=== PATIENT | male | born 1965 | race Caucasian/White ===

== ENCOUNTER 2020-06-02 08:46 | Outpatient (REF) | payer OTHER, SELFPAY ==
--- NOTE | ~2020-06-02 | US_ITS ---
EXAMINATION: US RETROPERITONEAL LIMITED (RENAL ONLY) CLINICAL INFORMATION: Calculus of kidney. COMPARISON: CT abdomen pelvis 11/11/2017. TECHNIQUE: Real-time imaging of the kidneys. FINDINGS: RIGHT KIDNEY: 10.4 x 4.69 x 5.97 cm (SAG x AP x TRV). The kidney is normal in size, contour, and echogenicity. Renal cortical thickness is normal. No focal parenchymal lesions or hydronephrosis. Right midpole renal stone measuring 0.3 cm. LEFT KIDNEY: 12.2 x 4.62 x 6.01 cm (SAG x AP x TRV). The kidney is normal in size, contour, and echogenicity. Renal cortical thickness is normal. No focal parenchymal lesions or hydronephrosis. Left midpole renal stone measuring 0.3 cm. US/US renal BI IMPRESSION: Bilateral nonobstructing 0.3 cm renal stones. No hydronephrosis.
== END 2020-06-02 08:47 | disposition home or self-care (01) ==
LOC: HO.HMGCX 08:46
PROVIDERS: PCP Internal Medicine; Visit Provider Internal Medicine
DX: R10.9 Unspecified abdominal pain (principal); N20.0 Calculus of kidney
CPT/HCPCS: 76775

== ENCOUNTER 2020-06-09 09:08 | Outpatient (REF) | payer OTHER, SELFPAY ==
[2020-06-09 09:51] LABS: MANUAL DIFF FLAG NO
[2020-06-09 09:54] LABS: Basophils Absolute Auto 0.1 X10*3/uL (0.0-0.2); Basophils Percent Auto 1.3 % (0-2); Eosinophils Absolute Auto 0.2 X10*3/uL (0.0-0.4); Eosinophils Percent Auto 4.6 % (0-4); Hemoglobin 15.5 g/dl (14.0-18.0); Imm Gran Abs Auto 0.01 X10*3/uL (0.00-0.03); Imm Gran Pct Auto 0.3 % (0.0-0.4); Lymphocytes Absolute Auto 1.1 X10*3/uL (1.2-4.9); Lymphocytes Percent Auto 28.3 % (20-40); Mean Corpuscular HGB Conc 33.7 g/dl (31.0-36.0); Mean Corpuscular Hemoglobin 30.9 pg (27.0-33.0); Mean Corpuscular Volume 91.6 fL (80-98); Mean Platelet Volume 9.5 fL (9.4-12.4); Monocytes Absolute Auto 0.4 X10*3/uL (0.1-1.2); Monocytes Percent Auto 9.4 % (2-11); Neutrophils Absolute Auto 2.2 X10*3/uL (2.0-8.3); Neutrophils Percent Auto 56.1 % (45-73); Platelet Count 271 X10*3/uL (160-400); Red Blood Count 5.02 X10*6/uL (4.60-5.80); Red Cell Distribution Width 11.9 % (11.0-16.0); White Blood Count 3.9 X10*3/uL (4.8-10.8)
[2020-06-09 10:11] LABS: Alanine Aminotransferase 15 U/L (0-40); Albumin Level 4.4 g/dL (3.5-5.0); Alkaline Phosphatase 45 U/L (39-117); Anion Gap 11 (12-20); Aspartate Amino Transferase 16 U/L (5-37); Bilirubin Total 0.7 mg/dL (0.0-1.0); Blood Urea Nitrogen 15 mg/dL (9-16); Calcium 9.2 mg/dL (8.4-10.2); Carbon Dioxide 29 mmol/L (22-29); Chloride 106 mmol/L (96-108); Cholesterol 169 mg/dL; Estimated Glomerular Filt Rate > 60; Glucose Random 107 mg/dL (60-115); HDL Cholesterol 45 mg/dL; LDL Cholesterol Calculated 110 mg/dl; Potassium 4.3 mmol/L (3.3-5.1); Sodium 142 mmol/L (135-145); Total Protein 6.6 g/dL (6.5-8.0); Triglycerides 74 mg/dL
[2020-06-09 10:34] LABS: Free T4 (Free Thyroxine) 0.93 ng/dL (0.71-1.85)
[2020-06-09 10:55] LABS: Folate 13.9 ng/mL (> or = 4.0); Vitamin B12 161 pg/mL (200-900)
== END 2020-06-09 09:09 | disposition home or self-care (01) ==
LOC: HO.LAB 09:08
PROVIDERS: PCP Internal Medicine; Visit Provider Internal Medicine
DX: E78.00 Pure hypercholesterolemia, unspecified (principal)
CPT/HCPCS: 36415; 80053; 80061; 82607; 82746; 84439; 84443; 85025

== ENCOUNTER 2021-08-07 07:06 | Outpatient (REF) | payer OTHER, SELFPAY | END 2021-08-07 07:07 | disposition home or self-care (01) | LOC: HO.HOSX 07:06 | PROVIDERS: Visit Provider Physician Assistant | DX: Z13.89 Encounter for screening for other disorder (principal) ==

== ENCOUNTER 2021-08-07 08:53 | Outpatient (REF) | payer OTHER, SELFPAY ==
--- NOTE | ~2021-08-07 | XR_ITS ---
EXAMINATION: XR BILATERAL HIPS WITH AP PELVIS CLINICAL INFORMATION: Pain COMPARISON: None TECHNIQUE: AP view of the pelvis and 2 views of each hip were obtained. FINDINGS: Bone alignment is normal. No fracture or dislocation is seen. There are small osteophytes along the superior lateral acetabuli bilaterally and adjacent soft tissue calcifications. The hip joint spaces are otherwise normal. Bones of the pelvis are normal. Soft tissues are otherwise normal. XR/XR hip BI w PEL1V IMPRESSION: Mild degenerative changes.
--- NOTE | ~2021-08-07 | US_ITS ---
EXAMINATION: US RETROPERITONEAL LIMITED (RENAL ONLY) CLINICAL INFORMATION: Calculus of kidney. COMPARISON: Renal ultrasound 06/02/2020. CT abdomen and pelvis 11/11/2017. TECHNIQUE: Real-time imaging of the kidneys. FINDINGS: RIGHT KIDNEY: 11.1 x 5.0 x 5.5 cm (SAG x AP x TRV). The kidney is normal in size, contour, and echogenicity. Renal cortical thickness is normal. There is a 2 mm stone in the midpole. No focal parenchymal lesions or hydronephrosis. LEFT KIDNEY: 11.1 x 4.8 x 5.3 cm (SAG x AP x TRV). The kidney is normal in size, contour, and echogenicity. Renal cortical thickness is normal. There are 2 stones measuring 2 mm in the mid and lower pole. No focal parenchymal lesions or hydronephrosis. US/US renal BI IMPRESSION: Small bilateral renal stones.
== END 2021-08-07 08:54 | disposition home or self-care (01) ==
LOC: HO.US 08:53
PROVIDERS: PCP Internal Medicine; Visit Provider Internal Medicine
DX: N20.0 Calculus of kidney (principal); M54.16 Radiculopathy, lumbar region
CPT/HCPCS: 73521; 76775; 99202

== ENCOUNTER → 2021-09-04 14:42 | Outpatient (BNVA) | payer OTHER, SELFPAY | PROVIDERS: PCP Internal Medicine; Visit Provider Nurse Practitioner Family | DX: M53.3 Sacrococcygeal disorders, not elsewhere classified (principal); M62.838 Other muscle spasm | CPT/HCPCS: 99202 ==

== ENCOUNTER → 2021-09-18 09:49 | Outpatient (BNVA) | payer OTHER, SELFPAY | PROVIDERS: PCP Internal Medicine; Visit Provider Nurse Practitioner | DX: K21.9 Gastro-esophageal reflux disease without esophagitis (principal); R13.19 Other dysphagia; K27.9 Peptic ulcer, site unspecified, unspecified as acute or chronic, without hemorrhage or perforation; D35.00 Benign neoplasm of unspecified adrenal gland; Z80.0 Family history of malignant neoplasm of digestive organs | CPT/HCPCS: 99202 ==

== ENCOUNTER 2021-10-09 06:49 | Outpatient (REF) | payer OTHER, SELFPAY ==
--- NOTE | ~2021-10-09 | CT_ITS ---
EXAMINATION: CT ABDOMEN WITHOUT AND WITH CONTRAST CLINICAL INFORMATION: Benign neoplasm of adrenal gland COMPARISON: Previous CT scans of the abdomen and pelvis April 2010 and October 2017 TECHNIQUE: Contiguous axial thin section helical images of the abdomen were performed before and after the administration of oral contrast and 85 mL of Omnipaque 350 intravenous contrast. The data set was reformatted in the coronal and sagittal planes and reviewed on an independent workstation. This CT examination was performed using dose optimization techniques as appropriate, variously including the following: *Automated exposure control *Adjustment of mA and/or kV according to patient size (this includes techniques or standardized protocols for targeted exams where dose is matched to indication/reason for exam; i.e. extremities or head) *Use of iterative reconstruction technique DLP: 5-6 mGy-cm FINDINGS: LUNG BASES: The lung bases are clear. LIVER, GALLBLADDER, AND BILIARY TREE: There are several small low-attenuation liver lesions. Largest lesion measures 7 mm in the medial segment of the left lobe of the liver and is suggestive of a simple cyst. Smaller lesions are difficult to accurately characterize. The gallbladder is normal. There is no intra or extrahepatic biliary duct dilatation. PANCREAS: Normal SPLEEN: Normal ADRENAL GLANDS AND KIDNEYS: There is a heterogeneous left adrenal lesion. This measures 2.8 x 3.3 cm and is slightly increased in size from previous exam from 2017 when this measured 2.5 cm and 2010 this measured 1.3 x 1.5 cm. Superiorly this has a approximately 1.5 x 2.5 cm component not compatible with a benign lipid rich adenoma. Hounsfield units precontrast measure 32. Immediate Hounsfield units postcontrast measure 37. Delayed Hounsfield units 15 minutes following IV contrast measure 54. Percentage relative washout and percentage enhancement washout is - negative 46% %. Inferiorly this has a larger component suggestive of a benign lipid rich adenoma. Hounsfield units precontrast measure -9. Immediate Hounsfield units postcontrast measure 52. Delayed Hounsfield units 15 minutes postcontrast measure 19. Percentage relative washout is 63%. Percentage enhancement washout is 54%. The right adrenal gland is normal. There are small bilateral renal stones. No hydronephrosis. BOWEL LOOPS: Visualized small and large bowel and the appendix are normal. LYMPH NODES: Normal. VASCULAR: There is evidence of atherosclerotic disease. No aneurysm. There is an umbilical hernia containing fat. BONES: There are mild degenerative changes of the spine. CT/CT abdomen wo/w con IMPRESSION: There is gradual interval increase in the left adrenal lesion now measuring 2.8 x 3.3 cm. This is heterogeneous in attenuation and enhancement. This has a superior component measuring 1.5 x 2.5 cm not compatible with a benign lipid rich adenoma and an inferior component that is compatible with a benign lipid rich adenoma. Continued imaging follow-up or biopsy of the superior component should be considered. Small bilateral renal stones. Small probable liver cysts. Fleischner guidelines were followed.
[2021-10-09 07:25] LABS: Blood Urea Nitrogen 16 mg/dL (9-16); Estimated Glomerular Filt Rate > 60
[2021-10-09 08:33] LABS: Cortisol Random 12.7 ug/dL
[2021-10-11 14:16] LABS: DHEA Sulfate 66 mcg/dL (32-279)
[2021-10-14 10:57] LABS: Metanephrine, Free 33 pg/mL (<=57); Normetanephrines, Free 90 pg/mL (<=148); Total Metanephrine, Free 123 pg/mL (<=205)
[2021-10-16 11:17] LABS: Renin 0.59 ng/mL/h (0.25-5.82)
== END 2021-10-09 06:50 | disposition home or self-care (01) ==
LOC: HO.CT 06:49
PROVIDERS: PCP Internal Medicine; Visit Provider Internal Medicine Endocrinology, Diabetes & Metabolism
DX: D35.00 Benign neoplasm of unspecified adrenal gland (principal)
CPT/HCPCS: 36415; 74170; 82088; 82533; 82565; 82627; 83835; 84244; 84520

== ENCOUNTER 2021-10-13 06:14 | Outpatient (REF) | payer OTHER, SELFPAY ==
--- NOTE | ~2021-10-13 | FL_ITS ---
EXAMINATION: XR FLUOROSCOPY WITH IMAGES CLINICAL INFORMATION: M53.3 - Sacrococcygeal disorders, not elsewhere classified COMPARISON: Radiographs pelvis and hips 08/07/2021 TECHNIQUE: Fluoroscopy performed by Dr. Kody Baugh. Fluoroscopy time: 0.5 minutes. Cumulative Dose: 5.18 mGy. DAP: 1.41 Gy-cm2. Images: 5. FINDINGS: Spinal needle overlies bilateral mid to lower SI joints. There is contrast in the periarticular soft tissues with probable early intra-articular contrast. No joint narrowing or erosive change. FL/FL guidance in treatment room IMPRESSION: Fluoroscopy for pain management procedure.
== END 2021-10-13 06:15 | disposition home or self-care (01) ==
LOC: HO.RADIR 06:14
PROVIDERS: Visit Provider Anesthesiology
DX: M53.3 Sacrococcygeal disorders, not elsewhere classified (principal); M62.838 Other muscle spasm
CPT/HCPCS: 27096; J3300

== ENCOUNTER 2021-10-16 11:37 | Outpatient (REF) | payer OTHER, SELFPAY ==
[2021-10-29 13:26] LABS: Saliva Cortisol <0.03 mcg/dL
== END 2021-10-16 11:38 | disposition home or self-care (01) ==
LOC: HO.LNP 11:37
PROVIDERS: Visit Provider Internal Medicine Endocrinology, Diabetes & Metabolism
DX: D35.00 Benign neoplasm of unspecified adrenal gland (principal)
CPT/HCPCS: 82530

== ENCOUNTER 2021-10-23 12:09 | Outpatient (REF) | payer OTHER, SELFPAY ==
[2021-11-01 18:51] LABS: Saliva Cortisol <0.03 mcg/dL
== END 2021-10-23 12:10 | disposition home or self-care (01) ==
LOC: HO.LNP 12:09
PROVIDERS: Visit Provider Internal Medicine Endocrinology, Diabetes & Metabolism
DX: D35.00 Benign neoplasm of unspecified adrenal gland (principal)
CPT/HCPCS: 82530

== ENCOUNTER → 2021-11-06 08:14 | Outpatient (BNVA) | payer OTHER, SELFPAY | PROVIDERS: PCP Internal Medicine; Visit Provider Nurse Practitioner Family | DX: M53.3 Sacrococcygeal disorders, not elsewhere classified (principal); M62.838 Other muscle spasm; M47.26 Other spondylosis with radiculopathy, lumbar region; M25.551 Pain in right hip | CPT/HCPCS: 99212 ==

== ENCOUNTER 2021-11-27 12:44 | Outpatient (REF) | payer OTHER, SELFPAY ==
--- NOTE | ~2021-11-27 | MR_ITS ---
EXAMINATION: MR LUMBAR SPINE WITHOUT CONTRAST CLINICAL INFORMATION: Severe lower back pain radiating into the hips COMPARISON: None TECHNIQUE: MRI of the lumbar spine was obtained using routine sequences without contrast. FINDINGS: Normal anatomic alignment. No suspicious marrow signal or focal osseous lesion. No marrow edema. The vertebral body heights are maintained. Mild multilevel degenerative disc desiccation and height loss with relative sparing of L5-S1 disc. The conus medullaris terminates at the level of L1-L2. The distal spinal cord is normal in appearance. The cauda equina nerve roots appear normal. No significant abnormalities of the paraspinal musculature.. Limited evaluation of the intra-abdominal structures without significant abnormalities. The abdominal aorta is of normal contour and caliber. SPINAL LEVELS: L1-L2: No significant spinal canal or neuroforaminal narrowing. Minimal disc bulge with small annular fissure and mild facet arthropathy. L2-L3: Trace disc bulge with central protrusion and annular fissure. Mild facet arthropathy. No significant central spinal canal stenosis. There is bilateral subarticular encroachment. Mild bilateral neural foraminal narrowing. L3-L4: Right eccentric disc bulge and mild facet arthropathy. Mild subarticular zone encroachment. No significant spinal canal stenosis. Mild to moderate right neural foraminal narrowing L4-L5: Broad-based disc bulge and moderate facet arthropathy with small joint fluid. Mild subarticular zone encroachment. No significant spinal canal stenosis. Mild right and moderate left neural foraminal narrowing. L5-S1: No significant spinal canal or neuroforaminal narrowing. MR/MR lumbar spine wo con IMPRESSION: Mild multilevel lumbar spondylosis as detailed above. There is no significant spinal canal stenosis or high-grade neural foraminal narrowing.
== END 2021-11-27 12:45 | disposition home or self-care (01) ==
LOC: HO.MRI 12:44
PROVIDERS: Visit Provider Nurse Practitioner Family
DX: M47.816 Spondylosis without myelopathy or radiculopathy, lumbar region (principal); M54.16 Radiculopathy, lumbar region; M62.838 Other muscle spasm; D35.00 Benign neoplasm of unspecified adrenal gland
CPT/HCPCS: 72148; 99212

== ENCOUNTER → 2021-12-04 15:49 | Outpatient (BNVA) | payer OTHER, SELFPAY | PROVIDERS: PCP Internal Medicine; Visit Provider Nurse Practitioner Family | DX: M53.3 Sacrococcygeal disorders, not elsewhere classified (principal); M62.838 Other muscle spasm; M54.16 Radiculopathy, lumbar region; M47.816 Spondylosis without myelopathy or radiculopathy, lumbar region; M25.551 Pain in right hip | CPT/HCPCS: 99212 ==

== ENCOUNTER 2022-01-05 06:25 | Outpatient (REF) | payer OTHER, SELFPAY ==
--- NOTE | ~2022-01-05 | FL_ITS ---
EXAMINATION: XR FLUOROSCOPY WITH IMAGES CLINICAL INFORMATION: M25.551 - Pain in right hip COMPARISON: Radiographs right hip 08/07/2021 TECHNIQUE: Fluoroscopy performed by Dr. Kody Baugh. Fluoroscopy time: 0.4 minutes. Cumulative Dose: 8.77 mGy. DAP: 2.39 Gy-cm2. Images: 1. FINDINGS: Spinal needle is present with tip at the superior lateral hip joint. There is intracapsular contrast. No visible vascular communication. FL/FL guidance in treatment room IMPRESSION: Fluoroscopy for pain management procedure.
== END 2022-01-05 06:26 | disposition home or self-care (01) ==
LOC: CF 06:25
PROVIDERS: Visit Provider Anesthesiology
DX: M25.551 Pain in right hip (principal)
CPT/HCPCS: 20610; J3300

== ENCOUNTER 2022-01-29 12:56 | Outpatient (REF) | payer OTHER, SELFPAY | END 2022-01-29 12:57 | disposition home or self-care (01) | LOC: HO.LAB 12:56 | PROVIDERS: PCP Internal Medicine; Visit Provider Internal Medicine | DX: Z13.89 Encounter for screening for other disorder (principal) ==

== ENCOUNTER 2022-04-07 10:15 | Outpatient (REF) | payer OTHER, SELFPAY ==
[2022-04-07 10:27] LABS: MANUAL DIFF FLAG NO
[2022-04-07 12:06] LABS: Basophils Percent Auto 0.9 % (0-2); Eosinophils Absolute Auto 0.2 X10*3/uL (0.0-0.4); Eosinophils Percent Auto 4.4 % (0-4); Hematocrit 45.3 % (42.0-52.0); Hemoglobin 15.1 g/dl (14.0-18.0); Lymphocytes Absolute Auto 0.9 X10*3/uL (1.2-4.9); Lymphocytes Percent Auto 27.3 % (20-40); Mean Corpuscular HGB Conc 33.3 g/dl (31.0-36.0); Mean Corpuscular Hemoglobin 31.3 pg (27.0-33.0); Mean Platelet Volume 9.5 fL (9.4-12.4); Monocytes Absolute Auto 0.3 X10*3/uL (0.1-1.2); Monocytes Percent Auto 9.7 % (2-11); Neutrophils Percent Auto 57.7 % (45-73); Platelet Count 300 X10*3/uL (160-400); Red Blood Count 4.82 X10*6/uL (4.60-5.80); White Blood Count 3.4 X10*3/uL (4.8-10.8)
[2022-04-07 12:39] LABS: Estimated Average Glucose 91 mg/dL; Hemoglobin A1c % 4.8 %
[2022-04-07 13:08] LABS: Alanine Aminotransferase 15 U/L (0-40); Albumin Level 4.5 g/dL (3.5-5.0); Alkaline Phosphatase 46 U/L (39-117); Anion Gap 17 (12-20); Aspartate Amino Transferase 18 U/L (5-37); Bilirubin Total 0.7 mg/dL (0.0-1.0); Blood Urea Nitrogen 17 mg/dL (9-16); Calcium 9.4 mg/dL (8.4-10.2); Carbon Dioxide 25 mmol/L (22-29); Chloride 103 mmol/L (96-108); Cholesterol 162 mg/dL; Estimated Glomerular Filt Rate > 60; Glucose Random 89 mg/dL (60-115); HDL Cholesterol 50 mg/dL; LDL Cholesterol Calculated 95 mg/dl; Potassium 4.7 mmol/L (3.3-5.1); Sodium 140 mmol/L (135-145); Total Protein 6.8 g/dL (6.5-8.0); Triglycerides 88 mg/dL
[2022-04-07 13:48] LABS: Folate 6.2 ng/mL (> or = 4.0); Free T4 (Free Thyroxine) 0.88 ng/dL (0.71-1.85); Prostate Specific Antigen Scr 1.02 ng/mL (<0.05-4.0); Thyroid Stimulating Hormone 0.42 uIU/mL (0.32-4.0); Vitamin B12 865 pg/mL (200-900)
[2022-04-12 13:52] LABS: Parietal Cell Antibody <=20.0 Unit (<=20.0)
== END 2022-04-07 10:16 | disposition home or self-care (01) ==
LOC: HO.LAB 10:15
PROVIDERS: Absent Provider Internal Medicine Endocrinology, Diabetes & Metabolism; PCP Internal Medicine; Visit Provider Internal Medicine
DX: Z12.5 Encounter for screening for malignant neoplasm of prostate (principal); R73.01 Impaired fasting glucose; E78.00 Pure hypercholesterolemia, unspecified; E53.8 Deficiency of other specified B group vitamins
CPT/HCPCS: 36415; 80053; 80061; 82607; 82746; 83036; 83516; 84153; 84439; 84443; 85025

== ENCOUNTER → 2022-04-09 15:15 | Outpatient (BNVA) | payer OTHER, SELFPAY | PROVIDERS: PCP Internal Medicine; Visit Provider Internal Medicine Endocrinology, Diabetes & Metabolism | DX: D35.00 Benign neoplasm of unspecified adrenal gland (principal); E89.6 Postprocedural adrenocortical (-medullary) hypofunction | CPT/HCPCS: 99212 ==

== ENCOUNTER → 2022-06-03 12:54 | Outpatient (BNVA) | payer OTHER, SELFPAY | PROVIDERS: PCP Internal Medicine; Visit Provider Psychiatry & Neurology Psychiatry | DX: F33.2 Major depressive disorder, recurrent severe without psychotic features (principal); F41.1 Generalized anxiety disorder | CPT/HCPCS: 99202 ==

== ENCOUNTER 2022-06-04 09:24 | Outpatient (REF) | payer OTHER, SELFPAY ==
--- NOTE | 2022-06-04 09:36 | ECG_ITS ---
Test Reason : F33.9 Blood Pressure : / mmHG Vent. Rate : 062 BPM Atrial Rate : 062 BPM P-R Int : 142 ms QRS Dur : 082 ms QT Int : 394 ms P-R-T Axes : 038 012 003 degrees QTc Int : 399 ms Normal sinus rhythm Normal ECG When compared with ECG of 16-APR-2013 23:32, QT has shortened Referred By: Norris Nair Electronically Signed By:Alex Hsu
[2022-06-04 09:37] LABS: MANUAL DIFF FLAG NO
[2022-06-04 09:43] LABS: Basophils Absolute Auto 0.1 X10*3/uL (0.0-0.2); Basophils Percent Auto 1.6 % (0-2); Eosinophils Absolute Auto 0.2 X10*3/uL (0.0-0.4); Eosinophils Percent Auto 5.1 % (0-4); Hemoglobin 15.4 g/dl (14.0-18.0); Lymphocytes Percent Auto 31.1 % (20-40); Mean Corpuscular HGB Conc 34.2 g/dl (31.0-36.0); Mean Corpuscular Hemoglobin 32.1 pg (27.0-33.0); Mean Corpuscular Volume 93.8 fL (80.0-98.0); Mean Platelet Volume 9.3 fL (9.4-12.4); Monocytes Absolute Auto 0.3 X10*3/uL (0.1-1.2); Monocytes Percent Auto 10.5 % (2-11); Neutrophils Absolute Auto 1.6 x10*3/uL (2.0-8.3); Neutrophils Percent Auto 51.7 % (45-73); Platelet Count 249 X10*3/uL (160-400); Red Cell Distribution Width 11.9 % (11.0-16.0); White Blood Count 3.2 X10*3/uL (4.8-10.8)
[2022-06-04 10:15] LABS: Alanine Aminotransferase 12 U/L (0-40); Albumin Level 4.4 g/dL (3.5-5.0); Alkaline Phosphatase 39 U/L (39-117); Anion Gap 10 (12-20); Aspartate Amino Transferase 13 U/L (5-37); Bilirubin Total 0.6 mg/dL (0.0-1.0); Blood Urea Nitrogen 19 mg/dL (9-16); Calcium 9.3 mg/dL (8.4-10.2); Carbon Dioxide 29 mmol/L (22-29); Chloride 108 mmol/L (96-108); Estimated Glomerular Filt Rate > 60; Glucose Random 115 mg/dL (60-115); Potassium 4.5 mmol/L (3.3-5.1); Sodium 142 mmol/L (135-145); Total Protein 6.5 g/dL (6.5-8.0)
[2022-06-04 10:25] LABS: Cortisol Random 11.2 ug/dL
[2022-06-04 10:38] LABS: Folate 7.7 ng/mL (> or = 4.0); Vitamin B12 862 pg/mL (200-900)
== END 2022-06-04 09:25 | disposition home or self-care (01) ==
LOC: HO.LAB 09:24
PROVIDERS: Internal Medicine Endocrinology, Diabetes & Metabolism; Visit Provider Psychiatry & Neurology Psychiatry
DX: F33.9 Major depressive disorder, recurrent, unspecified (principal); D35.00 Benign neoplasm of unspecified adrenal gland
CPT/HCPCS: 36415; 80053; 82533; 82607; 82746; 84443; 85025; 93005

== ENCOUNTER 2022-08-17 15:45 | Inpatient (IN) | payer OTHER, SELFPAY ==
[2022-08-17 15:47] VITALS: BP 166/105; PULSE 84; RESP 18; TEMP 36.7; O2SAT 98; BMI 23.3
--- NOTE | 2022-08-17 15:49 | ED.GENADULT ---
HPI - General Adult General Chief complaint: Psychiatric Symptoms Stated complaint: SI Time Seen by Provider: 08/17/22 16:06 Source: patient Mode of arrival: ambulatory Limitations: no limitations History of Present Illness HPI narrative: Patient comes to the emergency room complaining of severe anxiety and suicidal thoughts. Patient states that in the past he has had treatment with ECT and has worked very well for him. However, patient states that although the depression was under control, his anxiety was never addressed. Patient states that sometimes he feels so anxious that he does consider suicide. 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 Patient feels very anxious, states that he does take Ativan at home but does not work well. Patient requesting IM medications. Patient states that he is scheduled for ECT in a few weeks. However, today was a particular bad they and had suicidal thoughts. Patient states he has 5 suicide attempts in the past. Related Data Home Medications Medication Instructions Recorded Confirmed lorazepam 1 mg tablet 1 - 2 mg PO BEDTIME PRN Anxiety 08/17/22 08/17/22 paroxetine HCl 10 mg tablet 10 mg PO DAILY 08/17/22 08/17/22 Allergies Allergy/AdvReac Type Severity Reaction Status Date / Time hydrocodone [Vicodin] Allergy Unknown nausea Verified 08/17/22 15:50 latex [LATEX] Allergy Unknown RASH Verified 08/17/22 15:50 Review of Systems Review of Systems: Constitutional : No Weight loss, No Fever, No Chills, No Night Sweats, No Fatigue, No Malaise ENT/Mouth : No Hearing loss, No Ear Pain, No Nasal Congestion, No Sinus Pain, No Hoarseness, No sore throat, No Rhinorrhea, No Swallowing Difficulty Eyes: No Eye Pain, No Swelling, No Redness, No Foreign Body, No Discharge, No Vision Changes Cardiovascular : No Chest Pain, No SOB, No Dyspnea on Exertion, No Orthopnea, No Edema, No Palpitations Respiratory : No Cough, No Sputum, No Wheezing, No Smoke Exposure, No Dyspnea Gastrointestinal : No Nausea, No Vomiting, No Diarrhea, No Constipation, No abdominal Pain, No Hematochezia, No Melena Genitourinary : no irregular bleeding, No Dysuria, No Urinary Frequency, No Hematuria, No Urinary Incontinence, No Urgency, No Flank Pain, No Urinary Flow Changes, No Hesitancy Musculoskeletal : No joint pain, No Myalgias, No Joint Swelling Skin : No Skin Lesions, No rash Neuro : No Weakness, No Numbness, No Paresthesias, No Loss of Consciousness, No Dizziness, No Headache Psych : Complaining of severe anxiety and depression, suicidal thoughts, no HI Heme/Lymph: No Bruising, No Bleeding,No Lymphadenopathy Endocrine : No Polyuria, No Polydipsia, No Temperature Intolerance PMFSH Past Medical History Medical History Adrenal adenoma Annual physical exam Anxiety and depression Chronic left shoulder pain 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 Depression, major, severe recurrence Dermatitis Epistaxis Erectile dysfunction Flank pain Generalized anxiety disorder GERD (gastroesophageal reflux disease) Hypercholesterolemia Insomnia Low Back Pain Low Back Pain Peptic ulcer disease Polysubstance abuse Renal calculus Restless leg syndrome Right-sided back pain Upper back pain Vitamin D deficiency Surgical History (Updated 04/09/22 @ 15:22 by PRASHANTH Jeff) H/O arthroscopic knee surgery H/O oral surgery History of kidney surgery History of nasal surgery History of tonsillectomy Family History Family History Father Myocardial infarct Colon cancer Mother Lung cancer Depression Brother Substance abuse Social History Social History (Updated 04/09/22 @ 15:25 by PRASHANTH Jeff) Household Members: None Housing: House Alcohol intake: never Patient Tobacco Use Status: Never used Tobacco e-Cigarette/Vaping Use: Never Used Second Hand Smoke Exposure: No Advance Directives: No Advance Directives Information Provided: No Healthcare Proxy: No Guardian: No service: No Current occupational status: employed Current occupation: [employer] Cognitive needs: No Hearing needs: No Vision needs: Yes (glasses) Physical Exam ED Vital Signs: Vital Signs - 24 hr 08/17/22 15:47 08/17/22 22:42 08/18/22 05:47 Temperature 98.1 F 98 F 97.6 F Pulse Rate 84 75 75 Respiratory Rate 18 16 16 Blood Pressure 166/105 H 127/86 142/82 H Pulse Oximetry 98 91 L 98 Oxygen Delivery Method Room Air Room Air Room Air BMI result Body Mass Index 23.3 Const Other: Appearance: Alert. Oriented X3. No acute distress. Eyes: Pupils equal, round and reactive to light. ENT: Pharynx normal. Neck: Normal inspection. Neck supple. No lymph nodes noted. No crepitus CVS: Normal heart rate and rhythm. Pulses normal. Normal S1 and S2 Respiratory: No respiratory distress. Breath sounds normal. No Wheezing. No rales Abdomen: Soft and nontender. No rigidity. No distention. Skin: Skin warm and dry. Normal skin color. Normal skin turgor. Extremities: No lower extremity edema. No Lacerations. No Rash Neuro: Oriented X 3. No motor deficit. No sensory deficit. Moving all extremities. No slurred speech. CN 2 through 12 grossly intact Psych: calm, cooperative, teary Course Course Course Narrative: 57-year-old male presents for evaluation of suicidal ideation. He reports he is due to have ECT for depression which he has had in the past with good effect. Plan for labs including drug screen, alcohol and care team evaluate Reevaluation(s) Reevaluation #1: Patient is pending care team evaluation. Patient has suicidal ideation. He apparently has a history of opioid abuse. There are no active issues at this time. Will review patient's medications and medication reconciliation order any appropriate medicines at this time. Time: 08:09 Reevaluation #2: Patient will be admitted to inpatient psychiatry. Time: 09:32 Medications Administered Discontinued Medications Generic Name Dose Route Start Last Admin Trade Name Freq PRN Reason Stop Dose Admin Diphenhydramine HCl 50 mg 08/17/22 16:59 08/17/22 18:30 Diphenhydramine Hcl 50 Mg/Ml Vial IM 08/17/22 17:00 50 mg ONCE ONE Administration Haloperidol Lactate 2.5 mg 08/17/22 16:59 08/17/22 18:30 Haloperidol Lactate 5 Mg/Ml Vial IM 08/17/22 17:00 2.5 mg ONCE ONE Administration Lorazepam 2 mg 08/17/22 16:59 08/17/22 18:30 Lorazepam 2 Mg/Ml Vial IM 08/17/22 17:00 2 mg STAT STA Administration Lorazepam 2 mg 08/18/22 06:09 08/18/22 06:19 Lorazepam 1 Mg Tablet PO 08/18/22 06:10 2 mg ONCE ONE Administration Medical Decision Making Medical Decision Making [facility] Narrative: -patient requested IM medication, patient given IM Benadryl, Haldol, Ativan. Not restrained. Patient is calm, cooperative, very anxious, coherent. -care team consult pending -patient's labs pending -patient is on a Section 12 -physician observation started at 17:10 -23:00, patient was evaluated by the care team, patient needs inpatient treatment. Lab Data 08/17/22 17:28 08/17/22 17: Labs: Lab Results 08/17/22 08/17/22 08/17/22 Range/Units 17:28 17: 17: WBC 4.8 (4.8-10.8) X10*3/uL RBC 4.91 (4.60-5.80) X10*6/uL Hgb 15.4 (14.0-18.0) g/dl Hct 45.5 (42.0-52.0) % MCV 92.7 (80.0-98.0) fL MCH 31.4 (27.0-33.0) pg MCHC 33.8 (31.0-36.0) g/dl RDW 11.7 (11.0-16.0) % Plt Count 272 (160-400) X10*3/uL MPV 9.2 L (9.4-12.4) fL Immature Gran % (Auto) 0.2 (0.0-0.4) % Neut % (Auto) 70.9 (45-73) % Lymph % (Auto) 18.1 L (20-40) % Meagher % (Auto) 7.7 (2-11) % Eos % (Auto) 2.3 (0-4) % Baso % (Auto) 0.8 (0-2) % Lymph # (Auto) 0.9 L (1.2-4.9) X10*3/uL Meagher # (Auto) 0.4 (0.1-1.2) X10*3/uL Eos # (Auto) 0.1 (0.0-0.4) X10*3/uL Baso # (Auto) 0.0 (0.0-0.2) X10*3/uL Abs Immat Gran (auto) 0.01 (0.00-0.03) X10*3/uL Absolute Neuts (auto) 3.4 (2.0-8.3) x10*3/uL Absolute Nucleated RBC 0.000 (0.0-0.012) X10*3/uL Nucleated RBC % (auto) 0.0 (0.0-0.2) /100WBC Sodium 142 (135-145) mmol/L Potassium 4.3 (3.3-5.1) mmol/L Chloride 105 (96-108) mmol/L Carbon Dioxide 26 (22-29) mmol/L Anion Gap 15 (12-20) BUN 14 (9-16) mg/dL Creatinine 0.83 (0.5-1.4) mg/dL Estim Creat Clear Calc 83.3 Estimated GFR > 60 Random Glucose 92 (60-115) mg/dL Calcium 10.0 D (8.4-10.2) mg/dL Total Bilirubin 0.9 (0.0-1.0) mg/dL AST 17 (5-37) U/L ALT 14 (0-40) U/L Alkaline Phosphatase 41 (39-117) U/L Total Protein 7.3 (6.5-8.0) g/dL Albumin 4.5 (3.5-5.0) g/dL Salicylates < 5.0 L (15-30) mg/dL Urine Opiates Screen (Not Detect) Urine Fentanyl Screen (Not Detect) Acetaminophen < 17 (<30) mcg/mL Ur Barbiturates Screen (Not Detect) Ur Phencyclidine Scrn (Not Detect) Ur Amphetamines Screen (Not Detect) U Benzodiazepines Scrn (Not Detect) Urine Cocaine Screen (Not Detect) U Marijuana (THC) Screen (Not Detect) Ethyl Alcohol < 10 mg/dL COVID-19 (RON) (Negative) COVID-19 Clin Com 08/17/22 08/17/22 Range/Units 18:05 22:58 WBC (4.8-10.8) X10*3/uL RBC (4.60-5.80) X10*6/uL Hgb (14.0-18.0) g/dl Hct (42.0-52.0) % MCV (80.0-98.0) fL MCH (27.0-33.0) pg MCHC (31.0-36.0) g/dl RDW (11.0-16.0) % Plt Count (160-400) X10*3/uL MPV (9.4-12.4) fL Immature Gran % (Auto) (0.0-0.4) % Neut % (Auto) (45-73) % Lymph % (Auto) (20-40) % Meagher % (Auto) (2-11) % Eos % (Auto) (0-4) % Baso % (Auto) (0-2) % Lymph # (Auto) (1.2-4.9) X10*3/uL Meagher # (Auto) (0.1-1.2) X10*3/uL Eos # (Auto) (0.0-0.4) X10*3/uL Baso # (Auto) (0.0-0.2) X10*3/uL Abs Immat Gran (auto) (0.00-0.03) X10*3/uL Absolute Neuts (auto) (2.0-8.3) x10*3/uL Absolute Nucleated RBC (0.0-0.012) X10*3/uL Nucleated RBC % (auto) (0.0-0.2) /100WBC Sodium (135-145) mmol/L Potassium (3.3-5.1) mmol/L Chloride (96-108) mmol/L Carbon Dioxide (22-29) mmol/L Anion Gap (12-20) BUN (9-16) mg/dL Creatinine (0.5-1.4) mg/dL Estim Creat Clear Calc Estimated GFR Random Glucose (60-115) mg/dL Calcium (8.4-10.2) mg/dL Total Bilirubin (0.0-1.0) mg/dL AST (5-37) U/L ALT (0-40) U/L Alkaline Phosphatase (39-117) U/L Total Protein (6.5-8.0) g/dL Albumin (3.5-5.0) g/dL Salicylates (15-30) mg/dL Urine Opiates Screen POSITIVE H (Not Detect) Urine Fentanyl Screen Not Detected (Not Detect) Acetaminophen (<30) mcg/mL Ur Barbiturates Screen Not Detected (Not Detect) Ur Phencyclidine Scrn Not Detected (Not Detect) Ur Amphetamines Screen Not Detected (Not Detect) U Benzodiazepines Scrn Not Detected (Not Detect) Urine Cocaine Screen Not Detected (Not Detect) U Marijuana (THC) Screen Not Detected (Not Detect) Ethyl Alcohol mg/dL COVID-19 (RON) Negative (Negative) COVID-19 Clin Com See Note Discharge Plan Discharge Clinical Impression: Suicidal ideation, Severe anxiety Patient Disposition: Still a Patient Prescriptions: No Action paroxetine HCl 10 mg tablet 10 mg PO DAILY lorazepam 1 mg tablet 1 - 2 mg PO BEDTIME PRN (Reason: Anxiety) Interventions: [place]-Suicide Risk Severity Scale Last Done: 08/18/22 06:38
[2022-08-17 17:34] LABS: MANUAL DIFF FLAG NO
[2022-08-17 17:35] LABS: Basophils Percent Auto 0.8 % (0-2); Eosinophils Absolute Auto 0.1 X10*3/uL (0.0-0.4); Eosinophils Percent Auto 2.3 % (0-4); Hematocrit 45.5 % (42.0-52.0); Hemoglobin 15.4 g/dl (14.0-18.0); Imm Gran Abs Auto 0.01 X10*3/uL (0.00-0.03); Imm Gran Pct Auto 0.2 % (0.0-0.4); Lymphocytes Absolute Auto 0.9 X10*3/uL (1.2-4.9); Lymphocytes Percent Auto 18.1 % (20-40); Mean Corpuscular HGB Conc 33.8 g/dl (31.0-36.0); Mean Corpuscular Hemoglobin 31.4 pg (27.0-33.0); Mean Corpuscular Volume 92.7 fL (80.0-98.0); Mean Platelet Volume 9.2 fL (9.4-12.4); Monocytes Absolute Auto 0.4 X10*3/uL (0.1-1.2); Monocytes Percent Auto 7.7 % (2-11); Neutrophils Absolute Auto 3.4 x10*3/uL (2.0-8.3); Neutrophils Percent Auto 70.9 % (45-73); Platelet Count 272 X10*3/uL (160-400); Red Blood Count 4.91 X10*6/uL (4.60-5.80); Red Cell Distribution Width 11.7 % (11.0-16.0); White Blood Count 4.8 X10*3/uL (4.8-10.8)
[2022-08-17 17:52] LABS: Alanine Aminotransferase 14 U/L (0-40); Albumin Level 4.5 g/dL (3.5-5.0); Alkaline Phosphatase 41 U/L (39-117); Anion Gap 15 (12-20); Aspartate Amino Transferase 17 U/L (5-37); Bilirubin Total 0.9 mg/dL (0.0-1.0); Blood Urea Nitrogen 14 mg/dL (9-16); Carbon Dioxide 26 mmol/L (22-29); Chloride 105 mmol/L (96-108); Creatinine Clr Calc Pharmacy 83.3; Estimated Glomerular Filt Rate > 60; Glucose Random 92 mg/dL (60-115); Potassium 4.3 mmol/L (3.3-5.1); Sodium 142 mmol/L (135-145); Total Protein 7.3 g/dL (6.5-8.0)
[2022-08-17 17:54] LABS: Acetaminophen LAB < 17 mcg/mL (<30); Ethanol < 10 mg/dL; Salicylate < 5.0 mg/dL (15-30)
--- NOTE | 2022-08-17 18:04 | PC.NURSE ---
Benadryl, Haldol, & Ativan given IM for anxiety. Non-restraint. Pt is cooperative, but having racing thoughts with +SI by cutting himself. Hx of ECT & similar admissions. Ordered by Dr. Avila.
[2022-08-17 18:21] LABS: Amphetamine Screen Urine Not Detected (Not Detect); Barbiturates, Urine Not Detected (Not Detect); Benzodiazepines Screen Urine Not Detected (Not Detect); Cannabinoid Screen Urine Not Detected (Not Detect); Cocaine Screen Urine Not Detected (Not Detect); Fentanyl, urine Not Detected (Not Detect); Opiate Screen Urine POSITIVE (Not Detect); Phencyclidine Screen Urine Not Detected (Not Detect)
[2022-08-17] MEDS: diphenhydrAMINE HCL 50 MG/ML VIAL IM (18:30)
[2022-08-17] MEDS: LORazepam 2 MG/ML VIAL IM (18:30)
[2022-08-17] MEDS: Haloperidol Lactate 5 MG/ML VIAL 2.5 MG IM (18:30)
[2022-08-17 22:42] VITALS: BP 127/86; PULSE 75; RESP 16; TEMP 36.6; O2SAT 91
[2022-08-17 23:37] LABS: COVID-19 Test Negative (Negative); IDNOW Serial# 6674DD1D
--- NOTE | 2022-08-18 | ECG_ITS ---
Test Reason : prolonged qt Blood Pressure : / mmHG Vent. Rate : 075 BPM Atrial Rate : 075 BPM P-R Int : 132 ms QRS Dur : 090 ms QT Int : 366 ms P-R-T Axes : 049 -02 009 degrees QTc Int : 408 ms Normal sinus rhythm Normal ECG When compared with ECG of 04-JUN-2022 09:46, No significant change was found Referred By: Pramod Alves Electronically Signed By:RAJESH JARVIS
[2022-08-18 05:47] VITALS: BP 142/82; PULSE 75; RESP 16; TEMP 36.4; O2SAT 98
--- NOTE | 2022-08-18 06:12 | PC.NURSE ---
Patient slept through the night, no distress observed/reported, no behavior concerns at this time, disposition per care team is Section 12 Inpatient Bed Search, labs completed/resulted, med rec completed/pending provider's approval, will continue to monitor
[2022-08-18] MEDS: LORazepam 1 MG TABLET 2 MG PO (06:19)
--- NOTE | 2022-08-18 09:49 | PHA.MEDREC ---
Pharmacy Consult ? Medication Reconciliation Pharmacy has reviewed the medication reconciliation done by RN.
[2022-08-18] MEDS: PARoxetine HCL 10 MG TABLET PO (09:50)
[2022-08-18 12:47] VITALS: BP 141/99; PULSE 86; RESP 18; TEMP 36.5; O2SAT 97
[2022-08-18] MEDS: hydrOXYzine HCL 25 MG TABLET PO (13:18)
--- NOTE | 2022-08-18 14:08 | PC.ADMIT ---
August was admitted to [facility] at 1200 from the Pod on a CV for treatment of MDD and Panic disorder.? Precipitants of admission include increased thoughts of suicide with a plan. 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 Patient reported that his anxiety and panic attacks have become too much for him to handle and stated ?it would be easier to be than to have to live like this?.? August is Alert and oriented x4. Mood is depressed, with congruent affect. Patient was tearful during admission, and appeared to have a non stop bouncing right leg. Endorsed that he has racing thoughts and ?my brain never settles down?. Thought process is linear and clear. Does not have any Paranoia, or appear to be responding to internal stimuli. Endorsed high anxiety and depression but said depression is manageable, the anxiety is consuming his life.? Denies AH/VH/HI. When asked about current thoughts of suicide while on the unit patient replied ?I always have these thoughts, but no plan in here. There isn?t a way?. Patient reported that he was unsure if he would be able to seek staff out if having these feelings. Patient was placed on 5 minute checks after discussion with the provider.? Tox screen positive for opiates. Patient reported that he bought a vicodin pill a few days ago to try and relax. Pt reported that he used to struggle with drug and opiate addiction and does not want to be like that again.? Appetite is poor and sleep is poor.? Patient reported that he has had [address] treatments [address] from [address] Nair in recent months,
--- NOTE | 2022-08-18 15:10 | HO.PSYADMNOT ---
HPI Date of Service: 08/18/22 Chief Complaint: depression Sources of Information: patient interviewed, chart reviewed and crisis/core team assessment reviewed HPI Subjective Notes: Olguin Warning and Conditional Voluntary Narrative: Patient is a 57 year old male with hx of MDD, SAVANAH and multiple suicide attempts who self presented to [facility] ER d/t suicidal ideation with thoughts of cutting his wrist with a knife secondary to increased anxiety and panic attacks. Patient presents calm and cooperative during admission assessment. Patent stated, I came to the hospital because I just started panicking at work for no reason and then started having thoughts about cutting myself . He reports having chronic depression and suicidal thoughts . Patient stated, I have suicidal plans but I want ECT to get rid of those plans because it helped me in the past . Patient reports he plans on receiving ECT treatment with Dr. Nair in August; last ECT treatment was in May 2022. Patient denies any substance use, however, took Vicodine a few days ago to help him calm down. Patient reports difficulty sleeping at night and racing thoughts during the day. Patient stated he needs to leave on Tuesday because I have a flight on Tuesday to [place] to play in a [email or web address] and I can't let my team down . Past Psychiatric History: Patient has history of 5 past suicide attempts. last attempt was 5 years ago. Hx of positive response to ECT was unable to do maintenance treatment. Hx of trial of TMS without benefit. 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 Depression, major, severe recurrence Dermatitis Epistaxis Erectile dysfunction Flank pain Generalized anxiety disorder GERD (gastroesophageal reflux disease) Hypercholesterolemia Insomnia Low Back Pain Low Back Pain Peptic ulcer disease Polysubstance abuse Renal calculus Restless leg syndrome Right-sided back pain Upper back pain Vitamin D deficiency Surgical History (Updated 04/09/22 @ 15:22 by PRASHANTH Jeff) H/O arthroscopic knee surgery H/O oral surgery History of kidney surgery History of nasal surgery History of tonsillectomy Family History: unknown Social History: Patient currently lives alone 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 Patient is has 3 sons recently reconnected the son and [place] he is he in his ex- used extensive crack cocaine patient also enjoys bowling up to a semiprofessional level and has been in a number of tournaments Substance History: hx of polysubstance use Trauma History: Unknown Diagnostics Vital Signs (24Hr): Vital Signs - 24 hr 08/17/22 15:47 08/17/22 22:42 08/18/22 05:47 Temperature 98.1 F 98 F 97.6 F Pulse Rate 84 75 75 Respiratory Rate 18 16 16 Blood Pressure 166/105 H 127/86 142/82 H Pulse Oximetry 98 91 L 98 Oxygen Delivery Method Room Air Room Air Room Air 08/18/22 12:47 Temperature 97.7 F Pulse Rate 86 Respiratory Rate 18 Blood Pressure 141/99 H Pulse Oximetry 97 Oxygen Delivery Method Room Air BMI result Body Mass Index 23.3 Labs 08/17/22 17:28 08/17/22 17:28 Labs: Laboratory Results - last 48 hr 08/17/22 08/17/22 08/17/22 17:28 17:28 17:28 WBC 4.8 RBC 4.91 Hgb 15.4 Hct 45.5 MCV 92.7 MCH 31.4 MCHC 33.8 RDW 11.7 Plt Count 272 MPV 9.2 L Immature Gran % (Auto) 0.2 Neut % (Auto) 70.9 Lymph % (Auto) 18.[address] % (Auto) 7.7 Eos % (Auto) 2.3 Baso % (Auto) 0.8 Lymph # (Auto) 0.[address] # (Auto) 0.4 Eos # (Auto) 0.1 Baso # (Auto) 0.0 Abs Immat Gran (auto) 0.01 Absolute Neuts (auto) 3.4 Absolute Nucleated RBC 0.000 Nucleated RBC % (auto) 0.0 Sodium 142 Potassium 4.3 Chloride 105 Carbon Dioxide 26 Anion Gap 15 BUN 14 Creatinine 0.83 Estim Creat Clear Calc 83.3 Estimated GFR > 60 Random Glucose 92 Calcium 10.0 D Total Bilirubin 0.9 AST 17 ALT 14 Alkaline Phosphatase 41 Total Protein 7.3 Albumin 4.5 Salicylates < 5.0 L Urine Opiates Screen Urine Fentanyl Screen Acetaminophen < 17 Ur Barbiturates Screen Ur Phencyclidine Scrn Ur Amphetamines Screen U Benzodiazepines Scrn Urine Cocaine Screen U Marijuana (THC) Screen Ethyl Alcohol < 10 COVID-19 (RON) COVID-19 [employer] Com 08/17/22 08/17/22 18:05 22:58 WBC RBC Hgb Hct MCV MCH MCHC RDW Plt Count MPV Immature Gran % (Auto) Neut % (Auto) Lymph % (Auto) [facility] % (Auto) Eos % (Auto) Baso % (Auto) Lymph # (Auto) [facility] # (Auto) Eos # (Auto) Baso # (Auto) Abs Immat Gran (auto) Absolute Neuts (auto) Absolute Nucleated RBC Nucleated RBC % (auto) Sodium Potassium Chloride Carbon Dioxide Anion Gap BUN Creatinine Estim Creat Clear Calc Estimated GFR Random Glucose Calcium Total Bilirubin AST ALT Alkaline Phosphatase Total Protein Albumin Salicylates Urine Opiates Screen POSITIVE H Urine Fentanyl Screen Not Detected Acetaminophen Ur Barbiturates Screen Not Detected Ur Phencyclidine Scrn Not Detected Ur Amphetamines Screen Not Detected U Benzodiazepines Scrn Not Detected Urine Cocaine Screen Not Detected U Marijuana (THC) Screen Not Detected Ethyl Alcohol COVID-19 (RON) Negative COVID-19 Clin Com See Note Meds/Allergies Meds Home Medications Medication Instructions Recorded Confirmed Type lorazepam 1 mg tablet 1 - 2 mg PO BEDTIME PRN Anxiety 08/17/22 08/17/22 History paroxetine HCl 10 mg tablet 10 mg PO DAILY 08/17/22 08/17/22 History Allergies Allergies Allergy/AdvReac Type Severity Reaction Status Date / Time hydrocodone [Vicodin] Allergy Unknown nausea Verified 08/17/22 15:50 latex [LATEX] Allergy Unknown RASH Verified 08/17/22 15:50 Mental Status Exam Mental Status Exam Narrative: Pt is alert and oriented; behavior is cooperative, friendly and calm; patient is not in distress; dressed in casual attire; mood is described as anxious ; eye contact appropriate; Speech is normal rate, volume and prosody and not pressured; no psychomotor agitation/retardation present; thought process is organized and goal directed; Thought content is on tx; otherwise pertinent to relevant topics and without any delusional content, paranoid ideations or grandiosity; denies HI. Reports suicidal ideation with no plan. There is no evidence of perceptual disturbance. Patients insight and judgment are poor. Assessment & Plan Assessment & Plan (1) Generalized anxiety disorder: Status: Acute Code(s): F41.1 - Generalized anxiety disorder (2) Depression, major, severe recurrence: Status: Acute Code(s): F33.2 - Major depressive disorder, recurrent severe without psychotic features Plan Patient is a 57 year old male with hx of MDD, SAVANAH and multiple suicide attempts who self presented to [facility] ER d/t suicidal ideation with thoughts of cutting his wrist with a knife secondary to increased anxiety and panic attacks. Plan: CV 5 minute safety checks Obtain collateral Continue: Ativan 1mg PO bedtime Start: Zyprexa 2.5mg PO BID Hydroxyzine 50mg PO BID PRN anxiety Patient educated on: diagnosis, medication risk/benefits and therapeutic strategies Informed Consent: understands Reason for continued inpatient stay Substantial Risk for: harm to self and med/psych decompensation Statement Statement: I have reviewed the history and physical and performed a pertinent examination on my patient. No changes have occurred unless specified. If the History and Physical was not performed prior to admission, the Hospitalist's service will be consulted for completing the admission physical. Time Spent With Patient Time: Total time managing care of this patient today ____ minutes.
[2022-08-18] MEDS: OLANZapine 5 MG TABLET PO (15:53)
[2022-08-18 20:00] VITALS: BP 109/76; PULSE 85; RESP 16; TEMP 36.6; O2SAT 98
[2022-08-18] MEDS: OLANZapine 2.5 MG TABLET PO (20:43)
[2022-08-18] MEDS: LORazepam 1 MG TABLET PO (20:44)
[2022-08-19 07:00] VITALS: BMI 22.8
[2022-08-19 08:51] VITALS: BP 117/65; PULSE 70; RESP 18; TEMP 36.2; O2SAT 99
[2022-08-19] MEDS: OLANZapine 2.5 MG TABLET PO ×2 (08:52→21:18)
[2022-08-19] MEDS: Acetaminophen 325 MG TABLET 650 MG PO ×2 (08:53→18:05)
--- NOTE | 2022-08-19 10:23 | HO.PSYCHPN ---
Subjective Subjective Date of Service: 08/19/22 Reason For Visit: depression Subjective Notes: 3 Day Interim History: Reviewed in team and with Dr. Nair. Patient met with and T/W. Patient reports feeling better today. Patient stated, my anxiety isn't intense today. I slept well. I don't want to . I just want the anxiety to stop . Patient was educated on CBT and the benefits with anxiety treatment. Dr. Nair discussed risks/benefits of taking mirtazepine. Patient agreed to trial medication. Patient continues to request to be discharged on Tuesday d/t having [facility] [place] [facility]. Patient denies SI/HI/VH/AH at this time. Medication Compliance: Yes Side effects from medications: No Attending Groups: Yes Review of Systems Constitutional: Reports as per HPI Eyes: Reports as per HPI Reports as per HPI Cardiovascular: Reports as per HPI Respiratory: Reports as per HPI Gastrointestinal: Reports as per HPI Genitourinary: Reports as per HPI Musculoskeletal: Reports as per HPI Skin/Breast: Reports as per HPI Reports as per HPI Psychiatric: Reports as per HPI Endocrine: Reports as per HPI Hematologic/Lymphatic: Reports as per HPI Allergic/Immunologic: Reports as per HPI Mental Status Exam Mental Status Exam Narrative: Pt is alert and oriented; behavior is cooperative, friendly and calm; patient is not in distress; dressed in casual attire; mood is described as anxious ; eye contact appropriate; Speech is normal rate, volume and prosody and not pressured; no psychomotor agitation/retardation present; thought process is organized and goal directed; Thought content is on tx; otherwise pertinent to relevant topics and without any delusional content, paranoid ideations or grandiosity; denies HI. Reports suicidal ideation with no plan. There is no evidence of perceptual disturbance. Patients insight and judgment are poor but improving. Diagnostics Vital Signs (24Hr): Vital Signs - 24 hr 08/18/22 12:47 08/18/22 20:00 08/19/22 08:51 Temperature 97.7 F 97.8 F 97.2 F Pulse Rate 86 85 70 Respiratory Rate 18 16 18 Blood Pressure 141/99 H 109/76 117/65 Pulse Oximetry 97 98 99 Oxygen Delivery Method Room Air Room Air Room Air BMI result Body Mass Index 22.8 Labs 08/17/22 17:28 08/17/22 17:28 Labs: Laboratory Results - last 48 hr 08/17/22 08/17/22 08/17/22 17:28 17:28 17:28 WBC 4.8 RBC 4.91 Hgb 15.4 Hct 45.5 MCV 92.7 MCH 31.4 MCHC 33.8 RDW 11.7 Plt Count 272 MPV 9.2 L Immature Gran % (Auto) 0.2 Neut % (Auto) 70.9 Lymph % (Auto) 18.1 L [place] % (Auto) 7.7 Eos % (Auto) 2.3 Baso % (Auto) 0.8 Lymph # (Auto) 0.9 L [place] # (Auto) 0.4 Eos # (Auto) 0.1 Baso # (Auto) 0.0 Abs Immat Gran (auto) 0.01 Absolute Neuts (auto) 3.4 Absolute Nucleated RBC 0.000 Nucleated RBC % (auto) 0.0 Sodium 142 Potassium 4.3 Chloride 105 Carbon Dioxide 26 Anion Gap 15 BUN 14 Creatinine 0.83 Estim Creat Clear Calc 83.3 Estimated GFR > 60 Random Glucose 92 Calcium 10.0 D Total Bilirubin 0.9 AST 17 ALT 14 Alkaline Phosphatase 41 Total Protein 7.3 Albumin 4.5 Salicylates < 5.0 L Urine Opiates Screen Urine Fentanyl Screen Acetaminophen < 17 Ur Barbiturates Screen Ur Phencyclidine Scrn Ur Amphetamines Screen U Benzodiazepines Scrn Urine Cocaine Screen U Marijuana (THC) Screen Ethyl Alcohol < 10 COVID-19 (RON) COVID-19 Clin Com 08/17/22 08/17/22 18:05 22:58 WBC RBC Hgb Hct MCV MCH MCHC RDW Plt Count MPV Immature Gran % (Auto) Neut % (Auto) Lymph % (Auto) [place] % (Auto) Eos % (Auto) Baso % (Auto) Lymph # (Auto) [place]ady # (Auto) Eos # (Auto) Baso # (Auto) Abs Immat Gran (auto) Absolute Neuts (auto) Absolute Nucleated RBC Nucleated RBC % (auto) Sodium Potassium Chloride Carbon Dioxide Anion Gap BUN Creatinine Estim Creat Clear Calc Estimated GFR Random Glucose Calcium Total Bilirubin AST ALT Alkaline Phosphatase Total Protein Albumin Salicylates Urine Opiates Screen POSITIVE H Urine Fentanyl Screen Not Detected Acetaminophen Ur Barbiturates Screen Not Detected Ur Phencyclidine Scrn Not Detected Ur Amphetamines Screen Not Detected U Benzodiazepines Scrn Not Detected Urine Cocaine Screen Not Detected U Marijuana (THC) Screen Not Detected Ethyl Alcohol COVID-19 (RON) Negative COVID-19 Clin Com See Note Medications Medications Current Medications Acetaminophen (Acetaminophen 325 Mg Tablet) 650 mg PO Q6H PRN PRN Reason: Headache/Pain Mild Scale (1-3) Last Admin: 08/19/22 08:53 Dose: 650 mg Al Hydroxide/Mg Hydroxide (Magnesium Hydrox/Alum Hydrox 30 Ml Oral.Susp) 30 ml PO Q6H PRN PRN Reason: Heartburn/Nausea Hydroxyzine HCl (Hydroxyzine Hcl 50 Mg Tablet) 50 mg PO BID PRN PRN Reason: Anxiety Lorazepam (Lorazepam 1 Mg Tablet) 1 mg PO BEDTIME [facility] Last Admin: 08/18/22 20:44 Dose: 1 mg Magnesium Hydroxide (Milk Of Magnesia 30 Ml Oral.Susp) 30 ml PO DAILY PRN PRN Reason: Constipation Olanzapine (Olanzapine 2.5 Mg Tablet) 2.5 mg PO BID [facility] Last Admin: 08/19/22 08:52 Dose: 2.5 mg Allergies Allergies Allergy/AdvReac Type Severity Reaction Status Date / Time hydrocodone [Vicodin] Allergy Unknown nausea Verified 08/17/22 15:50 latex [LATEX] Allergy Unknown RASH Verified 08/17/22 15:50 Assessment & Plan Assessment & Plan (1) Generalized anxiety disorder: Status: Acute Code(s): F41.1 - Generalized anxiety disorder (2) Depression, major, severe recurrence: Status: Acute Code(s): F33.2 - Major depressive disorder, recurrent severe without psychotic features Plan Patient is a 57 year old male with hx of MDD, SAVANAH and multiple suicide attempts who self presented to [facility] ER d/t suicidal ideation with thoughts of cutting his wrist with a knife secondary to increased anxiety and panic attacks. Plan: 3 day 15 minute safety checks Obtain collateral Ativan 1mg PO bedtime Zyprexa 2.5mg PO BID Hydroxyzine 50mg PO BID PRN anxiety Mirtazapine 7.5mg PO bedtime 08/19: Patient reports feeling less anxious today. Slept well. denies SI. Patient stated, I don't want to . I just want my anxiety to get under control . Was educated on CBT. Reviewed benefits/risks of mirtazapine. Patient agreed to trial medication. Patient educated on: diagnosis, medication risk/benefits and therapeutic strategies Informed Consent: understands Reason for continued inpatient stay Substantial Risk for: med/psych decompensation Time Spent With Patient Time: Total time managing care of this patient today ____ minutes.
[2022-08-19 12:58] LABS: Appearance Urine Clear; Color Urine Yellow; Glucose Urine UA Negative (Negative); Leukocyte Esterase Urine Negative (Negative); Nitrite Urine Negative (Negative); PH 7.5 (5.0-9.0); Specific Gravity - Urine >= 1.030 (1.005-1.025); Urine Blood Negative (Negative); Urine Ketones Trace mg/dL (Negative); Urine Protein Trace mg/dL (Neg-Trace)
[2022-08-19 13:01] LABS: Bacteria Urine None Seen (None Seen); Hyaline Casts Urine 0-2 /LPF (0-2); RBC Urine 0-2 /HPF (0-2); Squamous Epithelial Cell Urine 0-2 /HPF (0-2); WBC Urine 0-5 /HPF (0-5)
[2022-08-19 18:00] VITALS: BP 135/78; PULSE 80; RESP 16; TEMP 36.7; O2SAT 99
[2022-08-19] MEDS: LORazepam 1 MG TABLET PO (21:17)
[2022-08-19] MEDS: Mirtazapine 7.5 MG TABLET PO (21:18)
[2022-08-20] MEDS: hydrOXYzine HCL 50 MG TABLET PO ×2 (00:55→23:48)
[2022-08-20] MEDS: Acetaminophen 325 MG TABLET 650 MG PO ×2 (06:47→13:09)
[2022-08-20 08:00] VITALS: BP 125/79; PULSE 72; RESP 18; TEMP 36.7; O2SAT 98
[2022-08-20] MEDS: OLANZapine 2.5 MG TABLET PO ×2 (08:56→21:16)
--- NOTE | 2022-08-20 13:11 | P.PNPSI_ITS ---
Documented by User: Dominique Schmidt NP 08/20/22 13:28 Subjective Subjective Date of Service: 08/20/22 Reason For Visit: depression Subjective Notes: 3 Day Interim History: Reviewed in team and with Dr. Nair. Patient reports feeling good today. Patient stated, I feel like my anxiety is better. I'm learning coping skills and talking myself though my anxiety . Patient reports he did not have any panic attacks yesterday or today. Continues to look forward to his [email or web address]. Medication Compliance: Yes Side effects from medications: No Attending Groups: Yes Review of Systems Constitutional: Reports as per HPI Eyes: Reports as per HPI Reports as per HPI Cardiovascular: Reports as per HPI Respiratory: Reports as per HPI Gastrointestinal: Reports as per HPI Genitourinary: Reports as per HPI Musculoskeletal: Reports as per HPI Skin/Breast: Reports as per HPI Reports as per HPI Psychiatric: Reports as per HPI Endocrine: Reports as per HPI Hematologic/Lymphatic: Reports as per HPI Allergic/Immunologic: Reports as per HPI Mental Status Exam Mental Status Exam Narrative: Pt is alert and oriented; behavior is cooperative, friendly and calm; patient is not in distress; dressed in casual attire; mood is described as good ; eye co ntact appropriate; Speech is normal rate, volume and prosody and not pressured; no psychomotor agitation/retardation present; thought process is organized and goal directed; Thought content is on tx; otherwise pertinent to relevant topics and without any delusional content, paranoid ideations or grandiosity; denies SI/HI. There is no evidence of perceptual disturbance. Patients insight and judgment are fair. Diagnostics Vital Signs (24Hr): Vital Signs - 24 hr 08/19/22 18:00 08/20/22 08:00 Temperature 98.1 F 98.1 F Pulse Rate 80 72 Respiratory Rate 16 18 Blood Pressure 135/78 125/79 Pulse Oximetry 99 98 Oxygen Delivery Method Room Air Room Air BMI result Body Mass Index 22.8 Labs 08/17/22 17:28 08/17/22 17:28 Labs: Laboratory Results - last 48 hr 08/18/22 18:05 Urine Color Yellow Urine Appearance Clear Urine pH 7.5 Ur Specific Anderson >= 1.030 H Urine Protein Trace Urine Glucose (UA) Negative Urine Ketones Trace Urine Blood Negative Urine Nitrite Negative Ur Leukocyte Esterase Negative Urine RBC 0-2 Urine WBC 0-5 Ur Squamous Epith Cells 0-2 Urine Bacteria None Seen Hyaline Casts 0-2 Medications Medications Current Medications Acetaminophen (Acetaminophen 325 Mg Tablet) 650 mg PO Q6H PRN PRN Reason: Headache/Pain Mild Scale (1-3) Last Admin: 08/20/22 13:09 Dose: 650 mg Al Hydroxide/Mg Hydroxide (Magnesium Hydrox/Alum Hydrox 30 Ml Oral.Susp) 30 ml PO Q6H PRN PRN Reason: Heartburn/Nausea Hydroxyzine HCl (Hydroxyzine Hcl 50 Mg Tablet) 50 mg PO BID PRN PRN Reason: Anxiety Last Admin: 08/20/22 00:55 Dose: 50 mg Lorazepam (Lorazepam 1 Mg Tablet) 1 mg PO BEDTIME [facility] Last Admin: 08/19/22 21:17 Dose: 1 mg Magnesium Hydroxide (Milk Of Magnesia 30 Ml Oral.Susp) 30 ml PO DAILY PRN PRN Reason: Constipation Mirtazapine (Mirtazapine 7.5 Mg Tablet) 7.5 mg PO BEDTIME [facility] Last Admin: 08/19/22 21:18 Dose: 7.5 mg Olanzapine (Olanzapine 2.5 Mg Tablet) 2.5 mg PO BID [facility] Last Admin: 08/20/22 08:56 Dose: 2.5 mg Allergies Allergies Allergy/AdvReac Type Severity Reaction Status Date / Time hydrocodone [Vicodin] Allergy Unknown nausea Verified 08/17/22 15:50 latex [LATEX] Allergy Unknown RASH Verified 08/17/22 15:50 Assessment & Plan Assessment & Plan (1) Generalized anxiety disorder: Status: Acute Code(s): F41.1 - Generalized anxiety disorder (2) Depression, major, severe recurrence: Status: Acute Code(s): F33.2 - Major depressive disorder, recurrent severe without psychotic features Plan Patient is a 57 year old male with hx of MDD, SAVANAH and multiple suicide attempts who self presented to [facility] ER d/t suicidal ideation with thoughts of cutting his wrist with a knife secondary to increased anxiety and panic attacks. Plan: 3 day 15 minute safety checks Obtain collateral Ativan 1mg PO bedtime Zyprexa 2.5mg PO BID Hydroxyzine 50mg PO BID PRN anxiety Mirtazapine 7.5mg PO bedtime 08/19: Patient reports feeling less anxious today. Slept well. denies SI. Patient stated, I don't want to . I just want my anxiety to get under control . Was educated on CBT. Reviewed benefits/risks of mirtazapine. Patient agreed to trial medication. 08/20: Patient reports improved sleep with mirtazepine. Feels his anxiety has decreased and has been learning coping skills while on the unit. 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 3 day up on Tuesday. Patient educated on: diagnosis, medication risk/benefits and therapeutic strategies Informed Consent: understands Reason for continued inpatient stay Substantial Risk for: med/psych decompensation Time Spent With Patient Time: Total time managing care of this patient today ____ minutes. Documented by User: Norris Nair MD 08/20/22 15:12 Subjective Subjective Reason For Visit: depression Diagnostics Labs 08/17/22 17:28 08/17/22 17:28 Assessment & Plan Assessment & Plan (1) Generalized anxiety disorder: Status: Acute Code(s): F41.1 - Generalized anxiety disorder (2) Depression, major, severe recurrence: Status: Acute Code(s): F33.2 - Major depressive disorder, recurrent severe without psychotic features Plan Patient is a 57 year old male with hx of MDD, SAVANAH and multiple suicide attempts who self presented to [facility] ER d/t suicidal ideation with thoughts of cutting his wrist with a knife secondary to increased anxiety and panic attacks. Plan: 3 day 15 minute safety checks Obtain collateral Ativan 1mg PO bedtime Zyprexa 2.5mg PO BID Hydroxyzine 50mg PO BID PRN anxiety Mirtazapine 7.5mg PO bedtime 08/19: Patient reports feeling less anxious today. Slept well. denies SI. Patient stated, I don't want to . I just want my anxiety to get under control . Was educated on CBT. Reviewed benefits/risks of mirtazapine. Patient agreed to trial medication. 08/20: Patient reports improved sleep with mirtazepine. Feels his anxiety has decreased and has been learning coping skills while on the unit. 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 3 day up on Tuesday. pt seen dx and meds reviewed case reviewed with isai schmidt [facility] agree with above
[2022-08-20 20:35] VITALS: BP 143/82; PULSE 75; RESP 17; TEMP 36.6; O2SAT 100
[2022-08-20] MEDS: LORazepam 1 MG TABLET PO (21:16)
[2022-08-20] MEDS: Mirtazapine 7.5 MG TABLET PO (21:16)
[2022-08-20] MEDS: traZODone HCL 50 MG TABLET PO (23:47)
[2022-08-21 06:00] VITALS: BP 142/78; PULSE 70; RESP 18; TEMP 36.7; O2SAT 100
[2022-08-21] MEDS: Acetaminophen 325 MG TABLET 650 MG PO (07:03)
[2022-08-21] MEDS: OLANZapine 2.5 MG TABLET PO ×2 (09:04→21:15)
[2022-08-21] MEDS: hydrOXYzine HCL 50 MG TABLET PO ×2 (14:47→21:15)
--- NOTE | 2022-08-21 16:44 | HO.PSYCHPN ---
Subjective Subjective Date of Service: 08/21/22 Reason For Visit: depression Interim History: feeling a little stir-crazy today. anxious, some agitation. educated re PRNs available to him, including hydroxyzine for anxiety. per staff, 3-day up 08/23. sleep, appetite better. discharge tuesday to [facility] for [employer] competition. Mental Status Exam Mental Status Exam Narrative: Pt is alert and oriented; behavior is cooperative, friendly and calm; patient is not in distress; dressed in casual attire; mood is described as good ; eye contact appropriate; Speech is normal rate, volume and prosody and not pressured; no psychomotor agitation/retardation present; thought process is organized and goal directed; Thought content is on tx; otherwise pertinent to relevant topics and without any delusional content, paranoid ideations or grandiosity; denies SI/HI. There is no evidence of perceptual disturbance. Patients insight and judgment are fair. Diagnostics Vital Signs (24Hr): Vital Signs - 24 hr 08/20/22 20:35 08/21/22 06:00 Temperature 97.8 F 98.1 F Pulse Rate 75 70 Respiratory Rate 17 18 Blood Pressure 143/82 H 142/78 H Pulse Oximetry 100 100 Oxygen Delivery Method Room Air Room Air BMI result Body Mass Index 22.8 Labs 08/17/22 17:28 08/17/22 17:28 Medications Medications Current Medications Acetaminophen (Acetaminophen 325 Mg Tablet) 650 mg PO Q6H PRN PRN Reason: Headache/Pain Mild Scale (1-3) Last Admin: 08/21/22 07:03 Dose: 650 mg Al Hydroxide/Mg Hydroxide (Magnesium Hydrox/Alum Hydrox 30 Ml Oral.Susp) 30 ml PO Q6H PRN PRN Reason: Heartburn/Nausea Hydroxyzine HCl (Hydroxyzine Hcl 50 Mg Tablet) 50 mg PO BID PRN PRN Reason: Anxiety Last Admin: 08/21/22 14:47 Dose: 50 mg Lorazepam (Lorazepam 1 Mg Tablet) 1 mg PO BEDTIME NIKOLE Last Admin: 08/20/22 21:16 Dose: 1 mg Magnesium Hydroxide (Milk Of Magnesia 30 Ml Oral.Susp) 30 ml PO DAILY PRN PRN Reason: Constipation Mirtazapine (Mirtazapine 7.5 Mg Tablet) 7.5 mg PO BEDTIME NIKOLE Last Admin: 08/20/22 21:16 Dose: 7.5 mg Olanzapine (Olanzapine 2.5 Mg Tablet) 2.5 mg PO BID NIKOLE Last Admin: 08/21/22 09:04 Dose: 2.5 mg Trazodone HCl (Trazodone Hcl 50 Mg Tablet) 50 mg PO BEDTIME PRN PRN Reason: Insomnia Last Admin: 08/20/22 23:47 Dose: 50 mg Trazodone HCl (Trazodone Hcl 50 Mg Tablet) 50 mg PO BEDTIME MRX1 PRN PRN Reason: Insomnia Allergies Allergies Allergy/AdvReac Type Severity Reaction Status Date / Time hydrocodone [Vicodin] Allergy Unknown nausea Verified 08/17/22 15:50 latex [LATEX] Allergy Unknown RASH Verified 08/17/22 15:50 Assessment & Plan Assessment & Plan (1) Generalized anxiety disorder: Status: Acute Code(s): F41.1 - Generalized anxiety disorder (2) Depression, major, severe recurrence: Status: Acute Code(s): F33.2 - Major depressive disorder, recurrent severe without psychotic features Plan Patient is a 57 year old male with hx of MDD, SAVANAH and multiple suicide attempts who self presented to [facility] d/t suicidal ideation with thoughts of cutting his wrist with a knife secondary to increased anxiety and panic attacks. Plan: 3 day 15 minute safety checks Obtain collateral Ativan 1mg PO bedtime Zyprexa 2.5mg PO BID Hydroxyzine 50mg PO BID PRN anxiety Mirtazapine 7.5mg PO bedtime 08/19: Patient reports feeling less anxious today. Slept well. denies SI. Patient stated, I don't want to . I just want my anxiety to get under control . Was educated on CBT. Reviewed benefits/risks of mirtazapine. Patient agreed to trial medication. 08/20: Patient reports improved sleep with mirtazepine. Feels his anxiety has decreased and has been learning coping skills while on the unit. Pt is looking forward to his [employer] tournament. 3 day up on Tuesday. pt seen dx and meds reviewed case reviewed with isai schmidt contact lens blocker and cutter agree with above 08/21: no change in mgmt. reasonably stable. Reason for continued inpatient stay Substantial Risk for: inability to function and rapid decompensation Time Spent With Patient Time: Total time managing care of this patient today ____ minutes.
[2022-08-21 20:54] VITALS: BP 126/89; PULSE 78; RESP 18; TEMP 36.7; O2SAT 100
[2022-08-21] MEDS: LORazepam 1 MG TABLET PO (21:14)
[2022-08-21] MEDS: Mirtazapine 7.5 MG TABLET PO (21:14)
[2022-08-21] MEDS: traZODone HCL 50 MG TABLET PO ×2 (21:15→23:21)
[2022-08-22] MEDS: Acetaminophen 325 MG TABLET 650 MG PO ×3 (05:17→19:08)
[2022-08-22] MEDS: hydrOXYzine HCL 50 MG TABLET PO (05:18)
[2022-08-22 06:00] VITALS: BP 117/75; PULSE 65; RESP 16; TEMP 36.4; O2SAT 99
[2022-08-22] MEDS: OLANZapine 2.5 MG TABLET PO ×2 (08:35→21:24)
--- NOTE | 2022-08-22 14:54 | P.PNPSI_ITS ---
Subjective Subjective Date of Service: 08/22/22 Reason For Visit: depression Interim History: stye on right eye. Tx reviewed with pt - warm compresses only. insomnia. otherwise no complaints or requests. looking forward to D/C tomorrow. per staff, brad. some trouble sleeping. attending groups. Mental Status Exam Mental Status Exam Narrative: Pt is alert and oriented; behavior is cooperative, friendly and calm; patient is not in distress; dressed in casual attire; mood is described as good ; eye contact appropriate; Speech is normal rate, volume and prosody and not pressured; no psychomotor agitation/retardation present; thought process is organized and goal directed; Thought content is on tx; otherwise pertinent to relevant topics and without any delusional content, paranoid ideations or grandiosity; denies SI/HI. There is no evidence of perceptual disturbance. Patients insight and judgment are fair. Diagnostics Vital Signs (24Hr): Vital Signs - 24 hr 08/21/22 20:54 08/22/22 06:00 Temperature 98.1 F 97.6 F Pulse Rate 78 65 Respiratory Rate 18 16 Blood Pressure 126/89 117/75 Pulse Oximetry 100 99 Oxygen Delivery Method Room Air Room Air BMI result Body Mass Index 22.8 Labs 08/17/22 17:28 08/17/22 17:28 Medications Medications Current Medications Acetaminophen (Acetaminophen 325 Mg Tablet) 650 mg PO Q6H PRN PRN Reason: Headache/Pain Mild Scale (1-3) Last Admin: 08/22/22 11:51 Dose: 650 mg Al Hydroxide/Mg Hydroxide (Magnesium Hydrox/Alum Hydrox 30 Ml Oral.Susp) 30 ml PO Q6H PRN PRN Reason: Heartburn/Nausea Hydroxyzine HCl (Hydroxyzine Hcl 50 Mg Tablet) 50 mg PO BID PRN PRN Reason: Anxiety Last Admin: 08/22/22 05:18 Dose: 50 mg Lorazepam (Lorazepam 1 Mg Tablet) 1 mg PO BEDTIME NIKOLE Last Admin: 08/21/22 21:14 Dose: 1 mg Magnesium Hydroxide (Milk Of Magnesia 30 Ml Oral.Susp) 30 ml PO DAILY PRN PRN Reason: Constipation Mirtazapine (Mirtazapine 7.5 Mg Tablet) 7.5 mg PO BEDTIME NIKOLE Last Admin: 08/21/22 21:14 Dose: 7.5 mg Olanzapine (Olanzapine 2.5 Mg Tablet) 2.5 mg PO BID NIKOLE Last Admin: 08/22/22 08:35 Dose: 2.5 mg Trazodone HCl (Trazodone Hcl 50 Mg Tablet) 50 mg PO BEDTIME PRN PRN Reason: Insomnia Last Admin: 08/21/22 21:15 Dose: 50 mg Trazodone HCl (Trazodone Hcl 100 Mg Tablet) 100 mg PO BEDTIME NIKOLE Allergies Allergies Allergy/AdvReac Type Severity Reaction Status Date / Time hydrocodone [Vicodin] Allergy Unknown nausea Verified 08/17/22 15:50 latex [LATEX] Allergy Unknown RASH Verified 08/17/22 15:50 Assessment & Plan Assessment & Plan (1) Generalized anxiety disorder: Status: Acute Code(s): F41.1 - Generalized anxiety disorder (2) Depression, major, severe recurrence: Status: Acute Code(s): F33.2 - Major depressive disorder, recurrent severe without psychotic features Plan Patient is a 57 year old male with hx of MDD, SAVANAH and multiple suicide attempts who self presented to [facility] d/t suicidal ideation with thoughts of cutting his wrist with a knife secondary to increased anxiety and panic attacks. Plan: 3 day 15 minute safety checks Obtain collateral Ativan 1mg PO bedtime Zyprexa 2.5mg PO BID Hydroxyzine 50mg PO BID PRN anxiety Mirtazapine 7.5mg PO bedtime 08/19: Patient reports feeling less anxious today. Slept well. denies SI. Patient stated, I don't want to . I just want my anxiety to get under control . Was educated on CBT. Reviewed benefits/risks of mirtazapine. Patient agreed to trial medication. 08/20: Patient reports improved sleep with mirtazepine. Feels his anxiety has decreased and has been learning coping skills while on the unit. Pt is looking forward to his [employer] tournament. 3 day up on Tuesday. pt seen dx and meds reviewed case reviewed with isai schmidt clinical documentation improvement specialist agree with above 08/21: no change in mgmt. reasonably stable. 08/22: stye to be treated with warm compresses. plan to DC tomorrow. c/o insomnia, asks for increase trazodone dosing. trazodone scheduled at 100 mg QHS with 50 mg repeat available. Reason for continued inpatient stay Substantial Risk for: stable for discharge Time Spent With Patient Time: Total time managing care of this patient today ____ minutes.
[2022-08-22 18:00] VITALS: BP 147/83; PULSE 84; RESP 18; TEMP 36.8; O2SAT 84
[2022-08-22] MEDS: Mirtazapine 7.5 MG TABLET PO (21:24)
[2022-08-22] MEDS: LORazepam 1 MG TABLET PO (21:24)
[2022-08-22] MEDS: traZODone HCL 100 MG TABLET PO (21:24)
[2022-08-23] MEDS: traZODone HCL 50 MG TABLET PO (02:38)
[2022-08-23] MEDS: hydrOXYzine HCL 50 MG TABLET PO (02:38)
[2022-08-23] MEDS: Acetaminophen 325 MG TABLET 650 MG PO (05:22)
[2022-08-23 06:00] VITALS: BP 113/77; PULSE 79; RESP 18; TEMP 36.7; O2SAT 99
[2022-08-23] MEDS: OLANZapine 2.5 MG TABLET PO (08:30)
--- NOTE | 2022-08-23 10:12 | PM.PSYDC ---
DS: Providers Provider Date of Service: 08/23/22 Date of admission: 08/18/22 11:23 Date of discharge: 08/23/22 Primary care physician: Delvin Carrasquillo MD Admitting clinician: Dominique Van Attending physician on admission: Norris Nair Attending physician on discharge: Norris Nair Discharging clinician: Dominique Van DS: Diagnosis Discharge Diagnosis (1) Generalized anxiety disorder: Status: Acute (2) Depression, major, severe recurrence: Status: Acute DS: Medications Discharge Medications Home Medications: Home Medications Medication Instructions Recorded Confirmed lorazepam 1 mg tablet 1 - 2 mg PO BEDTIME PRN Anxiety 08/17/22 08/17/22 Previous Rx's Medication Instructions Recorded mirtazapine 7.5 mg tablet 7.5 mg PO BEDTIME 30 days #30 tabs 08/23/22 olanzapine 2.5 mg tablet 2.5 mg PO BID 30 days #60 tabs 08/23/22 trazodone 100 mg tablet 100 mg PO BEDTIME 30 days #30 tabs 08/23/22 Mental Status Exam Mental Status Exam Narrative: Pt is alert and oriented; behavior is cooperative, friendly and calm; patient is not in distress; dressed in casual attire; mood is described as good ; eye contact appropriate; Speech is normal rate, volume and prosody and not pressured; no psychomotor agitation/retardation present; thought process is organized and goal directed; Thought content is on discharge; otherwise pertinent to relevant topics and without any delusional content, paranoid ideations or grandiosity; denies SI/HI. There is no evidence of perceptual disturbance. Patients insight and judgment are fair. Data Data Completed and Pending Completed studies during hospitalization [Text1]: 08/17/22 08/17/22 08/17/22 17:28 17:28 17:28 WBC 4.8 RBC 4.91 Hgb 15.4 Hct 45.5 MCV 92.7 MCH 31.4 MCHC 33.8 RDW 11.7 Plt Count 272 MPV 9.2 L Immature Gran % (Auto) 0.2 Neut % (Auto) 70.9 Lymph % (Auto) 18.1 L [place] % (Auto) 7.7 Eos % (Auto) 2.3 Baso % (Auto) 0.8 Lymph # (Auto) 0.9 L [place] # (Auto) 0.4 Eos # (Auto) 0.1 Baso # (Auto) 0.0 Abs Immat Gran (auto) 0.01 Absolute Neuts (auto) 3.4 Absolute Nucleated RBC 0.000 Nucleated RBC % (auto) 0.0 Sodium 142 Potassium 4.3 Chloride 105 Carbon Dioxide 26 Anion Gap 15 BUN 14 Creatinine 0.83 Estim Creat Clear Calc 83.3 Estimated GFR > 60 Random Glucose 92 Calcium 10.0 D Total Bilirubin 0.9 AST 17 ALT 14 Alkaline Phosphatase 41 Total Protein 7.3 Albumin 4.5 Urine Color Urine Appearance Urine pH Ur Specific [place] Urine Protein Urine Glucose (UA) Urine Ketones Urine Blood Urine Nitrite Ur Leukocyte Esterase Urine RBC Urine WBC Ur Squamous Epith Cells Urine Bacteria Hyaline Casts Salicylates < 5.0 L Urine Opiates Screen Urine Fentanyl Screen Acetaminophen < 17 Ur Barbiturates Screen Ur Phencyclidine Scrn Ur Amphetamines Screen U Benzodiazepines Scrn Urine Cocaine Screen U Marijuana (THC) Screen Ethyl Alcohol < 10 COVID-19 (RON) COVID-19 [employer] Com 08/17/22 08/17/22 08/18/22 18:05 22:58 18:05 WBC RBC Hgb Hct MCV MCH MCHC RDW Plt Count MPV Immature Gran % (Auto) Neut % (Auto) Lymph % (Auto) [place] % (Auto) Eos % (Auto) Baso % (Auto) Lymph # (Auto) [place] # (Auto) Eos # (Auto) Baso # (Auto) Abs Immat Gran (auto) Absolute Neuts (auto) Absolute Nucleated RBC Nucleated RBC % (auto) Sodium Potassium Chloride Carbon Dioxide Anion Gap BUN Creatinine Estim Creat Clear Calc Estimated GFR Random Glucose Calcium Total Bilirubin AST ALT Alkaline Phosphatase Total Protein Albumin Urine Color Yellow Urine Appearance Clear Urine pH 7.5 Ur Specific [place] >= 1.030 H Urine Protein Trace Urine Glucose (UA) Negative Urine Ketones Trace Urine Blood Negative Urine Nitrite Negative Ur Leukocyte Esterase Negative Urine RBC 0-2 Urine WBC 0-5 Ur Squamous Epith Cells 0-2 Urine Bacteria None Seen Hyaline Casts 0-2 Salicylates Urine Opiates Screen POSITIVE H Urine Fentanyl Screen Not Detected Acetaminophen Ur Barbiturates Screen Not Detected Ur Phencyclidine Scrn Not Detected Ur Amphetamines Screen Not Detected U Benzodiazepines Scrn Not Detected Urine Cocaine Screen Not Detected U Marijuana (THC) Screen Not Detected Ethyl Alcohol COVID-19 ([facility]) Negative COVID-19 Clin Com See Note DS: Summary Hospital Course Hospital Course: Patient is a 57 year old male with hx of MDD, SAVANAH and multiple suicide attempts who self presented to [facility] d/t suicidal ideation with thoughts of cutting his wrist with a knife secondary to increased anxiety and panic attacks. Patient presents calm and cooperative during admission assessment. Patent stated, I came to the hospital because I just started panicking at work for no reason and then started having thoughts about cutting myself . He reports having chronic depression and suicidal thoughts . Patient stated, I have suicidal plans but I want ECT to get rid of those plans because it helped me in the past . Patient denies any substance use, however, took Vicodine a few days ago to help him calm down. Patient reports difficulty sleeping at night and racing thoughts during the day. 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 Signed 3 day notice. Patient was continued on Ativan 1mg PO bedtime. Started on Zyprexa 2.5mg PO BID and Mirtazapine 7.5mg PO bedtime. Reviewed risks/benefits of medications; patient agreed to start trial of these medicines. Patient reported less anxiety and improved sleep after taking zyprexa and mirtazapine. Patient stated, I don't want to . I just want my anxiety to get under control . Was educated on CBT; literature given. Feels his anxiety has decreased and has been learning coping skills while on the unit. Pt is looking forward to his [employer]. Per Dr. Nair: Pt not current ECT candidate; was seen in May 2022 in ECT consult. Patient would benefit from [facility], but unable to attend secondary to work schedule. Patient denies SI/HI/VH/AH at this time. 3 day is up today. Patient to be discharged home and follow up with outpatient providers. Time spent discussing smoking cessation with patient: 3 to 10 minutes Status at Discharge Cognitive/behavioral status at discharge: Patient was interviewed prior to discharge and found to be fully oriented and without any SI or HI. Patient has insight and demonstrates good judgment in terms of wanting to pursue treatment. Patient is not in imminent risk of harm to self or others and has a safety plan that includes presenting to the closest ER or calling 911 if feeling unsafe. Patient has been observed closely by nursing and unit staff throughout admission; patient has not engaged in any behaviors that suggest dangerousness to self or others and has demonstrated appropriate behaviors and impulse control. Functional status at discharge: independent ambulation Overall status at discharge: patient is back to baseline Time Spent with Patient Time attestation: Total time managing care of this patient today ____ minutes. Time spent: Less than 30 minutes Discharge Plan Discharge Anticipated Discharge Date/Time: 08/23/22 11:30 Patient Disposition: Home, Self-Care Discharge Diagnosis: MDD, SAVANAH Referrals: Loli Suh (Therapy) [Other] - 09/03/22 12:00 pm (IN OFFICE APPOINTMENT) Fahad Zurita (Psychiatry) [Other] - 09/01/22 1:00 pm (TELEHEALTH APPOINTMENT -Medication Management ) Delvin Carrasquillo MD [Primary Care Provider] - 09/08/22 2:30 pm (Follow up appt. with PCP - [address] [place] [address] on September 08 at 2:30pm) Discharge Medications: New trazodone 100 mg Tablet 100 mg PO BEDTIME 30 Days Qty: 30 0RF olanzapine 2.5 mg Tablet 2.5 mg PO BID 30 Days Qty: 60 0RF mirtazapine 7.5 mg Tablet 7.5 mg PO BEDTIME 30 Days Qty: 30 0RF Continued lorazepam 1 mg tablet 1 - 2 mg PO BEDTIME PRN (Reason: Anxiety) Discontinued paroxetine HCl 10 mg tablet 10 mg PO DAILY Discharge Orders: Discharge Order (Routine); Ordered 08/23/22 Ordered By: Dominique Van Diet: Regular diet Activity on Discharge: As tolerated Stand Alone Forms: Patient Portal Discharge page, Community Support Care Plan Goals: Maintain mood and safe behaviors Take medications as prescribed Continue to pursue sobriety Practice coping skills Continue with outpatient providers and reach out to them as needed Health Concerns: Mood stability and behaviors Sobriety Plan of Treatment: Follow up with your PCP, psychiatric provider and other outpatient providers regarding above concerns Take medications as prescribed Assessment: Patient was interviewed prior to discharge and found to be fully oriented and without any SI or HI. Patient has insight and demonstrates good judgment in terms of wanting to pursue treatment. Patient is not in imminent risk of harm to self or others and has a safety plan that includes presenting to the closest ER or calling 911 if feeling unsafe. Patient has been observed closely by nursing and unit staff throughout admission; patient has not engaged in any behaviors that suggest dangerousness to self or others and has demonstrated appropriate behaviors and impulse control. Discharge Date/Time: 08/23/22 11:15
--- NOTE | 2022-08-23 11:20 | PC.NURSE ---
Pt is ready and aware of discharge. He denies SI/HI/AH/VH. Pt verbalized understanding of medications, instructions an appointments. All belongings were given back to patient. Pt discharged at 1115 escorted to lobby by technical writer and editor.
== END 2022-08-23 11:15 | disposition home or self-care (01) | DRG 751 ==
LOC: HO.ED 17:33 → HO.PADLT16 08-18 11:34
PROVIDERS: Emergency Medicine; Physician Assistant; Admitting Provider Registered Nurse; Emergency Provider Emergency Medicine; PCP Internal Medicine; Visit Provider Registered Nurse
DX: F33.2 Major depressive disorder, recurrent severe without psychotic features (principal); R45.851 Suicidal ideations; F41.1 Generalized anxiety disorder; E78.00 Pure hypercholesterolemia, unspecified; G25.81 Restless legs syndrome; K21.9 Gastro-esophageal reflux disease without esophagitis; Z91.51 Personal history of suicidal behavior; Z20.822 Contact with and (suspected) exposure to COVID-19; Z91.040 Latex allergy status; Z79.899 Other long term (current) drug therapy
CPT/HCPCS: 36415; 80053; 80143; 80179; 80307; 81001; 85025; 87635; 93005; 99285; J1200; J2060; S9485

== ENCOUNTER 2022-09-08 14:27 | Outpatient (AMB) | payer OTHER, SELFPAY ==
[2022-09-08 14:29] VITALS: BP 138/82; PULSE 87; O2SAT 99; BMI 25.3
--- NOTE | 2022-09-08 14:29 | A.OFFPC_ITS ---
Vital Signs 09/08/22 14:29 Height 5 ft 5 in Weight 152 lb BMI 25.3 BP 138/82 Blood Pressure Location Lt brachial Position Sitting Pulse 87 Pulse Source Pulse Oximeter Temp Source Skin Pulse Oximetry (%) 99 Oxygen Delivery Method Room Air [facility] Intake Note: Patient is here to follow-up after a visit the emergency department at [facility] on 08/18-08/23 Education Program Coordinator Required: No Allergies hydrocodone [Vicodin] Allergy (Unknown, Verified 09/08/22 14:40) nausea latex [LATEX] Allergy (Unknown, Verified 09/08/22 14:40) RASH Medication List - Last Reconciled 09/08/22 by DISHA Lloyd lorazepam 1 - 2 mg PO BEDTIME PRN mirtazapine 7.5 mg PO BEDTIME 30 days olanzapine 2.5 mg PO BID 30 days trazodone 100 mg PO BEDTIME 30 days Tobacco use date assessed: 09/08/22 [facility]23 HPI Details Patient is a 57-year-old male who presents today to follow-up after [facility] stay. Admission date 08/18/2022, discharge date 08/23/2022. Discharge diagnosis anxiety and depression. Per discharge summary: Hospital Course: Patient is a 57 year old male with hx of MDD, SAVANAH and multiple suicide attempts who self presented to [facility] d/t suicidal ideation with thoughts of cutting his wrist with a knife secondary to increased anxiety and panic attacks. Patient presents calm and cooperative during admission assessment. Patent stated, I came to the hospital because I just started panicking at work for no reason and then started having thoughts about cutting myself . He reports having chronic depression and suicidal thoughts . Patient stated, I have suicidal plans but I want ECT to get rid of those plans because it helped me in the past . Patient denies any substance use, however, took Vicodine a few days ago to help him calm down. Patient reports difficulty sleeping at night and racing thoughts during the day. Patient stated he needs to leave on Tuesday because I have a flight on Tuesday to [facility] to play in a [employer] tournament and I can't let my team down . Signed 3 day notice. Patient was continued on Ativan 1mg PO bedtime. Started on Zyprexa 2.5mg PO BID and Mirtazapine 7.5mg PO bedtime. Reviewed risks/benefits of medications; patient agreed to start trial of these medicines. Patient reported less anxiety and improved sleep after taking zyprexa and mirtazapine. Patient stated, I don't want to . I just want my anxiety to get under control . Was educated on CBT; literature given. Feels his anxiety has decreased and has been learning coping skills while on the unit. Pt is looking forward to his [employer] tournament. Per Dr. aNir: Pt not current ECT candidate; was seen in May 2022 in ECT consult. Patient would benefit from PHP, but unable to attend secondary to work schedule. Patient denies SI/HI/VH/AH at this time. 3 day is up today. Patient to be discharged home and follow up with outpatient providers. Today, patient reports that he is compliant with medications. He reports that he feels like his depression and anxiety are better. Patient following with therapist on weekly basis at [facility]. Also patient is seeing Psychiatry Dr. Vásquez on monthly basis. Patient denies suicidal thoughts since being discharged from the hospital. He denies shortness of breath or chest pain. 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 Depression, major, severe recurrence Dermatitis Epistaxis Erectile dysfunction Flank pain Generalized anxiety disorder GERD (gastroesophageal reflux disease) Hypercholesterolemia Insomnia Low Back Pain Low Back Pain Peptic ulcer disease Polysubstance abuse Renal calculus Restless leg syndrome Right-sided back pain Upper back pain Vitamin D deficiency Surgical History H/O arthroscopic knee surgery H/O oral surgery History of kidney surgery History of nasal surgery History of tonsillectomy Family History Father Myocardial infarct Colon cancer Mother Lung cancer Depression Brother Substance abuse Social History Household Members: Other Household Members Other:: rents room Housing: House Do you presently have visiting nurse or other home services: No Alcohol intake: never Patient Tobacco Use Status: Never used Tobacco e-Cigarette/Vaping Use: Never Used Second Hand Smoke Exposure: No Substance Use Type: Opiates service: No Current occupational status: employed 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 1. Little interest or pleasure in doing things: nearly every day 2. Feeling down, depressed, or hopeless: nearly every day 3. Trouble falling or staying asleep, or sleeping too much: nearly every day 4. Feeling tired or having little energy: nearly every day 5. Poor appetite or overeating: nearly every day 6. Feeling bad about yourself - or that you are a failure or have let yourself or your family down: not at all 7. Trouble concentrating on things, such as reading the newspaper or watching television: nearly every day 8. Moving or speaking so slowly that other people could have noticed. Or the opposite - being so fidgety or restless that you have been moving around a lot more than usual: not at all 9. Thoughts that you would be better off or of hurting yourself in some way: not at all Total score: 18 Depression Screening Interpretation: Positive Depression Screening Follow-up: In treatment 94885 - PHQ-9 Billing: Yes Source: Developed by Drs. Angel Simpson, Calli Zaidi, Bijan Mcintyre and colleagues, with an educational vishnu from [employer]. Thrive Questionnaire Date Thrive assessed: 09/08/22 I am a: Patient What is your living situation today?: I have a steady place to live Within the past 12 months, did the food you bought not last and you didn't have the money to get more?: Never true Within the past 12 months, did you worry whether your food would run out before you got money to buy more?: Never true Do you have trouble paying for medicines?: No Do you have trouble getting transportation to medical appointments?: No Do you have trouble paying your heating and electricity bill?: No Do you have trouble taking care of your child, family member or friend?: No Do you have trouble with day-to-day activities such as bathing, preparing meals, shopping, managing finances, etc.?: No Are you currently unemployed and looking for a job?: No Are you interested in more education?: No Currently or been in a relationship where the following occur: no concerns reported AUDIT C Alcohol Use Questionnaire (AUDIT-C) 1. How often do you have a drink containing alcohol?: Monthly or less 2. How many drinks containing alcohol do you have on a typical day when you are drinking?: 1 or 2 3. How often do you have six or more drinks on one occasion?: Never Total Score: 1 Score Reviewed/Action Taken: No SAVANAH-7 AMB Questionnaire SAVANAH-7 Date SAVANAH - 7 assessed: 09/08/22 Feeling nervous, anxious, or on edge: 3 = Nearly every day Not being able to stop or control worryin = Nearly every day Worrying too much about different things: 3 = Nearly every day Trouble relaxin = Nearly every day Being so restless that it is hard to sit still: 3 = Nearly every day Becoming easily annoyed or irritable: 3 = Nearly every day Feeling afraid as if something awful might happen: 0 = Not at all Total SAVANAH-7 score (0-4 normal; 5-9 mild; 10-14 moderate; 15-21 severe): 18 Source: Developed by Drs. Angle Simpson, Calli Zaidi, Bijan Mcintyre and colleagues, with an educational vishnu from [employer]. SAVANAH-7 Assessment Billing SAVANAH-7 Assessment Tool: SAVANAH-7 Assessment 34798 Review of Systems Const Denies body aches, Denies chills, Denies fever(s) and Denies headache(s) Eyes Denies change in vision ENT Denies dizziness, Denies otalgia, Denies headache(s), Denies nasal discharge, Denies sinus pain and Denies sore throat Card Denies chest pain, Denies edema, Denies lightheadedness and Denies dyspnea Resp Denies cough and Denies dyspnea GI Denies abdominal pain Denies dysuria Musc Denies myalgias Skin/Breast Denies rash Neuro Denies dizziness and Denies headache(s) Physical exam (Primary Care) Vital Signs: Last Vital Signs Pulse 87 09/08/22 14:29 BP 138/82 09/08/22 14:29 Pulse Ox 99 09/08/22 14:29 Oxygen Delivery Method Room Air 09/08/22 14:29 BMI result Body Mass Index 25.3 Tobacco/Smoking Status: Tobacco use Status Tobacco use date assessed 09/08/22 09/08/22 14:31 Patient Tobacco Use Status Never used Tobacco 09/08/22 14:31 e-Cigarette/Vaping Use Never Used 09/08/22 14:31 PHQ-9: PHQ-9 Score PHQ-9: Total score 18 09/08/22 14:37 Depression Screening Interpretation: Positive Depression Screening Follow-up: In treatment Thrive Assessment: Date of Thrive Assessment Date Thrive assessed 09/08/22 09/08/22 14:31 Currently or been in a relationship where the following occur: no concerns reported Const General: cooperative and no acute distress Orientation/consciousness: patient oriented x3 HENMT Head: Yes normocephalic and Yes atraumatic Mouth: oropharynx normal and moist mucous membranes Throat: Yes posterior oropharynx normal Eyes General: appearance normal, both eyes and all related structures Pupils: Equal, round and reactive pupils present Neck Neck: Yes normal visual inspection and Yes full ROM Resp Effort & Inspection: normal respiratory effort and able to speak in complete sentences Auscultation: clear to auscultation bilaterally, no crackles, no rales, no rhonchi and no wheezes Cardio Rate: regular rate Rhythm: regular rhythm Heart sounds: S1 normal heart sound present and S2 normal heart sound present GI Auscultation: normal bowel sounds Skin General skin exam: no rashes or lesions noted Neuro General: patient oriented x3 Cranial nerves: Yes Equal, round and reactive pupils present Gait exam (Neuro): Normal gait present Extrem General: Yes full ROM Assessment and Plan Assessment & Plan (1) Generalized anxiety disorder: Comment: [facility] counselling Code(s): F41.1 - Generalized anxiety disorder Plan: Continue current treatment Continue to follow-up with psychiatry Dr. Vásquez and counseling at [facility] (2) Depression, major, severe recurrence: Code(s): F33.2 - Major depressive disorder, recurrent severe without psychotic features Plan: Patient denies SI or HI since being discharged from the hospital Continue current treatment Continue to follow-up with psychiatry Dr. Vásquez and counseling at [facility] Signs and symptoms reviewed when to notify provider or go to the emergency department Patient agreed with the plan (3) Hospital discharge follow-up: Code(s): Z09 - Encounter for follow-up examination after completed treatment for conditions other than malignant neoplasm Plan Follow-up with PCP in 4 months or sooner as needed Coding Level of Care Code Est Pt Level 3 (50466) Diagnoses Generalized anxiety disorder F41.1 Depression, major, severe recurrence F33.2 Hospital discharge follow-up Z09 Additional Codes SAVANAH-7 Assessment Billing - SAVANAH-7 Assessment Tool: SAVANAH-7 Assessment [id number] ([id number])
== END 2022-09-08 14:53 | disposition home or self-care (01) ==
PROVIDERS: PCP Internal Medicine; Visit Provider Nurse Practitioner Family
DX: F41.1 Generalized anxiety disorder (principal); F33.2 Major depressive disorder, recurrent severe without psychotic features; Z09 Encounter for follow-up examination after completed treatment for conditions other than malignant neoplasm
CPT/HCPCS: 96127; 99213

== ENCOUNTER 2023-01-14 10:27 | Outpatient (AMB) | payer OTHER, SELFPAY ==
[2023-01-14 10:37] VITALS: BP 158/98; PULSE 85; O2SAT 97; BMI 27.6
--- NOTE | 2023-01-14 10:37 | MHC.PC.OV ---
Vital Signs 01/14/23 10:37 Height 5 ft 5 in Weight 166 lb BMI 27.6 BP 158/98 H Blood Pressure Location Rt brachial Position Sitting Pulse 85 Pulse Source Pulse Oximeter Pulse Oximetry (%) 97 Oxygen Delivery Method Room Air Intake Visit Reasons: depression/anxiety Family Preservation Caseworker Required: No Accompanied by: Self / Same As Patient Allergies hydrocodone [Vicodin] Allergy (Unknown, Verified 01/14/23 10:42) nausea latex [LATEX] Allergy (Unknown, Verified 01/14/23 10:42) RASH Medication List - Last Reconciled 01/14/23 by Delvin Carrasquillo MD lorazepam 0.5 mg PO BID PRN lorazepam (Ativan) 1 mg PO .morning mirtazapine 7.5 mg PO BEDTIME 30 days olanzapine 10 mg PO BEDTIME olanzapine 5 mg PO .morning trazodone 100 mg PO BEDTIME 30 days Tobacco use date assessed: 09/08/22 Dental Screening Dental Screen Date: 01/14/23 Did you have a dental visit in the last 12 months?: No Did you have a dental problem in the last 6 months where you did not have access to dental care?: No Was dental information given to patient?: No (Dentures ) HPI depression/anxiety HPI Details 57-year-old overweight male with a history of adrenal adenoma impaired glucose tolerance generalized anxiety disorder GERD hypercholesterolemia lumbar radiculopathy coming in for follow-up. Last seen in December 2021. Had colonoscopy in 2013. Patient has followed up with nurse practitioner in August 2019 ER visit for depression history of multiple suicidal attempts has tried cutting wrist. Patient has also seen in March the javascript software engineer. Status post left adrenalectomy with benign pathology cortisol testing if a.m. cortisol is more than 10 good. 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 Depression, major, severe recurrence Dermatitis Epistaxis Erectile dysfunction Flank pain Generalized anxiety disorder GERD (gastroesophageal reflux disease) Hypercholesterolemia Insomnia Low Back Pain Low Back Pain Peptic ulcer disease Polysubstance abuse Renal calculus Restless leg syndrome Right-sided back pain Upper back pain Vitamin D deficiency Surgical History History of kidney surgery H/O arthroscopic knee surgery H/O oral surgery History of tonsillectomy History of nasal surgery Family History Father Myocardial infarct Colon cancer Mother Lung cancer Depression Brother Substance abuse Social History Household Members: Other Household Members Other:: rents room Housing: House Do you presently have visiting nurse or other home services: No Alcohol intake: never Patient Tobacco Use Status: Never used Tobacco e-Cigarette/Vaping Use: Never Used Second Hand Smoke Exposure: No Substance Use Type: Opiates service: No Current occupational status: employed 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 Angel Simpson, Calli Zaidi, Bijan Mcintyre and colleagues, with an educational vishnu from [employer]. Physical exam (Primary Care) Vital Signs: Last Vital Signs Pulse 85 01/14/23 10:37 BP 158/98 H 01/14/23 10:37 Pulse Ox 97 01/14/23 10:37 Oxygen Delivery Method Room Air 01/14/23 10:37 BMI result Body Mass Index 27.6 Tobacco/Smoking Status: Tobacco use Status Tobacco use date assessed 09/08/22 01/14/23 10:39 Patient Tobacco Use Status Never used Tobacco 01/14/23 10:39 e-Cigarette/Vaping Use Never Used 01/14/23 10:39 Thrive Assessment: Date of Thrive Assessment Date Thrive assessed 09/08/22 01/14/23 10:39 Const General: alert; No acute distress Eyes Conjunctivae: conjunctivae normal Resp Auscultation: clear to auscultation bilaterally Cardio Rate: regular rate Rhythm: regular rhythm GI Inspection: Yes normal to inspection Extrem General: Yes normal to inspection and No edema Assessment and Plan Assessment & Plan (1) Hypercholesterolemia: Code(s): E78.00 - Pure hypercholesterolemia, unspecified Plan: Avoid fried foods, chicken skin, eggs, butter margarine, pastries and meat. Be it pork or beef they have a lot of cholesterol LDL goal of less than 130 and triglyceride of less than 150 March 2022 last blood work (2) GERD (gastroesophageal reflux disease): Code(s): K21.9 - Gastro-esophageal reflux disease without esophagitis Plan: Avoid the foods that causes that usually spicy foods, tomato products, juices, coffee, soda and foods that your sensitive to. After eating do not lie down, allow 3-4 hours before in lie down. And keep the head of bed above 30 degrees to avoid the acid from going up. (3) Impaired fasting blood sugar: Code(s): R73.01 - Impaired fasting glucose Plan: Decrease the amount of carbohydrate intake, pasta, bread, rice and potatoes are all sugar and that is aside from all the sweet stuff, remember that fruits are good but they are Sweet also. (4) Adrenal adenoma: Comment: Status post adrenalectomy left January 2022 Code(s): D35.00 - Benign neoplasm of unspecified adrenal gland Plan: Left adrenalectomy done January 2022 and the a.m. cortisol test is 11 (5) Depression, major, severe recurrence: Code(s): F33.2 - Major depressive disorder, recurrent severe without psychotic features Plan: Continue to follow-up with counseling and therapy (6) Generalized anxiety disorder: Comment: [facility] Code(s): F41.1 - Generalized anxiety disorder Plan: Continue to follow-up with counseling and therapy, has been told concern about cholesterol and will retest. (7) Overweight (BMI 25.0-29.9): Code(s): E66.3 - Overweight Plan: Exercise Orders: Orders Free T4 (Free Thyroxine) Today E78.00 - Pure hypercholesterolemia, unspecified Lipid Panel Today E78.00 - Pure hypercholesterolemia, unspecified Complete Blood Count Auto Diff Today E78.00 - Pure hypercholesterolemia, unspecified Comprehensive Met. Panel Today E78.00 - Pure hypercholesterolemia, unspecified Thyroid Stimulating Hormone Today E78.00 - Pure hypercholesterolemia, unspecified Vitamin B12 and Folate Today E78.00 - Pure hypercholesterolemia, unspecified Medications: New methylcellulose (laxative) (Citrucel) 500 mg PO DAILY 30 tabs 5RF Discontinued olanzapine Discontinued Reason: Doctor's Order 10 mg PO BEDTIME Coding Level of Care Code Est Pt Level 4 (88673) Diagnoses Hypercholesterolemia E78.00 GERD (gastroesophageal reflux disease) K21.9 Impaired fasting blood sugar R73.01 Adrenal adenoma D35.00 Depression, major, severe recurrence F33.2 Generalized anxiety disorder F41.1 Overweight (BMI 25.0-29.9) E66.3
== END 2023-01-14 11:28 | disposition home or self-care (01) ==
PROVIDERS: PCP Internal Medicine; Visit Provider Internal Medicine
DX: E78.00 Pure hypercholesterolemia, unspecified (principal); F33.2 Major depressive disorder, recurrent severe without psychotic features; K21.9 Gastro-esophageal reflux disease without esophagitis; R73.01 Impaired fasting glucose; D35.00 Benign neoplasm of unspecified adrenal gland; F41.1 Generalized anxiety disorder; E66.3 Overweight
CPT/HCPCS: 99214

== ENCOUNTER 2023-02-04 11:16 | Day surgery (SDC) | payer OTHER, SELFPAY ==
--- NOTE | 2023-02-03 10:15 | P.CONAN_ITS ---
Documented by User: Lyndsay Bledsoe NP 02/03/23 10:22 HPI - Anesthesia Eval Consult details Narrative: 57yo M for Upper Endoscopy and Colonoscopy PMF Active Problems Active Problems: All Active Problems (Updated 01/14/23 @ 11:19 by Delvin Carrasquillo MD) Overweight (BMI 25.0-29.9) (Acute) Hospital discharge follow-up (Acute) Generalized anxiety disorder (Acute) Depression, major, severe recurrence (Acute) H/O total adrenalectomy (Acute) Loss of appetite (Acute) Tenosynovitis of thumb (Acute) Right hip pain (Acute) Lumbar spondylosis (Acute) Esophageal dysphagia (Acute) Peptic ulcer disease (Acute) Family history of colon cancer (Acute) Muscle spasm (Acute) Sacroiliac joint pain (Acute) Lumbar radiculopathy (Acute) Recurrent major depression (Acute) Trochanteric bursitis of both hips (Acute) Upper back pain (Acute) Adrenal adenoma (Acute) COVID-19 virus infection (Acute) Impaired fasting blood sugar (Acute) Vitamin B12 deficiency (Acute) Nasal septal perforation (Acute) Renal calculus (Acute) Colon cancer screening (Acute) GERD (gastroesophageal reflux disease) (Acute) Hypercholesterolemia (Acute) Past Medical History Medical History Adrenal adenoma Annual physical exam Anxiety and depression Chronic left shoulder pain 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 Depression, major, severe recurrence Dermatitis Epistaxis Erectile dysfunction Flank pain Generalized anxiety disorder GERD (gastroesophageal reflux disease) Hypercholesterolemia Insomnia Low Back Pain Low Back Pain Peptic ulcer disease Polysubstance abuse Renal calculus Restless leg syndrome Right-sided back pain Upper back pain Vitamin D deficiency Family History Family History Father Myocardial infarct Colon cancer Mother Lung cancer Depression Brother Substance abuse Surgical History Surgical History History of kidney surgery H/O arthroscopic knee surgery H/O oral surgery History of tonsillectomy History of nasal surgery Social History Social History Household Members: Other Household Members Other:: rents room Housing: House Do you presently have visiting nurse or other home services: No Alcohol intake: never Patient Tobacco Use Status: Never used Tobacco e-Cigarette/Vaping Use: Never Used Second Hand Smoke Exposure: No Substance Use Type: Opiates Are you DNR?: No Advance Directives: No Advance Directives Information Provided: Yes Nutrition Risks: No Nutritional Risk service: No Current occupational status: employed Current occupation: [employer] Sexual orientation: Straight/Heterosexual Cognitive needs: No Hearing needs: No Vision needs: Yes (glasses) Meds Allergies Allergy/AdvReac Type Severity Reaction Status Date / Time hydrocodone [Vicodin] Allergy Unknown nausea Verified 02/04/23 12:20 latex [LATEX] Allergy Unknown RASH Verified 02/04/23 12:20 Home Medications Medication Instructions Recorded Confirmed Last Taken Type lorazepam 1 mg tablet 0.5 mg PO BID PRN Anxiety 01/14/23 02/04/23 Unknown History olanzapine 10 mg tablet 10 mg PO BEDTIME 01/14/23 02/04/23 Unknown History olanzapine 5 mg tablet 5 mg PO .morning 01/14/23 02/04/23 02/04/23 History Exam Pertinent Lab Results Pertinent Lab Results: Laboratory Tests 08/17/22 17:28 WBC 4.8 Hgb 15.4 Hct 45.5 Plt Count 272 Sodium 142 Potassium 4.3 Chloride 105 Carbon Dioxide 26 BUN 14 Creatinine 0.83 Assessment and Plan Assessment Anesthesia Assessment: Chart Reviewed Documented by User: Krista Fuentes MD 02/04/23 13:01 [facility] Past Medical History Medical History Adrenal adenoma Annual physical exam Anxiety and depression Chronic left shoulder pain 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 Depression, major, severe recurrence Dermatitis Epistaxis Erectile dysfunction Flank pain Generalized anxiety disorder GERD (gastroesophageal reflux disease) Hypercholesterolemia Insomnia Low Back Pain Low Back Pain Peptic ulcer disease Polysubstance abuse Renal calculus Restless leg syndrome Right-sided back pain Upper back pain Vitamin D deficiency Family History Family History Father Myocardial infarct Colon cancer Mother Lung cancer Depression Brother Substance abuse Family history of problems with anesthesia: No Surgical History Surgical History History of kidney surgery H/O arthroscopic knee surgery H/O oral surgery History of tonsillectomy History of nasal surgery History of Problems with Anesthesia: No Social History Social History Household Members: Other Household Members Other:: rents room Housing: House Do you presently have visiting nurse or other home services: No Alcohol intake: never Patient Tobacco Use Status: Never used Tobacco e-Cigarette/Vaping Use: Never Used Second Hand Smoke Exposure: No Substance Use Type: Opiates Are you DNR?: No Advance Directives: No Advance Directives Information Provided: Yes Nutrition Risks: No Nutritional Risk service: No Current occupational status: employed Current occupation: [employer] Sexual orientation: Straight/Heterosexual Cognitive needs: No Hearing needs: No Vision needs: Yes (glasses) Meds Allergies Allergy/AdvReac Type Severity Reaction Status Date / Time hydrocodone [Vicodin] Allergy Unknown nausea Verified 02/04/23 12:20 latex [LATEX] Allergy Unknown RASH Verified 02/04/23 12:20 Home Medications Medication Instructions Recorded Confirmed Last Taken Type lorazepam 1 mg tablet 0.5 mg PO BID PRN Anxiety 01/14/23 02/04/23 Unknown History olanzapine 10 mg tablet 10 mg PO BEDTIME 01/14/23 02/04/23 Unknown History olanzapine 5 mg tablet 5 mg PO .morning 01/14/23 02/04/23 02/04/23 History Exam Airway Mallampati Class: II TM Dist: >3cm Neck ROM: Full Heart: rrr Lungs: cta Assessment and Plan Assessment Anesthesia Assessment: Anesthesia Plan Discussed Final Anesthetic Review Family History of Problems with Anesthesia: No History of Problems with Anesthesia: No NPO: Yes ASA Class: III Final Preanesthetic Review: No Changes in Pt Med Stat, Meds/Allgs Chart Reviewed and Consent Obtained/Reviewed Patient Risk: Intermediate Procedure Risk: Intermediate Anesthetic Plan Anesthetic Plan: MAC: Disposition: Standard PACU
[2023-02-04 11:58] VITALS: BMI 27.3
--- NOTE | 2023-02-04 12:04 | MHC.SHP ---
Pre-Procedural Eval Section A Date of Service: 02/04/23 The patient is an INPATIENT: No The History & Physical has been completed within 30 days and I have reviewed it.: No Section B Chief Complaint: screening, FH of colon cancer, dysphagia Relevant Family History (Specify if Yes): Yes Relevant Social History: None Present Medications: see Short Stay Collaborative assessment Medical History: Significant History (H/O arthroscopic knee surgery H/O oral surgery History of nasal surgery History of tonsillectomy) History of Previous Operations: Relevant previous surgery/procedure and date(s) (H/O arthroscopic knee surgery H/O oral surgery History of nasal surgery History of tonsillectomy) Allergies: Allergies Allergy/AdvReac Type Severity Reaction Status Date / Time hydrocodone [Vicodin] Allergy Unknown nausea Verified 01/14/23 10:42 latex [LATEX] Allergy Unknown RASH Verified 01/14/23 10:42 Review of Systems Sugical H&P ROS: Negative: Constitution, Cardiovascular and Respiratory and Yes, Specify: Gastrointestinal (dysphagia) Exam Surgical H&P Exam: Normal: Heart, Normal: Lungs, Normal: Extremities and Normal: Abdomen Plan Diagnosis/Plan: Unchanged I have reviewed the history and physical and performed a pertinent physical examination on my patient. No changes have occurred unless specified. Time Spent With Patient Time: Total time managing care of this patient today ____ minutes.
[2023-02-04 12:18] VITALS: BP 153/97; PULSE 84; RESP 18; TEMP 36.6; O2SAT 98
[2023-02-04] MEDS: Lactated Ringers 1,000 ML 100 ML IVCONT (12:19)
--- NOTE | 2023-02-04 13:18 | W.PM.OPN ---
Operative Note Operative Note Date of Service: 02/04/23 Narrative: FLEXIBLE TRANSORAL UPPER GASTROINTESTINAL ENDOSCOPY WITH BIOPSIES AND ESOPHAGEAL BALLOON DILATION AND COLONOSCOPY TILL CECUM WITH SNARE POLYPECTOMY Pre-op diagnosis: Colon cancer screening, family history of colon cancer (Dad in his 70's), dysphagia Post-op diagnosis: Gastritis, dysphagia colon polyps, diverticulosis, hemorrhoids? Endoscopist:? Jacob Holt MD Anesthesia:?MAC UPPER ENDOSCOPY Consent: Indications for the procedure and potential complications of bleeding, perforation, reaction to medications and missed diagnosis were discussed with the patient and informed consent was obtained. Instrument: Olympus GIF H 190 mid size upper endoscope Monitoring: Vital signs and clinical assessment, continuous EKG monitoring, Pulse oximetry, Carbon Dioxide monitoring and blood pressure monitoring were done throughout the procedure. Procedure: The patient was placed in the left lateral decubitis position and pre-procedure medications were administered and a bite block was placed. The endoscope was inserted into the mouth and advanced under direct vision to the third part of duodenum. A careful inspection was made as the upper endoscope was withdrawn including a retroflexed examination of the proximal stomach; Findings and interventions are described below. Findings: Larynx: Normal Esophagus: Esophageal mucosa appeared normal without stricture or ring. Biopsies were obtained from proximal esophagus to check for EOE. GE junction at 36 cms. No esophagitis or Grady's. Empiric esophageal balloon dilation was performed with a 20 mm (60 F) CRE balloon x 60 seconds Stomach: Mild gastric erythema. Biopsies were obtained. Grade 2 flap valve on retroflexed examination of the cardia. Duodenum: Normal bulb and descending duodenum Intervention: Biopsies as noted above COLONOSCOPY PROCEDURE NOTE Consent: Indications for the procedure and potential complications of bleeding, perforation, reaction to medications and missed diagnosis were discussed with the patient and informed consent was obtained. Instrument: Olympus PCF H 190 L variable stiffness pediatric colonoscope Monitoring: Vital signs and clinical assessment, intermittent blood pressure monitoring, continuous EKG monitoring, Pulse oximetry and Carbon Dioxide monitoring were done throughout the procedure. Colon withdrawl time was 12 minutes. Procedure: The patient was placed in the left lateral decubitis position and pre-procedure medications were administered. After a digital rectal examination of the ano-rectum, the video colonoscope was inserted into the rectum and advanced through the colon to the cecum. The colonoscope was slowly withdrawn in a retrograde panoramic fashion and the colon mucosa was carefully examined including a retroflexed view of the rectum. Findings and interventions are described below. Procedure Difficulty: : Without difficulty Findings: Terminal Ileum: Not evaluated Cecum: Normal Ascending Colon: A 10-12 mm sessile polyp in the distal ascending colon/hepatic flexure. Polyp was removed with a hot snare Transverse Colon: Normal Descending Colon: Normal Sigmoid Colon: A 6-7 mm sessile polyp - removed with a cold snare. Moderate diverticulosis Rectum: Normal Ano-rectum: Moderate internal hemorrhoids Colon preparation: [Excellent] [Good] [Fair] [poor] Impression and Post Procedure Diagnosis: Endoscopy Findings: ESOPHAGUS: Esophageal mucosa appeared normal without stricture or ring. Biopsies were obtained from proximal esophagus to check for EOE. GE junction at 36 cms. No esophagitis or Grady's. Empiric esophageal balloon dilation was performed with a 20 mm (60 F) CRE balloon x 60 seconds STOMACH: Mild gastric erythema. Biopsies were obtained. Grade 2 flap valve on retroflexed examination of the cardia. Colonoscopy Findings: One small and one medium sized polyps removed Moderate diverticulosis seen in the left colon Moderate hemorrhoids on retroflexed exam. Plan: Await pathology results Patient has an appointment on 03/04/23 in the GI Clinic with Melissa Santiago NP. Repeat Colonoscopy interval based on path results - in 3-5 years if polyps are adenomatous and 10 years if polyps are hyperplastic. Colon polyps and diverticulosis handouts were given in the discharge area
[2023-02-04 14:00] VITALS: BP 120/69; PULSE 75; RESP 16; TEMP 36.5; O2SAT 97
[2023-02-04 14:15] VITALS: BP 125/96; PULSE 76; RESP 20; TEMP 36.4; O2SAT 98
== END 2023-02-04 14:44 | disposition home or self-care (01) ==
PROVIDERS: PCP Internal Medicine; Visit Provider Internal Medicine Gastroenterology
PROC: (CPT 43249; principal; 2023-02-04 12:40)
DX: K29.70 Gastritis, unspecified, without bleeding (principal); R13.19 Other dysphagia; K21.00 Gastro-esophageal reflux disease with esophagitis, without bleeding; K27.9 Peptic ulcer, site unspecified, unspecified as acute or chronic, without hemorrhage or perforation; Z12.11 Encounter for screening for malignant neoplasm of colon; D12.2 Benign neoplasm of ascending colon; D12.5 Benign neoplasm of sigmoid colon; K57.30 Diverticulosis of large intestine without perforation or abscess without bleeding; K64.8 Other hemorrhoids; Z80.0 Family history of malignant neoplasm of digestive organs; F41.1 Generalized anxiety disorder; F33.2 Major depressive disorder, recurrent severe without psychotic features; E89.6 Postprocedural adrenocortical (-medullary) hypofunction; E78.00 Pure hypercholesterolemia, unspecified; Z87.442 Personal history of urinary calculi
CPT/HCPCS: 43249; 43239; 45385; 88305; 88342; C1726; J2704

== ENCOUNTER → 2023-02-04 11:16 | Outpatient (BNV) | payer OTHER, SELFPAY | PROVIDERS: PCP Internal Medicine; Visit Provider Internal Medicine Gastroenterology | DX: Z12.11 Encounter for screening for malignant neoplasm of colon (principal); Z80.0 Family history of malignant neoplasm of digestive organs; K29.70 Gastritis, unspecified, without bleeding; K57.30 Diverticulosis of large intestine without perforation or abscess without bleeding; K64.8 Other hemorrhoids; D12.2 Benign neoplasm of ascending colon; D12.5 Benign neoplasm of sigmoid colon | CPT/HCPCS: 43249; 45385 ==

== ENCOUNTER 2023-04-29 10:17 | Outpatient (AMB) | payer OTHER, SELFPAY ==
[2023-04-29 10:18] VITALS: BP 148/90; PULSE 67; O2SAT 96; BMI 28.8
--- NOTE | 2023-04-29 10:18 | MHC.PC.OV ---
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 Allergies hydrocodone [Vicodin] Allergy (Unknown, Verified 04/29/23 10:19) nausea latex [LATEX] Allergy (Unknown, Verified 04/29/23 10:19) RASH Medication List - Last Reconciled 04/29/23 by Delvin Carrasquillo MD lorazepam 0.5 mg PO BID PRN mirtazapine 7.5 mg PO BEDTIME 30 days olanzapine 10 mg PO BEDTIME olanzapine 5 mg PO .morning psyllium husk (Fiber (psyllium husk)) 1.04 grams (2 x 0.52 gram) PO DAILY trazodone 100 mg PO BEDTIME 30 days Tobacco use date assessed: 04/29/23 Dental Screening Dental Screen Date: 04/29/23 HPI 3 MONTH F/U HPI Details 57-year-old overweight male with hypercholesterolemia GERD impaired glucose tolerance depression generalized anxiety disorder last seen in December 2022. Patient is up-to-date with colonoscopy January 2023 tubular adenoma post colonoscopy patient had been complaining of having rectal incontinence was given Citrucel with no relief and was asking for different 1. Otherwise advised to increase oral fluids. Continues to follow-up with psychiatry and counseling and on med changes. 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 Restless leg syndrome Anxiety and depression Vitamin D deficiency Erectile dysfunction GERD (gastroesophageal reflux disease) Hypercholesterolemia Chronic left shoulder pain Surgical History History of kidney surgery H/O arthroscopic knee surgery H/O oral surgery History of tonsillectomy History of nasal surgery Family History Father Myocardial infarct Colon cancer Mother Lung cancer Depression Brother Substance abuse Social History Household Members: Other Household Members Other:: rents room Housing: House Do you presently have visiting nurse or other home services: No Alcohol intake: never Patient Tobacco Use Status: Never used Tobacco e-Cigarette/Vaping Use: Never Used Second Hand Smoke Exposure: No Substance Use Type: Opiates service: No Current occupational status: employed Current occupation: [employer] Sexual orientation: Straight/Heterosexual Cognitive needs: No Hearing needs: No Vision needs: Yes (glasses) Questionnaire Thrive Questionnaire Date Thrive assessed: 04/29/23 AUDIT C Alcohol Use Questionnaire (AUDIT-C) 1. How often do you have a drink containing alcohol?: Monthly or less 2. How many drinks containing alcohol do you have on a typical day when you are drinking?: 1 or 2 3. How often do you have six or more drinks on one occasion?: Never Total Score: 1 Score Reviewed/Action Taken: No SAVANAH-7 AMB Questionnaire SAVANAH-7 Date SAVANAH - 7 assessed: 04/29/23 Source: Developed by Drs. Angel Simpson, Calli Zaidi, Bijan cMintyre and colleagues, with an educational vishnu from [employer]. Physical exam (Primary Care) Vital Signs: Last Vital Signs Pulse 67 04/29/23 10:18 BP 148/90 H 04/29/23 10:18 Pulse Ox 96 04/29/23 10:18 Oxygen Delivery Method Room Air 04/29/23 10:18 BMI result Body Mass Index 28.8 Tobacco/Smoking Status: Tobacco use Status Tobacco use date assessed 04/29/23 04/29/23 10:19 Patient Tobacco Use Status Never used Tobacco 04/29/23 10:19 e-Cigarette/Vaping Use Never Used 04/29/23 10:19 Thrive Assessment: Date of Thrive Assessment Date Thrive assessed 04/29/23 04/29/23 10:19 Const General: alert; No acute distress Eyes Conjunctivae: conjunctivae normal Resp Auscultation: clear to auscultation bilaterally Cardio Rate: regular rate Rhythm: regular rhythm GI Inspection: Yes normal to inspection Extrem General: Yes normal to inspection and No edema Assessment and Plan Assessment & Plan (1) Overweight (BMI 25.0-29.9): Code(s): E66.3 - Overweight Plan: Diet and exercise (2) Generalized anxiety disorder: Comment: [facility] counselling Code(s): F41.1 - Generalized anxiety disorder Plan: Continue with present medication presently on lorazepam mirtazapine olanzapine trazodone (3) Depression, major, severe recurrence: Comment: [facility] Counselling Code(s): F33.2 - Major depressive disorder, recurrent severe without psychotic features Plan: Continue with present medication and counseled (4) GERD (gastroesophageal reflux disease): Code(s): K21.9 - Gastro-esophageal reflux disease without esophagitis Plan: Avoid the foods that causes that usually spicy foods, tomato products, juices, coffee, soda and foods that your sensitive to. After eating do not lie down, allow 3-4 hours before in lie down. And keep the head of bed above 30 degrees to avoid the acid from going up. (5) Hypercholesterolemia: Code(s): E78.00 - Pure hypercholesterolemia, unspecified Plan: Avoid fried foods, chicken skin, eggs, butter margarine, pastries and meat. Be it pork or beef they have a lot of cholesterol March 2022 last blood work good. (6) Rectal incontinence: Code(s): R15.9 - Full incontinence of feces Plan: Patient is given fiber to try and see if that helps. Take 2 tablets at nighttime if it persist as a problem will have to have gastroenterology referral. Orders: Orders Hemoglobin A1c Today R73.01 - Impaired fasting glucose Prostate Specific Antigen Scr Today R73.01 - Impaired fasting glucose Medications: New psyllium husk (Fiber (psyllium husk)) 1.04 grams (2 x 0.52 gram) PO DAILY 60 caps 2RF R15.9 - Full incontinence of feces sertraline 100 mg PO DAILY 90 tabs 0RF F33.2 - Major depressive disorder, recurrent severe without psychotic features Discontinued methylcellulose (laxative) (Citrucel) Discontinued Reason: No Longer Medically Relevant 500 mg PO DAILY 30 tabs 5RF Coding Level of Care Code Est Pt Level 4 (76004) Diagnoses Overweight (BMI 25.0-29.9) E66.3 Generalized anxiety disorder F41.1 Depression, major, severe recurrence F33.2 GERD (gastroesophageal reflux disease) K21.9 Hypercholesterolemia E78.00 Rectal incontinence R15.9
== END 2023-04-29 11:12 | disposition home or self-care (01) ==
PROVIDERS: PCP Internal Medicine; Visit Provider Internal Medicine
DX: E66.3 Overweight (principal); F41.1 Generalized anxiety disorder; F33.2 Major depressive disorder, recurrent severe without psychotic features; K21.9 Gastro-esophageal reflux disease without esophagitis; E78.00 Pure hypercholesterolemia, unspecified; R15.9 Full incontinence of feces
CPT/HCPCS: 99214

== ENCOUNTER 2023-08-10 12:51 | Outpatient (AMB) | payer OTHER, SELFPAY ==
[2023-08-10 12:57] VITALS: BP 162/82; PULSE 71; O2SAT 98; BMI 29.5
--- NOTE | 2023-08-10 12:57 | A.OFFPC_ITS ---
Vital Signs 08/10/23 12:57 Height 5 ft 5 in Weight 177 lb BMI 29.5 BP 162/82 H Blood Pressure Location Lt brachial Position Sitting Pulse 71 Pulse Source Pulse Oximeter Pulse Oximetry (%) 98 Oxygen Delivery Method Room Air Intake Visit Reasons: 3 Month F/U Allergies hydrocodone [Vicodin] Allergy (Unknown, Verified 08/10/23 12:58) nausea latex [LATEX] Allergy (Unknown, Verified 08/10/23 12:58) RASH Tobacco use date assessed: 04/29/23 Dental Screening Dental Screen Date: 08/10/23 Did you have a dental visit in the last 12 months?: No Did you have a dental problem in the last 6 months where you did not have access to dental care?: No Was dental information given to patient?: No HPI 3 Month F/U HPI Details 58-year-old overweight male with general ized anxiety disorder and depression GERD hypercholesterolemia last seen in 05/18/2023 patient had rectal incontinence and was advised to take fiber. 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 Restless leg syndrome Anxiety and depression Vitamin D deficiency Erectile dysfunction GERD (gastroesophageal reflux disease) Hypercholesterolemia Chronic left shoulder pain Surgical History History of kidney surgery H/O arthroscopic knee surgery H/O oral surgery History of tonsillectomy History of nasal surgery Family History Father Myocardial infarct Colon cancer Mother Lung cancer Depression Brother Substance abuse Social History Household Members: Other Household Members Other:: rents room Housing: House Do you presently have visiting nurse or other home services: No Alcohol intake: never Patient Tobacco Use Status: Never used Tobacco e-Cigarette/Vaping Use: Never Used Second Hand Smoke Exposure: No Substance Use Type: Opiates service: No Current occupational status: employed 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 1. Little interest or pleasure in doing things: nearly every day 2. Feeling down, depressed, or hopeless: nearly every day 3. Trouble falling or staying asleep, or sleeping too much: nearly every day 4. Feeling tired or having little energy: nearly every day 5. Poor appetite or overeating: not at all 6. Feeling bad about yourself - or that you are a failure or have let yourself or your family down: nearly every day 7. Trouble concentrating on things, such as reading the newspaper or watching television: nearly every day 8. Moving or speaking so slowly that other people could have noticed. Or the opposite - being so fidgety or restless that you have been moving around a lot more than usual: not at all 9. Thoughts that you would be better off or of hurting yourself in some way: not at all Total score: 18 Depression Screening Interpretation: Positive Depression Screening Follow-up: In treatment Depression Screening Done: Yes [id number] - PHQ-9 Billing: Yes Source: Developed by Drs. Angel Simpson, Calli Zaidi, Bijan Mcintyre and colleagues, with an educational vishnu from [employer]. Thrive Questionnaire Date Thrive assessed: 04/29/23 AUDIT C Alcohol Use Questionnaire (AUDIT-C) 1. How often do you have a drink containing alcohol?: Monthly or less 2. How many drinks containing alcohol do you have on a typical day when you are drinking?: 1 or 2 3. How often do you have six or more drinks on one occasion?: Never Total Score: 1 Score Reviewed/Action Taken: No SAVANAH-7 AMB Questionnaire SAVANAH-7 Date SAVANAH - 7 assessed: 04/29/23 Source: Developed by Drs. Angel Simpson, Bijan Johnson and colleagues, with an educational vishnu from [employer]. Physical exam (Primary Care) Vital Signs: Last Vital Signs Pulse 71 08/10/23 12:57 BP 162/82 H 08/10/23 12:57 Pulse Ox 98 08/10/23 12:57 Oxygen Delivery Method Room Air 08/10/23 12:57 BMI result Body Mass Index 29.5 Tobacco/Smoking Status: Tobacco use Status Tobacco use date assessed 04/29/23 08/10/23 13:04 Patient Tobacco Use Status Never used Tobacco 08/10/23 13:04 e-Cigarette/Vaping Use Never Used 08/10/23 13:04 PHQ-9: PHQ-9 Score PHQ-9: Total score 18 08/10/23 13:04 Depression Screening Interpretation: Positive Depression Screening Follow-up: In treatment Thrive Assessment: Date of Thrive Assessment Date Thrive assessed 04/29/23 08/10/23 13:04 Const General: alert; No acute distress Eyes Conjunctivae: conjunctivae normal Resp Auscultation: clear to auscultation bilaterally Cardio Rate: regular rate Rhythm: regular rhythm GI Inspection: Yes normal to inspection Extrem General: Yes normal to inspection and No edema Assessment and Plan Assessment & Plan (1) Overweight (BMI 25.0-29.9): Code(s): E66.3 - Overweight Plan: Diet and exercise (2) Generalized anxiety disorder: Comment: [facility] Code(s): F41.1 - Generalized anxiety disorder Plan: Continue with present medication (3) Impaired fasting blood sugar: Code(s): R73.01 - Impaired fasting glucose Plan: Decrease the amount of carbohydrate intake, pasta, bread, rice and potatoes are all sugar and that is aside from all the sweet stuff, remember that fruits are good but they are Sweet also. (4) Hypercholesterolemia: Code(s): E78.00 - Pure hypercholesterolemia, unspecified Plan: Avoid fried foods, chicken skin, eggs, butter margarine, pastries and meat. Be it pork or beef they have a lot of cholesterol LDL goal of less than 130 and triglyceride of less than 150 patient needs to have blood work (5) GERD (gastroesophageal reflux disease): Code(s): K21.9 - Gastro-esophageal reflux disease without esophagitis Plan: Avoid the foods that causes that usually spicy foods, tomato products, juices, coffee, soda and foods that your sensitive to. After eating do not lie down, allow 3-4 hours before in lie down. And keep the head of bed above 30 degrees to avoid the acid from going up. (6) Eczema: Comment: face Code(s): L30.9 - Dermatitis, unspecified (7) Restless leg syndrome: Comment: 2014 sleep study Code(s): G25.81 - Restless legs syndrome Orders: Orders Ferritin Today G25.81 - Restless legs syndrome Referrals Gastroenterology Referral R15.9 - Full incontinence of feces Medications: New alclometasone 0.05% 1 appl topical BID 2 weeks PRN 45 grams 0RF itching L30.9 - Dermatitis, unspecified gabapentin 100 mg PO BEDTIME 30 caps 1RF G25.81 - Restless legs syndrome Coding Level of Care Code Est Pt Level 4 (25719) Diagnoses Overweight (BMI 25.0-29.9) E66.3 Generalized anxiety disorder F41.1 Impaired fasting blood sugar R73.01 Hypercholesterolemia E78.00 GERD (gastroesophageal reflux disease) K21.9 Eczema L30.9 Restless leg syndrome G25.81
== END 2023-08-10 13:49 | disposition home or self-care (01) ==
PROVIDERS: PCP Internal Medicine; Visit Provider Internal Medicine
DX: E66.3 Overweight (principal); F41.1 Generalized anxiety disorder; R73.01 Impaired fasting glucose; E78.00 Pure hypercholesterolemia, unspecified; K21.9 Gastro-esophageal reflux disease without esophagitis; L30.9 Dermatitis, unspecified; G25.81 Restless legs syndrome
CPT/HCPCS: 99214

== ENCOUNTER 2023-09-14 09:52 | Outpatient (REF) | payer OTHER, SELFPAY ==
[2023-09-14 10:08] LABS: MANUAL DIFF FLAG NO
[2023-09-14 10:55] LABS: Basophils Absolute Auto 0.1 X10*3/uL (0.0-0.2); Basophils Percent Auto 1.3 % (0-2); Eosinophils Absolute Auto 0.2 X10*3/uL (0.0-0.4); Eosinophils Percent Auto 5.5 % (0-4); Hematocrit 44.4 % (42.0-52.0); Hemoglobin 15.2 g/dl (14.0-18.0); Imm Gran Abs Auto 0.01 X10*3/uL (0.00-0.03); Imm Gran Pct Auto 0.3 % (0.0-0.4); Lymphocytes Absolute Auto 1.2 X10*3/uL (1.2-4.9); Lymphocytes Percent Auto 32.7 % (20-40); Mean Corpuscular HGB Conc 34.2 g/dl (31.0-36.0); Mean Corpuscular Hemoglobin 31.3 pg (27.0-33.0); Mean Corpuscular Volume 91.4 fL (80.0-98.0); Mean Platelet Volume 10.1 fL (9.4-12.4); Monocytes Absolute Auto 0.4 X10*3/uL (0.1-1.2); Monocytes Percent Auto 9.5 % (2-11); Neutrophils Absolute Auto 1.9 x10*3/uL (2.0-8.3); Neutrophils Percent Auto 50.7 % (45-73); Platelet Count 224 X10*3/uL (160-400); Red Blood Count 4.86 X10*6/uL (4.60-5.80); Red Cell Distribution Width 12.8 % (11.0-16.0); White Blood Count 3.8 X10*3/uL (4.8-10.8)
[2023-09-14 11:52] LABS: Alanine Aminotransferase 29 U/L (0-40); Albumin Level 4.3 g/dL (3.5-5.0); Alkaline Phosphatase 53 U/L (39-117); Anion Gap 11 (12-20); Aspartate Amino Transferase 22 U/L (5-37); Bilirubin Total 0.3 mg/dL (0.0-1.0); Blood Urea Nitrogen 11 mg/dL (9-16); Calcium 9.2 mg/dL (8.4-10.2); Carbon Dioxide 25 mmol/L (22-29); Chloride 110 mmol/L (96-108); Cholesterol 203 mg/dL (<200); Estimated Glomerular Filt Rate > 60; Glucose Random 110 mg/dL (60-115); HDL Cholesterol 45 mg/dL (>40); LDL Cholesterol Calculated 132 mg/dL (<100); Sodium 142 mmol/L (135-145); Total Protein 6.8 g/dL (6.5-8.0); Triglycerides 132 mg/dL (<150)
[2023-09-14 12:08] LABS: Ferritin 102 ng/mL (20-250); Free T4 (Free Thyroxine) 0.85 ng/dL (0.71-1.85); Thyroid Stimulating Hormone 0.84 uIU/mL (0.32-4.0)
[2023-09-14 12:26] LABS: Estimated Average Glucose 97 mg/dL
[2023-09-14 13:46] LABS: Folate 3.7 ng/mL (> or = 4.0); Prostate Specific Antigen Scr 0.29 ng/mL (<0.05-4.0); Vitamin B12 370 pg/mL (200-900)
== END 2023-09-14 09:53 | disposition home or self-care (01) ==
LOC: HO.LAB 09:52
PROVIDERS: PCP Internal Medicine; Visit Provider Internal Medicine
DX: E78.00 Pure hypercholesterolemia, unspecified (principal); G25.81 Restless legs syndrome; R73.01 Impaired fasting glucose; Z12.5 Encounter for screening for malignant neoplasm of prostate
CPT/HCPCS: 36415; 80053; 80061; 82607; 82728; 82746; 83036; 84153; 84439; 84443; 85025

== ENCOUNTER 2023-09-29 15:30 | Outpatient (AMB) | payer OTHER, SELFPAY ==
--- NOTE | 2023-09-29 15:40 | MHC.OFFVIS ---
Vital Signs 09/29/23 15:56 Height 5 ft 5 in Weight 183 lb 6.793 oz BMI 30.5 BP 163/96 H Blood Pressure Location Rt brachial Position Sitting Pulse 84 Intake Visit Reasons: Full incontinence of feces Intake Note: Patient in office today in follow up s/p colonoscopy and EGD on 02/04/2023. CC: Patient states that since after his colonoscopy he began to experience incontinence of feces. He states that this problem is stopping him from doing a lot of things. He reports that the consistency of the stools when this happens is soft like pudding . Rn Cardiovascular Required: No Accompanied by: Self / Same As Patient Allergies hydrocodone [Vicodin] Allergy (Unknown, Verified 09/29/23 16:07) nausea latex [LATEX] Allergy (Unknown, Verified 09/29/23 16:07) RASH HPI HPI Full incontinence of feces: Details: ssessment & Plan (1) Family history of colon cancer: Code(s): Z80.0 - Family history of malignant neoplasm of digestive organs Plan: He denies being referred for GERD. He says he is here for a colonoscopy in the context of a FHX of CRC - last was 5 years ago ? at [facility]. Therapy after his EGD. He is also concerned saying they ?found something on my liver that might be cancer? and he does not understand why he has not been referred for that reason. He says this problem was found when he was rest to the ER [facility]. I reviewed the [facility] notes and it is an adrenal lesion that they are concerned about and I explained that this is part of the urinary system and not his liver. He has an upcoming appointment with either urologist during supervisor gluing (see also has renal stones) that is likely to explore this lesion. He has a hx of PUD, and recently food and at times water is sticking at the GE jnx. No known FHX of stomach cancer. He was on sucralfate for many years but has not been on it for about 5 years. He denies any current bowel problems. No anesthesia or sedation problems. He denies cardiac or respiratory problems No ID problems. He is not currently on PPI therapy. I start him on famotidine at bedtime since with his history he really should be on some stomach protectant and will decide if he needs more intensive. I will see him after his colonoscopy/EGD. (2) Esophageal dysphagia: Code(s): R13.19 - Other dysphagia (3) GERD (gastroesophageal reflux disease): Code(s): K21.9 - Gastro-esophageal reflux disease without esophagitis (4) Peptic ulcer disease: Code(s): K27.9 - Peptic ulcer, site unspecified, unspecified as acute or chronic, without hemorrhage or perforation Orders: Orders Comprehensive Met. Panel Today Z80.0 - Family history of malignant neoplasm of digestive organs Complete Blood Count Auto Diff Today Z80.0 - Family history of malignant neoplasm of digestive organs Medications: New sodium,potassium,mag sulfates 17.5-3.13-1.6 gram (Suprep Bowel Prep Kit) DILUTE; drink full amount early evening before AND next morning at least 2 hr before procedure; follow w 960 mL water PO 354 mL 0RF Z80.0 - Family history of malignant neoplasm of digestive organs famotidine (Pepcid) 40 mg PO BEDTIME 30 tabs 6RF K27.9 - Peptic ulcer, site unspecified, unspecified as acute or chronic, without hemorrhage or perforation, R13.19 - Other dysphagia Labs: Laboratory Tests 09/14/23 09:57 WBC 3.8 L Hgb 15.2 Hct 44.4 Plt Count 224 Estimated GFR > 60 Total Bilirubin 0.3 AST 22 ALT 29 Alkaline Phosphatase 53 TSH 0.84 Free T4 0.85 EGD/COLONOSCOPY 02/07/23 Findings: Larynx: Normal Esophagus: Esophageal mucosa appeared normal without stricture or ring. Biopsies were obtained from proximal esophagus to check for EOE. GE junction at 36 cms. No esophagitis or Grady's. Empiric esophageal balloon dilation was performed with a 20 mm (60 F) CRE balloon x 60 seconds Stomach: Mild gastric erythema. Biopsies were obtained. Grade 2 flap valve on retroflexed examination of the cardia. Duodenum: Normal bulb and descending duodenum THE Findings: Terminal Ileum: Not evaluated Cecum: Normal Ascending Colon: A 10-12 mm sessile polyp in the distal ascending colon/hepatic flexure. Polyp was removed with a hot snare Transverse Colon: Normal Descending Colon: Normal Sigmoid Colon: A 6-7 mm sessile polyp - removed with a cold snare. Moderate diverticulosis Rectum: Normal Ano-rectum: Moderate internal hemorrhoids Colon preparation: [Excellent] [Good] [Fair] [poor] Impression and Post Procedure Diagnosis: Endoscopy Findings: ESOPHAGUS: Esophageal mucosa appeared normal without stricture or ring. Biopsies were obtained from proximal esophagus to check for EOE. GE junction at 36 cms. No esophagitis or Grady's. Empiric esophageal balloon dilation was performed with a 20 mm (60 F) CRE balloon x 60 seconds STOMACH: Mild gastric erythema. Biopsies were obtained. Grade 2 flap valve on retroflexed examination of the cardia. Colonoscopy Findings: One small and one medium sized polyps removed Moderate diverticulosis seen in the left colon Moderate hemorrhoids on retroflexed exam. Plan: Await pathology results Patient has an appointment on 03/04/23 in the GI Clinic with Melissa Santiago NP. Repeat Colonoscopy interval based on path results - in 3-5 years if polyps are adenomatous and 10 years if polyps are hyperplastic THE BIOPSY Received: 02/07/23 Diagnosis A. Stomach, antrum, biopsy: Antral-type mucosa within normal limits; no Helicobacter organisms seen. B. Esophagus, proximal, biopsy: Active esophagitis (neutrophils); negative for atypia or fungi. C. Colon, sigmoid, polypectomy: Tubular adenoma; negative for high-grade dysplasia or carcinoma. D. Colon, ascending, polypectomy: Fragments of tubular adenoma; negative for high-grade dysplasia or carcinoma TODAY'S VISIT This patient has been lost to follow-up since 08/2021 and appears to have been re-referred for diarrhea. He says he has been having rectal incontinence which he and - according to the patient - has been since the colonoscopy. He says his stools were normal and formed, but now they are like pudding. Even if the stools are more formed, he can not control the stools exiting the rectum and this is interfering with his work life. After a great deal of conversation he clarifies that he only has the severe incontinent problem when his stools are looser or more putting like. This does not really happen when they are more formed. It remains to be seen why his stooling has suddenly changed. It is unlikely this was cause directly by the colonoscopy. I think that the development of something like food allergies certainly could be in the differential, unfortunately he is unwilling to do stool samples to check for any underlying infection or inflammatory conditions such as IBD. I will do a CRP but there are CRP nonresponder who do present and the 2nd part of life with something like Crohn's disease. Fortunately has not had weight loss or any severe abdominal pain. He says has not changed his diet over many many years so this does not seem to be part of the problem. The only medicines that have changed our his psych meds and while this could be causing GI side effects it is less likely than something like discontinuing an opiate. For now will try to control the condition by bulking up the stools with Carafate. He had absolutely no success with fiber which does not surprise me. Depending on the results of the labs and his response will consider if we need to progress to something a little bit stronger. Because he does sometimes have solid bowel movements I would be reluctant to use an and IBS-D medication as this may cause severe constipation. I do not know what would affect his sphincter incompetence. Usually something like that would be caused by an injury, a back problem, or even a stroke. Unfortunately we do not do tests like a defect kg or balloon expulsion exam at this small [facility]. I may need to refer him up to a physician depending on his response. Return office visit in 6 weeks [facility] Medical History (Updated 09/29/23 @ 16:20 by PALMA Lockett) Impaired fasting blood sugar Renal calculus Nasal septal perforation Vitamin B12 deficiency COVID-19 virus infection Adrenal adenoma Upper back pain Recurrent major depression Muscle spasm Family history of colon cancer Right hip pain Hospital discharge follow-up Colon cancer screening Depression, major, severe recurrence Low Back Pain Right-sided back pain Dermatitis Upper back pain Low Back Pain Generalized anxiety disorder Epistaxis Flank pain Annual physical exam Adrenal adenoma Polysubstance abuse Peptic ulcer disease Insomnia 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 Restless leg syndrome Anxiety and depression Vitamin D deficiency Erectile dysfunction GERD (gastroesophageal reflux disease) Hypercholesterolemia Chronic left shoulder pain Surgical History (Updated 09/29/23 @ 15:45 by PALMA Lockett) H/O total adrenalectomy History of kidney surgery H/O arthroscopic knee surgery H/O oral surgery History of tonsillectomy History of nasal surgery Family History Father Myocardial infarct Colon cancer Mother Lung cancer Depression Brother Substance abuse Social History Household Members: Other Household Members Other:: rents room Housing: House Do you presently have visiting nurse or other home services: No Alcohol intake: never Patient Tobacco Use Status: Never used Tobacco e-Cigarette/Vaping Use: Never Used Second Hand Smoke Exposure: No Substance Use Type: Opiates service: No Current occupational status: employed Current occupation: [id number] Sexual orientation: Straight/Heterosexual Cognitive needs: No Hearing needs: No Vision needs: Yes (glasses) Review of Systems Const Denies fatigue, Denies fever(s), Denies night sweats, Denies poor appetite and Denies weight loss Eyes Details: glasses Reports requires corrective lenses ENT Reports Normal hearing present, Denies dental pain, Denies dysphagia, Denies hearing loss, Denies mouth pain, Denies odynophagia, Denies throat swelling, Denies tongue swelling and Reports other (Dentition adequate) Card Reports no additional complaints Resp Reports no additional complaints GI Details: Rectal incontinence Denies abdominal pain, Denies melena, Denies bloating, Denies hematochezia, Denies constipation, Denies GI cramping, Denies dysphagia, Denies excessive flatus, Denies early satiety, Denies heartburn, Denies diarrhea, Reports loose stools, Denies nausea, Denies odynophagia, Denies vomiting and Denies hematemesis Skin/Breast Denies pruritus, Denies lesions, Denies rash and Denies jaundice Neuro Reports Normal hearing present and Denies Abnormal speech present Endo Denies fatigue Aller/Immun Denies throat swelling and Denies tongue swelling Physical Exam Const General: cooperative, no acute distress, well developed and well groomed Nutritional Appearance: well nourished and obese centrally obese Orientation/consciousness: oriented to person, oriented to place and oriented to time Limitations: No language barrier HEENT Head: Yes normocephalic and Yes atraumatic Eyes General: appearance normal, both eyes and all related structures Pupils: Equal, round and reactive pupils present Neck Neck: Yes normal visual inspection and Yes no lymphadenopathy Thyroid: Thyroid normal Resp Effort & Inspection: normal respiratory effort and able to speak in complete sentences Auscultation: clear to auscultation bilaterally Cardio Rate: regular rate Rhythm: regular rhythm Heart sounds: Normal, physiologic split S2 sound present Peripheral pulses: radial pulses present and posterior tibial pulses present GI Inspection: No distended, No Abdominal panniculus present and Yes obesity Palpation (GI): Soft to palpation, nontender, no guarding, not rigid and No hepatosplenomegaly present Percussion: Yes normal to percussion Auscultation: normal bowel sounds Rectal Exam - Male: Yes deferred Skin Other: Multiple colorful tattoos on arms and neck General skin exam: no rashes or lesions noted, turgor normal, skin not dry, no jaundice, No spider nevi and no striae Rashes: no rashes Nails: normal Neuro General: oriented to person, oriented to place and oriented to time Cranial nerves: Yes Equal, round and reactive pupils present and Yes Normal hearing present Speech: No Abnormal speech present Extrem General: Yes normal to inspection, No clubbing, No cyanosis and No edema Psych Appearance: grossly normal and well kempt Mental Status: mental status grossly normal Speech and movement: Normal speech and movement present Affect: normal affect Attitude: cooperative Thought process: Normal thought process present and not confabulating Thought content: Normal thought content present Insight: Limited insight present (Psych) Judgement: Limited judgement present (Psych) Assessment & Plan Assessment & Plan (1) GERD (gastroesophageal reflux disease): Code(s): K21.9 - Gastro-esophageal reflux disease without esophagitis Category: Medical (2) Tubular adenoma of colon: Comment: 01/2023 scope= 2 TA is repeat in 5 years Code(s): D12.6 - Benign neoplasm of colon, unspecified Category: Medical (3) Esophageal dysphagia: Code(s): R13.19 - Other dysphagia Category: Medical (4) Peptic ulcer disease: Code(s): K27.9 - Peptic ulcer, site unspecified, unspecified as acute or chronic, without hemorrhage or perforation Category: Medical (5) Loose stools: Code(s): R19.5 - Other fecal abnormalities Category: Medical Plan This patient has been lost to follow-up since 08/2021 and appears to have been re-referred for diarrhea. He is agreeable to a 5 year repeat of his colonoscopy The procedure was well tolerated. The results were explained and the patient is agreeable to the follow-up interval as stated. The bowel pattern has returned to normal. Education was provided to tell any 1st degree relatives about their findings to be sure that they are screened by age 45. Educated that they will be put on a recall list when it is time for their repeat scope but should they move out of state or away from the hospital they will need to remember along with their primary to repeat the procedure in a timely fashion to avoid any adverse complications. We also reviewed the endoscopy which showed some esophagitis but certainly no sign of peptic ulcer disease. He says he has been having rectal incontinence which he and - according to the patient - has been since the colonoscopy. He says his stools were normal and formed, but now they are like pudding. Even if the stools are more formed, he can not control the stools exiting the rectum and this is interfering with his work life. After a great deal of conversation he clarifies that he only has the severe incontinent problem when his stools are looser or more putting like. This does not really happen when they are more formed. It remains to be seen why his stooling has suddenly changed. It is unlikely this was cause directly by the colonoscopy. I think that the development of something like food allergies certainly could be in the differential, unfortunately he is unwilling to do stool samples to check for any underlying infection or inflammatory conditions such as IBD. I will do a CRP but there are CRP nonresponder who do present and the 2nd part of life with something like Crohn's disease. Fortunately has not had weight loss or any severe abdominal pain. He says has not changed his diet over many many years so this does not seem to be part of the problem. The only medicines that have changed our his psych meds and while this could be causing GI side effects it is less likely than something like discontinuing an opiate. For now will try to control the condition by bulking up the stools with Carafate. He had absolutely no success with fiber which does not surprise me. Depending on the results of the labs and his response will consider if we need to progress to something a little bit stronger. Because he does sometimes have solid bowel movements I would be reluctant to use an and IBS-D medication as this may cause severe constipation. I do not know what would affect his sphincter incompetence. Usually something like that would be caused by an injury, a back problem, or even a stroke. Unfortunately we do not do tests like a defect kg or balloon expulsion exam at this small [facility] [place]. I may need to refer him up to a physician depending on his response. Return office visit in 6 weeks Orders: Orders Transglutaminase IgA Today R19.5 - Other fecal abnormalities Rast Allergen Today R19.5 - Other fecal abnormalities C Reactive Protein Today R19.5 - Other fecal abnormalities Transglutaminase Ab IgG Today R19.5 - Other fecal abnormalities Medications: New sucralfate (Carafate) 2 grams (2 x 1 gram) PO .q5pm 60 tabs 6RF R19.5 - Other fecal abnormalities Coding Level of Care Code Est Pt Level 4 (21051) Diagnoses GERD (gastroesophageal reflux disease) K21.9 Tubular adenoma of colon D12.6 Esophageal dysphagia R13.19 Peptic ulcer disease K27.9 Loose stools R19.5 Time Spent (min) 36
[2023-09-29 15:56] VITALS: BP 163/96; PULSE 84; BMI 30.5
== END 2023-09-29 16:26 | disposition home or self-care (01) ==
PROVIDERS: PCP Internal Medicine; Visit Provider Nurse Practitioner
DX: K21.9 Gastro-esophageal reflux disease without esophagitis (principal); D12.6 Benign neoplasm of colon, unspecified; R13.19 Other dysphagia; K27.9 Peptic ulcer, site unspecified, unspecified as acute or chronic, without hemorrhage or perforation; R19.5 Other fecal abnormalities
CPT/HCPCS: 99214

== ENCOUNTER 2023-09-29 15:30 | Outpatient (REF) | payer OTHER, SELFPAY ==
[2023-09-29 17:37] LABS: C Reactive Protein 0.28 mg/dL (< or = 0.50)
[2023-10-03 17:33] LABS: Transglutaminase Ab IgG <1.0 U/mL; Transglutaminase IgA <1.0 U/mL
== END 2023-09-29 15:31 | disposition home or self-care (01) ==
LOC: HO.LAB 15:30
PROVIDERS: PCP Internal Medicine; Visit Provider Nurse Practitioner
DX: R19.5 Other fecal abnormalities (principal); R15.9 Full incontinence of feces; R13.19 Other dysphagia; K21.9 Gastro-esophageal reflux disease without esophagitis; K27.9 Peptic ulcer, site unspecified, unspecified as acute or chronic, without hemorrhage or perforation; D12.6 Benign neoplasm of colon, unspecified; Z80.0 Family history of malignant neoplasm of digestive organs
CPT/HCPCS: 36415; 86003; 86140; 86364; 99212

== ENCOUNTER 2024-01-28 16:53 | Inpatient (IN) | payer OTHER, SELFPAY ==
[2024-01-28 16:57] VITALS: BP 156/97; PULSE 94; RESP 20; TEMP 37.2; O2SAT 96; BMI 31.8
--- NOTE | 2024-01-28 16:59 | ED_ITS ---
HPI - General Adult General Chief complaint: Psychiatric Symptoms Stated complaint: SI Time Seen by Provider: 01/28/24 17:08 Source: patient, RN notes reviewed and old records reviewed Mode of arrival: ambulatory Limitations: no limitations History of Present Illness ED Provider: Denilson BUTLER narrative: 58-year-old male past medical history significant for anxiety, depression, restless leg syndrome, OCD presents for evaluation of depression with suicidal ideation. The patient reports that he has had increasing depression for last few months. He reports that his depression with suicidal ideation this stemming from severe anxiety. 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 ? He reports that he has been compliant with all his medication but believes that they are not working He was reports that he speaks with his therapist weekly but does not feel that this is helping The patient reports that he does not want to harm himself but has a same time does not want to continue living the way he was He denies any somatic complaints Related Data Home Medications ?Medication ?Instructions ?Recorded ?Confirmed olanzapine 5 mg tablet 5 mg PO .morning 01/14/23 01/28/24 lorazepam 1 mg tablet 1 mg PO BID PRN Anxiety 01/28/24 01/28/24 mirtazapine 7.5 mg tablet 7.5 mg PO DAILY PRN Anxiety 01/28/24 01/28/24 sertraline 100 mg tablet 200 mg PO DAILY 01/28/24 01/28/24 Previous Rx's ?Medication ?Instructions ?Recorded trazodone 100 mg tablet 100 mg PO BEDTIME 30 days #30 tabs 09/16/22 folic acid 1 mg tablet 1 mg PO DAILY #90 tabs 12/07/23 gabapentin 100 mg capsule 100 mg PO BEDTIME #30 caps 12/30/23 Allergies Allergy/AdvReac Type Severity Reaction Status Date / Time hydrocodone [Vicodin] Allergy Unknown nausea Verified 01/28/24 17:00 latex [LATEX] Allergy Unknown RASH Verified 01/28/24 17:00 cheese AdvReac Unknown Verified 01/28/24 18:22 Review of Systems 2 Constitutional: Constitutional: Denies body ache(s), Denies chills, Denies fever(s) and Denies headache(s) Eyes: Eyes: Denies blurry vision ENT: Denies vertigo, Denies dizziness and Denies headache(s) Cardiovascular: Cardiovascular: Denies chest pain and Denies dyspnea Respiratory: Respiratory: Denies cough and Denies dyspnea Gastrointestinal: Gastrointestinal: Denies abdominal pain, Denies nausea and Denies vomiting Musculoskeletal: Musculoskeletal: Denies back pain Integumentary/Breasts: Skin/Breast: Denies rash Neurologic: Denies vertigo, Denies dizziness and Denies headache(s) Psychiatric: Psychiatric: Reports anxiety, Reports depression, Denies auditory hallucinations, Reports hopelessness, Reports irritability, Denies visual hallucinations and Reports suicidal ideation [facility] Past Medical History Medical History Impaired fasting blood sugar Renal calculus Nasal septal perforation Vitamin B12 deficiency COVID-19 virus infection Adrenal adenoma Upper back pain Recurrent major depression Muscle spasm Family history of colon cancer Right hip pain Hospital discharge follow-up Colon cancer screening Depression, major, severe recurrence Low Back Pain Right-sided back pain Dermatitis Upper back pain Low Back Pain Generalized anxiety disorder Epistaxis Flank pain Annual physical exam Adrenal adenoma Polysubstance abuse Peptic ulcer disease Insomnia 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 Restless leg syndrome Anxiety and depression Vitamin D deficiency Erectile dysfunction GERD (gastroesophageal reflux disease) Hypercholesterolemia Chronic left shoulder pain Surgical History H/O total adrenalectomy History of kidney surgery H/O arthroscopic knee surgery H/O oral surgery History of tonsillectomy History of nasal surgery Family History Family History Father Myocardial infarct Colon cancer Mother Lung cancer Depression Brother Substance abuse Social History Social History Household Members: Other Household Members Other:: rents room Housing: House Do you presently have visiting nurse or other home services: No Alcohol intake: current Patient Tobacco Use Status: Never used Tobacco Smoked in Last 30 Days: No e-Cigarette/Vaping Use: Never Used Second Hand Smoke Exposure: No Use of substances other than those prescribed or required for medical reasons: No Substance Use Type: Opiates Advance Directives: No Advance Directives Information Provided: No Do you have a plan to hurt others: No Plan service: No Current occupational status: employed Current occupation: [employer] Sexual orientation: Straight/Heterosexual Cognitive needs: No Hearing needs: No Vision needs: Yes (glasses) Physical Exam ED Vital Signs: Vital Signs - 24 hr 01/28/24 16:57 01/28/24 17:10 Temperature 99.0 F Pulse Rate 94 Respiratory Rate 20 16 Blood Pressure 156/97 H Pulse Oximetry 96 Oxygen Delivery Method Room Air BMI result Body Mass Index 31.8 Const General: healthy appearing, comfortable, no acute distress, alert and awake Nutritional Appearance: well nourished Orientation/consciousness: patient oriented x3 HENMT Head: Yes normocephalic and Yes atraumatic Eyes Eyelids: Yes eyelids normal Conjunctivae: conjunctivae normal Sclerae: sclerae normal Corneas: corneas normal Pupils: Equal, round and reactive pupils present EOM: EOMs intact bilaterally Neck Neck: Yes full ROM Resp Effort & Inspection: normal respiratory effort, able to speak in complete sentences and not labored Cardio Rate: regular rate Rhythm: regular rhythm Skin General skin exam: elasticity normal Neuro General: patient oriented x3 Cranial nerves: Yes Equal, round and reactive pupils present and Yes Bilaterally intact EOM present Cognition (Neuro): normal cognition Extrem Other: Moving all extremities well without any obvious deformities Psych Appearance: grossly normal Mental Status: mental status grossly normal Speech and movement: Normal speech and movement present Affect: Sad affect present Attitude: cooperative Thought process: Normal thought process present Thought content: Suicidality present Insight: Good insight present (Psych) Judgement: Good judgement present (Psych) Course Course Course Narrative: This is a Rapid Medical Examination (RME) performed by Renata Munoz PA-C in triage. Full HPI, ROS, assessment and treatment plan per primary provider in the Main ED. 58 yo male hx of GERD, SAVANAH, MDD, PUD, polysubstance abuse here for evaluation of suicidal ideation with plan to drive his vehicle off of the road and slit his wrists. reports 5 suicide attempts in the past. states he has dreams every night about ending his life. states he is on medication for his anxiety/depression however does not feel these are working. spoke with his psychiatrist who advised him to check into the ED. no physical concerns. Denies HI. denies AH/VH/TH. Plan: medical clearance Reevaluation(s) Reevaluation #1: The patient is seen with the care team and will be a bed search for inpatient psychiatric care. He was placed on a section 12 Time: 21:09 Medications Administered Generic Name Dose Route Start Last Admin Trade Name Freq PRN Reason Stop Dose Admin Gabapentin 100 mg 01/28/24 21:00 01/28/24 20:46 Gabapentin 100 Mg Capsule PO 100 mg BEDTIME NIKOLE Administration Trazodone HCl 100 mg 01/28/24 21:00 01/28/24 20:46 Trazodone Hcl 100 Mg Tablet PO 100 mg BEDTIME NIKOLE Administration Discontinued Medications Generic Name Dose Route Start Last Admin Trade Name Freq PRN Reason Stop Dose Admin Diphenhydramine HCl 50 mg 01/28/24 17:38 01/28/24 17:59 Diphenhydramine Hcl 25 Mg Capsule PO 01/28/24 17:39 50 mg ONCE ONE Administration Haloperidol 5 mg 01/28/24 17:38 01/28/24 17:59 Haloperidol 5 Mg Tablet PO 01/28/24 17:39 5 mg ONCE ONE Administration Lorazepam 2 mg 01/28/24 17:38 01/28/24 17:59 Lorazepam 1 Mg Tablet PO 01/28/24 17:39 2 mg ONCE ONE Administration Medical Decision Making Medical Decision Making [facility] Narrative: 58-year-old male past medical history as documented above presents for evaluation of depression with suicidal ideation. Plan for medical clearance and care team evaluation. He has no somatic complaints vital signs are stable. Differential Diagnosis Differential Diagnoses: The differential diagnosis associated with the presentation includes Depression Suicidal ideation Substance abuse Anxiety Lab Data [facility] Lab Attestation statement: I reviewed the patient's lab results. No leukocytosis or anemia. Normal platelet count. 01/28/24 17:47 01/28/24 17:47 Labs: Lab Results 01/28/24 01/28/24 Range/Units 17:19 17:47 WBC 5.4 (4.8-10.8) X10*3/uL RBC 4.80 (4.60-5.80) X10*6/uL Hgb 14.7 (14.0-18.0) g/dl Hct 43.0 (42.0-52.0) % MCV 89.6 (80.0-98.0) fL MCH 30.6 (27.0-33.0) pg MCHC 34.2 (31.0-36.0) g/dl RDW 12.3 (11.0-16.0) % Plt Count 241 (160-400) X10*3/uL MPV 9.3 L (9.4-12.4) fL Immature Gran % (Auto) 0.4 (0.0-0.4) % Neut % (Auto) 66.1 (45-73) % Lymph % (Auto) 19.0 L (20-40) % [place] % (Auto) 8.4 (2-11) % Eos % (Auto) 5.4 H (0-4) % Baso % (Auto) 0.7 (0-2) % Lymph # (Auto) 1.0 L (1.2-4.9) X10*3/uL [place] # (Auto) 0.5 (0.1-1.2) X10*3/uL Eos # (Auto) 0.3 (0.0-0.4) X10*3/uL Baso # (Auto) 0.0 (0.0-0.2) X10*3/uL Abs Immat Gran (auto) 0.02 (0.00-0.03) X10*3/uL Absolute Neuts (auto) 3.5 (2.0-8.3) x10*3/uL Absolute Nucleated RBC 0.000 (0.0-0.012) X10*3/uL Nucleated RBC % (auto) 0.0 (0.0-0.2) /100WBC Sodium 138 (135-145) mmol/L Potassium 4.0 (3.3-5.1) mmol/L Chloride 107 (96-108) mmol/L Carbon Dioxide 23 (22-29) mmol/L Anion Gap 12 (12-20) BUN 14 (9-16) mg/dL Creatinine 0.96 (0.5-1.4) mg/dL Estim Creat Clear Calc 82.8 Estimated GFR > 60 Random Glucose 102 (60-115) mg/dL Calcium 9.0 (8.4-10.2) mg/dL Magnesium 1.9 (1.6-2.6) mg/dL Total Bilirubin 0.3 (0.0-1.0) mg/dL AST 27 (5-37) U/L ALT 31 (0-40) U/L Alkaline Phosphatase 56 (39-117) U/L Total Protein 7.1 (6.5-8.0) g/dL Albumin 4.4 (3.5-5.0) g/dL Lipase 34 (8-78) U/L Urine Color Yellow Urine Appearance Clear Urine pH 7.0 (5.0-9.0) Ur Specific [place] 1.020 (1.005-1.025) Urine Protein Negative (Neg-Trace) mg/dL Urine Glucose (UA) Negative (Negative) mg/dL Urine Ketones Negative (Negative) mg/dL Urine Blood Negative (Negative) Urine Nitrite Negative (Negative) Ur Leukocyte Esterase Negative (Negative) Salicylates < 5.0 L (15-30) mg/dL Urine Opiates Screen Not Detected (Not Detect) Ur Buprenorphine Scrn Not Detected (Not Detect) ng/mL Ur Oxycodone Screen Not Detected (Not Detect) ng/mL Urine Methadone Screen Not Detected (Not Detect) ng/mL Urine Fentanyl Screen Not Detected (Not Detect) Acetaminophen < 3 (<30) mcg/mL Ur Barbiturates Screen Not Detected (Not Detect) Ur Phencyclidine Scrn Not Detected (Not Detect) Ur Amphetamines Screen Not Detected (Not Detect) U Benzodiazepines Scrn Not Detected (Not Detect) Urine Cocaine Screen Not Detected (Not Detect) U Marijuana (THC) Screen Not Detected (Not Detect) Ethyl Alcohol < 10 mg/dL Discharge Plan Discharge Clinical Impression: Depression with suicidal ideation Patient Disposition: Still a Patient Prescriptions: No Action trazodone 100 mg tablet 100 mg PO BEDTIME 30 Days Qty: 30 0RF folic acid 1 mg tablet 1 mg PO DAILY Qty: 90 0RF gabapentin 100 mg capsule 100 mg PO BEDTIME Qty: 30 1RF lorazepam 1 mg tablet 1 mg PO BID PRN (Reason: Anxiety) sertraline 100 mg tablet 200 mg PO DAILY mirtazapine 7.5 mg tablet 7.5 mg PO DAILY PRN (Reason: Anxiety) olanzapine 5 mg tablet 5 mg PO .morning Interventions: [place]-Suicide Risk Severity Scale Last Done: 01/28/24 17:10 Print Language: Marshallese
--- OUTSIDE RECORDS SUMMARY | 2024-01-28 17:04 | XMS_ITS | Continuity of Care Document ---
Author Organization [facility] Address [address] [place] [address] [address] [place] [address]- Care Team Providers Care Rehabilitation Consultant Name Role Phone Po Delvin WALTERS Primary Care Physician [phone] Encounter [facility] Date(s): 03/12/22 - 04/11/[address] [place], [place] [address] Attending Physician: Krystina Bryant Admitting Physician: AdmtrKrystina Referring Physician: Admtr, [id number] Allergies, Adverse Reactions, Alerts Substance Reaction Severity Status Vicodin rash Drug-induced nausea and vomiting Active Latex rash Active Medications famotidine 40 mg oral tablet 1 tablet = 40 mg, By Mouth, Daily at bedtime, 0 Refills, Maintenance, 01/08/22 11:12:00 EST, Partial fill upon patient request if the prescription is for a schedule II opioid drug. Start Date: 01/08/22 Status: Ordered traZODone 50 mg oral tablet 50 mg, 1, tablet, By Mouth, Daily at bedtime, for sleep., Refills 0, Maintenance, 01/08/22 11:12:00EST, Partial fill upon patient request if the prescription is for a schedule II opioid drug. Start Date: 01/08/22 Status: Ordered Vitamin B12 1000 mcg oral tablet 1 tablet = 1,000 mcg, By Mouth, Daily in AM, 0 Refills, Maintenance, 01/08/22 11:12:00 EST, Partialfill upon patient request if the prescription is for a schedule II opioid drug. Start Date: 01/08/22 Status: Ordered Problem List Condition Confirmation Course Effective Dates Status H ealth Status Informant Acid reflux Confirmed Active Arthroscopy of elbow with partial synovectomy 1 Confirmed Active Bankart anterior stabilization of shoulder joint 2 Confirmed Active ; Body mass index 25-29 - overweight Confirmed Active Change of medication 3 Confirmed Active Cocaine dependence in remission Confirmed 2005 Active ; Common migraine Confirmed Active Disorder due to work-related activity accident 4 Confirmed 06/28/06 Active Drug interaction 5 Confirmed Active Erectile dysfunction Confirmed Active Gastric ulcer 6 Confirmed 07/25/09 Active Generalized Anxiety Disorder Confirmed Active Headache, non migrainous Confirmed Active Hiatal hernia Confirmed 07/25/09 Active Major depressive disorder Confirmed Active Myofascial pain Confirmed Active Not getting enough sleep Confirmed Active Pain in left arm Confirmed Active Shoulder pain 7 Confirmed Active Sleep deficient Confirmed Active Sleep disturbance Confirmed Active Therapy outcome measure 8, 9 [address] 1[facility] Kee [facility]ila [facility] 2left 3s/p medication elimination trials; off antidepressant agent 08/12/08 4Left upper extremity pain, sensory nerve hypersensitivity 5history of antidepressant and opioid co-treatment; no history of total CK > 150 6endoscopic finding 7left 8Oswestry Disability Index: 36% ( moderate disability ) on 08/27/2011; [place] [Back] Pain Disability Scale: 50 on 08/27/2011. 9Initial [place] Back Pain Disability Scale: 63 on 01/28/2009, follow up [place]: 48 on 10/22/10; Oswestry Disability Index quan 2.0: 32% ( moderate disability ) on 10/22/10. Social History Social History Type Response Tobacco Use: pt denies. Sex Note * Event Display: CT Scan Abdomen, Non- BH Authored Date: Patient Care team information Care Team Personnel Name: Alesia Márquez RN Position: S RN Member Role: Primary Care Nurse Name: Cordelia Gupta RN Position: S RN Member Role: Primary Care Nurse Name: Delvin Carrasquillo MD Position: Reference Physician Member Role: PCP Address: Address: [address] [place] [id number]- Name: Beth Blake RN Position: S RN Member Role: Primary Care Nurse Name: Nallely Smith RN Position: S RN Member Role: Primary Care Nurse Care Team Related Persons Name: BIANCA BELTRAN Address: [place] [address]
--- OUTSIDE RECORDS SUMMARY | 2024-01-28 17:05 | XMS_ITS | Continuity of Care Document ---
Author Organization [facility] Address [address] [place] [address] [address] [place] [address]- Care Team Providers Care Prepared Foods Associate Name Role Phone Po Delvin WALTERS Primary Care Physician Encounter [facility] Date(s): 12/10/21 - 01/09/22 [facility] [address] [place] [address]- Allergies, Adverse Reactions, Alerts Substance Reaction Severity Status Vicodin Drug-induced nausea and vomiting Active Latex rash Active Medications famotidine 40 mg oral tablet 1 tablet = 40 mg, By Mouth, Daily at bedtime, 0 Refills, Maintenance, 01/08/22 11:12:00 EST, Partial fill upon patient request if the prescription is for a schedule II opioid drug. Start Date: 01/08/22 Status: Ordered traZODone 50 mg oral tablet 50 mg, 1, tablet, By Mouth, Refills 0, Maintenance, 01/08/22 11:12:00 EST, Partial fill upon patient request if the prescription is for a schedule II opioid drug. Start Date: 01/08/22 Status: Ordered Valium 5 mg oral tablet 5 mg, 1, tablet, By Mouth, 2 times a day, PRN, # 7 tablet, Refills 0, Tot. Refills 0, Maintenance, Pain , Moderate, 05/21/21 18:40:00 EDT, Route to Pharmacy Electronically, [facility]/pharmacy #[id number], Partial fill upon patient request if the prescription is f... Start Date: 05/21/21 Status: Ordered Vitamin B12 1000 mcg oral tablet 1 tablet = 1,000 mcg, By Mouth, Daily, 0 Refills, Maintenance, 01/08/22 11:12:00 EST, Partial [...] Confirmed Active Cocaine dependence in remission Confirmed 2006 Active ; Common migraine Confirmed Active Disorder [...] outcome measure 8, 9 Confirmed Active [facility] 2left 3s/p medication elimination trials; off antidepressant agent 08/12/08 4Left upper extremity pain, sensory nerve hypersensitivity 5history of antidepressant and opioid co-treatment; no history of total CK > 150 6endoscopic finding 7left 8[place]swestry Disability Index: 36% ( moderate disability ) on 08/27/2011; [place] [Back] Pain Disability Scale: 50 on 08/27/2011. 9Initial [place] Back Pain Disability Scale: 63 on 01/28/2009, follow up [place]: 48 on 10/22/10; Oswestry Disability Index quan 2.0: 32% ( moderate disability ) on 10/22/10. Social History Social History Type Response Tobacco Use: pt denies. Sex Patient Care team information Care Team Personnel Name: Delvin Carrasquillo MD Position: Reference Physician Member Role: PCP Address: Address: [address] [place] [id number]- Care Team Related Persons Name: BIANCA BELTRAN Address: [place] [address]
--- OUTSIDE RECORDS SUMMARY | 2024-01-28 17:05 | XMS_ITS | Patient Health Record ---
Author Organization [facility] Address [address] [place] [id number] Care Team Providers Care Java Application Developer Name Role Phone Delvin Carrasquillo MD Primary Care Provider Americo Del Real Jr Unavailable ALLERGIES Allergen (clinical drug ingredient) Drug/Non Drug Allergy documented on EMR Reaction Allergy Type Onset Date Status Vicodin Unknown Drug Allergy Active REASON FOR REFERRAL No Information MEDICATIONS Medication SIG (Take, Route, Frequency, Duration) Notes Start Date End Date Status Sucralfate 1gm Activ e PriLOSEC OTC 20 MG 1 tablet Orally Once a day for 30 day(s) 07/12/2013 Active Mirtazapine 45mg Act mis LORazepam 2mg Active Meclizine HCl 25mg A ctive SEROquel XR 150mg/50mg Active FLUoxetine HCl 10mg Active Butrans 5mcg Active Pantoprazole Sodium 40 MG 1 tablet Orall y Once a day for 30 day(s) 06/01/2013 02/28/2023 Active traZODone HCl 100mg Active Prevacid 30 MG 1 capsule before a m eal Orally Once a day for 30 day(s) 06/08/2013 02/28/2023 Active SOCIAL HISTORY Sex Assigned At : Social History Observation Description Sex Assigned At Unknown PROBLEMS Problem Type ICD Code Onset Dates Problem Status W/U Status Risk SNOMED Code Notes Problem Epigastric pain (789.06) Active confirmed Epigastric pain (77866498) PLAN OF TREATMENT Pending Test Test Name Order Date XR GI SERIES 06/01/2013 Insurance Providers Payer Name Payer Address Payer Phone Subscriber Number Group Number Insured Name Patient Relationship to Insured Coverage Start Date Coverage End Date [facility] [address] [place] [address] [id number] JOEL GILL Self - patient is the insured MEDICAL (GENERAL) HISTORY Medical History History ICD Code Denies [place],DM,CVA,Lung disease,renal dise ase PUD Surgical History Surgery Date(Month/Year) left arm surgery rhinoplasty toe surgery
--- OUTSIDE RECORDS SUMMARY | 2024-01-28 17:05 | XMS_ITS | Continuity of Care Document ---
Author Organization [facility] Address [address] [place] [address] ve [address] [place] [address]- Care Team Providers Care Bone Grinder Name Role Phone Delvin Carrasquillo MD Primary Care Physician Encounter [facility] [place] Date(s): 03/12/22 - 03/19/[address] [place] [address]- Attending Physician: Radha WALTERS, Keisha Referring Physician: Delvin Carrasquillo MD Allergies, Adverse Reactions, Alerts Substance Reaction Severity [...] 36% ( moderate disability ) on 08/27/2011; [place] [Back] Pain Disability Scale: 50 on 08/27/2011. 9Initial [place] Back Pain Disability Scale: 63 on 01/28/2009, follow up [place]: 48 on 10/22/10; Oswestry Disability Index quan 2.0: 32% ( moderate disability ) on 10/22/10. Vital Signs Most recent to oldest [Reference Range]: 1 Height 165.10 cm (03/12/22 8:40 AM) Weight 65.1 kg (03/12/22 8:40 AM) Pulse Rate [55-90 bpm] 70 bpm (03/12/22 8:40 AM) Body Mass Index [18.5-24.99 kg/m2] 23.88 kg/m2 (03/12/22 8:40 AM) Blood Pressure [90-138/55-84 mm Hg] 131/ 70mm Hg (03/12/22 8:40 AM) Respiratory Rate [16-30 br/min] 16 br/mi n (03/12/22 8:40 AM) Temperature [96.8-100.4 DegF] 97.1 DegF (03/12/22 8:40 AM) Blood pressure sites Arm, right (03/12/22 8:40 AM) Temperature Route Temporal (03/12/22 8:40 AM) Weight Obtained Via Standing scale (03/12/22 8:40 AM) Social History Social History Type Response Tobacco Use: pt denies. Sex Note * Krista Gruber MA: PERFORM, SIGN, VERIFY Event Display: Patient Education/Instruction Authored Date: [id number] [facility] *[facility] Clinical Summary Name JOEL GILL Age 56 Years 1965 PCP Delvin Carrasquillo MD PCP Visit Date 03/12/2022 08:26:00 Additional Instructions: Scheduled Appointments?? Future Appointments ?No Future Appointments Scheduled Follow-Up Instructions ?? Diagnosis Medications: Please continue your medications until treatment is completed or stopped by your provider. Discuss any questions related to medications with your provider. Medications to Continue with No Changes These medications were not printed or sent to your pharmacy Cyanocobalamin (Vitamin B12 1000 mcg oral tablet) 1 tab(s) Oral Daily in the morning. Next Dose: Famotidine (famotidine 40 mg oral tablet) 1 tab(s) Oral Daily at Bedtime. Next Dose: Trazodone (traZODone 50 mg oral tablet) 1 tab(s) Oral Daily at Bedtime. for sleep.. Next Dose: Allergy Info:?? Latex; Vicodin Medications Given This Visit Future Orders ?No future orders Vital Signs Height 165.10 cm Weight 65.1 kg BMI 23.88 kg/m2 Blood Pressure 131 mm Hg/70 mm Hg Temperature 97.1 DegF Pulse Rate 70 bpm Respiratory Rate 16 br/min 02 Sat Mode of Delivery / You can now view a summary of your hospital visit from the comfort of your home through a free online portal called [employer]. [employer] is a website that allows you to securely view your medical information including discharge summary, medications and follow-up visits. ??You can alsosend a secure electronic message to your doctor???s office to request appointments, renew medications or just ask a question. You can enroll at [email or web address] or register during your next office visit. Disclaimer:?? The information provided is of a general nature and is intended to be used in conjunction with the recommendations and advice of your health care practitioner. ??Every effort has been made to ensure that the information provided is accurate and complete at the time it is provided to you however, as your needs change, or, as new ??information becomes available, different or additional instructions may be required. If you have questions, please consult with your primary care provider or pharmacist, as appropriate. ??This information is not intended to serve as substitution for assessment and evaluation by a qualified health care provider. If you do not have a primary care provider, you may find a [facility] provider by calling [facility] [employer] at [phone]. For information about the plan of care including goals and instructions for your diagnosis, please see the patient education orders section of this document. Patient Education Materials?? The content of this educational material or handout may have been modified, supplemented, or adapted from its original content and format to support your individualized medical care. Please follow instructions discussed with your provider during this visit as well as any education documents you were given today. Patient Care team information Care Team Personnel Name: Alesia Márquez RN Position: S RN Member Role: Primary Care Nurse Name: Cordelia Gupta RN Position: S RN Member Role: Primary Care Nurse Name: Delvin Carrasquillo MD Position: Reference Physician Member Role: PCP Address: Address: [address] [place] [address]- Name: Beth Blake RN Position: S RN Member Role: Primary Care Nurse Name: Nallely Smith RN Position: S RN Member Role: Primary Care Nurse Care Team Related Persons Name: BIANCA BELTRAN Address: [place] [address]
--- OUTSIDE RECORDS SUMMARY | 2024-01-28 17:05 | XMS_ITS | Continuity of Care Document ---
Author Organization [facility] ter Address [address] [place] [id number]- Care Team Providers Care Stator Winder Name Role Phone Po Delvin WALTERS Primary Care Physician [phone] [place] [facility] [place]): [place] - 02/19/[address] [address]- Discharge Disposition: A-D/C Home Attending Physician: Keisha Garcia MD Admitting Physician: Keisha Garcia MD Referring Physician: Keisha Garcia MD Allergies, Adverse Reactions, Alerts Substance Reaction Severity Status Vicodin rash Drug-induced nausea and vomiting Active Latex rash Active Medications famotidine 40 mg oral tablet 1 tablet = 40 mg, By Mouth, Daily at bedtime, 0 Refills, Maintenance, 01/08/22 11:12:00 EST, Partial fill upon patient request if the prescription is for a schedule II opioid drug. Start Date: 01/08/22 Status: Ordered gabapentin 300 mg oral capsule 300 mg, Capsule, By Mouth, 02/19/22 8:00:00 EST Start Date: 02/19/22 Stop Date: 02/19/22 Status: Completed oxyCODONE 5 mg oral tablet 5 mg, Tablet, By Mouth, Every 4 hours, PRN for Pain , Severe, Routine, 02/18/22 12:53:00 EST Start Date: 02/18/22 Stop Date: 02/19/22 Status: Discontinued oxyCODONE 5 mg oral tablet 5 mg, 1, tablet, By Mouth, Every 6 hours, PRN, for 3 days, # 16 tablet, Refills 0, Tot. Refills 0, Acute 02/21/22 12:24:00 EST, as needed for pain, 02/18/22 12:24:00 EST, Route to Pharmacy Electronically, [facility], Partial fill upon pa... Start Date: 02/18/22 Stop Date: 02/21/22 Status: Ordered traZODone 50 mg oral tablet [...] 36% ( moderate disability ) on 08/27/2011; [place] [Back] Pain Disability Scale: 50 on 08/27/2011. 9Initial [place] Back Pain Disability Scale: 63 on 01/28/2009, follow up [place]: 48 on 10/22/10; Oswestry Disability Index quan 2.0: 32% ( moderate disability ) on 10/22/10. Procedures Procedure Date Related Diagnosis Body Site Status Laparoscopic left adrenalectomy 02/17/22 Completed Vital Signs Most recent to oldest [Reference Range]: 1 2 3 Height 165.10 cm (02/19/22 8:27 AM) 165.10 cm (02/19/22 6:25 AM) 165.10 cm (02/19/22 2:21 AM) Weight 63.64 kg (02/17/22 9:55 AM) 63.64 kg (02/15/22 2:20 PM) Oxygen Saturation [94-100 %] 92 % *L* (02/19/22 8:27 AM) 95 % (02/19/22 6:25 AM) 95 % (02/19/22 2: AM) Pulse Rate [55-90 bpm] 75 bpm (02/19/22 8:27 AM) 59 bpm (02/19/22 6:25 AM) 66 bpm (02/19/22 2: AM) Body Mass Index [18.5-24.99 kg/m2] 23.35 kg/m2 (02/17/22 9:55 AM) 23.35 kg/m2 (02/15/22 2:20 PM) Blood Pressure [90-138/55-84 mm Hg] 149/85mm Hg *H* (02/19/22 8:27 AM) 119/71mm Hg (02/19/22 6:25 AM) 102/62mm Hg (02/19/22 2:21 AM) Respiratory Rate [16-30 br/min] 18 br/min (02/19/22 9:25 AM) 18 br/min (02/19/22 8:39 AM) 18 br/min (02/19/22 8:27 AM) Temperature [96.8-100.4 DegF] 98.1 DegF (02/19/22 8:27 AM) 98.6 DegF (02/19/22 6:25 AM) 98.2 DegF (02/19/22 2:21 AM) Liters per Minute 3 L/min (02/18/22 6:00 AM) 3 L/min (02/18/22 2:00 AM) 3 L/min (02/17/22 10:00 PM) Mode of Delivery (Oxygen) Room air (02/19/22 8:27 AM) Room air (02/19/22 6:25 AM) Room air (02/19/22 2:21 AM) Blood pressure sites Arm, left (02/19/22 8:27 AM) Arm, right (02/19/22 6:25 AM) Arm, right (02/19/22 2:21 AM) Temperature Route Oral (02/19/22 8:27 AM) Oral (02/19/22 6:25 AM) Oral (02/19/22 2:21 AM) Dry Weight 65.1 kg (02/17/22 9:55 AM) 63.64 kg (02/15/22 2:20 PM) Weight Obtained Via Patient/family state d (02/15/22 2:20 PM) Dry Weight Obtained Via Standing scale (02/17/22 9:55 AM) Patient/family stated (02/15/22 2:20 PM) Social History Social History Type Response Tobacco Use: pt denies. Sex Hospital Progress note * Nallely Smith RN: PERFORM, SIGN, VERIFY Event Display: Progress Note Hospital Authored Date: Patient: JOEL GILL Age: 56 years Sex: Male : 1965 Associated Diagnoses: None Author: Nallely Smith RN Findings Narrative/Incidental Patient alert, oriented, bilateral peripheral IV's removed with tip intact. All discharge instruction read to the patient. He states he understands. Morning medication administered, as well as pain medication for discomfort. Call hallman and safety measurs in place. Patient transported by wheelchair to pharmacy and brought to the [facility] for hot die picker by family. Will continue to monitor.. Discharge Information Case Management Discharge Plan : Case Management Discharge Plan Data 02/19/2022 7:58 EST Discharge Level of Care at Discharge Home/Correction/Foster Care 02/19/2022 6:26 EST Discharge Level of Care at Discharge Not Done: not done by previous caregiver (Not Done) * Daija ADKINS, [facility]: VERIFY, PERFORM, SIGN Event Display: Progress Note Hospital Authored Date: Patient: JOEL GILL Age: 56 years Sex: Male : 1965 Associated Diagnoses: None Author: Daija ADKINS, [facility] Findings Problem Related to Alteration in Gastrointestinal : Alteration in Gastrointestinal Func/new 02/18/2022 21:00 EST Alteration in GI status Related to Abdominal Surgery, Other: adrenalectomy Goals & Outcomes, Gastrointestinal Establish a regular pattern of elimination for pt, Nutritional intake is adequate for metabolic needs, Pt will achieve normal/improved fluid balance, Pt will have a bowel movement prior to discharge, Pt will maintain adequate GI function appropriate for pt, Ptwill maintain normal elimination patterns, Pt will resume/maintain adequate hemodynamic status, Pt w ill tolerate age appropriate diet prior to discharge Interventions, Gastrointestinal Assess/monitor abdomen for distention, tenderness, Assess/monitor abdominal girth & bowel function, Assess/monitor bowel pattern, bowel sounds, flatus, Assess/monitor number of bowel movements, Assess/monitor pt for nausea, vomiting, Assess/monitor effects of re-hydration, Assess/monitor intake & output, Elevate HOB to facilitate lung expansion, prevent aspiration Goals/Interventions, Gastrointestinal Yes Gastrointestinal, Problem Start 02/17/2022 22:00 Reviewed plan with, Gastrointestinal Patient Patient Progression, Gastrointestinal Pt progressing according to plan . Evaluation Patient is alert and oriented x4 and is able to make his needs known. VSS. C/o pain in his abdomen,PRN oxycodone, motrin and APAP provided with relief. Lung sounds are CTA, denies SOB on RA. CSM remain intact, PP+ and plantar/ dorsal flxion are present. Denies N+V at this time. Bowel sounds are active, last BM on 02/17. Continent of urine, CYU noted. 1 assist for transfers to the restroom with use of the walker, remains unsteady. 3x bandaids to the abdomen, remains CDI. Patient needs met and safety maintained. . * Brody WALTERS, Nunu Kauffman: PERFORM Event Display: Progress Note Hospital Authored Date: Patient: ??JOEL GILL ? Age:??56 Years?Sex:??Male?:??1965?? Subjective Pt required ketamine gtt for pain control postop. He was scheduled to be discharged today, but per bedside nurse, had difficulty with ambulation due to severe pain. He received Tramadol with minimal effect. On evaluation, surgical site dressing is clean, dry and intact, without any hematoma or erythema. He was very emotional during our conversation, stating that he had a very difficult past with drug use, but is very much in pain on current regimen. He states that he??lives on the second floor of an apartment building, and??lives??by himself. He denies any CP, SOB, dizziness. Physical Exam Vitals & Measurements T:??98.4?F ?? HR:??97(Monitored)?? DE:??61?? RR:??16?? BP:??130/79?? SpO2:??90%?? HT:??165.10??cm?? WT:??63.64??kg?? BMI:??23.35?? Constitutional:??no acute distress. Resting comfortably in bed. Cardiovascular:??Rate and rhythm regular. S1&2 present. No murmurs, rubs, gallops, or edema.?? Respiratory:?Equal chest rise bilaterally with normal respiratory effort. Normal vesicular breath sounds.?? Abdomen/GI:??Abdomen is soft, nontender, and nondistended. No rigidity or guarding. Bowel sounds are present. Left quadrant incisions are covered with dressing, without strikethrough. There is no hematoma or ecchymosis. Patient is appropriately tender surrounding incision site. No expanding erythema noted beyond the borders of the dressing.? Extremities:??Spontaneously moving all four extremities.??No edema, tenderness, cyanosis, or clubbing. Assessment/Plan Mr. Gill is a 56yo male with hx of drug abuse??who presented with slowly enlarging 3cm left adrenal mass with indeterminate imaging phenotype and negative phenotypic workup, s/p lap left adrenalectomy 02/17. Will continue to monitor closely. ?? Plan: - Hold off on Discharge - Transfer to Acute - PT consult - Initiate Ibuprofen, Gabapentin, and Oxycodone for pain control ?? Case discussed with Dr. Garcia. [facility] [id number] Intake and Output Intake and Output Results?? This visit (24 hour periods starting at 07:00 EST)? 02/18/22 *?? 02/17/22?? 02/16/22?? Total Summary?Intake mL?? 480?? 836.407?? --?Output mL?? 275?? 475?? --?Fluid Balance ?? 205?? 361.407?? --?? Intake (3)?Ketamine 500 mg + Sodium Chloride 0.9% 250 mL mL?? --?? 117.24?? --?Lactated Ringers Injection 1,000 mL mL?? --?? 419.167?? --?Oral Fluids mL?? 480?? 300?? --?Total?? 480?? 836.407?? --?? Output (1)?Urine Voided mL?? 275?? 475?? --?Total?? 275?? 475?? --?? Counts (3)?Bladder Scan Volume mL?? --?? 386?? --?Oral Fluids mL?? 480?? 300?? --?Urine Voided mL?? 275?? 475?? --? * This column has not completed the indicated time period.?? Labs Last 24 Hours BLOOD COUNT & DIFF ? Event Name?? Event Result?? Date/Time?? WBC 7.1 k/mm3 02/18/22 07:05:00 RBC 3.61 m/mm3??Low 02/18/22 07:05:00 Hgb 11.7 Gm/dL??Low 02/18/22 07:05:00 Hct 36 %??Low 02/18/22 07:05:00 MCV 99.7 femtoliters??High 02/18/22 07:05:00 MCH 32.4 pg 02/18/22 07:05:00 MCHC 32.5 g/dL??Low 02/18/22 07:05:00 Platelet Count 177 k/mm3 02/18/22 07:05:00 MPV 9.8 femtoliters 02/18/22 07:05:00 Nucleated RBC (Automated) 0 #/100 WBC'S 02/18/22 07:05:00 ? CHEM GENERAL ? Event Name?? Event Result?? Date/Time?? Sodium 135 mmol/L 02/18/22 07:05:00 Chloride 101 mmol/L 02/18/22 07:05:00 Bicarbonate Level 27 mmol/L 02/18/22 07:05:00 Anion Gap 7 02/18/22 07:05:00 Glucose Level 111 mg/dL??High 02/18/22 07:05:00 BUN 13 mg/dL 02/18/22 07:05:00 Creatinine-Blood 0.9 mg/dL 02/18/22 07:05:00 Calcium, Ionized pH Corrected 1.19 mmol/L 02/18/22 07:05:00 Phosphorus 2.9 mg/dL 02/18/22 07:05:00 Magnesium 1.8 mg/dL 02/18/22 07:05:00 ? Note * Nallely Smith RN: PERFORM Event Display: Discharge/Transfer Note Hospital Authored Date: [id number] Nursing Discharge Note Entered On: 02/19/2022 7:59 EST Performed On: 02/19/2022 7:58 EST by Nallely Smith RN Nursing Discharge Note 2 Discharge Time : 02/19/2022 9:31 EST Nallely Smith RN - 02/19/2022 9:34 EST Discharge Level of Care at Discharge : Home/Correction/Foster Care Patient Left Unit Via : Wheelchair Patient Accompanied Off Unit with : Responsible adult, Other: STAFF DC Instructions Provided & Signed by Pt : Yes Patient Understands D/C Instructions : Yes Patient Instructions Discharge Signed : Yes Did Pt have Specialty Bed or Wound Vac : No Nallely Smith RN - 02/19/2022 7:58 EST * Annalisa Dunbar MD: MODIFY, PERFORM, SIGN, VERIFY Event Display: Discharge/Transfer Note Hospital Authored Date: [id number] Patient: JOEL GILL Age: 56 years Sex: Male : 1965 Associated Diagnoses: None Author: Annalisa Dunbar MD Discharge Information Admission Date: 02/17/2022 Discharge Date 02/19/2022 Primary Care Provider: Delvin Carrasquillo MD Principal Discharge Diagnosis Adrenal mass, left: Present on admission - yes. Medications MEDICATION LIST (Selected) Inpatient Medications Ordered Bisacodyl Supp: 10 mg, Suppository, Rectally, Daily, PRN for Constipation, Routine, 02/17/22 13:59:00 EST Docusate Sodium Capsule: 100 mg, Capsule, By Mouth, 2 times a day, Routine, 02/17/22 13:59:00 EST Enoxaparin Inj: 40 mg, Injection, Subcutaneous Injection, Every 24 hours, Routine, 02/17/22 14:00:00 EST Lidocaine 5% Patch: 1 each, Patch, Topically, Apply to Abdomen : near, but not directly on, surgical sites. Preferably lateral to the bandages, Daily, Apply to affected area. Remove after 12 hours., Routine, 02/17/22 22:30:00 EST Magnesium Oxide Tablet: 400 mg, Tablet, By Mouth, Daily, Routine, 02/18/22 9:00:00 EST Ondansetron Inj: 4 mg, Injection, IV Push, Every 6 hours, PRN for Nausea & Vomiting, Routine, 02/17/22 13:59:00 EST Remove Lidocaine Patch: 1 each, Patch, Topically, Apply to Abdomen, Daily at bedtime, Remove all Licodaine 5% patches 12 hours after application., Routine, 02/17/22 21:50:00 EST acetaminophen 325 mg oral tablet: 975 mg, Tablet, By Mouth, Every 6 hours, Routine, 02/17/22 21:30:00 EST cyanocobalamin 1000 mcg oral tablet: 1,000 mcg, Tablet, By Mouth, Daily, Routine, 02/17/22 14:01:00EST famotidine 20 mg oral tablet: 40 mg, Tablet, By Mouth, Daily at bedtime, Routine, 02/17/22 21:00:00EST gabapentin 300 mg oral capsule: 300 mg, Capsule, By Mouth, 3 times a day, Routine, 02/18/22 15:00:00 EST ibuprofen 600 mg oral tablet: 600 mg, Tablet, By Mouth, Every 8 hours, Routine, 02/18/22 15:00:00 EST oxyCODONE 5 mg oral tablet: 5 mg, Tablet, By Mouth, Every 4 hours, PRN for Pain , Severe, Routine, 02/18/22 12:53:00 EST traZODone 50 mg oral tablet: 50 mg, Tablet, By Mouth, Daily at bedtime, Routine, 02/18/22 21:00:00 EST Prescriptions Prescribed oxyCODONE 5 mg oral tablet: 5 mg, 1, tablet, By Mouth, Every 6 hours, PRN, for 3 days, # 16 tablet,Refills 0, Tot. Refills 0, Acute 02/21/22 12:24:00 EST, as needed for pain, 02/18/22 12:24:00 EST, Route to Pharmacy Electronically, [facility], Partial fill upon pa... Documented Medications Documented Vitamin B12 1000 mcg oral tablet: 1 tablet = 1,000 mcg, By Mouth, Daily in AM, 0 Refills, Maintenance, 01/08/22 11:12:00 EST, Partial fill upon patient request if the prescription is for a schedule II opioid drug. famotidine 40 mg oral tablet: 1 tablet = 40 mg, By Mouth, Daily at bedtime, 0 Refills, Maintenance,01/08/22 11:12:00 EST, Partial fill upon patient request if the prescription is for a schedule II opioid drug. traZODone 50 mg oral tablet: 50 mg, 1, tablet, By Mouth, Daily at bedtime, for sleep., Refills 0, Maintenance, 01/08/22 11:12:00 EST, Partial fill upon patient request if the prescription is for a schedule II opioid drug.. Chief Complaint/Reason for Admission Left adrenal mass Aware of diagnosis: patient. Procedures Operative Information Procedure Date: 02/17/2022. Preoperative Diagnosis: Left adrenal mass. Postoperative Diagnosis: Same as Preoperative Diagnosis. Procedure Performed: Laparoscopic left adrenalectomy. Surgeon: Keisha Garcia MD. Assistants: Lyndsay Joyce MD. Anesthesia Type: General. . Discharge condition: good Compared to admission: improved Code status: Full Hospital Course Mr. Gill is a 56yo male who presented with slowly enlarging 3cm left adrenal mass with indeterminate imaging phenotype and negative phenotypic workup, s/p lap left adrenalectomy with Dr. Garcia on02/17/22. He had significant pain initially uncontrolled on IV Dilaudid. A titratable ketamine dripwas initiated for pain control, with good effect. He was evaluated few hours later, and reports adequate pain control on current regimen. He was ultimately weaned from the ketamine drip to a multi-modal regiment including acetaminophen, ibuprofen, gabapentin, oxycodone and a lidocaine patch. His diet was advanced postoperatively and he is now tolerating a regular diet without complication. On 02/19/22 he was deemed appropriate for discharge home. On day of discharge, he reports his pain is well-controlled with oral medications. He continues to tolerate a regular diet without complication. He is ambulating without need for assistance, voiding spontaneously and passing flatus without a bowel movement this admission. He will be discharged homewith instructions to follow-up with Dr. Garcia in 2 weeks. A prescription for a short-course of oxycodone. Significant Results Results: Vital signs : VITAL SIGNS SECTION 02/19/2022 6:25 EST Early Warning Score 3.00 02/19/2022 6:25 EST Temperature 98.6 DegF Temperature Route Oral Pulse Rate 59 bpm Respiratory Rate 18 br/min Systolic Blood Pressure 119 mm Hg Diastolic Blood Pressure 71 mm Hg Blood pressure sites Arm, right Mean Arterial Pressure 87 mm Hg Pulse Pressure 48 mm Hg Oxygen Saturation 95 % Mode of Delivery (Oxygen) Room air . Physical Exam: Constitutional: Alert, in no distress. Mental Status: Oriented to person, place and time. Respiratory: Non-labored breathing on room air Cardiovascular: Warm, well-perfused Gastrointestinal: Abdomen soft, mildly distended, port-sites with band-aids removed and steri-strips intact. Mild ecchymosis surrounding inferior port-site, but no palpable fluid collection, mild abhinav-incisional tenderness Genitourinary: Voiding spontaneously Neurologic: No focal neurological deficits. Moves all extremities spontaneously. Sensation intact bilaterally. Psychiatric: Normal mood and affect Discharge Plan Discharge Disposition Discharge: home. Prescription Given this visit:Prescriptions Oxycodone (oxyCODONE 5 mg oral tablet) 1 tablet = 5 mg, By Mouth, Every 6 hours, # 16 tablet, 0 Refills, [facility], [address] [place] [address] [phone] Next Dose: Patient Instructions Given:Discharge Instructions: [facility]??General??Surgery AFTER YOUR SURGERY??? Diet: ?Continue your??regular diet ?Drink 6 to 8 glasses of fluids per day. ?No alcoholic beverages post-operatively or while taking pain medications. Activity: ?Avoid any activity that causes discomfort. ??Normal daily activities are safe. ?Avoid straining, vigorous sports or lifting anything more than 10??pounds for??4 weeks, or as directed by your surgeon. Dressings and Wound care: ?You may remove your bandage (if you have one in place) in 48 hours and shower (no soaking in a tub, pool, or hot tub.) ??If you have steri-strips, radha, or sutures, it???s okay if they happen to get wet, but be sure to pat dry with a clean towel as soon as you get out. ?It is very important to keep your incision area clean and dry. ??You may cover up the incisionswith a bandage for protection, but once the incisions are dried/ scabbed over, you may leave them open to air. ??Steri-strips will start curling up and drying??out over several days. ??They may startto drop off by themselves, and this is all right. Medications: ?Pain: ??Oxycodone is usually prescribed.?If the pain you are experiencing is mild, extra-strength Tylenol will likely take care of it. ??Remember that narcotic pain medications can cause constipation. ??Some narcotics contain Tylenol (acetaminophen) and if additional pain medicines are required, do not take additional Tylenol products- use ibuprofen or naproxen instead. ??Take a stool softener as prescribed below and drink plenty of fluids. ?Home Medications: Resume any medications your primary physician has prescribed unless specifically instructed. ?Stool softener: ??Colace 100 mg??or its generic form??DOCUSATE??tablet??by mouth twice a day asdirected.??Some??people will need to take stool softener??short-term after??surgery. If you have chronic diarrhea or inflammatory bowel disease, you should not take stool softener unless you are constipated ?Constipation:?Take??Milk of Magnesia??as directed on the bottle every 6 hours for 24 hours, OR Miralax at night per directions. ??These are both available over the counter. ??If this fails to relieve the problem, call the office. Expect the following: ?Some oozing of blood to the bandage in the first 24 hours. ?Fatigue, especially in the first 24 hours. ?Pain or discomfort, which will lessen as time passes. ??If your surgery was done laparoscopically, you could have abdominal, shoulder, or collarbone pains. ??These will disappear gradually over several days. ?Constipation is a possibility, especially if narcotic pain relievers are needed. Call the office or answering service immediately if any of the following occur: ?Severe pain not relieved by pain medication. ?Uncontrollable bleeding/ bleeding that saturates your dressing. ?Any bright redness, red streaking, or swelling around your incision, or any bad odor, or pus-like drainage coming from your incision. ?Temperature more than??101 F (38 C). ?Repeated nausea and vomiting or inability to tolerate or hold down fluids ?Inability to urinate. Post-operative appointments: ?If you have not already scheduled your follow-up appointment, call . You should arrange to be seen in 2-3 weeks after surgery. ??Ask regarding exact timing of follow-up. ?A nurse visit might also??be schedule for??1??week after for staple/suture removal or wound check. Problems or Questions: ?Office hours are 8:30 am to 5:00 pm Tuesday thru Tuesday. It is best to call during office hours with routine questions.?You may reach the clinical staff during office hours at . ?If you have an after-hours emergency, you can call the answering service at . ?If you cannot reach our office and your problem truly requires emergency attention, go to??[facility] Emergency Room??or the nearest emergency room. Education Given:Tumor, Uncertain Cause Patient Follow-up:Added Follow Up Time Frame Comments Radha WALTERS, Keisha 03/12/2022 08:30 Postop visit * Luis ADKINS, Nallely: PERFORM Event Display: Patient Education/Instruction Authored Date: [id number] Inpatient Adult Discharge Instructions [address] [address] Name: JOEL GILL : 1965 Visit: 02/17/2022 09:01:00 Current Date: 02/19/2022 08:05 Account: [id number] Inpatient Adult Discharge Instructions We would like to thank you for allowing us to assist you with your healthcare needs. The following includes patient education materials and information regarding your injury/illness. Our entire staffstrives to provide an excellent experience for our patients and their families. PLEASE ENSURE YOU FOLLOW-UP PER THE INSTRUCTIONS BELOW! ?? YOUR OPINION IS IMPORTANT TO US! Please complete the survey you may receive by mail or email. Your feedback will be used to make improvements to the healthcare experiences of our patients and their families. Surveys are administered by [employer] ?? If further treatment with your primary care physician or another doctor is recommended, it is important for you to keep the appointment. Call your primary care physician or return to the Emergency Department immediately if your condition worsens, fails to improve, or new symptoms develop. If you need to find a doctor, you can call [facility] for a referral at [phone] or toll free at [phone]) or log in to [email or web address].. ?? You can view and manage your care through the patient portal or by using a health care justin of your choosing. [employer] is a website that allows you to securely view your medical information including your hospital discharge summary, office visit summaries, medications and follow-up visits. You can also request appointments, renew medications, and request access to your medical information using a health care justin of your choosing, or just ask a question. You can enroll at [email or web address] or register during your next office visit. You have been discharged from [facility], Patient Care Unit: SW7. If you have any questions regarding these instructions after you leave, please call us and we will be happy to assist you. [facility] Your Care Team Attending Physician Radha WALTERS, Keisha Consulting Providers Oswaldo WALTERS, Maria E Quinonez; Artemio WALTERS, Jerry Acosta; Radha WALTERS, Keisha Discharging Providers Manjinder WALTERS, Annalisa Reason for Admission LEFT ADRENAL MASS PRO MUNA Your Diagnosis Adrenal mass, left Tests Performed Below is a partial list of the tests performed during your hospitalization. You may have had other tests and procedures not included in this list. Please discuss all test results with your provider. BUN Calcium Ionized CBC CBC w/ Differential Creatinine Electrolytes Glucose Level Lytes Magnesium Level Phosphorus Level Type and Screen Primary Care Provider Delvin Carrasquillo MD Advance Directive Health Care Proxy on File No No qualifying data available. Discharge Vitals Temperature: 98.6 DegF Height: 165.1 cm Pulse Rate: 59 bpm Weight: 63.64 kg Respiratory Rate: 18 br/min Body Mass Index: 23.35 kg/m2 Systolic Blood Pressure: 119 mm Hg Body surface area: 1.71 Diastolic Blood Pressure: 71 mm Hg ?? Oxygen Saturation: 95 % ?? Studies Pending All tests and labs ordered during this hospital stay have been completed unless listed below. Please discuss all pending results with your provider listed above in these instructions. ?? COVID-19 (2019 Novel Coronavirus) PCR Pathology Tissue Request ([id number]) What to do next Instructions From Your Doctor Discharge Instructions: [facility]Surgery ? AFTER YOUR SURGERY? Diet: ?Continue your??regular diet ?Drink 6 to 8 glasses of fluids per day. ?No alcoholic beverages post-operatively or while taking pain medications. ?? Activity: ?Avoid any activity that causes discomfort. ??Normal daily activities are safe. ?Avoid straining, vigorous sports or lifting anything more than 10??pounds for??4 weeks, or as directed by your surgeon. ?? Dressings and Wound care: ?You may remove your bandage (if you have one in place) in 48 hours and shower (no soaking in a tub, pool, or hot tub.) ??If you have steri-strips, radha, or sutures, it???s okay if they happen to get wet, but be sure to pat dry with a clean towel as soon as you get out. ?It is very important to keep your incision area clean and dry. ??You may cover up the incisionswith a bandage for protection, but once the incisions are dried/ scabbed over, you may leave them open to air. ??Steri-strips will start curling up and drying??out over several days. ??They may startto drop off by themselves, and this is all right. ? Medications: ?Pain: ??Oxycodone is usually prescribed.?If the pain you are experiencing is mild, extra-strength Tylenol will likely take care of it. ??Remember that narcotic pain medications can cause constipation. ??Some narcotics contain Tylenol (acetaminophen) and if additional pain medicines are required, do not take additional Tylenol products- use ibuprofen or naproxen instead. ??Take a stool softener as prescribed below and drink plenty of fluids.?Home Medications: Resume any medications your primary physician has prescribed unless specifically instructed. ?Stool softener: ??Colace 100 mg??or its generic form??DOCUSATE??tablet??by mouth twice a day asdirected.??Some??people will need to take stool softener??short-term after??surgery. If you have chronic diarrhea or inflammatory bowel disease, you should not take stool softener unless you are constipated ?Constipation:?Take??Milk of Magnesia??as directed on the bottle every 6 hours for 24 hours, OR Miralax at night per directions. ??These are both available over the counter. ??If this fails to relieve the problem, call the office. ?? Expect the following: ?Some oozing of blood to the bandage in the first 24 hours. ?Fatigue, especially in the first 24 hours. ?Pain or discomfort, which will lessen as time passes. ??If your surgery was done laparoscopically, you could have abdominal, shoulder, or collarbone pains. ??These will disappear gradually over several days. ?Constipation is a possibility, especially if narcotic pain relievers are needed. ?? Call the office or answering service immediately if any of the following occur: ?Severe pain not relieved by pain medication. ?Uncontrollable bleeding/ bleeding that saturates your dressing. ?Any bright redness, red streaking, or swelling around your incision, or any bad odor, or pus-like drainage coming from your incision. ?Temperature more than??101 F (38 C). ?Repeated nausea and vomiting or inability to tolerate or hold down fluids ?Inability to urinate. ?? Post-operative appointments: ?If you have not already scheduled your follow-up appointment, call . You should arrange to be seen in 2-3 weeks after surgery. ??Ask regarding exact timing of follow-up. ?A nurse visit might also??be schedule for??1??week after for staple/suture removal or wound check.? Problems or Questions: ?Office hours are 8:30 am to 5:00 pm Tuesday thru Tuesday. It is best to call during office hours with routine questions.?You may reach the clinical staff during office hours at . ?If you have an after-hours emergency, you can call the answering service at . ?If you cannot reach our office and your problem truly requires emergency attention, go to??[facility] Emergency Room??or the nearest emergency room. Discharge Orders Scheduled Follow-Up Appointments Tuesday 8:30 AM EST ?? With: Keisha Garcia MD Where: [facility] [address] [place] [address] Drive [address] [place] [address]- You Need to Schedule the Following Appointments Follow Up with??Keisha Garcia MD When??03/12/2022 08:30 AM EST Why: Postop visit Where: [address], [address] [facility] [place] [address]- Discharge Medications JOEL GILL :1965 Visit Date:02/17/2022 Medications: Please continue your medications until treatment is completed or stopped by your provider. Medications not listed below should be discontinued. Discuss any questions related to medications with your provider. What How Much When Instructions Next Dose New Oxycodone (oxyCODONE 5 mg oral tablet) 1 tab(s) Oral Every 6 hours as needed for as needed for pain Duration: 3 Days Pickup at [facility] 3 as needed Unchanged Cyanocobalamin (Vitamin B12 1000 mcg oral tablet) 1 tab(s) Oral Daily in the morning 9am 02/20 Unchanged Famotidine (famotidine 40 mg oral tablet) 1 tab(s) Oral Daily at Bedtime 9pm 02/19 Unchanged Trazodone (traZODone 50 mg oral tablet) 1 tab(s) Oral Daily at Bedtime for sleep. ?? 9pm 02/19 Pharmacy Information [facility] 3: [address] [place], [place] [id number] [phone] Test Results Below is a partial list of the most recent Laboratory test results done prior to this discharge. You may have had other tests and procedures not included in this list. Please discuss all test resultswith your provider. BUN (02/18/2022) ???BUN - 13 mg/dL Calcium Ionized (02/18/2022) ???Calcium, Ionized pH Corrected - 1.19 mmol/L CBC (02/17/2022) ???WBC - 2.9 k/mm3???RBC - 4.51 m/mm3???Hgb - 14.5 Gm/dL???Hct - 43.5 %???MCV - 96.5 femtoliters???MCH - 32.2 pg???MCHC - 33.3 g/dL???Platelet Count - 219 k/mm3???RDW-SD - 40.9 femtoliters???MPV - 9.2 femtoliters???Nucleated RBC (Automated) - 0.0 #/100 WBC'S???Abs. NRBC - 0.0 k/mm3 CBC w/ Differential (02/18/2022) ???WBC - 7.1 k/mm3???RBC - 3.61 m/mm3???Hgb - 11.7 Gm/dL???Hct - 36.0 %???MCV - 99.7 femtoliters???MCH - 32.4 pg???MCHC - 32.5 g/dL???Platelet Count - 177 k/mm3???RDW-SD - 42.5 femtoliters???MPV - 9.8 femtoliters???Nucleated RBC (Automated) - 0.0 #/100 WBC'S???Abs. NRBC - 0.0 k/mm3???Abs. Neut - 5.3 k/mm3???Abs. Lymph - 1.2 k/mm3???Abs. [place] - 0.6 k/mm3???Abs. Eo - 0.0 k/mm3???Abs. Baso - 0.0 k/mm3???Neut % - 74.9 %???Lymph % - 16.2 %???[place] % - 8.0 %???Eos % - 0.3 %???Baso % - 0.3 %???Imm Gran- 0.3 %???Abs. Imm Gran - 0.0 k/mm3 Creatinine (02/18/2022) ???Creatinine-Blood - 0.9 mg/dL???Estimated GFR Creatinine - 101 ML/MIN/1.73 M2 Electrolytes (02/17/2022) ???Sodium - 142 mmol/L???Potassium - 4.5 mmol/L???Chloride - 105 mmol/L???Bicarbonate Level - 28 mmol/L???Anion Gap - 9 Glucose Level (02/18/2022) ???Glucose Level - 111 mg/dL Lytes (02/18/2022) ???Sodium - 135 mmol/L???Potassium - 4.0 mmol/L???Chloride - 101 mmol/L???Bicarbonate Level - 27 mmol/L???Anion Gap - 7 Magnesium Level (02/18/2022) ???Magnesium - 1.8 mg/dL Phosphorus Level (02/18/2022) ???Phosphorus - 2.9 mg/dL Type and Screen (02/17/2022) ???Blood Type - O Positive???Antibody Screen - Negative Allergies (NKA means No Known Allergies) Latex??(rash) Vicodin??(rash, Drug-induced nausea and vomiting) Problems Active Problems??(23) Acid reflux?? Arthroscopy of elbow with partial synovectomy?? Bankart anterior stabilization of shoulder joint?? Body mass index 25-29 - overweight?? Change of medication?? Cocaine dependence in remission?? Common migraine?? Disorder due to work-related activity accident?? Drug interaction?? Erectile dysfunction?? Gastric ulcer?? Generalized Anxiety Disorder?? Headache, non migrainous?? Hiatal hernia?? Major depressive disorder?? Myofascial pain?? Not getting enough sleep?? Pain in left arm?? Shoulder pain?? Sleep deficient?? Sleep disturbance?? Therapy outcome measure?? Vertigo?? Education Materials Below is the list of Educational Leaflet Providered with your Discharge Instructions. Pantoprazole Delayed Release Oral Tablet?? Tumor, Uncertain Cause?? Valuables and Belongings I fully understand and agree that [facility] accepts no responsibility for all my personal property including clothing, toilet articles, radios, jewelry, dentures, hearing aids, rings, money, or any other property that is in my possession or is brought to me after admission. I understand certain valuables may be placed in a hospital safe for a short period of time. I understand that the hospital is not liable for loss or damage due to accident, fire, or other natural occurrence while said property is in the safe. I accept full responsibility for any personal property that I keep with me, and will not hold the hospital responsible in case of loss or disappearance. I acknowledge that i have been encouraged to send valuables and belongings home. ?? Review of Valuable and Belonging List: With patient Disposition of Belongings: Other: to pacu Date for Pt to Sign Valuables/Belongings: 02/18/22 23:56:00 ?? Other Discharge Information ? Case Management Discharge Plan?? Discharge Plan?? Discharge Level of Care at Discharge: Home/Correction/Foster Care ?? Pulmonary Rehab Status?? Pulmonary Rehab Discharge Status?? Respiratory Rate: 18 br/min ? Common Emergency Awareness Tips IS IT A STROKE? Act FAST and Check for these signs: FACE Does the face look uneven? ARM Does one arm drift down? SPEECH Does their speech sound strange? TIME Call at any sign of stroke ?? Heart Attack Signs Chest discomfort: Most heart attacks involve discomfort in the center of the chest and lasts more than a few minutes, or goes away and comes back. It can feel like uncomfortable pressure, squeezing, fullness or pain. Discomfort in upper body: Symptoms can include pain or discomfort in one or both arms, back, neck, jaw or stomach. Shortness of breath: With or without discomfort. Other signs: Breaking out in a cold sweat, nausea, or lightheaded. Remember, MINUTES DO MATTER. If you experience any of these heart attack warning signs, call to get immediate medical attention! ?? Smoking can increase your chances of developing chronic health problems and can cause harmful effects to other family members in your house. If you smoke, you are strongly encouraged to quit. Please call [facility] at [phone] or [phone] ([phone]) or log in to [email or web address] for referrals to smoking cessation programs. ?? The National Suicide Prevention Hotline is available 20/09 if you or someone you know needs to find a reason to keep living. By calling 6-587-931-adQuota (7134) you'll be connected to a skilled, trained counselor at a crisis center in your area. INPATIENT DISCHARGE INSTRUCTIONS SIGNATURE PAGE JOEL GILL Location:[facility] Registration Date and Time:02/17/2022 09:01 [facility] Primary Care Physician: Delvin Carrasquillo MD, I JOEL GILL, have received the above patient education materials/instructions and have verbalized understanding. If ambulance or transport services are being used I further acknowledge being given a choice of service. ?? If you need to contact me, please call me at this number: . Patient/Door Hanger Name: Patient/Door Hanger Signature: Relationship to Patient: Witness Name/Signature: Date: * Nallely Smith RN: PERFORM Event Display: Patient Education Leaflets Authored Date: [id number] Oxycodone Oral Tablet ?? [id number] Oxycodone Oral Tablet Brands: Roxicodone Uses For pain. ?? Instructions This medicine may be taken with or without food. Swallow with a full glass (8 oz) of water unless your doctor gives you different instructions. Store at room temperature away from heat, light, and moisture. Do not keep in the bathroom. Please ask your doctor, nurse, or pharmacist how to discard unused medicines safely. To reduce constipation, eat high fiber foods, drink plenty of water and exercise. Avoid grapefruit juice while on this medicine. Drug interactions can change how medicines work or increase risk for side effects. Tell your healthcare providers about all medicines taken. Include prescription and [id number] medicines, vitamins, and herbal medicines. Speak with your doctor or pharmacist before starting or stopping any medicine. Tell your doctor if symptoms do not get better or if they get worse. ?? Cautions This medicine has an opioid. Opioids help many people but may cause addiction, especially if used for a long time. The addiction risk is higher if you have a substance use disorder (overuse of or addiction to drugs or alcohol). Ask your doctor about the benefits and risks. Ask your doctor or pharmacist if you should have naloxone on hand to treat opioid overdose. Teach your family or household members about the signs of an opioid overdose and how to treat it. If you stop this medicine suddenly, after using it regularly for a long time, you may have withdrawal symptoms. Your doctor may ask you to slowly reduce your dose before stopping it. Tell your doctorright away if you notice any symptoms of withdrawal. Withdrawal symptoms can include unusual sweating, watering eyes, runny nose, chills, stomach pain, diarrhea, yawning, muscle aches, irritability, restlessness, anxiety, trouble sleeping, or thoughts of suicide. Tell your doctor and pharmacist if you ever had an allergic reaction to a medicine. Do not use the medication any more than instructed. This medicine may cause dizziness or fainting, especially after exercising or in hot weather. Be very careful when standing or sitting up quickly. If possible, avoid using with marijuana or other medicines that can cause dizziness or drowsiness. These include allergy/cold products, muscle relaxers, sleep aids, and pain relievers. Your ability to stay alert or to react quickly may be impaired by this medicine. Do not drive or operate machinery until you know how this medicine will affect you. Do not drink beverages with alcohol while on this medicine. This medicine passes into breast milk. Ask your doctor before . This medicine can hurt a new baby in the womb. If you become while on this medicine, tell your doctor immediately. Your doctor may switch you to a different medicine. This medicine should be used with caution in patients with breathing difficulties. Call your doctor right away if you notice slow or shallow breathing. Do not share this medicine with anyone who has not been prescribed this medicine. Some patients have serious side effects from this medicine. Ask your pharmacist to show you the information from the Food and Drug Administration (FDA) and discuss it with you. ?? Side Effects The following is a list of some common side effects from this medicine. Please speak with your doctor about what you should do if you experience these or other side effects. ??? decreased appetite ??? constipation ??? dizziness or drowsiness ??? lightheadedness ??? nausea and vomiting If you have any of the following side effects, you may be getting too much medicine. Please contactyour doctor to let them know about these side effects. ??? confusion ??? fainting ??? unusual or unexplained tiredness or weakness ??? difficulty or discomfort urinating Call your doctor or get medical help right away if you notice any of these more serious side effects: ??? agitated feeling or trouble sleeping ??? decreased awareness or responsiveness ??? breathing interruption during sleep ??? shallow, irregular breathing ??? hallucinations (unusual thoughts, seeing or hearing things that are not real) ??? seizures ??? severe stomach or bowel pain ??? weight loss A few people may have an allergic reaction to this medicine. Symptoms can include difficulty breathing, skin rash, itching, swelling, or severe dizziness. If you notice any of these symptoms, seek medical help quickly. ?? Extra Please speak with your doctor, nurse, or pharmacist if you have any questions about this medicine. ?? [email or web address]'[email or web address] IMPORTANT NOTE: This document tells you briefly how to take your medicine, but it does not tell youall there is to know about it. Your doctor or pharmacist may give you other documents about your medicine. Please talk to them if you have any questions. Always follow their advice. There is a more complete description of this medicine available in [place]. Scan this code on your smartphone or tablet or use the web address below. You can also ask your pharmacist for a printout. If you have any questions, please ask your pharmacist. The display and use of this drug information is subject to Terms of Use. Copyright(c) 2021 howsimple. ?? [facility]. All rights reserved. This information is not intended as a substitute for professional medical care. Always follow your healthcare professional's instructions. ?? * Nallely Smith RN: PERFORM Event Display: Patient Education Leaflets Authored Date: Oxycodone Oral Tablet ?? [id number] Oxycodone Oral Tablet Brands: Roxicodone Uses For pain. ?? Instructions This medicine may be taken with or without food. Swallow with a full glass (8 oz) of water unless your doctor gives you different instructions. Store at room temperature away from heat, light, and moisture. Do not keep in the bathroom. Please ask your doctor, nurse, or pharmacist how to discard unused medicines safely. To reduce constipation, eat high fiber foods, drink plenty of water and exercise. Avoid grapefruit juice while on this medicine. Drug interactions can change how medicines work or increase risk for side effects. Tell your healthcare providers about all medicines taken. Include prescription and [id number] medicines, vitamins, and herbal medicines. Speak with your doctor or pharmacist before starting or stopping any medicine. Tell your doctor if symptoms do not get better or if they get worse. ?? Cautions This medicine has an opioid. Opioids help many people but may cause addiction, especially if used for a long time. The addiction risk is higher if you have a substance use disorder (overuse of or addiction to drugs or alcohol). Ask your doctor about the benefits and risks. Ask your doctor or pharmacist if you should have naloxone on hand to treat opioid overdose. Teach your family or household members about the signs of an opioid overdose and how to treat it. If you stop this medicine suddenly, after using it regularly for a long time, you may have withdrawal symptoms. Your doctor may ask you to slowly reduce your dose before stopping it. Tell your doctorright away if you notice any symptoms of withdrawal. Withdrawal symptoms can include unusual sweating, watering eyes, runny nose, chills, stomach pain, diarrhea, yawning, muscle aches, irritability, restlessness, anxiety, trouble sleeping, or thoughts of suicide. Tell your doctor and pharmacist if you ever had an allergic reaction to a medicine. Do not use the medication any more than instructed. This medicine may cause dizziness or fainting, especially after exercising or in hot weather. Be very careful when standing or sitting up quickly. If possible, avoid using with marijuana or other medicines that can cause dizziness or drowsiness. These include allergy/cold products, muscle relaxers, sleep aids, and pain relievers. Your ability to stay alert or to react quickly may be impaired by this medicine. Do not drive or operate machinery until you know how this medicine will affect you. Do not drink beverages with alcohol while on this medicine. This medicine passes into breast milk. Ask your doctor before . This medicine can hurt a new baby in the womb. If you become while on this medicine, tell your doctor immediately. Your doctor may switch you to a different medicine. This medicine should be used with caution in patients with breathing difficulties. Call your doctor right away if you notice slow or shallow breathing. Do not share this medicine with anyone who has not been prescribed this medicine. Some patients have serious side effects from this medicine. Ask your pharmacist to show you the information from the Food and Drug Administration (FDA) and discuss it with you. ?? Side Effects The following is a list of some common side effects from this medicine. Please speak with your doctor about what you should do if you experience these or other side effects. ??? decreased appetite ??? constipation ??? dizziness or drowsiness ??? lightheadedness ??? nausea and vomiting If you have any of the following side effects, you may be getting too much medicine. Please contactyour doctor to let them know about these side effects. ??? confusion ??? fainting ??? unusual or unexplained tiredness or weakness ??? difficulty or discomfort urinating Call your doctor or get medical help right away if you notice any of these more serious side effects: ??? agitated feeling or trouble sleeping ??? decreased awareness or responsiveness ??? breathing interruption during sleep ??? shallow, irregular breathing ??? hallucinations (unusual thoughts, seeing or hearing things that are not real) ??? seizures ??? severe stomach or bowel pain ??? weight loss A few people may have an allergic reaction to this medicine. Symptoms can include difficulty breathing, skin rash, itching, swelling, or severe dizziness. If you notice any of these symptoms, seek medical help quickly. ?? Extra Please speak with your doctor, nurse, or pharmacist if you have any questions about this medicine. ?? [email or web address] IMPORTANT NOTE: This document tells you briefly how to take your medicine, but it does not tell youall there is to know about it. Your doctor or pharmacist may give you other documents about your medicine. Please talk to them if you have any questions. Always follow their advice. There is a more complete description of this medicine available in [place]. Scan this code on your smartphone or tablet or use the web address below. You can also ask your pharmacist for a printout. If you have any questions, please ask your pharmacist. The display and use of this drug information is subject to Terms of Use. Copyright(c) 2021 howsimple. ?? [facility]. All rights reserved. This information is not intended as a substitute for professional medical care. Always follow your healthcare professional's instructions. ?? * Nallely Smith RN: PERFORM Event Display: Patient Education Leaflets Authored Date: [id number] Pantoprazole Delayed Release Oral Tablet ?? [id number] Pantoprazole Delayed Release Oral Tablet Brands: Protonix Uses This medicine is used for the following purposes: ??? indigestion ??? inflammation of stomach ??? inflammation of the esophagus ??? stomach acid ??? stomach acid reflux ??? ulcers in stomach or intestines ??? ulcers in stomach or intestines ?? Instructions Swallow the medicine without crushing or chewing it. This medicine may be taken with or without food. Store at room temperature away from heat, light, and moisture. Do not keep in the bathroom. It is important that you keep taking each dose of this medicine on time even if you are feeling well. If you forget to take a dose on time, take it as soon as you remember. If it is almost time for thenext dose, do not take the missed dose. Return to your normal dosing schedule. Do not take 2 doses of this medicine at one time. Drug interactions can change how medicines work or increase risk for side effects. Tell your healthcare providers about all medicines taken. Include prescription and surd-npx-znhddda medicines, vitamins, and herbal medicines. Speak with your doctor or pharmacist before starting or stopping any medicine. Tell your doctor if symptoms do not get better or if they get worse. This medicine may affect the strength of your bones. If you have or are at increased risk for developing osteoporosis (weakening of the bones), your doctor may recommend adding foods containing calcium and vitamin D while on this medicine. Please talk to your doctor for more information. You may need vitamin and mineral supplements while on this medicine. Please speak with your doctor or pharmacist. ?? Cautions Tell your doctor and pharmacist if you ever had an allergic reaction to a medicine. Do not use the medication any more than instructed. Contact your doctor if you notice a change in the amount or darkening of your urine. Please tell your doctor if you have moderate to severe diarrhea while on this medicine. Do not treat the diarrhea with [id number]-[id number] diarrhea medicine. Tell the doctor or pharmacist if you are , planning to be , or . Do not share this medicine with anyone who has not been prescribed this medicine. Some patients have serious side effects from this medicine. Ask your pharmacist to show you the information from the Food and Drug Administration (FDA) and discuss it with you. ?? Side Effects The following is a list of some common side effects from this medicine. Please speak with your doctor about what you should do if you experience these or other side effects. ??? diarrhea ??? headaches ??? stomach upset or abdominal pain Call your doctor or get medical help right away if you notice any of these more serious side effects: ??? abdominal cramps ??? severe or persistent abdominal pain ??? severe, watery or bloody diarrhea ??? fever ??? numbness or tingling in hands and feet ??? fast or irregular heart beats ??? pain in the joints ??? muscle aches, spasms or abnormal movements ??? butterfly-shaped rash on nose and cheeks ??? seizures ??? blood in stool ??? unusual or unexplained tiredness or weakness A few people may have an allergic reaction to this medicine. Symptoms can include difficulty breathing, skin rash, itching, swelling, or severe dizziness. If you notice any of these symptoms, seek medical help quickly. ?? Extra Please speak with your doctor, nurse, or pharmacist if you have any questions about this medicine. ?? [email or web address].[email or web address]'[email or web address] IMPORTANT NOTE: This document tells you briefly how to take your medicine, but it does not tell youall there is to know about it. Your doctor or pharmacist may give you other documents about your medicine. Please talk to them if you have any questions. Always follow their advice. There is a more complete description of this medicine available in Slovak. Scan this code on your smartphone or tablet or use the web address below. You can also ask your pharmacist for a printout. If you have any questions, please ask your pharmacist. The display and use of this drug information is subject to Terms of Use. Copyright(c) 2021 [employer]. ?? [employer]. All rights reserved. This information is not intended as a substitute for professional medical care. Always follow your healthcare professional's instructions. ?? * Nunu Skinner MD: PERFORM, SIGN, VERIFY Event Display: Discharge/Transfer Note Hospital Authored Date: Patient: JOEL GILL Age: 56 years Sex: Male : 1965 Associated Diagnoses: None Author: Nunu Skinner MD Discharge Information Admission Date: 02/17/2022 Discharge Date 02/18/2022 Principal Discharge Diagnosis Adrenal mass, left. Aware of diagnosis: patient. Procedures Operative Information Procedure Date: 02/17/2022. Preoperative Diagnosis: Left adrenal mass. Postoperative Diagnosis: Same as Preoperative Diagnosis. Procedure Performed: Laparoscopic left adrenalectomy. Surgeon: Keisha Garcia MD. Assistants: Lyndsay Joyce MD. Anesthesia Type: General. . Discharge condition: excellent Compared to admission: improved Code status: Full Hospital Course Mr. Gill is a 56yo male who presented with slowly enlarging 3cm left adrenal mass with indeterminate imaging phenotype and negative phenotypic workup, s/p lap left adrenalectomy. He had significant pain initially uncontrolled on IV Dilaudid. Ketamine gtt was initiated for pain control, with goodeffect. He was evaluated few hours later, and reports adequate pain control on current regimen. Overnight, he was given a one time dose of 0.5mg Dilaudid. He was tolerating CLD, without any nausea/ vomiting, and was ultimately transitioned to regular diet. Also ambulating with assistance to the bathroom, and having appropriate voids, flatus, without BM. He denies any fevers or chills, and is otherwise hemodynamically stable. Will discontinue ketamine gtt, provide PO pain control, and DC home. DC pain control meds will be sent to PACU pharmacy for pickup. Constitutional: no acute distress. Resting comfortably in bed. Cardiovascular: Rate and rhythm regular. S1&2 present. No murmurs, rubs, gallops, or edema. Respiratory: Equal chest rise bilaterally with normal respiratory effort. Normal vesicular breath sounds. Abdomen/GI: Abdomen is soft, nontender, and nondistended. No rigidity or guarding. Bowel sounds arepresent. Left quadrant incisions are covered with dressing, without strikethrough. There is no hematoma or ecchymosis. Patient is appropriately tender surrounding incision site. No expanding erythemanoted beyond the borders of the dressing. Extremities: Spontaneously moving all four extremities. No edema, tenderness, cyanosis, or clubbing. Discharge Plan Discharge Disposition Discharge: home. Patient Care team information Care Team Personnel Name: Alesia Márquez RN Position: S RN Member Role: Primary Care Nurse Name: Cordelia Gupta RN Position: S RN Member Role: Primary Care Nurse Name: Delvin Carrasquillo MD Position: Reference Physician Member Role: PCP Address: Address: [address] [place] [id number]- Name: Beth Blake RN Position: S RN Member Role: Primary Care Nurse Name: Nallely Smith RN Position: S RN Member Role: Primary Care Nurse Care Team Related Persons Name: ALEXANDERTORRES BIANCA Address: [place] [address]
[2024-01-28 17:10] VITALS: RESP 16
[2024-01-28 17:29] LABS: Appearance Urine Clear; Color Urine Yellow; Glucose Urine UA Negative (Negative); Leukocyte Esterase Urine Negative (Negative); Nitrite Urine Negative (Negative); Urine Blood Negative (Negative); Urine Ketones Negative (Negative); Urine Protein Negative (Neg-Trace)
--- NOTE | 2024-01-28 17:36 | PC.NURSE ---
August comes in today from home, reporting SI with a plan to cut himself, he reports that he has been struggling with worsening depression which has caused him to call out of work and now he is being reprimanded. Pt is help seeking, anxious but wanting to get treatment. He believes he may need a change in his medications. Pt denies HI/AH/VH. Pt does endorse a history of overdose attempts. Pt aware of plan of care for blood work and then CARE team milan
[2024-01-28 17:39] LABS: Amphetamine Screen Urine Not Detected (Not Detect); Barbiturates, Urine Not Detected (Not Detect); Benzodiazepines Screen Urine Not Detected (Not Detect); Buprenorphine Scr Not Detected (Not Detect); Cannabinoid Screen Urine Not Detected (Not Detect); Cocaine Screen Urine Not Detected (Not Detect); Fentanyl, urine Not Detected (Not Detect); Methadone Screen, Urine Not Detected (Not Detect); Opiate Screen Urine Not Detected (Not Detect); Oxycodone Screen Urine Not Detected (Not Detect); Phencyclidine Screen Urine Not Detected (Not Detect)
[2024-01-28 17:52] LABS: MANUAL DIFF FLAG NO
[2024-01-28 17:53] LABS: Basophils Percent Auto 0.7 % (0-2); Eosinophils Absolute Auto 0.3 X10*3/uL (0.0-0.4); Eosinophils Percent Auto 5.4 % (0-4); Hemoglobin 14.7 g/dl (14.0-18.0); Imm Gran Abs Auto 0.02 X10*3/uL (0.00-0.03); Imm Gran Pct Auto 0.4 % (0.0-0.4); Mean Corpuscular HGB Conc 34.2 g/dl (31.0-36.0); Mean Corpuscular Hemoglobin 30.6 pg (27.0-33.0); Mean Corpuscular Volume 89.6 fL (80.0-98.0); Mean Platelet Volume 9.3 fL (9.4-12.4); Monocytes Absolute Auto 0.5 X10*3/uL (0.1-1.2); Monocytes Percent Auto 8.4 % (2-11); Neutrophils Absolute Auto 3.5 x10*3/uL (2.0-8.3); Neutrophils Percent Auto 66.1 % (45-73); Platelet Count 241 X10*3/uL (160-400); Red Cell Distribution Width 12.3 % (11.0-16.0); White Blood Count 5.4 X10*3/uL (4.8-10.8)
[2024-01-28] MEDS: LORazepam 1 MG TABLET 2 MG PO (17:59)
[2024-01-28] MEDS: HaloperidoL 5 MG TABLET PO (17:59)
[2024-01-28] MEDS: diphenhydrAMINE HCL 25 MG CAPSULE 50 MG PO (17:59)
[2024-01-28 18:07] LABS: Alanine Aminotransferase 31 U/L (0-40); Albumin Level 4.4 g/dL (3.5-5.0); Alkaline Phosphatase 56 U/L (39-117); Anion Gap 12 (12-20); Aspartate Amino Transferase 27 U/L (5-37); Bilirubin Total 0.3 mg/dL (0.0-1.0); Blood Urea Nitrogen 14 mg/dL (9-16); Carbon Dioxide 23 mmol/L (22-29); Chloride 107 mmol/L (96-108); Creatinine Clr Calc Pharmacy 82.8; Estimated Glomerular Filt Rate > 60; Glucose Random 102 mg/dL (60-115); Lipase 34 U/L (8-78); Magnesium 1.9 mg/dL (1.6-2.6); Sodium 138 mmol/L (135-145); Total Protein 7.1 g/dL (6.5-8.0)
[2024-01-28 18:11] LABS: Acetaminophen LAB < 3 mcg/mL (<30); Salicylate < 5.0 mg/dL (15-30)
[2024-01-28 18:51] LABS: Ethanol < 10 mg/dL
[2024-01-28] MEDS: traZODone HCL 100 MG TABLET PO (20:46)
[2024-01-28] MEDS: Gabapentin 100 MG CAPSULE PO (20:46)
--- NOTE | 2024-01-29 | ECG_ITS ---
Test Reason : check prolong QT Blood Pressure : / mmHG Vent. Rate : 067 BPM Atrial Rate : 067 BPM P-R Int : 148 ms QRS Dur : 088 ms QT Int : 392 ms P-R-T Axes : 020 -07 -23 degrees QTc Int : 414 ms Normal sinus rhythm Normal ECG When compared with ECG of 18-AUG-2022 08:34, No significant change was found Referred By: Ben Mercado Electronically Signed By:Alex Hsu
[2024-01-29 06:18] VITALS: BP 105/68; PULSE 70; RESP 18; TEMP 36.9; O2SAT 97
--- NOTE | 2024-01-29 07:17 | PC.NURSE ---
Assumed care of patient at 0645, patient appears to be in no apparent distress this am, calm and cooperative, offering no complaints to this RN, ate breakfast. Patient allowed use of personal fixodent by this RN due to not having any on unit at this time. Continue plan of care for inpatient bedsearch
[2024-01-29] MEDS: Folic Acid 1 MG TABLET PO (08:26)
[2024-01-29] MEDS: Sertraline HCL 100 MG TABLET 200 MG PO (08:26)
[2024-01-29] MEDS: OLANZapine 5 MG TABLET PO (08:26)
--- NOTE | 2024-01-29 09:41 | PHA.MEDREC ---
Pharmacy Consult ? Medication Reconciliation Pharmacy has completed the medication reconciliation.pharmacy has reviewed med rec done by nursing
--- OUTSIDE RECORDS SUMMARY | 2024-01-29 14:22 | XMS_ITS | Patient Health Record ---
Author Organization [facility] Address [address] [place] [id number] Care Team Providers Care Correctional Treatment Specialist Name Role Phone Delvin Carrasquillo MD Primary Care Provider Americo Del Real Jr Unavailable [phone] ALLERGIES Allergen (clinical drug ingredient) Drug/Non Drug [...] Epigastric pain (789.06) Active confirmed Epigastric pain (41030250) PLAN OF TREATMENT Pending Test Test Name Order Date XR GI SERIES 06/01/2013 Insurance Providers Payer Name Payer Address Payer Phone Subscriber Number Group Number Insured Name Patient Relationship to Insured Coverage Start Date Coverage End Date [facility] [address] [place] [address] [id number] JOEL GILL Self - patient is the insured MEDICAL (GENERAL) HISTORY Medical History History ICD Code Denies NM,DM,CVA,Lung disease,renal dise ase PUD Surgical History Surgery Date(Month/Year) left arm surgery rhinoplasty toe surgery
[2024-01-29 14:56] VITALS: BP 146/83; PULSE 76; RESP 18; BMI 30.9
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
[2024-01-29] MEDS: LORazepam 1 MG TABLET PO ×2 (16:08→20:37)
[2024-01-29 20:00] VITALS: BP 121/68; PULSE 79; TEMP 36.4; O2SAT 96
[2024-01-29] MEDS: Gabapentin 100 MG CAPSULE PO (20:31)
[2024-01-29] MEDS: traZODone HCL 100 MG TABLET PO (20:31)
[2024-01-30] MEDS: Acetaminophen 325 MG TABLET 650 MG PO ×3 (03:40→20:15)
[2024-01-30 07:50] VITALS: BP 161/91; PULSE 62; RESP 18; TEMP 36.6; O2SAT 97
[2024-01-30] MEDS: LORazepam 1 MG TABLET PO ×2 (08:54→20:23)
[2024-01-30] MEDS: OLANZapine 5 MG TABLET PO (08:54)
[2024-01-30] MEDS: Sertraline HCL 100 MG TABLET 200 MG PO (08:54)
[2024-01-30] MEDS: Folic Acid 1 MG TABLET PO (08:54)
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
[2024-01-30 20:00] VITALS: BP 148/80; PULSE 70; TEMP 36.3; O2SAT 98
[2024-01-30] MEDS: traZODone HCL 100 MG TABLET PO (20:13)
[2024-01-30] MEDS: Gabapentin 100 MG CAPSULE PO (20:15)
[2024-01-31] MEDS: hydrOXYzine HCL 25 MG TABLET PO (00:24)
[2024-01-31] MEDS: traZODone HCL 50 MG TABLET PO ×2 (00:24→23:36)
[2024-01-31 08:00] VITALS: BP 131/79; PULSE 74; RESP 16; TEMP 36.4; O2SAT 96
[2024-01-31] MEDS: OLANZapine 5 MG TABLET PO (09:40)
[2024-01-31] MEDS: Folic Acid 1 MG TABLET PO (09:41)
[2024-01-31] MEDS: Sertraline HCL 100 MG TABLET 200 MG PO (09:41)
[2024-01-31 09:43] LABS: Estimated Average Glucose 105 mg/dL; Hemoglobin A1C 138.9537 umol/L; Hemoglobin A1c % 5.3 % (<6.0); Total Hemoglobin (HGBA1C) 4087.4114 umol/L
[2024-01-31] MEDS: Acetaminophen 325 MG TABLET 650 MG PO ×2 (09:46→19:41)
[2024-01-31 09:57] LABS: Cholesterol 240 mg/dL (<200); HDL Cholesterol 40 mg/dL (>40); LDL Cholesterol Calculated 150 mg/dL (<100); Triglycerides 254 mg/dL (<150)
[2024-01-31 10:12] LABS: Free T4 (Free Thyroxine) 1.03 ng/dL (0.71-1.85); Thyroid Stimulating Hormone 1.68 uIU/mL (0.32-4.0)
[2024-01-31 10:27] LABS: Folate 16.3 ng/mL (> or = 4.0); Vitamin B12 405 pg/mL (200-900)
[2024-01-31] MEDS: LORazepam 1 MG TABLET PO ×2 (11:41→21:18)
--- NOTE | 2024-01-31 15:11 | HO.PSYCHPN ---
Subjective Subjective Date of Service: 01/31/24 Reason For Visit: SI Subjective Notes: Conditional Voluntary Interim History: Patient reports feeling anxious and depressed today; pt stated, I'm focused on what's going on with my treatment. I want to know if I'm going to get ECT or not. I would like to get it . Consult is placed; awaiting to be seen. Pt reports suicidal ideation with no plan. denies HI/VH/AH. Medication Compliance: Yes Side effects from medications: No Review of Systems Constitutional: Reports as per HPI Eyes: Reports as per HPI Reports as per HPI Cardiovascular: Reports as per HPI Respiratory: Reports as per HPI Gastrointestinal: Reports as per HPI Genitourinary: Reports as per HPI Musculoskeletal: Reports as per HPI Skin/Breast: Reports as per HPI Reports as per HPI Psychiatric: Reports as per HPI Endocrine: Reports as per HPI Hematologic/Lymphatic: Reports as per HPI Allergic/Immunologic: Reports as per HPI Mental Status Exam Mental Status Exam Narrative: Pt is alert and oriented; behavior is cooperative, friendly; dressed in casual attire; mood is described as anxious and depressed ; eye contact appropriate; Speech is normal rate, volume and not pressured; thought process is organized and goal directed; Thought content is on tx; denies HI/VH/AH. pt reports suicidal ideation with no plan. Diagnostics Vital Signs (24Hr): Vital Signs - 24 hr 01/30/24 20:00 01/31/24 08:00 Temperature 97.3 F 97.6 F Pulse Rate 70 74 Respiratory Rate 16 Blood Pressure 148/80 H 131/79 Pulse Oximetry 98 96 Oxygen Delivery Method Room Air Room Air BMI result Body Mass Index 30.9 Labs 01/28/24 17:47 01/28/24 17:47 Labs: Laboratory Results - last 48 hr 01/31/24 09:17 Estimat Average Glucose 105 Hemoglobin A1c % 5.3 Triglycerides 254 H Cholesterol 240 H LDL Cholesterol, Calc 150 H HDL Cholesterol 40 L Vitamin B12 405 Folate 16.3 TSH 1.68 Free T4 1.03 Medications Medications Current Medications Acetaminophen (Acetaminophen 325 Mg Tablet) 650 mg PO Q6H PRN PRN Reason: Headache/Pain Mild Scale (1-3) Last Admin: 01/31/24 09:46 Dose: 650 mg Al Hydroxide/Mg Hydroxide (Magnesium Hydrox/Alum Hydrox 30 Ml Oral.Susp) 30 ml PO Q6H PRN PRN Reason: Heartburn/Nausea Folic Acid (Folic Acid 1 Mg Tablet) 1 mg PO DAILY [facility] Last Admin: 01/31/24 09:41 Dose: 1 mg Gabapentin (Gabapentin 100 Mg Capsule) 100 mg PO BEDTIME NIKOLE Last Admin: 01/30/24 20:15 Dose: 100 mg Hydroxyzine HCl (Hydroxyzine Hcl 25 Mg Tablet) 25 mg PO Q6H PRN PRN Reason: Anxiety Last Admin: 01/31/24 00:24 Dose: 25 mg Lorazepam (Lorazepam 1 Mg Tablet) 1 mg PO BID PRN PRN Reason: Anxiety Last Admin: 01/31/24 11:41 Dose: 1 mg Magnesium Hydroxide (Milk Of Magnesia 30 Ml Oral.Susp) 30 ml PO DAILY PRN PRN Reason: Constipation Mirtazapine (Mirtazapine 7.5 Mg Tablet) 7.5 mg PO DAILY PRN PRN Reason: Anxiety Olanzapine (Olanzapine 5 Mg Tablet) 5 mg PO DAILY [facility] Last Admin: 01/31/24 09:40 Dose: 5 mg Sertraline HCl (Sertraline Hcl 100 Mg Tablet) 200 mg PO DAILY [facility] Last Admin: 01/31/24 09:41 Dose: 200 mg Trazodone HCl (Trazodone Hcl 100 Mg Tablet) 100 mg PO BEDTIME [facility] Last Admin: 01/30/24 20:13 Dose: 100 mg Trazodone HCl (Trazodone Hcl 50 Mg Tablet) 50 mg PO BEDTIME MRX1 PRN PRN Reason: Insomnia Last Admin: 01/31/24 00:24 Dose: 50 mg Allergies Allergies Allergy/AdvReac Type Severity Reaction Status Date / Time hydrocodone [Vicodin] Allergy Unknown nausea Verified 01/28/24 17:00 latex [LATEX] Allergy Unknown RASH Verified 01/28/24 17:00 cheese AdvReac Unknown Verified 01/28/24 18:22 Assessment & Plan Assessment & Plan (1) Depression with suicidal ideation: Status: Acute Code(s): F32.A - Depression, unspecified; R45.851 - Suicidal ideations (2) Generalized anxiety disorder: Status: Acute Code(s): F41.1 - Generalized anxiety disorder Plan Recurrent major depression, Anxiety NOS, Cocaine abuse. Plan: Admit, CV, 15 minute checks Collateral contacts Diagnostics as needed ECT consult Medication review and adjustments Encourage full milieu 01/30: continue current tx plan. awaiting to find out if he is able to receive ECT. +SI with no plan. Patient educated on: diagnosis and medication risk/benefits Reason for continued inpatient stay Substantial Risk for: harm to self and med/psych decompensation Time Spent With Patient Time: Total time managing care of this patient today _20___ minutes.
[2024-01-31 20:00] VITALS: BP 133/87; PULSE 83; RESP 16; TEMP 36.6; O2SAT 97
[2024-01-31] MEDS: Gabapentin 100 MG CAPSULE PO (21:18)
[2024-01-31] MEDS: traZODone HCL 100 MG TABLET PO (21:19)
[2024-02-01] MEDS: LORazepam 1 MG TABLET PO ×2 (03:57→20:28)
[2024-02-01 08:00] VITALS: BP 120/75; PULSE 68; TEMP 36.4; O2SAT 97
[2024-02-01] MEDS: OLANZapine 5 MG TABLET PO (08:33)
[2024-02-01] MEDS: Sertraline HCL 100 MG TABLET 200 MG PO (08:33)
[2024-02-01] MEDS: Folic Acid 1 MG TABLET PO (08:33)
--- NOTE | 2024-02-01 11:04 | HO.PSYCHPN ---
Subjective Subjective Date of Service: 02/01/24 Reason For Visit: SI Subjective Notes: Conditional Voluntary Healthcare Proxy: No Guardianship: No Medical Problems Affecting Mental Status: No Interim History: Pt able to meet in consultation with Dr. Nair and will begin ECT on 02/02 or 02/05, depending upon the OR schedule. He is pleased as he reports the ECT course he had was the most effective and gave him the most extended relief of depressive sx. Discussed that medicine would continue to be a part of his plan of care. He agreed and states he will take an antidepressant regime, I just need some relief so I can go back to work. Medication Compliance: Yes Side effects from medications: No Attending Groups: Intermittent Review of Systems Acute medical concerns: No Review of Systems Review of Systems Denies Mental Status Exam Mental Status Exam Patient Appearance: Fatigued Patient Orientation: Person, Place, Time and Situation Level of Consciousness: Alert Patient Behavior: Talkative, Cooperative and Good Eye Contact Mood Description: Depressed Affect Description: Flat Patient Cognition Impaired: No Ability to Follow Directions: Good Speech Pattern: Spontaneous Speech Memory Description: Intact Hallucinations: None Delusions: Not Present Thought Process: Rumination Thought Content: positive for Perseveration Depressive Symptoms: Sleeping More Than Usual, Hopelessness, Unhappiness and Low Self Esteem Judgement: Fair Diagnostics Vital Signs (24Hr): Vital Signs - 24 hr 01/31/24 20:00 02/01/24 08:00 Temperature 97.9 F 97.6 F Pulse Rate 83 68 Respiratory Rate 16 Blood Pressure 133/87 120/75 Pulse Oximetry 97 97 Oxygen Delivery Method Room Air Room Air BMI result Body Mass Index 30.9 Labs 01/28/24 17:47 01/28/24 17:47 Labs: Laboratory Results - last 48 hr 01/31/24 09:17 Estimat Average Glucose 105 Hemoglobin A1c % 5.3 Triglycerides 254 H Cholesterol 240 H LDL Cholesterol, Calc 150 H HDL Cholesterol 40 L Vitamin B12 405 Folate 16.3 TSH 1.68 Free T4 1.03 Medications Medications Current Medications Acetaminophen (Acetaminophen 325 Mg Tablet) 650 mg PO Q6H PRN PRN Reason: Headache/Pain Mild Scale (1-3) Last Admin: 01/31/24 19:41 Dose: 650 mg Al Hydroxide/Mg Hydroxide (Magnesium Hydrox/Alum Hydrox 30 Ml Oral.Susp) 30 ml PO Q6H PRN PRN Reason: Heartburn/Nausea Folic Acid (Folic Acid 1 Mg Tablet) 1 mg PO DAILY [facility] Last Admin: 02/01/24 08:33 Dose: 1 mg Gabapentin (Gabapentin 100 Mg Capsule) 100 mg PO BEDTIME [facility] Last Admin: 01/31/24 21:18 Dose: 100 mg Hydroxyzine HCl (Hydroxyzine Hcl 25 Mg Tablet) 25 mg PO Q6H PRN PRN Reason: Anxiety Last Admin: 01/31/24 00:24 Dose: 25 mg Lorazepam (Lorazepam 1 Mg Tablet) 1 mg PO BID PRN PRN Reason: Anxiety Last Admin: 02/01/24 03:57 Dose: 1 mg Magnesium Hydroxide (Milk Of Magnesia 30 Ml Oral.Susp) 30 ml PO DAILY PRN PRN Reason: Constipation Mirtazapine (Mirtazapine 7.5 Mg Tablet) 7.5 mg PO DAILY PRN PRN Reason: Anxiety Olanzapine (Olanzapine 5 Mg Tablet) 5 mg PO DAILY [facility] Last Admin: 02/01/24 08:33 Dose: 5 mg Sertraline HCl (Sertraline Hcl 100 Mg Tablet) 200 mg PO DAILY [facility] Last Admin: 02/01/24 08:33 Dose: 200 mg Trazodone HCl (Trazodone Hcl 100 Mg Tablet) 100 mg PO BEDTIME [facility] Last Admin: 01/31/24 21:19 Dose: 100 mg Trazodone HCl (Trazodone Hcl 50 Mg Tablet) 50 mg PO BEDTIME MRX1 PRN PRN Reason: Insomnia Last Admin: 01/31/24 23:36 Dose: 50 mg Allergies Allergies Allergy/AdvReac Type Severity Reaction Status Date / Time hydrocodone [Vicodin] Allergy Unknown nausea Verified 01/28/24 17:00 latex [LATEX] Allergy Unknown RASH Verified 01/28/24 17:00 cheese AdvReac Unknown Verified 01/28/24 18:22 Assessment & Plan Assessment & Plan (1) Depression with suicidal ideation: Status: Acute Code(s): F32.A - Depression, unspecified; R45.851 - Suicidal ideations (2) Generalized anxiety disorder: Status: Acute Code(s): F41.1 - Generalized anxiety disorder Plan Recurrent major depression, Anxiety NOS, Cocaine abuse. Plan: Admit, CV, 15 minute checks Collateral contacts Diagnostics as needed ECT consult Medication review and adjustments Encourage full milieu 01/30: continue current tx plan. awaiting to find out if he is able to receive ECT. +SI with no plan. 01/31: more hopeful today. Will begin an ECT series Reason for continued inpatient stay Substantial Risk for: rapid decompensation Time Spent With Patient Time: Total time managing care of this patient today ____ minutes.
[2024-02-01] MEDS: Acetaminophen 325 MG TABLET 650 MG PO (12:43)
--- NOTE | 2024-02-01 13:59 | HO.ECTCONS_ITS ---
History of Present Illness Data of Consult Service Date: 02/01/24 Primary Care Provider: Delvin Carrasquillo MD [facility] Reason for consult: evaluation for ect Patient has a history of treatment resistant recurrent depression severe, with a history of suicide attempts. The patient is currently experiencing a worsening depression with thoughts of suicide to drive into traffic or cut his wrists. Reports this depressive episode has been going on for proximally 2 years. Experiences low energy a motivation lack of interest in things an ongoing depressed mood. He has had an increasing difficult time functioning at work in his has performance has significantly suffered at work during this depressive episode. He is socially isolated experiencing no enjoyment finding it increasingly difficult to function and has increasing thoughts of suicide. Patient does have a history of treatment resistant depression and did have it past excellent response to ECT which apparently was effective for up to 2 years. 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 He also in this current episode of depression has been tried on Paxil up to 30 mg without benefit and tolerated and Abilify up to 5 mg which was not tolerated. The patient has had past trials of TMS which she found not effective and past trial of ECT which help the patient stabilized for 2 years which was done at this facility [facility] Medical History Impaired fasting blood sugar Renal calculus Nasal septal perforation Vitamin B12 deficiency COVID-19 virus infection Adrenal adenoma Upper back pain Recurrent major depression Muscle spasm Family history of colon cancer Right hip pain Hospital discharge follow-up Colon cancer screening Depression, major, severe recurrence Low Back Pain Right-sided back pain Dermatitis Upper back pain Low Back Pain Generalized anxiety disorder Epistaxis Flank pain Annual physical exam Adrenal adenoma Polysubstance abuse Peptic ulcer disease Insomnia 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 Restless leg syndrome Anxiety and depression Vitamin D deficiency Erectile dysfunction GERD (gastroesophageal reflux disease) Hypercholesterolemia Chronic left shoulder pain Functional capacity: independent ambulation Family History Father Myocardial infarct Colon cancer Mother Lung cancer Depression Brother Substance abuse Surgical History H/O total adrenalectomy History of kidney surgery H/O arthroscopic knee surgery H/O oral surgery History of tonsillectomy History of nasal surgery Social History Household Members: Other Household Members Other:: Rents a room out of a house with 3 other people Housing: House Do you presently have visiting nurse or other home services: No Alcohol intake: current Patient Tobacco Use Status: Never used Tobacco Smoked in Last 30 Days: No e-Cigarette/Vaping Use: Never Used Patient Interested in Nicotine Replacement: No Patient Given Instructions on How to Stop Smoking: No Second Hand Smoke Exposure: No Use of substances other than those prescribed or required for medical reasons: Yes Substance Use Type: Crack/Cocaine Substance Use Frequency: Occasionally Last Used Substance: Weeks (ago) Last Used Substance Other:: 3 weeks ago Currently Displaying Signs/Symptoms of Drug Intoxication Withdrawal: No Any prior treatment program specific to substance use: Yes Have you been hit, kicked, punched, or otherwise hurt by someone within the past year? If so, by whom?: No Do you feel safe in your current relationship?: No Current Relationship Is there a partner from a previous relationship who is making you feel unsafe now?: No Are you made to feel afraid or neglected: No Advance Directives: No Advance Directives Information Provided: No Guardian: No Do you have thoughts of harming others: None Do you have a plan to hurt others: No Plan Recently lost weight without trying: No How much weight loss: Not applicable Eating poorly because of decreased appetite: No Nutrition screen score: 0 Nutrition Risks: No Nutritional Risk Poor oral hygiene: No service: No Current occupational status: employed Current occupation: [employer] Sexual orientation: Straight/Heterosexual Cognitive needs: No Hearing needs: No Vision needs: Yes (glasses) Meds Allergies Allergy/AdvReac Type Severity Reaction Status Date / Time hydrocodone [Vicodin] Allergy Unknown nausea Verified 01/28/24 17:00 latex [LATEX] Allergy Unknown RASH Verified 01/28/24 17:00 cheese AdvReac Unknown Verified 01/28/24 18:22 Active Medications: Current Medications Acetaminophen (Acetaminophen 325 Mg Tablet) 650 mg PO Q6H PRN PRN Reason: Headache/Pain Mild Scale (1-3) Last Admin: 02/01/24 12:43 Dose: 650 mg Al Hydroxide/Mg Hydroxide (Magnesium Hydrox/Alum Hydrox 30 Ml Oral.Susp) 30 ml PO Q6H PRN PRN Reason: Heartburn/Nausea Folic Acid (Folic Acid 1 Mg Tablet) 1 mg PO DAILY [facility] Last Admin: 02/01/24 08:33 Dose: 1 mg Gabapentin (Gabapentin 100 Mg Capsule) 100 mg PO BEDTIME [facility] Last Admin: 01/31/24 21:18 Dose: 100 mg Hydroxyzine HCl (Hydroxyzine Hcl 25 Mg Tablet) 25 mg PO Q6H PRN PRN Reason: Anxiety Last Admin: 01/31/24 00:24 Dose: 25 mg Lorazepam (Lorazepam 1 Mg Tablet) 1 mg PO BID PRN PRN Reason: Anxiety Last Admin: 02/01/24 03:57 Dose: 1 mg Magnesium Hydroxide (Milk Of Magnesia 30 Ml Oral.Susp) 30 ml PO DAILY PRN PRN Reason: Constipation Mirtazapine (Mirtazapine 7.5 Mg Tablet) 7.5 mg PO DAILY PRN PRN Reason: Anxiety Olanzapine (Olanzapine 5 Mg Tablet) 5 mg PO DAILY [facility] Last Admin: 02/01/24 08:33 Dose: 5 mg Sertraline HCl (Sertraline Hcl 100 Mg Tablet) 200 mg PO DAILY [facility] Last Admin: 02/01/24 08:33 Dose: 200 mg Trazodone HCl (Trazodone Hcl 100 Mg Tablet) 100 mg PO BEDTIME [facility] Last Admin: 01/31/24 21:19 Dose: 100 mg Trazodone HCl (Trazodone Hcl 50 Mg Tablet) 50 mg PO BEDTIME MRX1 PRN PRN Reason: Insomnia Last Admin: 01/31/24 23:36 Dose: 50 mg Home Medications ?Medication ?Instructions ?Recorded ?Confirmed ?Last Taken ?Type olanzapine 5 mg tablet 5 mg PO .morning 01/14/23 01/28/24 01/28/24 History lorazepam 1 mg tablet 1 mg PO BID PRN Anxiety 01/28/24 01/28/24 01/28/24 History mirtazapine 7.5 mg tablet 7.5 mg PO DAILY PRN Anxiety 01/28/24 01/28/24 01/28/24 History sertraline 100 mg tablet 200 mg PO DAILY 01/28/24 01/28/24 01/28/24 History Physical Exam 2 Vital Signs and Narrative: Vital Signs: Last Vital Signs Temp 97.6 F 02/01/24 08:00 Pulse 68 02/01/24 08:00 Resp 16 01/31/24 20:00 BP 120/75 02/01/24 08:00 Pulse Ox 97 02/01/24 08:00 O2 Del Method Room Air 02/01/24 08:00 BMI result Body Mass Index 30.9 Psych: Other: Patient is casually dressed somewhat disheveled in appearance. He has good eye contact and is cooperative and eager for the meeting. Speech is clear normal volume and rate his thinking is linear and goal-directed. Mood is depressed affect is constricted he is hopeless helpless despondent describes low energy sense that he would be better off denies plan or intent in the setting no hallucinations or delusional material. He is asking for help impulse control in the setting seems adequate. Patient is alert and oriented executive function seems intact Results Labs 01/28/24 17:47 01/28/24 17:47 ECG Interpretation: [place] [id number] Electrocardiograph Report Signed Patient: August Walsh MR#: [id number] : 1965 Acct:[id number] Age/Sex: 58 / M ADM Date: 01/29/24 [id number]: Mabel Patino APRN Ordering Physician: Ben Mercado MD Date of Service: 01/29/24 Procedure(s): ECG 12 lead EKG Accession Number(s): [id number] cc: Ben Mercado MD~ Test Reason : check prolong QT Blood Pressure : / mmHG Vent. Rate : 067 BPM Atrial Rate : 067 BPM P-R Int : 148 ms QRS Dur : 088 ms QT Int : 392 ms P-R-T Axes : 020 -07 -23 degrees QTc Int : 414 ms Normal sinus rhythm Normal ECG When compared with ECG of 18-AUG-2022 08:34, No significant change was found Referred By: Ben Mercado Electr Assessment and Plan (1) Depression, major, severe recurrence: Status: Acute Plan Patient has a history of good response to ECT history of migraines will monitor for side effects and treat as appropriate. Has a history of treatment resistant depression appears to be in a quite severe depression ruminating hopeless helpless despondent his outpatient psychiatric provider at [facility] had been recommending ECT. Has had inc si and failed multiple med trials over time The patient would benefit from a course of ECT there are no medical contraindications, history of good response and would consider maintenance therapy
--- NOTE | 2024-02-01 15:30 | P.CONHOSP_ITS ---
History of Present Illness Data of Consult Service Date: 02/01/24 Primary Care Provider: Delvin Carrasquillo MD HPI A 58-year-old male with history of HLD, GERD, impaired fasting glucose. He is admitted to Psychiatry for the management of major depression and is being evaluated for potential electroconvulsive therapy (ECT). He has no known medical conditions and denies any symptoms suggestive of cardiac or pulmonary disease. His ECG is normal Review of Systems 2 Review of Systems: Gen: no fever Resp: no sob, no cough CV: no chest, no HOYOS, no leg edema GI: No n/v, no abd pain Neuro: No confusion Yes all other systems are reviewed and are negative [facility] Medical History Impaired fasting blood sugar Renal calculus Nasal septal perforation Vitamin B12 deficiency COVID-19 virus infection Adrenal adenoma Upper back pain Recurrent major depression Muscle spasm Family history of colon cancer Right hip pain Hospital discharge follow-up Colon cancer screening Depression, major, severe recurrence Low Back Pain Right-sided back pain Dermatitis Upper back pain Low Back Pain Generalized anxiety disorder Epistaxis Flank pain Annual physical exam Adrenal adenoma Polysubstance abuse Peptic ulcer disease Insomnia 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 Restless leg syndrome Anxiety and depression Vitamin D deficiency Erectile dysfunction GERD (gastroesophageal reflux disease) Hypercholesterolemia Chronic left shoulder pain Family History Father Myocardial infarct Colon cancer Mother Lung cancer Depression Brother Substance abuse Surgical History H/O total adrenalectomy History of kidney surgery H/O arthroscopic knee surgery H/O oral surgery History of tonsillectomy History of nasal surgery Social History Household Members: Other Household Members Other:: Rents a room out of a house with 3 other people Housing: House Do you presently have visiting nurse or other home services: No Alcohol intake: current Patient Tobacco Use Status: Never used Tobacco Smoked in Last 30 Days: No e-Cigarette/Vaping Use: Never Used Patient Interested in Nicotine Replacement: No Patient Given Instructions on How to Stop Smoking: No Second Hand Smoke Exposure: No Use of substances other than those prescribed or required for medical reasons: Yes Substance Use Type: Crack/Cocaine Substance Use Frequency: Occasionally Last Used Substance: Weeks (ago) Last Used Substance Other:: 3 weeks ago Currently Displaying Signs/Symptoms of Drug Intoxication Withdrawal: No Any prior treatment program specific to substance use: Yes Have you been hit, kicked, punched, or otherwise hurt by someone within the past year? If so, by whom?: No Do you feel safe in your current relationship?: No Current Relationship Is there a partner from a previous relationship who is making you feel unsafe now?: No Are you made to feel afraid or neglected: No Advance Directives: No Advance Directives Information Provided: No Guardian: No Do you have thoughts of harming others: None Do you have a plan to hurt others: No Plan Recently lost weight without trying: No How much weight loss: Not applicable Eating poorly because of decreased appetite: No Nutrition screen score: 0 Nutrition Risks: No Nutritional Risk Poor oral hygiene: No service: No Current occupational status: employed Current occupation: [employer] Sexual orientation: Straight/Heterosexual Cognitive needs: No Hearing needs: No Vision needs: Yes (glasses) Meds Allergies Allergy/AdvReac Type Severity Reaction Status Date / Time hydrocodone [Vicodin] Allergy Unknown nausea Verified 01/28/24 17:00 latex [LATEX] Allergy Unknown RASH Verified 01/28/24 17:00 cheese AdvReac Unknown Verified 01/28/24 18:22 Active Medications: Current Medications Acetaminophen (Acetaminophen 325 Mg Tablet) 650 mg PO Q6H PRN PRN Reason: Headache/Pain Mild Scale (1-3) Last Admin: 02/01/24 12:43 Dose: 650 mg Al Hydroxide/Mg Hydroxide (Magnesium Hydrox/Alum Hydrox 30 Ml Oral.Susp) 30 ml PO Q6H PRN PRN Reason: Heartburn/Nausea Folic Acid (Folic Acid 1 Mg Tablet) 1 mg PO DAILY [facility] Last Admin: 02/01/24 08:33 Dose: 1 mg Gabapentin (Gabapentin 100 Mg Capsule) 100 mg PO BEDTIME [facility] Last Admin: 01/31/24 21:18 Dose: 100 mg Hydroxyzine HCl (Hydroxyzine Hcl 25 Mg Tablet) 25 mg PO Q6H PRN PRN Reason: Anxiety Last Admin: 01/31/24 00:24 Dose: 25 mg Lorazepam (Lorazepam 1 Mg Tablet) 1 mg PO BID PRN PRN Reason: Anxiety Last Admin: 02/01/24 03:57 Dose: 1 mg Magnesium Hydroxide (Milk Of Magnesia 30 Ml Oral.Susp) 30 ml PO DAILY PRN PRN Reason: Constipation Mirtazapine (Mirtazapine 7.5 Mg Tablet) 7.5 mg PO DAILY PRN PRN Reason: Anxiety Olanzapine (Olanzapine 5 Mg Tablet) 5 mg PO DAILY [facility] Last Admin: 02/01/24 08:33 Dose: 5 mg Sertraline HCl (Sertraline Hcl 100 Mg Tablet) 200 mg PO DAILY [facility] Last Admin: 02/01/24 08:33 Dose: 200 mg Trazodone HCl (Trazodone Hcl 100 Mg Tablet) 100 mg PO BEDTIME [facility] Last Admin: 01/31/24 21:19 Dose: 100 mg Trazodone HCl (Trazodone Hcl 50 Mg Tablet) 50 mg PO BEDTIME MRX1 PRN PRN Reason: Insomnia Last Admin: 01/31/24 23:36 Dose: 50 mg Home Medications ?Medication ?Instructions ?Recorded ?Confirmed ?Last Taken ?Type olanzapine 5 mg tablet 5 mg PO .morning 01/14/23 01/28/24 01/28/24 History lorazepam 1 mg tablet 1 mg PO BID PRN Anxiety 01/28/24 01/28/24 01/28/24 History mirtazapine 7.5 mg tablet 7.5 mg PO DAILY PRN Anxiety 01/28/24 01/28/24 01/28/24 History sertraline 100 mg tablet 200 mg PO DAILY 01/28/24 01/28/24 01/28/24 History Physical Exam 2 Vital Signs and Narrative: Vital Signs: Last Vital Signs Temp 97.6 F 02/01/24 08:00 Pulse 68 02/01/24 08:00 Resp 16 01/31/24 20:00 BP 120/75 02/01/24 08:00 Pulse Ox 97 02/01/24 08:00 O2 Del Method Room Air 02/01/24 08:00 BMI result Body Mass Index 30.9 Const: Other: General: AO X 3, no acute distress Resp: CTA bilateral CVS: S1,S2,RRR GI: +BS, NT, no distention Skin: No rash Neuro: motor grossly intact Psych: appropriate affect Results Labs 01/28/24 17:47 01/28/24 17:47 Assessment and Plan (1) Pre-op evaluation: Status: Acute Plan A 58-year-old male with history of HLD, GERD, impaired fasting glucose. He is admitted to Psychiatry for the management of major depression and is being evaluated for potential electroconvulsive therapy (ECT). He has no known medical conditions and denies any symptoms suggestive of cardiac or pulmonary disease. His ECG is normal. Plan: In this patient, the absence of significant past medical history (ie CAD, heart failure, or chronic pulmonary disease) and current symptoms suggests a low risk for ECT, and therefore no further testing needed at this time.
[2024-02-01 19:48] VITALS: BP 124/77; PULSE 74; TEMP 36.4; O2SAT 96
[2024-02-01] MEDS: Gabapentin 100 MG CAPSULE PO (20:28)
[2024-02-01] MEDS: traZODone HCL 100 MG TABLET PO (20:28)
[2024-02-02] MEDS: LORazepam 1 MG TABLET PO ×2 (04:08→21:18)
[2024-02-02 08:00] VITALS: BP 142/92; PULSE 71; TEMP 36.7; O2SAT 96
[2024-02-02] MEDS: Sertraline HCL 100 MG TABLET 200 MG PO (08:39)
[2024-02-02] MEDS: OLANZapine 5 MG TABLET PO (08:39)
[2024-02-02] MEDS: Folic Acid 1 MG TABLET PO (08:40)
--- NOTE | 2024-02-02 09:51 | P.PNPSI_ITS ---
Subjective Subjective Date of Service: 02/02/24 Reason For Visit: SI Subjective Notes: Conditional Voluntary Healthcare Proxy: No Guardianship: No Medical Problems Affecting Mental Status: No Interim History: ECT to begin 02/05. Review of meds. Feeling only gabapentin, trazodone and lorazepam are effective Wanting something that cuts the stress he feels when he needs to go to work and feels he cannot remain at work. The only safe space appears to be my bed. 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 Discussed the loss of his prescriber and his feelings around the precipitous nature of this change. He just decided to go to [place], like he did not care about any of us. That makes the depression worse. Describes an ambivalent relationship with provider. Discussed questions he has about doing ECT as maintenance as he is interested in this plan. Medication Compliance: Yes Side effects from medications: No Attending Groups: Intermittent Review of Systems Acute medical concerns: No Review of Systems Review of Systems Denies today Mental Status Exam Mental Status Exam Patient Appearance: Appropriate Patient Orientation: Person, Place, Time and Situation Level of Consciousness: Alert Patient Behavior: Talkative, Cooperative and Good Eye Contact Mood Description: Depressed and Apprehensive Affect Description: Flat and Apprehensive Patient Cognition Impaired: No Ability to Follow Directions: Good Speech Pattern: Spontaneous Speech Memory Description: Intact Hallucinations: None Delusions: Not Present Thought Process: Rumination Thought Content: positive for Perseveration and positive for Suicidal Ideation (passive, I hope ECT will work ) Depressive Symptoms: Sleeping More Than Usual, Hopelessness, Unhappiness, Thoughts of /Suicide (passive) and Low Self Esteem Judgement: Fair Diagnostics Vital Signs (24Hr): Vital Signs - 24 hr 02/01/24 19:48 02/02/24 08:00 Temperature 97.6 F 98.1 F Pulse Rate 74 71 Blood Pressure 124/77 142/92 H Pulse Oximetry 96 96 Oxygen Delivery Method Room Air Room Air BMI result Body Mass Index 30.9 Labs 01/28/24 17:47 01/28/24 17:47 Labs: Laboratory Results - last 48 hr 01/31/24 09:17 Triglycerides 254 H Cholesterol 240 H LDL Cholesterol, Calc 150 H HDL Cholesterol 40 L Vitamin B12 405 Folate 16.3 TSH 1.68 Free T4 1.03 Medications Medications Current Medications Acetaminophen (Acetaminophen 325 Mg Tablet) 650 mg PO Q6H PRN PRN Reason: Headache/Pain Mild Scale (1-3) Last Admin: 02/01/24 12:43 Dose: 650 mg Al Hydroxide/Mg Hydroxide (Magnesium Hydrox/Alum Hydrox 30 Ml Oral.Susp) 30 ml PO Q6H PRN PRN Reason: Heartburn/Nausea Folic Acid (Folic Acid 1 Mg Tablet) 1 mg PO DAILY [facility] Last Admin: 02/02/24 08:40 Dose: 1 mg Gabapentin (Gabapentin 100 Mg Capsule) 100 mg PO BEDTIME [facility] Last Admin: 02/01/24 20:28 Dose: 100 mg Hydroxyzine HCl (Hydroxyzine Hcl 25 Mg Tablet) 25 mg PO Q6H PRN PRN Reason: Anxiety Last Admin: 01/31/24 00:24 Dose: 25 mg Lorazepam (Lorazepam 1 Mg Tablet) 1 mg PO BID PRN PRN Reason: Anxiety Last Admin: 02/02/24 04:08 Dose: 1 mg Magnesium Hydroxide (Milk Of Magnesia 30 Ml Oral.Susp) 30 ml PO DAILY PRN PRN Reason: Constipation Mirtazapine (Mirtazapine 7.5 Mg Tablet) 7.5 mg PO DAILY PRN PRN Reason: Anxiety Olanzapine (Olanzapine 5 Mg Tablet) 5 mg PO DAILY [facility] Last Admin: 02/02/24 08:39 Dose: 5 mg Sertraline HCl (Sertraline Hcl 100 Mg Tablet) 200 mg PO DAILY [facility] Last Admin: 02/02/24 08:39 Dose: 200 mg Trazodone HCl (Trazodone Hcl 100 Mg Tablet) 100 mg PO BEDTIME [facility] Last Admin: 02/01/24 20:28 Dose: 100 mg Trazodone HCl (Trazodone Hcl 50 Mg Tablet) 50 mg PO BEDTIME MRX1 PRN PRN Reason: Insomnia Last Admin: 01/31/24 23:36 Dose: 50 mg Allergies Allergies Allergy/AdvReac Type Severity Reaction Status Date / Time hydrocodone [Vicodin] Allergy Unknown nausea Verified 01/28/24 17:00 latex [LATEX] Allergy Unknown RASH Verified 01/28/24 17:00 cheese AdvReac Unknown Verified 01/28/24 18:22 Assessment & Plan Assessment & Plan (1) Depression, major, severe recurrence: Status: Acute Code(s): F33.2 - Major depressive disorder, recurrent severe without psychotic features Plan Patient has a history of good response to ECT history of migraines will monitor for side effects and treat as appropriate. Has a history of treatment resistant depression appears to be in a quite severe depression ruminating hopeless helpless despondent his outpatient psychiatric provider at [facility] had been recommending ECT. Has had inc si and failed multiple med trials over time The patient would benefit from a course of ECT there are no medical contraindications, history of good response and would consider maintenance therapy 02/02/24: ECT 02/05 Pt considering agent change from Sertraline. Reason for continued inpatient stay Substantial Risk for: rapid decompensation Time Spent With Patient Time: Total time managing care of this patient today ____ minutes.
[2024-02-02 20:00] VITALS: BP 142/77; PULSE 75; RESP 16; TEMP 36.4; O2SAT 96
[2024-02-02] MEDS: Gabapentin 100 MG CAPSULE PO (21:18)
[2024-02-02] MEDS: traZODone HCL 100 MG TABLET PO (21:18)
[2024-02-02] MEDS: traZODone HCL 50 MG TABLET PO (22:32)
[2024-02-03] MEDS: LORazepam 1 MG TABLET PO ×2 (05:01→21:08)
[2024-02-03 08:00] VITALS: BP 110/74; PULSE 75; TEMP 36.4; O2SAT 95
[2024-02-03] MEDS: Sertraline HCL 100 MG TABLET 200 MG PO (08:30)
[2024-02-03] MEDS: OLANZapine 5 MG TABLET PO (08:30)
[2024-02-03] MEDS: Folic Acid 1 MG TABLET PO (08:30)
[2024-02-03] MEDS: Triamcinolone Acet 0.5 % Oint 15 GM TUBE 1 APPL TOPICAL (08:36)
[2024-02-03] MEDS: hydrOXYzine HCL 25 MG TABLET PO ×2 (08:37→23:15)
--- NOTE | 2024-02-03 10:29 | P.PNPSI_ITS ---
Subjective Subjective Date of Service: 02/03/24 Reason For Visit: SI Subjective Notes: Conditional Voluntary Healthcare Proxy: No Guardianship: No Medical Problems Affecting Mental Status: No Interim History: FMLA paperwork completed. 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 Will call on 02/05 to get her fax number as her colleague was unsure when called. Continued discussion of medications today. Will trial Cymbalta 20 mg and if tolerated will begin cross taper with Sertraline. Pt hoping to target the stress/anxiety he feels in the a.m. and not wanting to attend work due to sx increase. Pt is hopeful for ECT benefit. Medication Compliance: Yes Side effects from medications: No Attending Groups: Yes Review of Systems Acute medical concerns: No Review of Systems Review of Systems Denies today Mental Status Exam Mental Status Exam Patient Appearance: Appropriate Patient Orientation: Person, Place, Time and Situation Level of Consciousness: Alert Patient Behavior: Talkative, Cooperative and Good Eye Contact Mood Description: Depressed and Apprehensive Affect Description: Flat and Apprehensive Patient Cognition Impaired: No Ability to Follow Directions: Good Speech Pattern: Spontaneous Speech Memory Description: Intact Hallucinations: None Delusions: Not Present Thought Process: Rumination Thought Content: positive for Perseveration and positive for Suicidal Ideation (passive, I hope ECT will work ) Depressive Symptoms: Sleeping More Than Usual, Hopelessness, Unhappiness, Thoughts of /Suicide (passive) and Low Self Esteem Judgement: Fair Diagnostics Vital Signs (24Hr): Vital Signs - 24 hr 02/02/24 20:00 02/03/24 08:00 Temperature 97.6 F 97.6 F Pulse Rate 75 75 Respiratory Rate 16 Blood Pressure 142/77 H 110/74 Pulse Oximetry 96 95 Oxygen Delivery Method Room Air Room Air BMI result Body Mass Index 30.9 Labs 01/28/24 17:47 01/28/24 17:47 Medications Medications Current Medications Acetaminophen (Acetaminophen 325 Mg Tablet) 650 mg PO Q6H PRN PRN Reason: Headache/Pain Mild Scale (1-3) Last Admin: 02/01/24 12:43 Dose: 650 mg Al Hydroxide/Mg Hydroxide (Magnesium Hydrox/Alum Hydrox 30 Ml Oral.Susp) 30 ml PO Q6H PRN PRN Reason: Heartburn/Nausea Folic Acid (Folic Acid 1 Mg Tablet) 1 mg PO DAILY [facility] Last Admin: 02/03/24 08:30 Dose: 1 mg Gabapentin (Gabapentin 100 Mg Capsule) 100 mg PO BEDTIME [facility] Last Admin: 02/02/24 21:18 Dose: 100 mg Hydroxyzine HCl (Hydroxyzine Hcl 25 Mg Tablet) 25 mg PO Q6H PRN PRN Reason: Anxiety Last Admin: 02/03/24 08:37 Dose: 25 mg Lorazepam (Lorazepam 1 Mg Tablet) 1 mg PO BID PRN PRN Reason: Anxiety Last Admin: 02/03/24 05:01 Dose: 1 mg Magnesium Hydroxide (Milk Of Magnesia 30 Ml Oral.Susp) 30 ml PO DAILY PRN PRN Reason: Constipation Mirtazapine (Mirtazapine 7.5 Mg Tablet) 7.5 mg PO DAILY PRN PRN Reason: Anxiety Olanzapine (Olanzapine 5 Mg Tablet) 5 mg PO DAILY [facility] Last Admin: 02/03/24 08:30 Dose: 5 mg Sertraline HCl (Sertraline Hcl 100 Mg Tablet) 200 mg PO DAILY [facility] Last Admin: 02/03/24 08:30 Dose: 200 mg Trazodone HCl (Trazodone Hcl 100 Mg Tablet) 100 mg PO BEDTIME [facility] Last Admin: 02/02/24 21:18 Dose: 100 mg Trazodone HCl (Trazodone Hcl 50 Mg Tablet) 50 mg PO BEDTIME MRX1 PRN PRN Reason: Insomnia Last Admin: 02/02/24 22:32 Dose: 50 mg Triamcinolone Acetonide (Triamcinolone Acet 0.5 % Oint 15 Gm Tube) 1 appl TOPICAL BID [facility] Last Admin: 02/03/24 08:36 Dose: 1 appl Allergies Allergies Allergy/AdvReac Type Severity Reaction Status Date / Time hydrocodone [Vicodin] Allergy Unknown nausea Verified 01/28/24 17:00 latex [LATEX] Allergy Unknown RASH Verified 01/28/24 17:00 cheese AdvReac Unknown Verified 01/28/24 18:22 Assessment & Plan Assessment & Plan (1) Depression, major, severe recurrence: Status: Acute Code(s): F33.2 - Major depressive disorder, recurrent severe without psychotic features Plan Patient has a history of good response to ECT history of migraines will monitor for side effects and treat as appropriate. Has a history of treatment resistant depression appears to be in a quite severe depression ruminating hopeless helpless despondent his outpatient psychiatric provider at [facility] had been recommending ECT. Has had inc si and failed multiple med trials over time The patient would benefit from a course of ECT there are no medical contraindications, history of good response and would consider maintenance therapy. 02/03/24-ECT 02/05. Cymbalta 20 mg daily Reason for continued inpatient stay Substantial Risk for: rapid decompensation Time Spent With Patient Time: Total time managing care of this patient today ____ minutes.
[2024-02-03] MEDS: Acetaminophen 325 MG TABLET 650 MG PO (14:29)
[2024-02-03 20:00] VITALS: RESP 15
[2024-02-03] MEDS: traZODone HCL 50 MG TABLET PO ×2 (21:00→23:32)
[2024-02-03] MEDS: traZODone HCL 100 MG TABLET PO (21:00)
[2024-02-03] MEDS: Gabapentin 100 MG CAPSULE PO (21:00)
[2024-02-04 08:43] VITALS: BP 148/88; PULSE 64; RESP 16; TEMP 36.5; O2SAT 96
--- NOTE | 2024-02-04 09:00 | P.PNPSI_ITS ---
Subjective Subjective Date of Service: 02/04/24 Reason For Visit: SI Interim History: Met with patient; discussed with team Though with somewhat brighter affect, patient reports he is still depressed and the medications have not made much difference. 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 and that he was started on Cymbalta to consider switching off of Zoloft -says not sleeping well and asks for Trazodone to be increased Mental Status Exam Mental Status Exam Patient Appearance: Unkempt and Malodorous Patient Orientation: Person, Place, Time and Situation Level of Consciousness: Alert Patient Behavior: Talkative, Cooperative and Good Eye Contact Mood Description: Depressed and Apprehensive Affect Description: Constricted and Anxious Patient Cognition Impaired: No Ability to Follow Directions: Fair Speech Pattern: Spontaneous Speech Memory Description: Intact Hallucinations: None Delusions: Not Present Thought Process: Rumination Thought Content: positive for Perseveration and positive for Suicidal Ideation (passive, I hope ECT will work ) Depressive Symptoms: Sleeping More Than Usual, Hopelessness, Unhappiness, Thoughts of /Suicide (passive) and Low Self Esteem Judgement and Insight: Impaired Diagnostics Vital Signs (24Hr): Vital Signs - 24 hr 02/03/24 20:00 02/04/24 08:43 Temperature 97.7 F Pulse Rate 64 Respiratory Rate 15 16 Blood Pressure 148/88 H Pulse Oximetry 96 Oxygen Delivery Method Room Air BMI result Body Mass Index 30.9 Labs 01/28/24 17:47 01/28/24 17:47 Medications Medications Current Medications Acetaminophen (Acetaminophen 325 Mg Tablet) 650 mg PO Q6H PRN PRN Reason: Headache/Pain Mild Scale (1-3) Last Admin: 02/03/24 14:29 Dose: 650 mg Al Hydroxide/Mg Hydroxide (Magnesium Hydrox/Alum Hydrox 30 Ml Oral.Susp) 30 ml PO Q6H PRN PRN Reason: Heartburn/Nausea Duloxetine HCl (Duloxetine Hcl 20 Mg Capsule.Dr) 20 mg PO DAILY [facility] Folic Acid (Folic Acid 1 Mg Tablet) 1 mg PO DAILY [facility] Last Admin: 02/03/24 08:30 Dose: 1 mg Gabapentin (Gabapentin 100 Mg Capsule) 100 mg PO BEDTIME [facility] Last Admin: 02/03/24 21:00 Dose: 100 mg Hydroxyzine HCl (Hydroxyzine Hcl 25 Mg Tablet) 25 mg PO Q6H PRN PRN Reason: Anxiety Last Admin: 02/03/24 23:15 Dose: 25 mg Lorazepam (Lorazepam 1 Mg Tablet) 1 mg PO BID PRN PRN Reason: Anxiety Last Admin: 02/03/24 21:08 Dose: 1 mg Magnesium Hydroxide (Milk Of Magnesia 30 Ml Oral.Susp) 30 ml PO DAILY PRN PRN Reason: Constipation Mirtazapine (Mirtazapine 7.5 Mg Tablet) 7.5 mg PO DAILY PRN PRN Reason: Anxiety Olanzapine (Olanzapine 5 Mg Tablet) 5 mg PO DAILY [facility] Last Admin: 02/03/24 08:30 Dose: 5 mg Sertraline HCl (Sertraline Hcl 100 Mg Tablet) 200 mg PO DAILY [facility] Last Admin: 02/03/24 08:30 Dose: 200 mg Trazodone HCl (Trazodone Hcl 100 Mg Tablet) 100 mg PO BEDTIME [facility] Last Admin: 02/03/24 21:00 Dose: 100 mg Trazodone HCl (Trazodone Hcl 50 Mg Tablet) 50 mg PO BEDTIME MRX1 PRN PRN Reason: Insomnia Last Admin: 02/03/24 23:32 Dose: 50 mg Triamcinolone Acetonide (Triamcinolone Acet 0.5 % Oint 15 Gm Tube) 1 appl TOPICAL BID [facility] Last Admin: 02/03/24 21:10 Dose: Not Given Allergies Allergies Allergy/AdvReac Type Severity Reaction Status Date / Time hydrocodone [Vicodin] Allergy Unknown nausea Verified 01/28/24 17:00 latex [LATEX] Allergy Unknown RASH Verified 01/28/24 17:00 cheese AdvReac Unknown Verified 01/28/24 18:22 Assessment & Plan Assessment & Plan (1) Depression, major, severe recurrence: Status: Acute Code(s): F33.2 - Major depressive disorder, recurrent severe without psychotic features Plan Patient has a history of good response to ECT history of migraines will monitor for side effects and treat as appropriate. Has a history of treatment resistant depression appears to be in a quite severe depression ruminating hopeless helpless despondent his outpatient psychiatric provider at [facility] had been recommending ECT. Has had inc si and failed multiple med trials over time The patient would benefit from a course of ECT there are no medical contraindications, history of good response and would consider maintenance therapy. 02/03/24-ECT 02/05. Cymbalta 20 mg daily 02/03 Though with somewhat brighter affect, patient reports he is still depressed and the medications have not made much difference. 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
[2024-02-04] MEDS: DULoxetine HCl 20 MG CAPSULE.DR PO (09:27)
[2024-02-04] MEDS: Sertraline HCL 100 MG TABLET 200 MG PO (09:27)
[2024-02-04] MEDS: Triamcinolone Acet 0.5 % Oint 15 GM TUBE 1 APPL TOPICAL (09:28)
[2024-02-04] MEDS: Folic Acid 1 MG TABLET PO (09:28)
[2024-02-04] MEDS: OLANZapine 5 MG TABLET PO (09:28)
[2024-02-04] MEDS: LORazepam 1 MG TABLET PO ×2 (11:52→21:09)
[2024-02-04 19:57] VITALS: BP 161/87; PULSE 79; RESP 15; O2SAT 97
[2024-02-04] MEDS: traZODone HCL 50 MG TABLET 150 MG PO (21:08)
[2024-02-04] MEDS: Gabapentin 100 MG CAPSULE PO (21:08)
[2024-02-04] MEDS: traZODone HCL 50 MG TABLET PO (23:15)
[2024-02-04] MEDS: hydrOXYzine HCL 25 MG TABLET PO (23:15)
[2024-02-05 08:19] VITALS: BP 121/91; PULSE 75; RESP 16; TEMP 36.4; O2SAT 96
[2024-02-05] MEDS: OLANZapine 5 MG TABLET PO (09:10)
[2024-02-05] MEDS: DULoxetine HCl 20 MG CAPSULE.DR PO (09:10)
[2024-02-05] MEDS: Sertraline HCL 100 MG TABLET 200 MG PO (09:10)
[2024-02-05] MEDS: Folic Acid 1 MG TABLET PO (09:11)
--- NOTE | 2024-02-05 10:33 | P.PNPSI_ITS ---
Subjective Subjective Date of Service: 02/05/24 Reason For Visit: SI Interim History: met with pt; discussed with team pt remains depressed;says not SI while in hospital because hopeful he'll get better. Trouble sleeping and agrees to try clonidine. Discussed HP and pt says he's had it for awhile; not sure why PCP never started him on meds. 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 Yes to ECT tomorrow. Diagnostics Vital Signs (24Hr): Vital Signs - 24 hr 02/04/24 19:57 02/05/24 08:19 Temperature 97.5 F Pulse Rate 79 75 Respiratory Rate 15 16 Blood Pressure 161/87 H 121/91 H Pulse Oximetry 97 96 Oxygen Delivery Method Room Air BMI result Body Mass Index 30.9 Labs 01/28/24 17:47 01/28/24 17:47 Medications Medications Current Medications Acetaminophen (Acetaminophen 325 Mg Tablet) 650 mg PO Q6H PRN PRN Reason: Headache/Pain Mild Scale (1-3) Last Admin: 02/03/24 14:29 Dose: 650 mg Al Hydroxide/Mg Hydroxide (Magnesium Hydrox/Alum Hydrox 30 Ml Oral.Susp) 30 ml PO Q6H PRN PRN Reason: Heartburn/Nausea Duloxetine HCl (Duloxetine Hcl 20 Mg Capsule.Dr) 20 mg PO DAILY [facility] Last Admin: 02/05/24 09:10 Dose: 20 mg Folic Acid (Folic Acid 1 Mg Tablet) 1 mg PO DAILY [facility] Last Admin: 02/05/24 09:11 Dose: 1 mg Gabapentin (Gabapentin 100 Mg Capsule) 100 mg PO BEDTIME [facility] Last Admin: 02/04/24 21:08 Dose: 100 mg Hydroxyzine HCl (Hydroxyzine Hcl 25 Mg Tablet) 25 mg PO Q6H PRN PRN Reason: Anxiety Last Admin: 02/04/24 23:15 Dose: 25 mg Lorazepam (Lorazepam 1 Mg Tablet) 1 mg PO BID PRN PRN Reason: Anxiety Last Admin: 02/04/24 21:09 Dose: 1 mg Magnesium Hydroxide (Milk Of Magnesia 30 Ml Oral.Susp) 30 ml PO DAILY PRN PRN Reason: Constipation Mirtazapine (Mirtazapine 7.5 Mg Tablet) 7.5 mg PO DAILY PRN PRN Reason: Anxiety Olanzapine (Olanzapine 5 Mg Tablet) 5 mg PO DAILY [facility] Last Admin: 02/05/24 09:10 Dose: 5 mg Sertraline HCl (Sertraline Hcl 100 Mg Tablet) 200 mg PO DAILY [facility] Last Admin: 02/05/24 09:10 Dose: 200 mg Trazodone HCl (Trazodone Hcl 50 Mg Tablet) 50 mg PO BEDTIME MRX1 PRN PRN Reason: Insomnia Last Admin: 02/04/24 23:15 Dose: 50 mg Trazodone HCl (Trazodone Hcl 50 Mg Tablet) 150 mg PO BEDTIME [facility] Last Admin: 02/04/24 21:08 Dose: 150 mg Triamcinolone Acetonide (Triamcinolone Acet 0.5 % Oint 15 Gm Tube) 1 appl TOPICAL BID [facility] Last Admin: 02/05/24 10:20 Dose: Not Given Allergies Allergies Allergy/AdvReac Type Severity Reaction Status Date / Time hydrocodone [Vicodin] Allergy Unknown nausea Verified 01/28/24 17:00 latex [LATEX] Allergy Unknown RASH Verified 01/28/24 17:00 cheese AdvReac Unknown Verified 01/28/24 18:22 Assessment & Plan Assessment & Plan (1) Depression, major, severe recurrence: Status: Acute Code(s): F33.2 - Major depressive disorder, recurrent severe without psychotic features Plan Patient has a history of good response to ECT history of migraines will monitor for side effects and treat as appropriate. Has a history of treatment resistant depression appears to be in a quite severe depression ruminating hopeless helpless despondent his outpatient psychiatric provider at [facility] had been recommending ECT. Has had inc si and failed multiple med trials over time The patient would benefit from a course of ECT there are no medical contraindications, history of good response and would consider maintenance therapy. 02/03/24-ECT 02/05. Cymbalta 20 mg daily 02/03 Though with somewhat brighter affect, patient reports he is still depressed and the medications have not made much difference. 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 Trouble sleeping and agrees to try clonidine. Discussed HP and pt says he's had it for awhile; not sure why PCP never started him on meds. 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 Yes to ECT tomorrow. Patient educated on: diagnosis, medication risk/benefits, ECT and medical condition Informed Consent: understands Reason for continued inpatient stay Substantial Risk for: rapid decompensation Time Spent With Patient Time: Total time managing care of this patient today ____ minutes.
[2024-02-05 20:00] VITALS: BP 145/83; PULSE 63; TEMP 36.4; O2SAT 97
[2024-02-05 22:05] VITALS: BP 144/89; PULSE 63; TEMP 36.8
[2024-02-05 22:09] VITALS: BP 144/89
[2024-02-05] MEDS: cloNIDine HCL 0.1 MG TABLET PO (22:09)
[2024-02-05] MEDS: traZODone HCL 50 MG TABLET 150 MG PO (22:09)
[2024-02-05] MEDS: hydrOXYzine HCL 25 MG TABLET PO (22:10)
[2024-02-05] MEDS: traZODone HCL 50 MG TABLET PO (23:44)
[2024-02-06] VITALS (8 sets, daily range): BP systolic 113–150; BP diastolic 64–100; PULSE 60–86; RESP 16–19; TEMP 35.9–36.6; O2SAT 93–99
--- NOTE | 2024-02-06 07:05 | MHC.SHP ---
Pre-Procedural Eval Section A - 24 Hr Update-Section A only Date of Service: 02/06/24 The patient is an INPATIENT: Yes Changes since office visit: No Cold of Flu in the past 2 weeks, No New Medical Problems, No Changes in Medication and No Patient answered all questions The patient has been examined within 24 hours of the surgical procedure. The History & Physical has been completed within 30 days and I have reviewed it.: Yes Section B - Complete if H&P > 30 days Chief Complaint: SI Details of Present Illness: Hx of depression that has failed to several antidepressants, tried ECT 13 years ago with good improvement. Relevant Family History (Specify if Yes): No Relevant Social History: None Medical History: No relevant PMH History of Previous Operations: No relevant previous surgery Allergies: Allergies Allergy/AdvReac Type Severity Reaction Status Date / Time hydrocodone [Vicodin] Allergy Unknown nausea Verified 01/28/24 17:00 latex [LATEX] Allergy Unknown RASH Verified 01/28/24 17:00 Review of Systems Sugical H&P ROS: Negative: Cardiovascular, Respiratory, Neurological, Psychiatric, Hem-Onc, Allergic/Immunologic, Gastrointestinal, Genitourinary, Musculoskeletal, Integumentary, Endocrine and Eyes/Ears/Nose/Throat and Yes, Specify: Constitution (overweight) Exam Surgical H&P Exam: Normal: HEENT, Normal: Heart, Normal: Lungs, Normal: Extremities, Normal: Abdomen, Normal: Skin and Normal: Neurological Plan Diagnosis/Plan: Unchanged I have reviewed the history and physical and performed a pertinent physical examination on my patient. No changes have occurred unless specified. Time Spent With Patient Time: Total time managing care of this patient today __20__ minutes.
[2024-02-06] MEDS: Lactated Ringers 1,000 ML 100 ML IVCONT (07:06)
--- NOTE | 2024-02-06 07:18 | HO.ECTPROC ---
ECT Procedure Note Diagnosis/Treatment Date of Service: 02/06/24 Diagnosis: Major Depressive Disorder Current Treatment Number: 1 Treatment: Series Interval Clinical Notes: The patient reported depression that has failed fo several medical trials, historically, he did well with ECT 20 years ago. As per report of d/c summary of 1995, he had bitemporal ECT with good results after a few sessions. ECT done bitpemporal, no complications, woke up well. Time: Total time managing care of this patient today ____ minutes. ECT Settings Device: THYMATRON DGx Electrode Placement: Bitemporal Program/Pulse Width: 0.50 Energy Percent: 100 Seizure Duration By EEG (in seconds): 59 By Motor Observation (in seconds): 45 Medications Administration General Anesthetic: Etomidate (14) Muscle Relaxant: Succinylcholine (100) Airway Management Airway Management: Bag Mask Ventilation Treatment Recommendations No Changes Recommended: No change Pt Tolerated Procedure w/o Issue: Yes
--- NOTE | 2024-02-06 08:47 | HO.ANESPROP2 ---
[facility] Active Problems Active Problems: All Active Problems Pre-op evaluation (Acute) Depression with suicidal ideation (Acute) Loose stools (Acute) Tubular adenoma of colon (Acute) Folic acid deficiency (Acute) Restless leg syndrome (Acute) Eczema (Acute) Rectal incontinence (Acute) Overweight (BMI 25.0-29.9) (Acute) Generalized anxiety disorder (Acute) Depression, major, severe recurrence (Acute) Loss of appetite (Acute) Tenosynovitis of thumb (Acute) Lumbar spondylosis (Acute) Esophageal dysphagia (Acute) Peptic ulcer disease (Acute) Sacroiliac joint pain (Acute) Lumbar radiculopathy (Acute) Trochanteric bursitis of both hips (Acute) GERD (gastroesophageal reflux disease) (Acute) Hypercholesterolemia (Acute) Past Medical History Medical History Impaired fasting blood sugar Renal calculus Nasal septal perforation Vitamin B12 deficiency COVID-19 virus infection Adrenal adenoma Upper back pain Recurrent major depression Muscle spasm Family history of colon cancer Right hip pain Hospital discharge follow-up Colon cancer screening Depression, major, severe recurrence Low Back Pain Right-sided back pain Dermatitis Upper back pain Low Back Pain Generalized anxiety disorder Epistaxis Flank pain Annual physical exam Adrenal adenoma Polysubstance abuse Peptic ulcer disease Insomnia 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 Restless leg syndrome Anxiety and depression Vitamin D deficiency Erectile dysfunction GERD (gastroesophageal reflux disease) Hypercholesterolemia Chronic left shoulder pain Functional capacity: independent ambulation Family History Family History Father Myocardial infarct Colon cancer Mother Lung cancer Depression Brother Substance abuse Family history of problems with anesthesia: No Surgical History Surgical History H/O total adrenalectomy History of kidney surgery H/O arthroscopic knee surgery H/O oral surgery History of tonsillectomy History of nasal surgery History of Problems with Anesthesia: No Social History Social History Household Members: Other Household Members Other:: Rents a room out of a house with 3 other people Housing: House Do you presently have visiting nurse or other home services: No Alcohol intake: current Alcohol intake frequency: does not drink Patient Tobacco Use Status: Never used Tobacco e-Cigarette/Vaping Use: Never Used Second Hand Smoke Exposure: No Substance Use Type: Crack/Cocaine service: No Current occupational status: employed Current occupation: [employer] Sexual orientation: Straight/Heterosexual Cognitive needs: No Hearing needs: No Vision needs: Yes (glasses) Meds Allergies Allergy/AdvReac Type Severity Reaction Status Date / Time hydrocodone [Vicodin] Allergy Unknown nausea Verified 01/28/24 17:00 latex [LATEX] Allergy Unknown RASH Verified 01/28/24 17:00 Active Medications: Current Medications Acetaminophen (Acetaminophen 325 Mg Tablet) 650 mg PO Q6H PRN PRN Reason: Headache/Pain Mild Scale (1-3) Last Admin: 02/03/24 14:29 Dose: 650 mg Al Hydroxide/Mg Hydroxide (Magnesium Hydrox/Alum Hydrox 30 Ml Oral.Susp) 30 ml PO Q6H PRN PRN Reason: Heartburn/Nausea Clonidine HCl (Clonidine Hcl 0.1 Mg Tablet) 0.1 mg PO BEDTIME NIKOLE; Protocol Last Admin: 02/05/24 22:09 Dose: 0.1 mg Duloxetine HCl (Duloxetine Hcl 20 Mg Capsule.Dr) 20 mg PO DAILY [facility]KOLE Last Admin: 02/05/24 09:10 Dose: 20 mg Folic Acid (Folic Acid 1 Mg Tablet) 1 mg PO DAILY [facility]KO[facility] Last Admin: 02/05/24 09:11 Dose: 1 mg Gabapentin (Gabapentin 100 Mg Capsule) 100 mg PO BEDTIME [facility]KOLE Last Admin: 02/05/24 22:51 Dose: Not Given Hydroxyzine HCl (Hydroxyzine Hcl 25 Mg Tablet) 25 mg PO Q6H PRN PRN Reason: Anxiety Last Admin: 02/05/24 22:10 Dose: 25 mg Lactated Ringer's (Lr) 1,000 mls @ 100 mls/hr IVCONT .Q10H NIKOLE Last Admin: 02/06/24 07:06 Dose: 100 mls/hr Lisinopril (Lisinopril 5 Mg Tablet) 5 mg PO DAILY NIKOLE; Protocol Lorazepam (Lorazepam 1 Mg Tablet) 1 mg PO BID PRN PRN Reason: Anxiety Last Admin: 02/04/24 21:09 Dose: 1 mg Magnesium Hydroxide (Milk Of Magnesia 30 Ml Oral.Susp) 30 ml PO DAILY PRN PRN Reason: Constipation Mirtazapine (Mirtazapine 7.5 Mg Tablet) 7.5 mg PO DAILY PRN PRN Reason: Anxiety Olanzapine (Olanzapine 5 Mg Tablet) 5 mg PO DAILY [facility] Last Admin: 02/05/24 09:10 Dose: 5 mg Sertraline HCl (Sertraline Hcl 100 Mg Tablet) 200 mg PO DAILY [facility] Last Admin: 02/05/24 09:10 Dose: 200 mg Trazodone HCl (Trazodone Hcl 50 Mg Tablet) 50 mg PO BEDTIME MRX1 PRN PRN Reason: Insomnia Last Admin: 02/05/24 23:44 Dose: 50 mg Trazodone HCl (Trazodone Hcl 50 Mg Tablet) 150 mg PO BEDTIME [facility] Last Admin: 02/05/24 22:09 Dose: 150 mg Triamcinolone Acetonide (Triamcinolone Acet 0.5 % Oint 15 Gm Tube) 1 appl TOPICAL BID [facility] Last Admin: 02/05/24 22:51 Dose: Not Given Home Medications ?Medication ?Instructions ?Recorded ?Confirmed ?Last Taken ?Type olanzapine 5 mg tablet 5 mg PO .morning 01/14/23 01/28/24 01/28/24 History lorazepam 1 mg tablet 1 mg PO BID PRN Anxiety 01/28/24 01/28/24 01/28/24 History mirtazapine 7.5 mg tablet 7.5 mg PO DAILY PRN Anxiety 01/28/24 01/28/24 01/28/24 History sertraline 100 mg tablet 200 mg PO DAILY 01/28/24 01/28/24 01/28/24 History Exam Height,Weight and Vital Signs: Height 5 ft 5 in Weight 84.2 kg Last Vital Signs Temp 97.8 F 02/06/24 08:35 Pulse 84 02/06/24 08:35 Resp 18 02/06/24 08:35 BP 147/82 H 02/06/24 08:35 Pulse Ox 95 02/06/24 08:35 O2 Del Method Room Air 02/06/24 08:35 O2 Flow Rate 2 02/06/24 08:10 Pertinent Lab Results Pertinent Lab Results: Laboratory Tests 01/28/24 01/28/24 01/31/24 17:19 17:47 09:17 WBC 5.4 RBC 4.80 Hgb 14.7 Hct 43.0 MCV 89.6 MCH 30.6 MCHC 34.2 RDW 12.3 Plt Count 241 MPV 9.3 L Immature Gran % (Auto) 0.4 Neut % (Auto) 66.1 Lymph % (Auto) 19.0 L [place] % (Auto) 8.4 Eos % (Auto) 5.4 H Baso % (Auto) 0.7 Lymph # (Auto) 1.0 L [place] # (Auto) 0.5 Eos # (Auto) 0.3 Baso # (Auto) 0.0 Abs Immat Gran (auto) 0.02 Absolute Neuts (auto) 3.5 Absolute Nucleated RBC 0.000 Nucleated RBC % (auto) 0.0 Sodium 138 Potassium 4.0 Chloride 107 Carbon Dioxide 23 Anion Gap 12 BUN 14 Creatinine 0.96 Estim Creat Clear Calc 82.8 Estimated GFR > 60 Random Glucose 102 Estimat Average Glucose 105 Hemoglobin A1c % 5.3 Calcium 9.0 Magnesium 1.9 Total Bilirubin 0.3 AST 27 ALT 31 Alkaline Phosphatase 56 Total Protein 7.1 Albumin 4.4 Triglycerides 254 H Cholesterol 240 H LDL Cholesterol, Calc 150 H HDL Cholesterol 40 L Lipase 34 Vitamin B12 405 Folate 16.3 TSH 1.68 Free T4 1.03 Urine Color Yellow Urine Appearance Clear Urine pH 7.0 Ur Specific [place] 1.020 Urine Protein Negative Urine Glucose (UA) Negative Urine Ketones Negative Urine Blood Negative Urine Nitrite Negative Ur Leukocyte Esterase Negative Salicylates < 5.0 L Urine Opiates Screen Not Detected Ur Buprenorphine Scrn Not Detected Ur Oxycodone Screen Not Detected Urine Methadone Screen Not Detected Urine Fentanyl Screen Not Detected Acetaminophen < 3 Ur Barbiturates Screen Not Detected Ur Phencyclidine Scrn Not Detected Ur Amphetamines Screen Not Detected U Benzodiazepines Scrn Not Detected Urine Cocaine Screen Not Detected U Marijuana (THC) Screen Not Detected Ethyl Alcohol < 10 Airway Mallampati Class: III TM Dist: >3cm Neck ROM: Full Denture: Upper and Lower Assessment and Plan Assessment Anesthesia Assessment: Anesthesia Plan Discussed and Chart Reviewed Final Anesthetic Review Family History of Problems with Anesthesia: No History of Problems with Anesthesia: No NPO: Yes ASA Class: III Final Preanesthetic Review: No Changes in Pt Med Stat, Meds/Allgs Chart Reviewed, Consent Obtained/Reviewed and Anes Risks/Benef Reviewed Patient Risk: Intermediate Procedure Risk: Low Anesthetic Plan Anesthetic Plan: GA Disposition: Standard PACU
[2024-02-06] MEDS: OLANZapine 5 MG TABLET PO (09:07)
[2024-02-06] MEDS: Sertraline HCL 100 MG TABLET 200 MG PO (09:08)
[2024-02-06] MEDS: Folic Acid 1 MG TABLET PO (09:08)
[2024-02-06] MEDS: lisinopriL 5 MG TABLET PO (09:08)
[2024-02-06] MEDS: Acetaminophen 325 MG TABLET 650 MG PO (09:09)
[2024-02-06] MEDS: DULoxetine HCl 20 MG CAPSULE.DR PO (09:09)
--- NOTE | 2024-02-06 09:41 | P.PNPSI_ITS ---
Subjective Subjective Date of Service: 02/06/24 Reason For Visit: SI Subjective Notes: Conditional Voluntary Healthcare Proxy: No Guardianship: No Medical Problems Affecting Mental Status: No Interim History: August completed his first ECT. He is in bed when we met. Reports headache/migraine post ECT. Using Tylenol, Ibuprofen. Reports poor sleep Tuesday night as Lorazepam is held prior to ECT. Discussed options, pt declines at this time. Pt reports feeling safe on the unit, however still depressed, suicidal. I don't know what I will do if this does not work. Tolerating Cymbalta which was started 02/03, denies adverse effects. Medication Compliance: Yes Side effects from medications: No Attending Groups: No Review of Systems Acute medical concerns: No Review of Systems Review of Systems Post ECT headache Mental Status Exam Mental Status Exam Patient Appearance: Fatigued Patient Orientation: Person, Place, Time and Situation Level of Consciousness: Alert Patient Behavior: Appropriate, Talkative, Cooperative and Good Eye Contact Mood Description: Depressed and Anxious Affect Description: Flat Patient Cognition Impaired: No Ability to Follow Directions: Good Speech Pattern: Spontaneous Speech Memory Description: Episodic Impaired Hallucinations: None Delusions: Not Present Thought Content: positive for Perseveration and positive for Suicidal Ideation Depressive Symptoms: Thoughts of /Suicide Judgement: Fair Diagnostics Vital Signs (24Hr): Vital Signs - 24 hr 02/05/24 20:00 02/05/24 22:05 02/05/24 22:09 Temperature 97.5 F 98.2 F Pulse Rate 63 63 Respiratory Rate Blood Pressure 145/83 H 144/89 H 144/89 H Pulse Oximetry 97 Oxygen Delivery Method Room Air Oxygen Flow Rate 02/06/24 06:55 02/06/24 08:05 02/06/24 08:10 Temperature 96.6 F L 97.8 F 97.8 F Pulse Rate 60 86 86 Respiratory Rate 16 19 16 Blood Pressure 115/76 150/100 H 144/94 H Pulse Oximetry 95 99 99 Oxygen Delivery Method Room Air Nasal Cannula Nasal Cannula Oxygen Flow Rate 2 2 02/06/24 08:15 02/06/24 08:35 02/06/24 09:32 Temperature 97.8 F 97.8 F 97.6 F Pulse Rate 85 84 72 Respiratory Rate 18 18 18 Blood Pressure 141/88 H 147/82 H 119/81 Pulse Oximetry 97 95 93 Oxygen Delivery Method Room Air Room Air Room Air Oxygen Flow Rate BMI result Body Mass Index 30.9 Labs 01/28/24 17:47 01/28/24 17:47 Medications Medications Current Medications Acetaminophen (Acetaminophen 325 Mg Tablet) 650 mg PO Q6H PRN PRN Reason: Headache/Pain Mild Scale (1-3) Last Admin: 02/06/24 09:09 Dose: 650 mg Al Hydroxide/Mg Hydroxide (Magnesium Hydrox/Alum Hydrox 30 Ml Oral.Susp) 30 ml PO Q6H PRN PRN Reason: Heartburn/Nausea Clonidine HCl (Clonidine Hcl 0.1 Mg Tablet) 0.1 mg PO BEDTIME NIKOLE; Protocol Last Admin: 02/05/24 22:09 Dose: 0.1 mg Duloxetine HCl (Duloxetine Hcl 20 Mg Capsule.Dr) 20 mg PO DAILY [facility] Last Admin: 02/06/24 09:09 Dose: 20 mg Folic Acid (Folic Acid 1 Mg Tablet) 1 mg PO DAILY [facility] Last Admin: 02/06/24 09:08 Dose: 1 mg Gabapentin (Gabapentin 100 Mg Capsule) 100 mg PO BEDTIME [facility]KOLE Last Admin: 02/05/24 22:51 Dose: Not Given Hydroxyzine HCl (Hydroxyzine Hcl 25 Mg Tablet) 25 mg PO Q6H PRN PRN Reason: Anxiety Last Admin: 02/05/24 22:10 Dose: 25 mg Lisinopril (Lisinopril 5 Mg Tablet) 5 mg PO DAILY [facility]KOLE; Protocol Last Admin: 02/06/24 09:08 Dose: 5 mg Lorazepam (Lorazepam 1 Mg Tablet) 1 mg PO BID PRN PRN Reason: Anxiety Last Admin: 02/04/24 21:09 Dose: 1 mg Magnesium Hydroxide (Milk Of Magnesia 30 Ml Oral.Susp) 30 ml PO DAILY PRN PRN Reason: Constipation Mirtazapine (Mirtazapine 7.5 Mg Tablet) 7.5 mg PO DAILY PRN PRN Reason: Anxiety Olanzapine (Olanzapine 5 Mg Tablet) 5 mg PO DAILY [facility] Last Admin: 02/06/24 09:07 Dose: 5 mg Sertraline HCl (Sertraline Hcl 100 Mg Tablet) 200 mg PO DAILY [facility] Last Admin: 02/06/24 09:08 Dose: 200 mg Trazodone HCl (Trazodone Hcl 50 Mg Tablet) 50 mg PO BEDTIME MRX1 PRN PRN Reason: Insomnia Last Admin: 02/05/24 23:44 Dose: 50 mg Trazodone HCl (Trazodone Hcl 50 Mg Tablet) 150 mg PO BEDTIME [facility] Last Admin: 02/05/24 22:09 Dose: 150 mg Triamcinolone Acetonide (Triamcinolone Acet 0.5 % Oint 15 Gm Tube) 1 appl TOPICAL BID [facility] Last Admin: 02/06/24 09:37 Dose: Not Given Allergies Allergies Allergy/AdvReac Type Severity Reaction Status Date / Time hydrocodone [Vicodin] Allergy Unknown nausea Verified 01/28/24 17:00 latex [LATEX] Allergy Unknown RASH Verified 01/28/24 17:00 Assessment & Plan Assessment & Plan (1) Depression, major, severe recurrence: Status: Acute Code(s): F33.2 - Major depressive disorder, recurrent severe without psychotic features Plan Patient has a history of good response to ECT history of migraines will monitor for side effects and treat as appropriate. Has a history of treatment resistant depression appears to be in a quite severe depression ruminating hopeless helpless despondent [facility]. Has had inc si and failed multiple med trials over time The patient would benefit from a course of ECT there are no medical contraindications, history of good response and would consider maintenance therapy. 02/03/24-ECT 02/05. Cymbalta 20 mg daily 02/03 Though with somewhat brighter affect, patient reports he is still depressed and the medications have not made much difference. He is, looking forward to ect; chief underwriter and patient discussed meds and that he was started on Cymbalta to consider switching off of Zoloft -says not sleeping well and asks for Trazodone to be increased 02/04 pt remains depressed;says not SI while in hospital because hopeful he'll get better. Trouble sleeping and agrees to try clonidine. Discussed HP and pt says he's had it for awhile; not sure why PCP never started him on meds. Discussed and pt agrees to trial of lisinopri, chief underwriter reviewed risks/side- effects. Yes to ECT tomorrow. 02/05: ECT #1 completed. Post ECT headache. Tolerating Cymbalta Reason for continued inpatient stay Substantial Risk for: rapid decompensation Time Spent With Patient Time: Total time managing care of this patient today ____ minutes.
[2024-02-06] MEDS: Ibuprofen 800 MG TABLET PO (16:44)
[2024-02-06] MEDS: SUMAtriptan succinate 25 MG TABLET PO (20:05)
[2024-02-06] MEDS: cloNIDine HCL 0.1 MG TABLET PO (21:58)
[2024-02-06] MEDS: Gabapentin 100 MG CAPSULE PO (21:58)
[2024-02-06] MEDS: LORazepam 1 MG TABLET PO (21:59)
[2024-02-06] MEDS: hydrOXYzine HCL 25 MG TABLET PO (21:59)
[2024-02-06] MEDS: traZODone HCL 50 MG TABLET 150 MG PO (21:59)
[2024-02-07] MEDS: traZODone HCL 50 MG TABLET PO ×2 (01:17→23:01)
[2024-02-07 08:00] VITALS: BP 96/62; PULSE 61; RESP 16; TEMP 36.5; O2SAT 96
[2024-02-07] MEDS: DULoxetine HCl 20 MG CAPSULE.DR PO (08:51)
[2024-02-07] MEDS: Folic Acid 1 MG TABLET PO (08:51)
[2024-02-07] MEDS: OLANZapine 5 MG TABLET PO (08:52)
[2024-02-07] MEDS: lisinopriL 5 MG TABLET PO (08:52)
[2024-02-07] MEDS: Sertraline HCL 100 MG TABLET 200 MG PO (08:52)
[2024-02-07] MEDS: Ibuprofen 800 MG TABLET PO ×2 (09:16→17:37)
[2024-02-07] MEDS: Triamcinolone Acet 0.5 % Oint 15 GM TUBE 1 APPL TOPICAL ×2 (09:17→20:57)
[2024-02-07] MEDS: Acetaminophen 325 MG TABLET 650 MG PO ×2 (13:13→20:56)
--- NOTE | 2024-02-07 15:35 | HO.PSYCHPN ---
Subjective Subjective Date of Service: 02/07/24 Reason For Visit: SI Subjective Notes: Conditional Voluntary Healthcare Proxy: No Guardianship: No Medical Problems Affecting Mental Status: No Interim History: Post ECT headache not helped with Tylenol, Ibuprofen, Imitrex. Will order oxycodone post ECT x 1 dose. Pt discussed his depression and concerns about anxiety mgt. as sx of anxiety are just as bad as the depression. Will increase Gabapentin to 100 mg tid to address anxiety sx. Pt's sister visited. He describes her as a positive support. Medication Compliance: Yes Side effects from medications: No Attending Groups: Intermittent Review of Systems Acute medical concerns: No Review of Systems Review of Systems Denies Mental Status Exam Mental Status Exam Patient Appearance: Appropriate Patient Orientation: Person, Place, Time and Situation Level of Consciousness: Alert Patient Behavior: Appropriate, Talkative, Cooperative and Good Eye Contact Mood Description: Depressed and Anxious Affect Description: Anxious Patient Cognition Impaired: No Ability to Follow Directions: Good Speech Pattern: Spontaneous Speech Memory Description: Episodic Impaired Hallucinations: None Delusions: Not Present Thought Process: Rumination Thought Content: positive for Perseveration and positive for Suicidal Ideation Depressive Symptoms: Increased Anxiety and Thoughts of /Suicide Judgement: Fair Diagnostics Vital Signs (24Hr): Vital Signs - 24 hr 02/06/24 20:00 02/06/24 21:58 02/07/24 08:00 Temperature 97.6 F 97.7 F Pulse Rate 68 61 Respiratory Rate 16 Blood Pressure 121/64 113/70 96/62 Pulse Oximetry 96 96 Oxygen Delivery Method Room Air Room Air BMI result Body Mass Index 30.9 Labs 01/28/24 17:47 01/28/24 17:47 Medications Medications Current Medications Acetaminophen (Acetaminophen 325 Mg Tablet) 650 mg PO Q6H PRN PRN Reason: Headache/Pain Mild Scale (1-3) Last Admin: 02/07/24 13:13 Dose: 650 mg Al Hydroxide/Mg Hydroxide (Magnesium Hydrox/Alum Hydrox 30 Ml Oral.Susp) 30 ml PO Q6H PRN PRN Reason: Heartburn/Nausea Clonidine HCl (Clonidine Hcl 0.1 Mg Tablet) 0.1 mg PO BEDTIME NIKOLE; Protocol Last Admin: 02/06/24 21:58 Dose: 0.1 mg Duloxetine HCl (Duloxetine Hcl 20 Mg Capsule.Dr) 20 mg PO DAILY [facility] Last Admin: 02/07/24 08:51 Dose: 20 mg Folic Acid (Folic Acid 1 Mg Tablet) 1 mg PO DAILY [facility] Last Admin: 02/07/24 08:51 Dose: 1 mg Gabapentin (Gabapentin 100 Mg Capsule) 100 mg PO BEDTIME NIKOLE Last Admin: 02/06/24 21:58 Dose: 100 mg Hydroxyzine HCl (Hydroxyzine Hcl 25 Mg Tablet) 25 mg PO Q6H PRN PRN Reason: Anxiety Last Admin: 02/06/24 21:59 Dose: 25 mg Ibuprofen (Ibuprofen 800 Mg Tablet) 800 mg PO Q8H PRN PRN Reason: post ect headache Last Admin: 02/07/24 09:16 Dose: 800 mg Lisinopril (Lisinopril 5 Mg Tablet) 5 mg PO DAILY [facility]; Protocol Last Admin: 02/07/24 08:52 Dose: 5 mg Lorazepam (Lorazepam 1 Mg Tablet) 1 mg PO BID PRN PRN Reason: Anxiety Last Admin: 02/06/24 21:59 Dose: 1 mg Magnesium Hydroxide (Milk Of Magnesia 30 Ml Oral.Susp) 30 ml PO DAILY PRN PRN Reason: Constipation Mirtazapine (Mirtazapine 7.5 Mg Tablet) 7.5 mg PO DAILY PRN PRN Reason: Anxiety Olanzapine (Olanzapine 5 Mg Tablet) 5 mg PO DAILY [facility] Last Admin: 02/07/24 08:52 Dose: 5 mg Oxycodone HCl (Oxycodone Hcl Immed Release 5 Mg Tablet) 10 mg PO ONCE PRN PRN Reason: post ect headache Sertraline HCl (Sertraline Hcl 100 Mg Tablet) 200 mg PO DAILY [facility] Last Admin: 02/07/24 08:52 Dose: 200 mg Trazodone HCl (Trazodone Hcl 50 Mg Tablet) 50 mg PO BEDTIME MRX1 PRN PRN Reason: Insomnia Last Admin: 02/07/24 01:17 Dose: 50 mg Trazodone HCl (Trazodone Hcl 50 Mg Tablet) 150 mg PO BEDTIME [facility] Last Admin: 02/06/24 21:59 Dose: 150 mg Triamcinolone Acetonide (Triamcinolone Acet 0.5 % Oint 15 Gm Tube) 1 appl TOPICAL BID [facility] Last Admin: 02/07/24 09:17 Dose: 1 appl Allergies Allergies Allergy/AdvReac Type Severity Reaction Status Date / Time hydrocodone [Vicodin] Allergy Unknown nausea Verified 01/28/24 17:00 latex [LATEX] Allergy Unknown RASH Verified 01/28/24 17:00 Assessment & Plan Assessment & Plan (1) Depression, major, severe recurrence: Status: Acute Code(s): F33.2 - Major depressive disorder, recurrent severe without psychotic features Plan Patient has a history of good response to ECT history of migraines will monitor for side effects and treat as appropriate. Has a history of treatment resistant depression appears to be in a quite severe depression ruminating hopeless helpless despondent his outpatient psychiatric provider at [facility] had been recommending ECT. Has had inc si and failed multiple med trials over time The patient would benefit from a course of ECT there are no medical contraindications, history of good response and would consider maintenance therapy. 02/03/24-ECT 02/05. Cymbalta 20 mg daily 02/03 Though with somewhat brighter affect, patient reports he is still depressed and the medications have not made much difference. 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 Trouble sleeping and agrees to try clonidine. Discussed HP and pt says he's had it for awhile; not sure why PCP never started him on meds. Discussed and pt agrees to trial of lisinopri, web content writer reviewed risks/side-effects. Yes to ECT tomorrow. 02/06- Continue ECT plan of care Increase Gabapentin to 100 mg tid (anxiety mgt) Reason for continued inpatient stay Substantial Risk for: rapid decompensation Time Spent With Patient Time: Total time managing care of this patient today ____ minutes.
[2024-02-07 20:00] VITALS: BP 108/62; PULSE 65; TEMP 36.6; O2SAT 96
[2024-02-07 20:57] VITALS: BP 108/61
[2024-02-07] MEDS: cloNIDine HCL 0.1 MG TABLET PO (20:57)
[2024-02-07] MEDS: traZODone HCL 50 MG TABLET 150 MG PO (20:57)
[2024-02-07] MEDS: hydrOXYzine HCL 25 MG TABLET PO (21:00)
[2024-02-08] VITALS (10 sets, daily range): BP systolic 106–151; BP diastolic 53–93; PULSE 59–86; RESP 12–18; TEMP 36.1–36.9; O2SAT 94–98
--- NOTE | 2024-02-08 11:09 | P.PNPSI_ITS ---
Subjective Subjective Date of Service: 02/08/24 Reason For Visit: SI Subjective Notes: Conditional Voluntary Healthcare Proxy: No Guardianship: No Medical Problems Affecting Mental Status: No Interim History: ECT #2 today. Reports no headache after the treatment. Reports depression is improved, anxiety is high. Thoughts are slower , sleep, appetite is intact. Making arrangements for discharge next week to OP ECT. Treatment #3 will be on 02/09. Discussion today about his marriage and the issues which arose in the marriage leading to divorce. Still has questions regarding where some of these issues were before the marriage, believes ex- hid these issues from him and this has had prison effects with his trust of others, and he believes has contributed to the sx of depression/anxiety. Medication Compliance: Yes Side effects from medications: No Attending Groups: Intermittent Review of Systems Acute medical concerns: No Medical Review of Systems: unchanged Review of Systems Review of Systems Yes all other systems are reviewed and are negative Mental Status Exam Mental Status Exam Patient Appearance: Appropriate Patient Orientation: Person, Place, Time and Situation Level of Consciousness: Alert Patient Behavior: Appropriate, Talkative, Cooperative and Good Eye Contact Mood Description: Anxious Affect Description: Anxious Patient Cognition Impaired: No Ability to Follow Directions: Good Speech Pattern: Spontaneous Speech Memory Description: Episodic Impaired Hallucinations: None Delusions: Not Present Thought Process: Rumination Thought Content: positive for Perseveration Depressive Symptoms: Increased Anxiety Judgement: Good Diagnostics Vital Signs (24Hr): Vital Signs - 24 hr 02/07/24 20:00 02/07/24 20:57 02/08/24 08:00 Temperature 97.8 F 98.5 F Pulse Rate 65 59 Respiratory Rate 16 Blood Pressure 108/62 108/61 110/53 L Pulse Oximetry 96 97 Oxygen Delivery Method Room Air Room Air BMI result Body Mass Index 30.9 Labs 01/28/24 17:47 01/28/24 17:47 Medications Medications Current Medications Acetaminophen (Acetaminophen 325 Mg Tablet) 650 mg PO Q6H PRN PRN Reason: Headache/Pain Mild Scale (1-3) Last Admin: 02/07/24 20:56 Dose: 650 mg Al Hydroxide/Mg Hydroxide (Magnesium Hydrox/Alum Hydrox 30 Ml Oral.Susp) 30 ml PO Q6H PRN PRN Reason: Heartburn/Nausea Clonidine HCl (Clonidine Hcl 0.1 Mg Tablet) 0.1 mg PO BEDTIME [facility]; Protocol Last Admin: 02/07/24 20:57 Dose: 0.1 mg Duloxetine HCl (Duloxetine Hcl 20 Mg Capsule.Dr) 20 mg PO DAILY REPLACED BY [facility] Last Admin: 02/08/24 08:58 Dose: Not Given Folic Acid (Folic Acid 1 Mg Tablet) 1 mg PO DAILY REPLACED BY [facility] Last Admin: 02/08/24 08:58 Dose: Not Given Gabapentin (Gabapentin 100 Mg Capsule) 100 mg PO TID REPLACED BY [facility] Last Admin: 02/08/24 08:58 Dose: Not Given Hydroxyzine HCl (Hydroxyzine Hcl 25 Mg Tablet) 25 mg PO Q6H PRN PRN Reason: Anxiety Last Admin: 02/07/24 21:00 Dose: 25 mg Ibuprofen (Ibuprofen 800 Mg Tablet) 800 mg PO Q8H PRN PRN Reason: post ect headache Last Admin: 02/07/24 17:37 Dose: 800 mg Lisinopril (Lisinopril 5 Mg Tablet) 5 mg PO DAILY REPLACED BY [facility]; Protocol Last Admin: 02/08/24 08:59 Dose: Not Given Lorazepam (Lorazepam 1 Mg Tablet) 1 mg PO BID PRN PRN Reason: Anxiety Last Admin: 02/06/24 21:59 Dose: 1 mg Magnesium Hydroxide (Milk Of Magnesia 30 Ml Oral.Susp) 30 ml PO DAILY PRN PRN Reason: Constipation Mirtazapine (Mirtazapine 7.5 Mg Tablet) 7.5 mg PO DAILY PRN PRN Reason: Anxiety Olanzapine (Olanzapine 5 Mg Tablet) 5 mg PO DAILY REPLACED BY [facility] Last Admin: 02/08/24 08:59 Dose: Not Given Oxycodone HCl (Oxycodone Hcl Immed Release 5 Mg Tablet) 10 mg PO ONCE PRN PRN Reason: post ect headache Sertraline HCl (Sertraline Hcl 100 Mg Tablet) 200 mg PO DAILY REPLACED BY [facility] Last Admin: 02/08/24 08:59 Dose: Not Given Trazodone HCl (Trazodone Hcl 50 Mg Tablet) 50 mg PO BEDTIME MRX1 PRN PRN Reason: Insomnia Last Admin: 02/07/24 23:01 Dose: 50 mg Trazodone HCl (Trazodone Hcl 50 Mg Tablet) 150 mg PO BEDTIME REPLACED BY [facility] Last Admin: 02/07/24 20:57 Dose: 150 mg Triamcinolone Acetonide (Triamcinolone Acet 0.5 % Oint 15 Gm Tube) 1 appl TOPICAL BID REPLACED BY [facility] Last Admin: 02/08/24 08:59 Dose: Not Given Allergies Allergies Allergy/AdvReac Type Severity Reaction Status Date / Time hydrocodone [Vicodin] Allergy Unknown nausea Verified 01/28/24 17:00 latex [LATEX] Allergy Unknown RASH Verified 01/28/24 17:00 Assessment & Plan Assessment & Plan (1) Depression with suicidal ideation: Status: Acute Code(s): F32.A - Depression, unspecified; R45.851 - Suicidal ideations (2) Generalized anxiety disorder: Status: Acute Code(s): F41.1 - Generalized anxiety disorder Plan Recurrent major depression, Anxiety NOS, Cocaine abuse. 02/08/24: ECT #2 completed. Continue regime, discharge planning. ECT #3 02/10/24. Plan: Admit, CV, 15 minute checks Collateral contacts Diagnostics as needed ECT consult Medication review and adjustments Encourage full milieu Reason for continued inpatient stay Substantial Risk for: rapid decompensation Time Spent With Patient Time: Total time managing care of this patient today ____ minutes.
--- NOTE | 2024-02-08 12:50 | HO.ANESPROP2 ---
[facility] Active Problems Active Problems: All Active Problems Pre-op evaluation (Acute) Depression with suicidal ideation (Acute) Loose stools (Acute) Tubular adenoma of colon (Acute) Folic acid deficiency (Acute) Restless leg syndrome (Acute) Eczema (Acute) Rectal incontinence (Acute) Overweight (BMI 25.0-29.9) (Acute) Generalized anxiety disorder (Acute) Depression, major, severe recurrence (Acute) Loss of appetite (Acute) Tenosynovitis of thumb (Acute) Lumbar spondylosis (Acute) Esophageal dysphagia (Acute) Peptic ulcer disease (Acute) Sacroiliac joint pain (Acute) Lumbar radiculopathy (Acute) Trochanteric bursitis of both hips (Acute) GERD (gastroesophageal reflux disease) (Acute) Hypercholesterolemia (Acute) Past Medical History Medical History Impaired fasting blood sugar Renal calculus Nasal septal perforation Vitamin B12 deficiency COVID-19 virus infection Adrenal adenoma Upper back pain Recurrent major depression Muscle spasm Family history of colon cancer Right hip pain Hospital discharge follow-up Colon cancer screening Depression, major, severe recurrence Low Back Pain Right-sided back pain Dermatitis Upper back pain Low Back Pain Generalized anxiety disorder Epistaxis Flank pain Annual physical exam Adrenal adenoma Polysubstance abuse Peptic ulcer disease Insomnia 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 Restless leg syndrome Anxiety and depression Vitamin D deficiency Erectile dysfunction GERD (gastroesophageal reflux disease) Hypercholesterolemia Chronic left shoulder pain Functional capacity: independent ambulation Family History Family History Father Myocardial infarct Colon cancer Mother Lung cancer Depression Brother Substance abuse Family history of problems with anesthesia: No Surgical History Surgical History H/O total adrenalectomy History of kidney surgery H/O arthroscopic knee surgery H/O oral surgery History of tonsillectomy History of nasal surgery History of Problems with Anesthesia: No Social History Social History Household Members: Other Household Members Other:: Rents a room out of a house with 3 other people Housing: House Do you presently have visiting nurse or other home services: No Alcohol intake: current Alcohol intake frequency: does not drink Patient Tobacco Use Status: Never used Tobacco e-Cigarette/Vaping Use: Never Used Second Hand Smoke Exposure: No Substance Use Type: Crack/Cocaine service: No Current occupational status: employed Current occupation: [employer] Sexual orientation: Straight/Heterosexual Cognitive needs: No Hearing needs: No Vision needs: Yes (glasses) Meds Allergies Allergy/AdvReac Type Severity Reaction Status Date / Time hydrocodone [Vicodin] Allergy Unknown nausea Verified 01/28/24 17:00 latex [LATEX] Allergy Unknown RASH Verified 01/28/24 17:00 Active Medications: Current Medications Acetaminophen (Acetaminophen 325 Mg Tablet) 650 mg PO Q6H PRN PRN Reason: Headache/Pain Mild Scale (1-3) Last Admin: 02/07/24 20:56 Dose: 650 mg Al Hydroxide/Mg Hydroxide (Magnesium Hydrox/Alum Hydrox 30 Ml Oral.Susp) 30 ml PO Q6H PRN PRN Reason: Heartburn/Nausea Clonidine HCl (Clonidine Hcl 0.1 Mg Tablet) 0.1 mg PO BEDTIME [facility]KO[facility]; Protocol Last Admin: 02/07/24 20:57 Dose: 0.1 mg Duloxetine HCl (Duloxetine Hcl 20 Mg Capsule.Dr) 20 mg PO DAILY [facility] Last Admin: 02/08/24 08:58 Dose: Not Given Folic Acid (Folic Acid 1 Mg Tablet) 1 mg PO DAILY [facility] Last Admin: 02/08/24 08:58 Dose: Not Given Gabapentin (Gabapentin 100 Mg Capsule) 100 mg PO TID [facility] Last Admin: 02/08/24 08:58 Dose: Not Given Hydroxyzine HCl (Hydroxyzine Hcl 25 Mg Tablet) 25 mg PO Q6H PRN PRN Reason: Anxiety Last Admin: 02/07/24 21:00 Dose: 25 mg Ibuprofen (Ibuprofen 800 Mg Tablet) 800 mg PO Q8H PRN PRN Reason: post ect headache Last Admin: 02/07/24 17:37 Dose: 800 mg Lisinopril (Lisinopril 5 Mg Tablet) 5 mg PO DAILY [facility]; Protocol Last Admin: 02/08/24 08:59 Dose: Not Given Lorazepam (Lorazepam 1 Mg Tablet) 1 mg PO BID PRN PRN Reason: Anxiety Last Admin: 02/06/24 21:59 Dose: 1 mg Magnesium Hydroxide (Milk Of Magnesia 30 Ml Oral.Susp) 30 ml PO DAILY PRN PRN Reason: Constipation Mirtazapine (Mirtazapine 7.5 Mg Tablet) 7.5 mg PO DAILY PRN PRN Reason: Anxiety Olanzapine (Olanzapine 5 Mg Tablet) 5 mg PO DAILY FOR[facility] Last Admin: 02/08/24 08:59 Dose: Not Given Oxycodone HCl (Oxycodone Hcl Immed Release 5 Mg Tablet) 10 mg PO ONCE PRN PRN Reason: post ect headache Quetiapine Fumarate (Quetiapine Fumarate 50 Mg Tablet) 50 mg PO BEDTIME NIKOLE Sertraline HCl (Sertraline Hcl 100 Mg Tablet) 200 mg PO DAILY [facility] Last Admin: 02/08/24 08:59 Dose: Not Given Trazodone HCl (Trazodone Hcl 50 Mg Tablet) 50 mg PO BEDTIME MRX1 PRN PRN Reason: Insomnia Last Admin: 02/07/24 23:01 Dose: 50 mg Trazodone HCl (Trazodone Hcl 50 Mg Tablet) 150 mg PO BEDTIME [facility] Last Admin: 02/07/24 20:57 Dose: 150 mg Triamcinolone Acetonide (Triamcinolone Acet 0.5 % Oint 15 Gm Tube) 1 appl TOPICAL BID [facility] Last Admin: 02/08/24 08:59 Dose: Not Given Home Medications ?Medication ?Instructions ?Recorded ?Confirmed ?Last Taken ?Type olanzapine 5 mg tablet 5 mg PO .morning 01/14/23 01/28/24 01/28/24 History lorazepam 1 mg tablet 1 mg PO BID PRN Anxiety 01/28/24 01/28/24 01/28/24 History mirtazapine 7.5 mg tablet 7.5 mg PO DAILY PRN Anxiety 01/28/24 01/28/24 01/28/24 History sertraline 100 mg tablet 200 mg PO DAILY 01/28/24 01/28/24 01/28/24 History Exam Height,Weight and Vital Signs: Height 5 ft 5 in Weight 84.2 kg Last Vital Signs Temp 98.5 F 02/08/24 08:00 Pulse 59 02/08/24 08:00 Resp 16 02/08/24 08:00 BP 110/53 L 02/08/24 08:00 Pulse Ox 97 02/08/24 08:00 O2 Del Method Room Air 02/08/24 08:00 O2 Flow Rate 2 02/06/24 08:10 Pertinent Lab Results Pertinent Lab Results: Laboratory Tests 01/28/24 01/28/24 01/31/24 17:19 17:47 09:17 WBC 5.4 RBC 4.80 Hgb 14.7 Hct 43.0 MCV 89.6 MCH 30.6 MCHC 34.2 RDW 12.3 Plt Count 241 MPV 9.3 L Immature Gran % (Auto) 0.4 Neut % (Auto) 66.1 Lymph % (Auto) 19.0 L [place] % (Auto) 8.4 Eos % (Auto) 5.4 H Baso % (Auto) 0.7 Lymph # (Auto) 1.0 L [place] # (Auto) 0.5 Eos # (Auto) 0.3 Baso # (Auto) 0.0 Abs Immat Gran (auto) 0.02 Absolute Neuts (auto) 3.5 Absolute Nucleated RBC 0.000 Nucleated RBC % (auto) 0.0 Sodium 138 Potassium 4.0 Chloride 107 Carbon Dioxide 23 Anion Gap 12 BUN 14 Creatinine 0.96 Estim Creat Clear Calc 82.8 Estimated GFR > 60 Random Glucose 102 Estimat Average Glucose 105 Hemoglobin A1c % 5.3 Calcium 9.0 Magnesium 1.9 Total Bilirubin 0.3 AST 27 ALT 31 Alkaline Phosphatase 56 Total Protein 7.1 Albumin 4.4 Triglycerides 254 H Cholesterol 240 H LDL Cholesterol, Calc 150 H HDL Cholesterol 40 L Lipase 34 Vitamin B12 405 Folate 16.3 TSH 1.68 Free T4 1.03 Urine Color Yellow Urine Appearance Clear Urine pH 7.0 Ur Specific [place] 1.020 Urine Protein Negative Urine Glucose (UA) Negative Urine Ketones Negative Urine Blood Negative Urine Nitrite Negative Ur Leukocyte Esterase Negative Salicylates < 5.0 L Urine Opiates Screen Not Detected Ur Buprenorphine Scrn Not Detected Ur Oxycodone Screen Not Detected Urine Methadone Screen Not Detected Urine Fentanyl Screen Not Detected Acetaminophen < 3 Ur Barbiturates Screen Not Detected Ur Phencyclidine Scrn Not Detected Ur Amphetamines Screen Not Detected U Benzodiazepines Scrn Not Detected Urine Cocaine Screen Not Detected U Marijuana (THC) Screen Not Detected Ethyl Alcohol < 10 Airway Mallampati Class: II TM Dist: >3cm Neck ROM: Full Heart: RRR Lungs: CTA Assessment and Plan Assessment Anesthesia Assessment: Anesthesia Plan Discussed and Chart Reviewed Final Anesthetic Review Family History of Problems with Anesthesia: No History of Problems with Anesthesia: No NPO: Yes ASA Class: III Final Preanesthetic Review: Meds/Allgs Chart Reviewed, Consent Obtained/Reviewed and Anes Risks/Benef Reviewed Patient Risk: Intermediate Procedure Risk: Low Anesthetic Plan Anesthetic Plan: GA Disposition: Standard PACU
--- NOTE | 2024-02-08 13:03 | P.CONAN_ITS ---
COUNTS INCLUDE 234 BEDS AT THE [facility] Active Problems Active Problems: All Active Problems Pre-op evaluation (Acute) Depression with suicidal ideation (Acute) Loose stools (Acute) Tubular adenoma of colon (Acute) Folic acid deficiency (Acute) Restless leg syndrome (Acute) Eczema (Acute) Rectal incontinence (Acute) Overweight (BMI 25.0-29.9) (Acute) Generalized anxiety disorder (Acute) Depression, major, severe recurrence (Acute) Loss of appetite (Acute) Tenosynovitis of thumb (Acute) Lumbar spondylosis (Acute) Esophageal dysphagia (Acute) Peptic ulcer disease (Acute) Sacroiliac joint pain (Acute) Lumbar radiculopathy (Acute) Trochanteric bursitis of both hips (Acute) GERD (gastroesophageal reflux disease) (Acute) Hypercholesterolemia (Acute) Past Medical History Medical History Impaired fasting blood sugar Renal calculus Nasal septal perforation Vitamin B12 deficiency COVID-19 virus infection Adrenal adenoma Upper back pain Recurrent major depression Muscle spasm Family history of colon cancer Right hip pain Hospital discharge follow-up Colon cancer screening Depression, major, severe recurrence Low Back Pain Right-sided back pain Dermatitis Upper back pain Low Back Pain Generalized anxiety disorder Epistaxis Flank pain Annual physical exam Adrenal adenoma Polysubstance abuse Peptic ulcer disease Insomnia 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 Restless leg syndrome Anxiety and depression Vitamin D deficiency Erectile dysfunction GERD (gastroesophageal reflux disease) Hypercholesterolemia Chronic left shoulder pain Functional capacity: independent ambulation Family History Family History Father Myocardial infarct Colon cancer Mother Lung cancer Depression Brother Substance abuse Family history of problems with anesthesia: No Surgical History Surgical History H/O total adrenalectomy History of kidney surgery H/O arthroscopic knee surgery H/O oral surgery History of tonsillectomy History of nasal surgery History of Problems with Anesthesia: No Social History Social History Household Members: Other Household Members Other:: Rents a room out of a house with 3 other people Housing: House Do you presently have visiting nurse or other home services: No Alcohol intake: current Alcohol intake frequency: does not drink Patient Tobacco Use Status: Never used Tobacco e-Cigarette/Vaping Use: Never Used Second Hand Smoke Exposure: No Substance Use Type: Crack/Cocaine service: No Current occupational status: employed Current occupation: [email or web address] Sexual orientation: Straight/Heterosexual Cognitive needs: No Hearing needs: No Vision needs: Yes (glasses) Meds Allergies Allergy/AdvReac Type Severity Reaction Status Date / Time hydrocodone [Vicodin] Allergy Unknown nausea Verified 01/28/24 17:00 latex [LATEX] Allergy Unknown RASH Verified 01/28/24 17:00 Active Medications: Current Medications Acetaminophen (Acetaminophen 325 Mg Tablet) 650 mg PO Q6H PRN PRN Reason: Headache/Pain Mild Scale (1-3) Last Admin: 02/07/24 20:56 Dose: 650 mg Al Hydroxide/Mg Hydroxide (Magnesium Hydrox/Alum Hydrox 30 Ml Oral.Susp) 30 ml PO Q6H PRN PRN Reason: Heartburn/Nausea Clonidine HCl (Clonidine Hcl 0.1 Mg Tablet) 0.1 mg PO BEDTIME [facility]; Protocol Last Admin: 02/07/24 20:57 Dose: 0.1 mg Duloxetine HCl (Duloxetine Hcl 20 Mg Capsule.Dr) 20 mg PO DAILY [facility] Last Admin: 02/08/24 08:58 Dose: Not Given Folic Acid (Folic Acid 1 Mg Tablet) 1 mg PO DAILY [facility] Last Admin: 02/08/24 08:58 Dose: Not Given Gabapentin (Gabapentin 100 Mg Capsule) 100 mg PO TID [facility] Last Admin: 02/08/24 08:58 Dose: Not Given Hydroxyzine HCl (Hydroxyzine Hcl 25 Mg Tablet) 25 mg PO Q6H PRN PRN Reason: Anxiety Last Admin: 02/07/24 21:00 Dose: 25 mg Ibuprofen (Ibuprofen 800 Mg Tablet) 800 mg PO Q8H PRN PRN Reason: post ect headache Last Admin: 02/07/24 17:37 Dose: 800 mg Lisinopril (Lisinopril 5 Mg Tablet) 5 mg PO DAILY [facility]; Protocol Last Admin: 02/08/24 08:59 Dose: Not Given Lorazepam (Lorazepam 1 Mg Tablet) 1 mg PO BID PRN PRN Reason: Anxiety Last Admin: 02/06/24 21:59 Dose: 1 mg Magnesium Hydroxide (Milk Of Magnesia 30 Ml Oral.Susp) 30 ml PO DAILY PRN PRN Reason: Constipation Mirtazapine (Mirtazapine 7.5 Mg Tablet) 7.5 mg PO DAILY PRN PRN Reason: Anxiety Naloxone HCl (Naloxone Hcl 0.4 Mg/Ml Vial) 0.04 mg IVPUSH Q5M PRN PRN Reason: Excessive sedation or RR < 8 Olanzapine (Olanzapine 5 Mg Tablet) 5 mg PO DAILY [facility] Last Admin: 02/08/24 08:59 Dose: Not Given Oxycodone HCl (Oxycodone Hcl Immed Release 5 Mg Tablet) 10 mg PO ONCE PRN PRN Reason: post ect headache Quetiapine Fumarate (Quetiapine Fumarate 50 Mg Tablet) 50 mg PO BEDTIME [facility]KO[facility] Sertraline HCl (Sertraline Hcl 100 Mg Tablet) 200 mg PO DAILY [facility] Last Admin: 02/08/24 08:59 Dose: Not Given Trazodone HCl (Trazodone Hcl 50 Mg Tablet) 50 mg PO BEDTIME MRX1 PRN PRN Reason: Insomnia Last Admin: 02/07/24 23:01 Dose: 50 mg Trazodone HCl (Trazodone Hcl 50 Mg Tablet) 150 mg PO BEDTIME [facility] Last Admin: 02/07/24 20:57 Dose: 150 mg Triamcinolone Acetonide (Triamcinolone Acet 0.5 % Oint 15 Gm Tube) 1 appl TOPICAL BID [facility] Last Admin: 02/08/24 08:59 Dose: Not Given Home Medications ?Medication ?Instructions ?Recorded ?Confirmed ?Last Taken ?Type olanzapine 5 mg tablet 5 mg PO .morning 01/14/23 01/28/24 01/28/24 History lorazepam 1 mg tablet 1 mg PO BID PRN Anxiety 01/28/24 01/28/24 01/28/24 History mirtazapine 7.5 mg tablet 7.5 mg PO DAILY PRN Anxiety 01/28/24 01/28/24 01/28/24 History sertraline 100 mg tablet 200 mg PO DAILY 01/28/24 01/28/24 01/28/24 History Exam Height,Weight and Vital Signs: Height 5 ft 5 in Weight 84.2 kg Last Vital Signs Temp 97 F 02/08/24 13:02 Pulse 60 02/08/24 13:02 Resp 12 02/08/24 13:02 BP 151/88 H 02/08/24 13:02 Pulse Ox 96 02/08/24 13:02 O2 Del Method Room Air 02/08/24 13:02 O2 Flow Rate 2 02/06/24 08:10 Pertinent Lab Results Pertinent Lab Results: Laboratory Tests 01/28/24 01/28/24 01/31/24 17:19 17:47 09:17 WBC 5.4 RBC 4.80 Hgb 14.7 Hct 43.0 MCV 89.6 MCH 30.6 MCHC 34.2 RDW 12.3 Plt Count 241 MPV 9.3 L Immature Gran % (Auto) 0.4 Neut % (Auto) 66.1 Lymph % (Auto) 19.0 L [place] % (Auto) 8.4 Eos % (Auto) 5.4 H Baso % (Auto) 0.7 Lymph # (Auto) 1.0 L [place] # (Auto) 0.5 Eos # (Auto) 0.3 Baso # (Auto) 0.0 Abs Immat Gran (auto) 0.02 Absolute Neuts (auto) 3.5 Absolute Nucleated RBC 0.000 Nucleated RBC % (auto) 0.0 Sodium 138 Potassium 4.0 Chloride 107 Carbon Dioxide 23 Anion Gap 12 BUN 14 Creatinine 0.96 Estim Creat Clear Calc 82.8 Estimated GFR > 60 Random Glucose 102 Estimat Average Glucose 105 Hemoglobin A1c % 5.3 Calcium 9.0 Magnesium 1.9 Total Bilirubin 0.3 AST 27 ALT 31 Alkaline Phosphatase 56 Total Protein 7.1 Albumin 4.4 Triglycerides 254 H Cholesterol 240 H LDL Cholesterol, Calc 150 H HDL Cholesterol 40 L Lipase 34 Vitamin B12 405 Folate 16.3 TSH 1.68 Free T4 1.03 Urine Color Yellow Urine Appearance Clear Urine pH 7.0 Ur Specific [place] 1.020 Urine Protein Negative Urine Glucose (UA) Negative Urine Ketones Negative Urine Blood Negative Urine Nitrite Negative Ur Leukocyte Esterase Negative Salicylates < 5.0 L Urine Opiates Screen Not Detected Ur Buprenorphine Scrn Not Detected Ur Oxycodone Screen Not Detected Urine Methadone Screen Not Detected Urine Fentanyl Screen Not Detected Acetaminophen < 3 Ur Barbiturates Screen Not Detected Ur Phencyclidine Scrn Not Detected Ur Amphetamines Screen Not Detected U Benzodiazepines Scrn Not Detected Urine Cocaine Screen Not Detected U Marijuana (THC) Screen Not Detected Ethyl Alcohol < 10 Airway Mallampati Class: II TM Dist: >3cm Neck ROM: Full Denture: Upper and Lower Heart: RRR Lungs: CTA Assessment and Plan Assessment Anesthesia Assessment: Anesthesia Plan Discussed and Chart Reviewed Final Anesthetic Review Family History of Problems with Anesthesia: No History of Problems with Anesthesia: No ASA Class: III Final Preanesthetic Review: Meds/Allgs Chart Reviewed, Consent Obtained/Reviewed and Anes Risks/Benef Reviewed Patient Risk: Intermediate Procedure Risk: Low Anesthetic Plan Anesthetic Plan: GA Disposition: Standard PACU
--- NOTE | 2024-02-08 13:25 | MHC.SHP ---
Pre-Procedural Eval Section A - 24 Hr Update-Section A only Date of Service: 02/08/24 The patient is an INPATIENT: Yes Changes since office visit: Yes Changes in Medication and Yes Patient answered all questions; No Cold of Flu in the past 2 weeks and No New Medical Problems The patient has been examined within 24 hours of the surgical procedure. The History & Physical has been completed within 30 days and I have reviewed it.: Yes Section B - Complete if H&P > 30 days Chief Complaint: SI Allergies: Allergies Allergy/AdvReac Type Severity Reaction Status Date / Time hydrocodone [Vicodin] Allergy Unknown nausea Verified 01/28/24 17:00 latex [LATEX] Allergy Unknown RASH Verified 01/28/24 17:00 Plan I have reviewed the history and physical and performed a pertinent physical examination on my patient. No changes have occurred unless specified. Time Spent With Patient Time: Total time managing care of this patient today ____ minutes.
--- NOTE | 2024-02-08 13:26 | HO.ECTPROC ---
ECT Procedure Note Diagnosis/Treatment Date of Service: 02/08/24 Diagnosis: Major Depressive Disorder Previous ECT Date: 02/06/24 Current Treatment Number: 2 Treatment: Series Interval Clinical Notes: Pt with tx resistant depression significant valencia after 1st ect. Will change to bf 100% 0.5 program Time: Total time managing care of this patient today 30____ minutes. ECT Settings Device: THYMATRON DGx Electrode Placement: Bifrontal Program/Pulse Width: 0.50 Energy Percent: 100 Seizure Duration By EEG (in seconds): 52 Medications Administration General Anesthetic: Etomidate (14) Muscle Relaxant: Succinylcholine (100) Ancillary Medications Analgesics: Torodol - Pre ECT (15) Miscillaneous Medications: Propofol (30) Airway Management Airway Management: Bag Mask Ventilation Treatment Recommendations No Changes Recommended: No change Notes: monitor response to ect if needed can change to BT Pt Tolerated Procedure w/o Issue: Yes
--- NOTE | 2024-02-08 14:03 | HO.POSTANES ---
Post Anesthesia Evaluation Post Anesthesia Evaluation Date of Service: 02/08/24 Vital Signs: Vital Signs Temp Pulse Resp BP Pulse Ox O2 Del Method 02/08/24 13:02 97 F 60 12 151/88 H 96 Room Air 02/08/24 08:00 98.5 F 59 16 110/53 L 97 Room Air Anesthesia: General Mental Status: Awake Pain Control: Satisfactory Nausea/Vomiting: None Hydration: Adequate Anesthesia-Related Issues: No Anes. Related Issues
[2024-02-08] MEDS: Gabapentin 100 MG CAPSULE PO ×2 (14:58→20:13)
[2024-02-08] MEDS: oxyCODONE HCl Immed Release 5 MG TABLET 10 MG PO (14:58)
[2024-02-08] MEDS: OLANZapine 5 MG TABLET PO (14:58)
[2024-02-08] MEDS: Sertraline HCL 100 MG TABLET 200 MG PO (14:59)
[2024-02-08] MEDS: lisinopriL 5 MG TABLET PO (14:59)
[2024-02-08] MEDS: LORazepam 1 MG TABLET PO (14:59)
[2024-02-08] MEDS: DULoxetine HCl 20 MG CAPSULE.DR PO (14:59)
[2024-02-08] MEDS: Folic Acid 1 MG TABLET PO (14:59)
[2024-02-08] MEDS: traZODone HCL 50 MG TABLET 150 MG PO (20:12)
[2024-02-08] MEDS: QUEtiapine Fumarate 50 MG TABLET PO (20:13)
[2024-02-08] MEDS: Ibuprofen 800 MG TABLET PO (20:13)
[2024-02-08] MEDS: cloNIDine HCL 0.1 MG TABLET PO (20:20)
[2024-02-08] MEDS: traZODone HCL 50 MG TABLET PO (21:40)
[2024-02-09 08:00] VITALS: PULSE 63; RESP 16; TEMP 36.6; O2SAT 94
[2024-02-09] MEDS: OLANZapine 5 MG TABLET PO (08:50)
[2024-02-09] MEDS: Sertraline HCL 100 MG TABLET 200 MG PO (08:50)
[2024-02-09 08:51] VITALS: BP 107/61
[2024-02-09] MEDS: Gabapentin 100 MG CAPSULE PO ×2 (08:51→16:05)
[2024-02-09] MEDS: lisinopriL 5 MG TABLET PO (08:51)
[2024-02-09] MEDS: DULoxetine HCl 20 MG CAPSULE.DR PO (08:51)
[2024-02-09] MEDS: Folic Acid 1 MG TABLET PO (08:51)
[2024-02-09] MEDS: Ibuprofen 800 MG TABLET PO (09:01)
[2024-02-09] MEDS: Ketorolac Tromethamine 10 MG TABLET PO (11:06)
--- NOTE | 2024-02-09 16:16 | P.PNPSI_ITS ---
Subjective Subjective Date of Service: 02/09/24 Reason For Visit: SI Subjective Notes: Conditional Voluntary Healthcare Proxy: No Guardianship: No Medical Problems Affecting Mental Status: No Interim History: Reports significant headache. Toradol tried with efficacy. Pt reports no depressive sx, just anxiety . He is in the milieu this afternoon, watching TV, interacting with peers, attending to some groups Plans treatment #3 on 02/09. Anticipates discharge early next week to OP treatment. Medication Compliance: Yes Side effects from medications: No Attending Groups: Intermittent Review of Systems Acute medical concerns: No Review of Systems Review of Systems headache this a.m. Relieved with Toradol. Yes all other systems are reviewed and are negative Mental Status Exam Mental Status Exam Patient Appearance: Appropriate Patient Orientation: Person, Place, Time and Situation Level of Consciousness: Alert Patient Behavior: Appropriate, Talkative, Cooperative and Good Eye Contact Mood Description: Anxious Affect Description: Anxious Patient Cognition Impaired: No Ability to Follow Directions: Good Speech Pattern: Spontaneous Speech Memory Description: Episodic Impaired Hallucinations: None Delusions: Not Present Thought Process: Rumination Thought Content: positive for Perseveration Depressive Symptoms: Increased Anxiety Judgement: Good Diagnostics Vital Signs (24Hr): Vital Signs - 24 hr 02/08/24 20:00 02/08/24 20:20 02/09/24 08:00 Temperature 97.8 F 97.8 F Pulse Rate 62 63 Respiratory Rate 16 Blood Pressure 106/62 107/62 Pulse Oximetry 95 94 Oxygen Delivery Method Room Air Room Air 02/09/24 08:51 Temperature Pulse Rate Respiratory Rate Blood Pressure 107/61 Pulse Oximetry Oxygen Delivery Method BMI result Body Mass Index 30.9 Labs 01/28/24 17:47 01/28/24 17:47 Medications Medications Current Medications Acetaminophen (Acetaminophen 325 Mg Tablet) 650 mg PO Q6H PRN PRN Reason: Headache/Pain Mild Scale (1-3) Last Admin: 02/07/24 20:56 Dose: 650 mg Al Hydroxide/Mg Hydroxide (Magnesium Hydrox/Alum Hydrox 30 Ml Oral.Susp) 30 ml PO Q6H PRN PRN Reason: Heartburn/Nausea Clonidine HCl (Clonidine Hcl 0.1 Mg Tablet) 0.1 mg PO BEDTIME [facility]; Protocol Last Admin: 02/08/24 20:20 Dose: 0.1 mg Duloxetine HCl (Duloxetine Hcl 20 Mg Capsule.Dr) 20 mg PO DAILY [facility] Last Admin: 02/09/24 08:51 Dose: 20 mg Folic Acid (Folic Acid 1 Mg Tablet) 1 mg PO DAILY [facility] Last Admin: 02/09/24 08:51 Dose: 1 mg Gabapentin (Gabapentin 100 Mg Capsule) 100 mg PO TID [facility] Last Admin: 02/09/24 16:05 Dose: 100 mg Hydroxyzine HCl (Hydroxyzine Hcl 25 Mg Tablet) 25 mg PO Q6H PRN PRN Reason: Anxiety Last Admin: 02/07/24 21:00 Dose: 25 mg Ibuprofen (Ibuprofen 800 Mg Tablet) 800 mg PO Q8H PRN PRN Reason: post ect headache Last Admin: 02/09/24 09:01 Dose: 800 mg Lisinopril (Lisinopril 5 Mg Tablet) 5 mg PO DAILY [facility]; Protocol Last Admin: 02/09/24 08:51 Dose: 5 mg Lorazepam (Lorazepam 1 Mg Tablet) 1 mg PO BID PRN PRN Reason: Anxiety Last Admin: 02/08/24 14:59 Dose: 1 mg Magnesium Hydroxide (Milk Of Magnesia 30 Ml Oral.Susp) 30 ml PO DAILY PRN PRN Reason: Constipation Mirtazapine (Mirtazapine 7.5 Mg Tablet) 7.5 mg PO DAILY PRN PRN Reason: Anxiety Naloxone HCl (Naloxone Hcl 0.4 Mg/Ml Vial) 0.04 mg IVPUSH Q5M PRN PRN Reason: Excessive sedation or RR < 8 Naloxone HCl (Naloxone Hcl 0.4 Mg/Ml Vial) 0.04 mg IVPUSH Q5M PRN PRN Reason: Excessive sedation or RR < 8 Olanzapine (Olanzapine 5 Mg Tablet) 5 mg PO DAILY [facility] Last Admin: 02/09/24 08:50 Dose: 5 mg Quetiapine Fumarate (Quetiapine Fumarate 50 Mg Tablet) 50 mg PO BEDTIME [facility] Last Admin: 02/08/24 20:13 Dose: 50 mg Sertraline HCl (Sertraline Hcl 100 Mg Tablet) 200 mg PO DAILY [facility] Last Admin: 02/09/24 08:50 Dose: 200 mg Trazodone HCl (Trazodone Hcl 50 Mg Tablet) 50 mg PO BEDTIME MRX1 PRN PRN Reason: Insomnia Last Admin: 02/08/24 21:40 Dose: 50 mg Trazodone HCl (Trazodone Hcl 50 Mg Tablet) 150 mg PO BEDTIME [facility] Last Admin: 02/08/24 20:12 Dose: 150 mg Triamcinolone Acetonide (Triamcinolone Acet 0.5 % Oint 15 Gm Tube) 1 appl TOPICAL BID [facility] Last Admin: 02/09/24 08:57 Dose: Not Given Allergies Allergies Allergy/AdvReac Type Severity Reaction Status Date / Time hydrocodone [Vicodin] Allergy Unknown nausea Verified 01/28/24 17:00 latex [LATEX] Allergy Unknown RASH Verified 01/28/24 17:00 Assessment & Plan Assessment & Plan (1) Depression with suicidal ideation: Status: Acute Code(s): F32.A - Depression, unspecified; R45.851 - Suicidal ideations (2) Generalized anxiety disorder: Status: Acute Code(s): F41.1 - Generalized anxiety disorder Plan Recurrent major depression, Anxiety NOS, Cocaine abuse. 02/08/24: ECT #2 completed. Continue regime, discharge planning. ECT #3 02/10/24. 02/09/24: Continue ECT. Plan: Admit, CV, 15 minute checks Collateral contacts Diagnostics as needed ECT consult Medication review and adjustments Encourage full milieu Reason for continued inpatient stay Substantial Risk for: rapid decompensation Time Spent With Patient Time: Total time managing care of this patient today ____ minutes.
[2024-02-09 20:00] VITALS: BP 134/69; PULSE 66; TEMP 36.4; O2SAT 96
[2024-02-09] MEDS: traZODone HCL 50 MG TABLET 150 MG PO (21:31)
[2024-02-09] MEDS: QUEtiapine Fumarate 50 MG TABLET PO (21:31)
[2024-02-09] MEDS: Acetaminophen 325 MG TABLET 650 MG PO (21:32)
[2024-02-09 21:33] VITALS: BP 134/69
[2024-02-09] MEDS: cloNIDine HCL 0.1 MG TABLET PO (21:33)
[2024-02-10] VITALS (10 sets, daily range): BP systolic 106–148; BP diastolic 63–86; PULSE 59–79; RESP 16; TEMP 36.4–36.9; O2SAT 94–97
--- NOTE | 2024-02-10 13:04 | MHC.SHP ---
Pre-Procedural Eval Section A - 24 Hr Update-Section A only Date of Service: 02/10/24 The patient is an INPATIENT: Yes Changes since office visit: Yes Changes in Medication and Yes Patient answered all questions; No Cold of Flu in the past 2 weeks and No New Medical Problems The patient has been examined within 24 hours of the surgical procedure. The History & Physical has been completed within 30 days and I have reviewed it.: Yes Section B - Complete if H&P > 30 days Chief Complaint: SI Allergies: Allergies Allergy/AdvReac Type Severity Reaction Status Date / Time hydrocodone [Vicodin] Allergy Unknown nausea Verified 01/28/24 17:00 latex [LATEX] Allergy Unknown RASH Verified 01/28/24 17:00 Plan I have reviewed the history and physical and performed a pertinent physical examination on my patient. No changes have occurred unless specified. Time Spent With Patient Time: Total time managing care of this patient today ____ minutes.
--- NOTE | 2024-02-10 13:04 | HO.ECTPROC ---
ECT Procedure Note Diagnosis/Treatment Date of Service: 02/10/24 Diagnosis: Major Depressive Disorder Previous ECT Date: 02/08/24 Current Treatment Number: 3 Treatment: Series Interval Clinical Notes: Pt did well with BF ect last tx . Tx completed as per previous . Could dec stimulation to 85 % no post op problems Time: Total time managing care of this patient today _30___ minutes. ECT Settings Device: THYMATRON DGx Electrode Placement: Bifrontal Program/Pulse Width: 0.50 Energy Percent: 100 Seizure Duration By EEG (in seconds): 63 Medications Administration General Anesthetic: Etomidate (14) Muscle Relaxant: Succinylcholine (100) Ancillary Medications Analgesics: Torodol - Pre ECT (15) Miscillaneous Medications: Propofol (40) Airway Management Airway Management: Bag Mask Ventilation Treatment Recommendations No Changes Recommended: No change Notes: monitor response to ect if needed can change to BT Pt Tolerated Procedure w/o Issue: Yes
--- NOTE | 2024-02-10 13:10 | HO.ANESPROP2 ---
[facility] Active Problems Active Problems: All Active Problems Pre-op evaluation (Acute) Depression with suicidal ideation (Acute) Loose stools (Acute) Tubular adenoma of colon (Acute) Folic acid deficiency (Acute) Restless leg syndrome (Acute) Eczema (Acute) Rectal incontinence (Acute) Overweight (BMI 25.0-29.9) (Acute) Generalized anxiety disorder (Acute) Depression, major, severe recurrence (Acute) Loss of appetite (Acute) Tenosynovitis of thumb (Acute) Lumbar spondylosis (Acute) Esophageal dysphagia (Acute) Peptic ulcer disease (Acute) Sacroiliac joint pain (Acute) Lumbar radiculopathy (Acute) Trochanteric bursitis of both hips (Acute) GERD (gastroesophageal reflux disease) (Acute) Hypercholesterolemia (Acute) Past Medical History Medical History Impaired fasting blood sugar Renal calculus Nasal septal perforation Vitamin B12 deficiency COVID-19 virus infection Adrenal adenoma Upper back pain Recurrent major depression Muscle spasm Family history of colon cancer Right hip pain Hospital discharge follow-up Colon cancer screening Depression, major, severe recurrence Low Back Pain Right-sided back pain Dermatitis Upper back pain Low Back Pain Generalized anxiety disorder Epistaxis Flank pain Annual physical exam Adrenal adenoma Polysubstance abuse Peptic ulcer disease Insomnia 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 Restless leg syndrome Anxiety and depression Vitamin D deficiency Erectile dysfunction GERD (gastroesophageal reflux disease) Hypercholesterolemia Chronic left shoulder pain Functional capacity: independent ambulation Family History Family History Father Myocardial infarct Colon cancer Mother Lung cancer Depression Brother Substance abuse Family history of problems with anesthesia: No Surgical History Surgical History H/O total adrenalectomy History of kidney surgery H/O arthroscopic knee surgery H/O oral surgery History of tonsillectomy History of nasal surgery History of Problems with Anesthesia: No Social History Social History Household Members: Other Household Members Other:: Rents a room out of a house with 3 other people Housing: House Do you presently have visiting nurse or other home services: No Alcohol intake: current Alcohol intake frequency: does not drink Patient Tobacco Use Status: Never used Tobacco e-Cigarette/Vaping Use: Never Used Second Hand Smoke Exposure: No Substance Use Type: Crack/Cocaine service: No Current occupational status: employed Current occupation: [employer] Sexual orientation: Straight/Heterosexual Cognitive needs: No Hearing needs: No Vision needs: Yes (glasses) Meds Allergies Allergy/AdvReac Type Severity Reaction Status Date / Time hydrocodone [Vicodin] Allergy Unknown nausea Verified 01/28/24 17:00 latex [LATEX] Allergy Unknown RASH Verified 01/28/24 17:00 Active Medications: Current Medications Acetaminophen (Acetaminophen 325 Mg Tablet) 650 mg PO Q6H PRN PRN Reason: Headache/Pain Mild Scale (1-3) Last Admin: 02/09/24 21:32 Dose: 650 mg Al Hydroxide/Mg Hydroxide (Magnesium Hydrox/Alum Hydrox 30 Ml Oral.Susp) 30 ml PO Q6H PRN PRN Reason: Heartburn/Nausea Clonidine HCl (Clonidine Hcl 0.1 Mg Tablet) 0.1 mg PO BEDTIME [facility]; Protocol Last Admin: 02/09/24 21:33 Dose: 0.1 mg Duloxetine HCl (Duloxetine Hcl 20 Mg Capsule.Dr) 20 mg PO DAILY [facility] Last Admin: 02/10/24 09:17 Dose: Not Given Folic Acid (Folic Acid 1 Mg Tablet) 1 mg PO DAILY [facility] Last Admin: 02/10/24 09:17 Dose: Not Given Gabapentin (Gabapentin 100 Mg Capsule) 100 mg PO TID [facility] Last Admin: 02/10/24 09:17 Dose: Not Given Hydroxyzine HCl (Hydroxyzine Hcl 25 Mg Tablet) 25 mg PO Q6H PRN PRN Reason: Anxiety Last Admin: 02/07/24 21:00 Dose: 25 mg Ibuprofen (Ibuprofen 800 Mg Tablet) 800 mg PO Q8H PRN PRN Reason: post ect headache Last Admin: 02/09/24 09:01 Dose: 800 mg Lisinopril (Lisinopril 5 Mg Tablet) 5 mg PO DAILY [facility]; Protocol Last Admin: 02/10/24 09:17 Dose: Not Given Lorazepam (Lorazepam 1 Mg Tablet) 1 mg PO BID PRN PRN Reason: Anxiety Last Admin: 02/08/24 14:59 Dose: 1 mg Magnesium Hydroxide (Milk Of Magnesia 30 Ml Oral.Susp) 30 ml PO DAILY PRN PRN Reason: Constipation Mirtazapine (Mirtazapine 7.5 Mg Tablet) 7.5 mg PO DAILY PRN PRN Reason: Anxiety Naloxone HCl (Naloxone Hcl 0.4 Mg/Ml Vial) 0.04 mg IVPUSH Q5M PRN PRN Reason: Excessive sedation or RR < 8 Naloxone HCl (Naloxone Hcl 0.4 Mg/Ml Vial) 0.04 mg IVPUSH Q5M PRN PRN Reason: Excessive sedation or RR < 8 Olanzapine (Olanzapine 5 Mg Tablet) 5 mg PO DAILY [facility] Last Admin: 02/10/24 09:17 Dose: Not Given Quetiapine Fumarate (Quetiapine Fumarate 50 Mg Tablet) 50 mg PO BEDTIME [facility] Last Admin: 02/09/24 21:31 Dose: 50 mg Sertraline HCl (Sertraline Hcl 100 Mg Tablet) 200 mg PO DAILY [facility] Last Admin: 02/10/24 09:18 Dose: Not Given Trazodone HCl (Trazodone Hcl 50 Mg Tablet) 50 mg PO BEDTIME MRX1 PRN PRN Reason: Insomnia Last Admin: 02/08/24 21:40 Dose: 50 mg Trazodone HCl (Trazodone Hcl 50 Mg Tablet) 150 mg PO BEDTIME [facility] Last Admin: 02/09/24 21:31 Dose: 150 mg Triamcinolone Acetonide (Triamcinolone Acet 0.5 % Oint 15 Gm Tube) 1 appl TOPICAL BID [facility] Last Admin: 02/10/24 09:18 Dose: Not Given Home Medications ?Medication ?Instructions ?Recorded ?Confirmed ?Last Taken ?Type olanzapine 5 mg tablet 5 mg PO .morning 01/14/23 01/28/24 01/28/24 History lorazepam 1 mg tablet 1 mg PO BID PRN Anxiety 01/28/24 01/28/24 01/28/24 History mirtazapine 7.5 mg tablet 7.5 mg PO DAILY PRN Anxiety 01/28/24 01/28/24 01/28/24 History sertraline 100 mg tablet 200 mg PO DAILY 01/28/24 01/28/24 01/28/24 History Exam Height,Weight and Vital Signs: Height 5 ft 5 in Weight 84.2 kg Last Vital Signs Temp 98.4 F 02/10/24 08:00 Pulse 59 02/10/24 08:00 Resp 16 02/10/24 08:00 BP 106/63 02/10/24 08:00 Pulse Ox 96 02/10/24 08:00 O2 Del Method Room Air 02/10/24 08:00 O2 Flow Rate 2 02/08/24 14:02 Pertinent Lab Results Pertinent Lab Results: Laboratory Tests 01/28/24 01/28/24 01/31/24 17:19 17:47 09:17 WBC 5.4 RBC 4.80 Hgb 14.7 Hct 43.0 MCV 89.6 MCH 30.6 MCHC 34.2 RDW 12.3 Plt Count 241 MPV 9.3 L Immature Gran % (Auto) 0.4 Neut % (Auto) 66.1 Lymph % (Auto) 19.0 L [place] % (Auto) 8.4 Eos % (Auto) 5.4 H Baso % (Auto) 0.7 Lymph # (Auto) 1.0 L [place] # (Auto) 0.5 Eos # (Auto) 0.3 Baso # (Auto) 0.0 Abs Immat Gran (auto) 0.02 Absolute Neuts (auto) 3.5 Absolute Nucleated RBC 0.000 Nucleated RBC % (auto) 0.0 Sodium 138 Potassium 4.0 Chloride 107 Carbon Dioxide 23 Anion Gap 12 BUN 14 Creatinine 0.96 Estim Creat Clear Calc 82.8 Estimated GFR > 60 Random Glucose 102 Estimat Average Glucose 105 Hemoglobin A1c % 5.3 Calcium 9.0 Magnesium 1.9 Total Bilirubin 0.3 AST 27 ALT 31 Alkaline Phosphatase 56 Total Protein 7.1 Albumin 4.4 Triglycerides 254 H Cholesterol 240 H LDL Cholesterol, Calc 150 H HDL Cholesterol 40 L Lipase 34 Vitamin B12 405 Folate 16.3 TSH 1.68 Free T4 1.03 Urine Color Yellow Urine Appearance Clear Urine pH 7.0 Ur Specific [place] 1.020 Urine Protein Negative Urine Glucose (UA) Negative Urine Ketones Negative Urine Blood Negative Urine Nitrite Negative Ur Leukocyte Esterase Negative Salicylates < 5.0 L Urine Opiates Screen Not Detected Ur Buprenorphine Scrn Not Detected Ur Oxycodone Screen Not Detected Urine Methadone Screen Not Detected Urine Fentanyl Screen Not Detected Acetaminophen < 3 Ur Barbiturates Screen Not Detected Ur Phencyclidine Scrn Not Detected Ur Amphetamines Screen Not Detected U Benzodiazepines Scrn Not Detected Urine Cocaine Screen Not Detected U Marijuana (THC) Screen Not Detected Ethyl Alcohol < 10 Airway Mallampati Class: II TM Dist: >3cm Neck ROM: Full Denture: Upper and Lower Assessment and Plan Assessment Anesthesia Assessment: Anesthesia Plan Discussed and Chart Reviewed Final Anesthetic Review Family History of Problems with Anesthesia: No History of Problems with Anesthesia: No NPO: Yes ASA Class: III Final Preanesthetic Review: No Changes in Pt Med Stat, Meds/Allgs Chart Reviewed, Consent Obtained/Reviewed and Anes Risks/Benef Reviewed Patient Risk: Intermediate Procedure Risk: Low Anesthetic Plan Anesthetic Plan: GA Disposition: Standard PACU
[2024-02-10] MEDS: Haloperidol Lactate 5 MG/ML VIAL 1 MG IVPUSH (14:19)
[2024-02-10] MEDS: OLANZapine 5 MG TABLET PO (15:12)
[2024-02-10] MEDS: lisinopriL 5 MG TABLET PO (15:13)
[2024-02-10] MEDS: Folic Acid 1 MG TABLET PO (15:13)
[2024-02-10] MEDS: Gabapentin 100 MG CAPSULE PO ×2 (15:13→21:04)
[2024-02-10] MEDS: Acetaminophen 325 MG TABLET 650 MG PO (15:13)
[2024-02-10] MEDS: DULoxetine HCl 20 MG CAPSULE.DR PO (15:13)
[2024-02-10] MEDS: Sertraline HCL 100 MG TABLET 200 MG PO (15:13)
[2024-02-10] MEDS: oxyCODONE HCl Immed Release 5 MG TABLET 10 MG PO (15:42)
[2024-02-10] MEDS: traZODone HCL 50 MG TABLET 150 MG PO (21:02)
[2024-02-10] MEDS: cloNIDine HCL 0.1 MG TABLET PO (21:04)
[2024-02-10] MEDS: QUEtiapine Fumarate 50 MG TABLET PO (21:04)
[2024-02-10] MEDS: Triamcinolone Acet 0.5 % Oint 15 GM TUBE 1 APPL TOPICAL (21:05)
--- NOTE | 2024-02-10 23:04 | P.PNPSI_ITS ---
Subjective Subjective Date of Service: 02/10/24 Reason For Visit: SI Subjective Notes: Conditional Voluntary Healthcare Proxy: No Guardianship: No Interim History: Pt feeling less depressed tolerating ect with some VELOZ Attending Groups: Yes Review of Systems Acute medical concerns: No Mental Status Exam Mental Status Exam Patient Appearance: Appropriate Patient Orientation: Person, Place, Time and Situation Level of Consciousness: Alert Patient Behavior: Appropriate, Talkative, Cooperative and Good Eye Contact Mood Description: Anxious and Apprehensive Affect Description: Anxious and Apprehensive Patient Cognition Impaired: No Ability to Follow Directions: Good Speech Pattern: Spontaneous Speech Memory Description: Episodic Impaired Hallucinations: None Delusions: Not Present Thought Process: Intact Thought Content: positive for Intact Depressive Symptoms: Thoughts of /Suicide (denies SI, plan, intent) Judgement: Good Diagnostics Vital Signs (24Hr): Vital Signs - 24 hr 02/10/24 08:00 02/10/24 13:37 02/10/24 13:42 Temperature 98.4 F 97.9 F Pulse Rate 59 79 78 Respiratory Rate 16 16 16 Blood Pressure 106/63 136/72 Pulse Oximetry 96 97 97 Oxygen Delivery Method Room Air Room Air Room Air Oxygen Flow Rate 4 4 02/10/24 13:47 02/10/24 13:52 02/10/24 14:04 Temperature Pulse Rate 75 79 77 Respiratory Rate 16 16 16 Blood Pressure 148/68 H 129/75 122/74 Pulse Oximetry 97 97 95 Oxygen Delivery Method Room Air Room Air Room Air Oxygen Flow Rate 4 02/10/24 14:20 02/10/24 14:35 02/10/24 14:50 Temperature 97.6 F Pulse Rate 68 63 66 Respiratory Rate 16 16 16 Blood Pressure 146/86 H 140/81 H 133/85 Pulse Oximetry 95 94 94 Oxygen Delivery Method Room Air Room Air Room Air Oxygen Flow Rate 02/10/24 20:00 Temperature 97.9 F Pulse Rate 60 Respiratory Rate Blood Pressure 118/67 Pulse Oximetry 95 Oxygen Delivery Method Room Air Oxygen Flow Rate BMI result Body Mass Index 30.9 Labs 01/28/24 17:47 01/28/24 17:47 Medications Medications Current Medications Acetaminophen (Acetaminophen 325 Mg Tablet) 650 mg PO Q6H PRN PRN Reason: Headache/Pain Mild Scale (1-3) Last Admin: 02/10/24 15:13 Dose: 650 mg Al Hydroxide/Mg Hydroxide (Magnesium Hydrox/Alum Hydrox 30 Ml Oral.Susp) 30 ml PO Q6H PRN PRN Reason: Heartburn/Nausea Clonidine HCl (Clonidine Hcl 0.1 Mg Tablet) 0.1 mg PO BEDTIME [facility]; Protocol Last Admin: 02/10/24 21:04 Dose: 0.1 mg Duloxetine HCl (Duloxetine Hcl 20 Mg Capsule.Dr) 20 mg PO DAILY [facility] Last Admin: 02/10/24 15:13 Dose: 20 mg Folic Acid (Folic Acid 1 Mg Tablet) 1 mg PO DAILY [facility] Last Admin: 02/10/24 15:13 Dose: 1 mg Gabapentin (Gabapentin 100 Mg Capsule) 100 mg PO TID [facility] Last Admin: 02/10/24 21:04 Dose: 100 mg Hydroxyzine HCl (Hydroxyzine Hcl 25 Mg Tablet) 25 mg PO Q6H PRN PRN Reason: Anxiety Last Admin: 02/07/24 21:00 Dose: 25 mg Ibuprofen (Ibuprofen 800 Mg Tablet) 800 mg PO Q8H PRN PRN Reason: post ect headache Last Admin: 02/09/24 09:01 Dose: 800 mg Lisinopril (Lisinopril 5 Mg Tablet) 5 mg PO DAILY [facility]; Protocol Last Admin: 02/10/24 15:13 Dose: 5 mg Lorazepam (Lorazepam 1 Mg Tablet) 1 mg PO BID PRN PRN Reason: Anxiety Last Admin: 02/08/24 14:59 Dose: 1 mg Magnesium Hydroxide (Milk Of Magnesia 30 Ml Oral.Susp) 30 ml PO DAILY PRN PRN Reason: Constipation Mirtazapine (Mirtazapine 7.5 Mg Tablet) 7.5 mg PO DAILY PRN PRN Reason: Anxiety Olanzapine (Olanzapine 5 Mg Tablet) 5 mg PO DAILY [facility] Last Admin: 02/10/24 15:12 Dose: 5 mg Quetiapine Fumarate (Quetiapine Fumarate 50 Mg Tablet) 50 mg PO BEDTIME [facility] Last Admin: 02/10/24 21:04 Dose: 50 mg Sertraline HCl (Sertraline Hcl 100 Mg Tablet) 200 mg PO DAILY [facility] Last Admin: 02/10/24 15:13 Dose: 200 mg Trazodone HCl (Trazodone Hcl 50 Mg Tablet) 50 mg PO BEDTIME MRX1 PRN PRN Reason: Insomnia Last Admin: 02/08/24 21:40 Dose: 50 mg Trazodone HCl (Trazodone Hcl 50 Mg Tablet) 150 mg PO BEDTIME [facility] Last Admin: 02/10/24 21:02 Dose: 150 mg Triamcinolone Acetonide (Triamcinolone Acet 0.5 % Oint 15 Gm Tube) 1 appl TOPICAL BID [facility] Last Admin: 02/10/24 21:05 Dose: 1 appl Allergies Allergies Allergy/AdvReac Type Severity Reaction Status Date / Time hydrocodone [Vicodin] Allergy Unknown nausea Verified 01/28/24 17:00 latex [LATEX] Allergy Unknown RASH Verified 01/28/24 17:00 Assessment & Plan Assessment & Plan (1) Depression with suicidal ideation: Status: Acute Code(s): F32.A - Depression, unspecified; R45.851 - Suicidal ideations (2) Generalized anxiety disorder: Status: Acute Code(s): F41.1 - Generalized anxiety disorder Plan Recurrent major depression, Anxiety NOS, Cocaine abuse. 02/08/24: ECT #2 completed. Continue regime, discharge planning. ECT #3 02/10/24. 02/09/24: Continue ECT. 02/09 cont ect was changed to BF Plan: Admit, CV, 15 minute checks Collateral contacts Diagnostics as needed ECT consult Medication review and adjustments Encourage full milieu Patient educated on: substance abuse, ECT and therapeutic strategies Informed Consent: understands Reason for continued inpatient stay Substantial Risk for: harm to self and inability to function Time Spent With Patient Time: Total time managing care of this patient today ____ minutes.
[2024-02-11] MEDS: traZODone HCL 50 MG TABLET PO (00:43)
[2024-02-11 08:00] VITALS: BP 106/62; PULSE 53; RESP 16; TEMP 36.3; O2SAT 96
[2024-02-11] MEDS: lisinopriL 5 MG TABLET PO (09:08)
[2024-02-11] MEDS: Ibuprofen 800 MG TABLET PO (09:09)
[2024-02-11] MEDS: Gabapentin 100 MG CAPSULE PO ×3 (09:09→20:52)
[2024-02-11] MEDS: OLANZapine 5 MG TABLET PO (09:09)
[2024-02-11] MEDS: DULoxetine HCl 20 MG CAPSULE.DR PO (09:09)
[2024-02-11] MEDS: Sertraline HCL 100 MG TABLET 200 MG PO (09:09)
[2024-02-11] MEDS: Folic Acid 1 MG TABLET PO (09:09)
--- NOTE | 2024-02-11 10:23 | P.PNPSI_ITS ---
Subjective Subjective Date of Service: 02/11/24 Reason For Visit: SI Interim History: overall reports things are going well with ECT treatment. Thankful regarding same. Headache post ECT and will order oral Toradol as needed as this was helpful. Much less depressed. Endorses anxiety at times. Sleep okay. No SI. Hopeful. Medication Compliance: Yes Side effects from medications: No Attending Groups: Yes Review of Systems Acute medical concerns: No Review of Systems Review of Systems headache this a.m. Relieved with Toradol. Yes all other systems are reviewed and are negative Constitutional: Reports as per HPI, Denies body ache(s), Denies chills, Denies fever(s) and Denies headache(s) Eyes: Reports as per HPI and Denies blurry vision Reports as per HPI, Denies vertigo, Denies dizziness and Denies headache(s) Cardiovascular: Reports as per HPI, Denies chest pain and Denies dyspnea Respiratory: Reports as per HPI, Denies cough and Denies dyspnea Gastrointestinal: Reports as per HPI, Denies abdominal pain, Denies nausea and Denies vomiting Genitourinary: Reports as per HPI Musculoskeletal: Reports as per HPI and Denies back pain Skin/Breast: Reports as per HPI and Denies rash Reports as per HPI, Denies vertigo, Denies dizziness and Denies headache(s) Psychiatric: Reports as per HPI, Reports anxiety, Reports depression, Denies auditory hallucinations, Reports hopelessness, Reports irritability, Denies visual hallucinations and Reports suicidal ideation Endocrine: Reports as per HPI Hematologic/Lymphatic: Reports as per HPI Allergic/Immunologic: Reports as per HPI Mental Status Exam Mental Status Exam Narrative: Pt is alert and oriented; behavior is cooperative, friendly; dressed in casual attire; mood is described as Not depressed, but anxious; eye contact appropriate; Speech is normal rate, volume and not pressured; thought process is organized and goal directed; Thought content is on tx; denies HI/VH/AH. no SI Diagnostics Vital Signs (24Hr): Vital Signs - 24 hr 02/10/24 13:37 02/10/24 13:42 02/10/24 13:47 Temperature 97.9 F Pulse Rate 79 78 75 Respiratory Rate 16 16 16 Blood Pressure 136/72 148/68 H Pulse Oximetry 97 97 97 Oxygen Delivery Method Room Air Room Air Room Air Oxygen Flow Rate 4 4 4 02/10/24 13:52 02/10/24 14:04 02/10/24 14:20 Temperature Pulse Rate 79 77 68 Respiratory Rate 16 16 16 Blood Pressure 129/75 122/74 146/86 H Pulse Oximetry 97 95 95 Oxygen Delivery Method Room Air Room Air Room Air Oxygen Flow Rate 02/10/24 14:35 02/10/24 14:50 02/10/24 20:00 Temperature 97.6 F 97.9 F Pulse Rate 63 66 60 Respiratory Rate 16 16 Blood Pressure 140/81 H 133/85 118/67 Pulse Oximetry 94 94 95 Oxygen Delivery Method Room Air Room Air Room Air Oxygen Flow Rate 02/11/24 08:00 Temperature 97.3 F Pulse Rate 53 Respiratory Rate 16 Blood Pressure 106/62 Pulse Oximetry 96 Oxygen Delivery Method Room Air Oxygen Flow Rate BMI result Body Mass Index 30.9 Labs 01/28/24 17:47 01/28/24 17:47 Medications Medications Current Medications Acetaminophen (Acetaminophen 325 Mg Tablet) 650 mg PO Q6H PRN PRN Reason: Headache/Pain Mild Scale (1-3) Last Admin: 02/10/24 15:13 Dose: 650 mg Al Hydroxide/Mg Hydroxide (Magnesium Hydrox/Alum Hydrox 30 Ml Oral.Susp) 30 ml PO Q6H PRN PRN Reason: Heartburn/Nausea Clonidine HCl (Clonidine Hcl 0.1 Mg Tablet) 0.1 mg PO BEDTIME [facility]; Protocol Last Admin: 02/10/24 21:04 Dose: 0.1 mg Duloxetine HCl (Duloxetine Hcl 20 Mg Capsule.Dr) 20 mg PO DAILY [facility] Last Admin: 02/11/24 09:09 Dose: 20 mg Folic Acid (Folic Acid 1 Mg Tablet) 1 mg PO DAILY [facility] Last Admin: 02/11/24 09:09 Dose: 1 mg Gabapentin (Gabapentin 100 Mg Capsule) 100 mg PO TID [facility] Last Admin: 02/11/24 09:09 Dose: 100 mg Hydroxyzine HCl (Hydroxyzine Hcl 25 Mg Tablet) 25 mg PO Q6H PRN PRN Reason: Anxiety Last Admin: 02/07/24 21:00 Dose: 25 mg Ibuprofen (Ibuprofen 800 Mg Tablet) 800 mg PO Q8H PRN PRN Reason: post ect headache Last Admin: 02/11/24 09:09 Dose: 800 mg Lisinopril (Lisinopril 5 Mg Tablet) 5 mg PO DAILY [facility]; Protocol Last Admin: 02/11/24 09:08 Dose: 5 mg Lorazepam (Lorazepam 1 Mg Tablet) 1 mg PO BID PRN PRN Reason: Anxiety Last Admin: 02/08/24 14:59 Dose: 1 mg Magnesium Hydroxide (Milk Of Magnesia 30 Ml Oral.Susp) 30 ml PO DAILY PRN PRN Reason: Constipation Mirtazapine (Mirtazapine 7.5 Mg Tablet) 7.5 mg PO DAILY PRN PRN Reason: Anxiety Olanzapine (Olanzapine 5 Mg Tablet) 5 mg PO DAILY [facility] Last Admin: 02/11/24 09:09 Dose: 5 mg Quetiapine Fumarate (Quetiapine Fumarate 50 Mg Tablet) 50 mg PO BEDTIME [facility] Last Admin: 02/10/24 21:04 Dose: 50 mg Sertraline HCl (Sertraline Hcl 100 Mg Tablet) 200 mg PO DAILY [facility] Last Admin: 02/11/24 09:09 Dose: 200 mg Trazodone HCl (Trazodone Hcl 50 Mg Tablet) 50 mg PO BEDTIME MRX1 PRN PRN Reason: Insomnia Last Admin: 02/11/24 00:43 Dose: 50 mg Trazodone HCl (Trazodone Hcl 50 Mg Tablet) 150 mg PO BEDTIME [facility] Last Admin: 02/10/24 21:02 Dose: 150 mg Triamcinolone Acetonide (Triamcinolone Acet 0.5 % Oint 15 Gm Tube) 1 appl TOPICAL BID [facility] Last Admin: 02/11/24 09:10 Dose: Not Given Allergies Allergies Allergy/AdvReac Type Severity Reaction Status Date / Time hydrocodone [Vicodin] Allergy Unknown nausea Verified 01/28/24 17:00 latex [LATEX] Allergy Unknown RASH Verified 01/28/24 17:00 Assessment & Plan Assessment & Plan (1) Depression with suicidal ideation: Status: Acute Code(s): F32.A - Depression, unspecified; R45.851 - Suicidal ideations (2) Generalized anxiety disorder: Status: Acute Code(s): F41.1 - Generalized anxiety disorder Plan Recurrent major depression, Anxiety NOS, Cocaine abuse. 02/08/24: ECT #2 completed. Continue regime, discharge planning. ECT #3 02/10/24. 02/09/24: Continue ECT. 02/11/24: no changes except PO toradol for ECT related headaches Plan: Admit, CV, 15 minute checks Collateral contacts Diagnostics as needed ECT consult Medication review and adjustments Encourage full milieu Reason for continued inpatient stay Substantial Risk for: rapid decompensation Time Spent With Patient Time: Total time managing care of this patient today ____ minutes.
[2024-02-11] MEDS: Ketorolac Tromethamine 10 MG TABLET PO (14:22)
[2024-02-11 19:54] VITALS: BP 118/71; PULSE 64; TEMP 36.7; O2SAT 94
[2024-02-11] MEDS: cloNIDine HCL 0.1 MG TABLET PO (20:52)
[2024-02-11] MEDS: traZODone HCL 50 MG TABLET 150 MG PO (20:52)
[2024-02-11] MEDS: QUEtiapine Fumarate 50 MG TABLET PO (20:52)
[2024-02-12 08:00] VITALS: BP 115/69; PULSE 54; RESP 16; TEMP 36.6; O2SAT 97
[2024-02-12] MEDS: OLANZapine 5 MG TABLET PO (08:47)
[2024-02-12] MEDS: DULoxetine HCl 20 MG CAPSULE.DR PO (08:47)
[2024-02-12] MEDS: Folic Acid 1 MG TABLET PO (08:47)
[2024-02-12] MEDS: Sertraline HCL 100 MG TABLET 200 MG PO (08:47)
[2024-02-12] MEDS: lisinopriL 5 MG TABLET PO (08:47)
[2024-02-12] MEDS: Gabapentin 100 MG CAPSULE PO ×2 (08:47→14:01)
--- NOTE | 2024-02-12 10:31 | HO.PSYCHPN ---
Subjective Subjective Date of Service: 02/12/24 Reason For Visit: SI Medical Problems Affecting Mental Status: No Interim History: No changes. Doing well overall. Thankful ref ECT treatment. toradol helpful for Headache post ECT. Much less depressed. Endorses anxiety at times. Sleep okay. No SI. Hopeful. Medication Compliance: Yes Side effects from medications: No Attending Groups: Yes Review of Systems Acute medical concerns: No Review of Systems Review of Systems Yes all other systems are reviewed and are negative Mental Status Exam Mental Status Exam Narrative: Pt is alert and oriented; behavior is cooperative, friendly; dressed in casual attire; mood is described as Not depressed, but anxious; eye contact appropriate; Speech is normal rate, volume and not pressured; thought process is organized and goal directed; Thought content is on tx; denies HI/VH/AH. no SI Diagnostics Vital Signs (24Hr): Vital Signs - 24 hr 02/11/24 19:54 02/12/24 08:00 Temperature 98.1 F 97.9 F Pulse Rate 64 54 Respiratory Rate 16 Blood Pressure 118/71 115/69 Pulse Oximetry 94 97 Oxygen Delivery Method Room Air Room Air BMI result Body Mass Index 30.9 Labs 01/28/24 17:47 01/28/24 17:47 Medications Medications Current Medications Acetaminophen (Acetaminophen 325 Mg Tablet) 650 mg PO Q6H PRN PRN Reason: Headache/Pain Mild Scale (1-3) Last Admin: 02/10/24 15:13 Dose: 650 mg Al Hydroxide/Mg Hydroxide (Magnesium Hydrox/Alum Hydrox 30 Ml Oral.Susp) 30 ml PO Q6H PRN PRN Reason: Heartburn/Nausea Clonidine HCl (Clonidine Hcl 0.1 Mg Tablet) 0.1 mg PO BEDTIME [facility]; Protocol Last Admin: 02/11/24 20:52 Dose: 0.1 mg Duloxetine HCl (Duloxetine Hcl 20 Mg Capsule.Dr) 20 mg PO DAILY [facility] Last Admin: 02/12/24 08:47 Dose: 20 mg Folic Acid (Folic Acid 1 Mg Tablet) 1 mg PO DAILY [facility] Last Admin: 02/12/24 08:47 Dose: 1 mg Gabapentin (Gabapentin 100 Mg Capsule) 100 mg PO TID [facility] Last Admin: 02/12/24 08:47 Dose: 100 mg Hydroxyzine HCl (Hydroxyzine Hcl 25 Mg Tablet) 25 mg PO Q6H PRN PRN Reason: Anxiety Last Admin: 02/07/24 21:00 Dose: 25 mg Ketorolac Tromethamine (Ketorolac Tromethamine 10 Mg Tablet) 10 mg PO BID PRN PRN Reason: severe headache Stop: 02/16/24 14:08 Last Admin: 02/11/24 14:22 Dose: 10 mg Lisinopril (Lisinopril 5 Mg Tablet) 5 mg PO DAILY [facility]; Protocol Last Admin: 02/12/24 08:47 Dose: 5 mg Lorazepam (Lorazepam 1 Mg Tablet) 1 mg PO BID PRN PRN Reason: Anxiety Last Admin: 02/08/24 14:59 Dose: 1 mg Magnesium Hydroxide (Milk Of Magnesia 30 Ml Oral.Susp) 30 ml PO DAILY PRN PRN Reason: Constipation Mirtazapine (Mirtazapine 7.5 Mg Tablet) 7.5 mg PO DAILY PRN PRN Reason: Anxiety Olanzapine (Olanzapine 5 Mg Tablet) 5 mg PO DAILY [facility] Last Admin: 02/12/24 08:47 Dose: 5 mg Quetiapine Fumarate (Quetiapine Fumarate 50 Mg Tablet) 50 mg PO BEDTIME [facility] Last Admin: 02/11/24 20:52 Dose: 50 mg Sertraline HCl (Sertraline Hcl 100 Mg Tablet) 200 mg PO DAILY [facility] Last Admin: 02/12/24 08:47 Dose: 200 mg Trazodone HCl (Trazodone Hcl 50 Mg Tablet) 50 mg PO BEDTIME MRX1 PRN PRN Reason: Insomnia Last Admin: 02/11/24 00:43 Dose: 50 mg Trazodone HCl (Trazodone Hcl 50 Mg Tablet) 150 mg PO BEDTIME [facility] Last Admin: 02/11/24 20:52 Dose: 150 mg Triamcinolone Acetonide (Triamcinolone Acet 0.5 % Oint 15 Gm Tube) 1 appl TOPICAL BID [facility] Last Admin: 02/12/24 08:48 Dose: Not Given Allergies Allergies Allergy/AdvReac Type Severity Reaction Status Date / Time hydrocodone [Vicodin] Allergy Unknown nausea Verified 01/28/24 17:00 latex [LATEX] Allergy Unknown RASH Verified 01/28/24 17:00 Assessment & Plan Assessment & Plan (1) Depression with suicidal ideation: Status: Acute Code(s): F32.A - Depression, unspecified; R45.851 - Suicidal ideations (2) Generalized anxiety disorder: Status: Acute Code(s): F41.1 - Generalized anxiety disorder Plan Recurrent major depression, Anxiety NOS, Cocaine abuse. 02/08/24: ECT #2 completed. Continue regime, discharge planning. ECT #3 02/10/24. 02/09/24: Continue ECT. 02/11/24: no changes except PO toradol for ECT related headaches 02/11: no changes Plan: Admit, CV, 15 minute checks Collateral contacts Diagnostics as needed ECT consult Medication review and adjustments Encourage full milieu Reason for continued inpatient stay Substantial Risk for: rapid decompensation Time Spent With Patient Time: Total time managing care of this patient today ____ minutes.
[2024-02-12] MEDS: Docusate Sodium 100 MG CAPSULE PO ×2 (14:01→20:19)
[2024-02-12] MEDS: Sennosides/Docusate Sodium TABLET 2 TAB PO ×2 (14:01→20:19)
[2024-02-12 20:00] VITALS: BP 153/79; PULSE 58; RESP 14; TEMP 36.3; O2SAT 99
[2024-02-12] MEDS: traZODone HCL 50 MG TABLET 150 MG PO (20:18)
[2024-02-12] MEDS: QUEtiapine Fumarate 50 MG TABLET PO (20:18)
[2024-02-12] MEDS: cloNIDine HCL 0.1 MG TABLET PO (20:19)
[2024-02-13] VITALS (10 sets, daily range): BP systolic 123–184; BP diastolic 62–105; PULSE 57–85; RESP 13–16; TEMP 2.6–36.7; O2SAT 93–96
--- NOTE | 2024-02-13 06:55 | MHC.SHP ---
Pre-Procedural Eval Section A - 24 Hr Update-Section A only Date of Service: 02/13/24 The patient is an INPATIENT: No Changes since office visit: Yes Cold of Flu in the past 2 weeks, Yes New Medical Problems, Yes Changes in Medication and Yes Patient answered all questions The patient has been examined within 24 hours of the surgical procedure. The History & Physical has been completed within 30 days and I have reviewed it.: No Section B - Complete if H&P > 30 days Chief Complaint: SI Allergies: Allergies Allergy/AdvReac Type Severity Reaction Status Date / Time hydrocodone [Vicodin] Allergy Unknown nausea Verified 01/28/24 17:00 latex [LATEX] Allergy Unknown RASH Verified 01/28/24 17:00 Plan I have reviewed the history and physical and performed a pertinent physical examination on my patient. No changes have occurred unless specified. Time Spent With Patient Time: Total time managing care of this patient today ____ minutes.
--- NOTE | 2024-02-13 06:56 | HO.ANESPROP2 ---
[facility] Active Problems Active Problems: All Active Problems Pre-op evaluation (Acute) Depression with suicidal ideation (Acute) Loose stools (Acute) Tubular adenoma of colon (Acute) Folic acid deficiency (Acute) Restless leg syndrome (Acute) Eczema (Acute) Rectal incontinence (Acute) Overweight (BMI 25.0-29.9) (Acute) Generalized anxiety disorder (Acute) Depression, major, severe recurrence (Acute) Loss of appetite (Acute) Tenosynovitis of thumb (Acute) Lumbar spondylosis (Acute) Esophageal dysphagia (Acute) Peptic ulcer disease (Acute) Sacroiliac joint pain (Acute) Lumbar radiculopathy (Acute) Trochanteric bursitis of both hips (Acute) GERD (gastroesophageal reflux disease) (Acute) Hypercholesterolemia (Acute) Past Medical History Medical History Impaired fasting blood sugar Renal calculus Nasal septal perforation Vitamin B12 deficiency COVID-19 virus infection Adrenal adenoma Upper back pain Recurrent major depression Muscle spasm Family history of colon cancer Right hip pain Hospital discharge follow-up Colon cancer screening Depression, major, severe recurrence Low Back Pain Right-sided back pain Dermatitis Upper back pain Low Back Pain Generalized anxiety disorder Epistaxis Flank pain Annual physical exam Adrenal adenoma Polysubstance abuse Peptic ulcer disease Insomnia 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 Restless leg syndrome Anxiety and depression Vitamin D deficiency Erectile dysfunction GERD (gastroesophageal reflux disease) Hypercholesterolemia Chronic left shoulder pain Functional capacity: independent ambulation Family History Family History Father Myocardial infarct Colon cancer Mother Lung cancer Depression Brother Substance abuse Family history of problems with anesthesia: No Surgical History Surgical History H/O total adrenalectomy History of kidney surgery H/O arthroscopic knee surgery H/O oral surgery History of tonsillectomy History of nasal surgery History of Problems with Anesthesia: No Social History Social History Household Members: Other Household Members Other:: Rents a room out of a house with 3 other people Housing: House Do you presently have visiting nurse or other home services: No Alcohol intake: current Alcohol intake frequency: does not drink Patient Tobacco Use Status: Never used Tobacco e-Cigarette/Vaping Use: Never Used Second Hand Smoke Exposure: No Substance Use Type: Crack/Cocaine service: No Current occupational status: employed Current occupation: [employer] Sexual orientation: Straight/Heterosexual Cognitive needs: No Hearing needs: No Vision needs: Yes (glasses) Meds Allergies Allergy/AdvReac Type Severity Reaction Status Date / Time hydrocodone [Vicodin] Allergy Unknown nausea Verified 01/28/24 17:00 latex [LATEX] Allergy Unknown RASH Verified 01/28/24 17:00 Active Medications: Current Medications Acetaminophen (Acetaminophen 325 Mg Tablet) 650 mg PO Q6H PRN PRN Reason: Headache/Pain Mild Scale (1-3) Last Admin: 02/10/24 15:13 Dose: 650 mg Al Hydroxide/Mg Hydroxide (Magnesium Hydrox/Alum Hydrox 30 Ml Oral.Susp) 30 ml PO Q6H PRN PRN Reason: Heartburn/Nausea Clonidine HCl (Clonidine Hcl 0.1 Mg Tablet) 0.1 mg PO BEDTIME [facility]; Protocol Last Admin: 02/12/24 20:19 Dose: 0.1 mg Docusate Sodium (Docusate Sodium 100 Mg Capsule) 100 mg PO TID [facility] Last Admin: 02/12/24 20:19 Dose: 100 mg Duloxetine HCl (Duloxetine Hcl 20 Mg Capsule.Dr) 20 mg PO DAILY [facility] Last Admin: 02/12/24 08:47 Dose: 20 mg Folic Acid (Folic Acid 1 Mg Tablet) 1 mg PO DAILY [facility] Last Admin: 02/12/24 08:47 Dose: 1 mg Gabapentin (Gabapentin 100 Mg Capsule) 100 mg PO TID [facility] Last Admin: 02/12/24 21:06 Dose: Not Given Hydroxyzine HCl (Hydroxyzine Hcl 25 Mg Tablet) 25 mg PO Q6H PRN PRN Reason: Anxiety Last Admin: 02/07/24 21:00 Dose: 25 mg Lactated Ringer's (Lr) 1,000 mls @ 50 mls/hr IVCONT .Q20H [facility] Ketorolac Tromethamine (Ketorolac Tromethamine 10 Mg Tablet) 10 mg PO BID PRN PRN Reason: severe headache Stop: 02/16/24 14:08 Last Admin: 02/11/24 14:22 Dose: 10 mg Lisinopril (Lisinopril 5 Mg Tablet) 5 mg PO DAILY [facility]; Protocol Last Admin: 02/12/24 08:47 Dose: 5 mg Lorazepam (Lorazepam 1 Mg Tablet) 1 mg PO BID PRN PRN Reason: Anxiety Last Admin: 02/08/24 14:59 Dose: 1 mg Magnesium Hydroxide (Milk Of Magnesia 30 Ml Oral.Susp) 30 ml PO DAILY PRN PRN Reason: Constipation Mirtazapine (Mirtazapine 7.5 Mg Tablet) 7.5 mg PO DAILY PRN PRN Reason: Anxiety Olanzapine (Olanzapine 5 Mg Tablet) 5 mg PO DAILY [facility] Last Admin: 02/12/24 08:47 Dose: 5 mg Quetiapine Fumarate (Quetiapine Fumarate 50 Mg Tablet) 50 mg PO BEDTIME [facility] Last Admin: 02/12/24 20:18 Dose: 50 mg Senna/Docusate Sodium (Sennosides/Docusate Sodium Tablet) 2 tab PO BEDTIME [facility] Last Admin: 02/12/24 20:19 Dose: 2 tab Sertraline HCl (Sertraline Hcl 100 Mg Tablet) 200 mg PO DAILY [facility] Last Admin: 02/12/24 08:47 Dose: 200 mg Trazodone HCl (Trazodone Hcl 50 Mg Tablet) 50 mg PO BEDTIME MRX1 PRN PRN Reason: Insomnia Last Admin: 02/11/24 00:43 Dose: 50 mg Trazodone HCl (Trazodone Hcl 50 Mg Tablet) 150 mg PO BEDTIME [facility] Last Admin: 02/12/24 20:18 Dose: 150 mg Triamcinolone Acetonide (Triamcinolone Acet 0.5 % Oint 15 Gm Tube) 1 appl TOPICAL BID [facility] Last Admin: 02/12/24 21:07 Dose: Not Given Home Medications ?Medication ?Instructions ?Recorded ?Confirmed ?Last Taken ?Type olanzapine 5 mg tablet 5 mg PO .morning 01/14/23 01/28/24 01/28/24 History lorazepam 1 mg tablet 1 mg PO BID PRN Anxiety 01/28/24 01/28/24 01/28/24 History mirtazapine 7.5 mg tablet 7.5 mg PO DAILY PRN Anxiety 01/28/24 01/28/24 01/28/24 History sertraline 100 mg tablet 200 mg PO DAILY 01/28/24 01/28/24 01/28/24 History Exam Height,Weight and Vital Signs: Height 5 ft 5 in Weight 84.2 kg Last Vital Signs Temp 97.3 F 02/13/24 06:45 Pulse 59 02/13/24 06:45 Resp 16 02/13/24 06:45 BP 131/78 02/13/24 06:45 Pulse Ox 95 02/13/24 06:45 O2 Del Method Room Air 02/13/24 06:45 O2 Flow Rate 4 02/10/24 13:47 Pertinent Lab Results Pertinent Lab Results: Laboratory Tests 01/28/24 01/28/24 01/31/24 17:19 17:47 09:17 WBC 5.4 RBC 4.80 Hgb 14.7 Hct 43.0 MCV 89.6 MCH 30.6 MCHC 34.2 RDW 12.3 Plt Count 241 MPV 9.3 L Immature Gran % (Auto) 0.4 Neut % (Auto) 66.1 Lymph % (Auto) 19.0 L [place] % (Auto) 8.4 Eos % (Auto) 5.4 H Baso % (Auto) 0.7 Lymph # (Auto) 1.0 L [place] # (Auto) 0.5 Eos # (Auto) 0.3 Baso # (Auto) 0.0 Abs Immat Gran (auto) 0.02 Absolute Neuts (auto) 3.5 Absolute Nucleated RBC 0.000 Nucleated RBC % (auto) 0.0 Sodium 138 Potassium 4.0 Chloride 107 Carbon Dioxide 23 Anion Gap 12 BUN 14 Creatinine 0.96 Estim Creat Clear Calc 82.8 Estimated GFR > 60 Random Glucose 102 Estimat Average Glucose 105 Hemoglobin A1c % 5.3 Calcium 9.0 Magnesium 1.9 Total Bilirubin 0.3 AST 27 ALT 31 Alkaline Phosphatase 56 Total Protein 7.1 Albumin 4.4 Triglycerides 254 H Cholesterol 240 H LDL Cholesterol, Calc 150 H HDL Cholesterol 40 L Lipase 34 Vitamin B12 405 Folate 16.3 TSH 1.68 Free T4 1.03 Urine Color Yellow Urine Appearance Clear Urine pH 7.0 Ur Specific [place] 1.020 Urine Protein Negative Urine Glucose (UA) Negative Urine Ketones Negative Urine Blood Negative Urine Nitrite Negative Ur Leukocyte Esterase Negative Salicylates < 5.0 L Urine Opiates Screen Not Detected Ur Buprenorphine Scrn Not Detected Ur Oxycodone Screen Not Detected Urine Methadone Screen Not Detected Urine Fentanyl Screen Not Detected Acetaminophen < 3 Ur Barbiturates Screen Not Detected Ur Phencyclidine Scrn Not Detected Ur Amphetamines Screen Not Detected U Benzodiazepines Scrn Not Detected Urine Cocaine Screen Not Detected U Marijuana (THC) Screen Not Detected Ethyl Alcohol < 10 Airway Mallampati Class: II TM Dist: >3cm Neck ROM: Full Denture: Upper and Lower Heart: rrr Lungs: cta Assessment and Plan Assessment Anesthesia Assessment: Anesthesia Plan Discussed and Chart Reviewed Final Anesthetic Review Family History of Problems with Anesthesia: No History of Problems with Anesthesia: No NPO: Yes ASA Class: III Final Preanesthetic Review: No Changes in Pt Med Stat, Meds/Allgs Chart Reviewed and Consent Obtained/Reviewed Patient Risk: Intermediate Procedure Risk: Intermediate Anesthetic Plan Anesthetic Plan: GA Disposition: Standard PACU
[2024-02-13] MEDS: Lactated Ringers 1,000 ML 50 ML IVCONT (07:04)
--- NOTE | 2024-02-13 07:36 | P.PCN_ITS ---
ECT Procedure Note Diagnosis/Treatment Date of Service: 02/13/24 Diagnosis: Major Depressive Disorder Previous ECT Date: 02/10/24 Current Treatment Number: 4 Treatment: Series Interval Clinical Notes: The patient reported improvement of dysphoria, he complained of headaches after the last ECT. As per report of Dr. Nair, we could lower the stimuli to 85%. ECT done with a lower stimuli, 0.25 at 85%, he had a motor seizure of 38s but the computer of the EEG didn't registered seizure activity even though that there was seizure activity up to 49s. Seizure resolved by itself, no complic ations, woke up well. Time: Total time managing care of this patient today ____ minutes. ECT Settings Device: THYMATRON DGx Electrode Placement: Bifrontal Program/Pulse Width: 0.25 Energy Percent: 85 Seizure Duration By EEG (in seconds): 0 (but there was seizure activity on the EEG up to 49s) By Motor Observation (in seconds): 38 Medications Administration General Anesthetic: Etomidate (14) Muscle Relaxant: Succinylcholine (100) Ancillary Medications Analgesics: Torodol - Pre ECT Anti-emetics: Zofran - Pre ECT Miscillaneous Medications: Propofol (30 mg post ECT) Airway Management Airway Management: Bag Mask Ventilation Treatment Recommendations No Changes Recommended: No change Pt Tolerated Procedure w/o Issue: Yes
[2024-02-13] MEDS: DULoxetine HCl 20 MG CAPSULE.DR PO (08:43)
[2024-02-13] MEDS: Docusate Sodium 100 MG CAPSULE PO ×3 (08:43→20:40)
[2024-02-13] MEDS: OLANZapine 5 MG TABLET PO (08:43)
[2024-02-13] MEDS: Folic Acid 1 MG TABLET PO (08:43)
[2024-02-13] MEDS: lisinopriL 5 MG TABLET PO (08:43)
[2024-02-13] MEDS: Gabapentin 100 MG CAPSULE PO ×3 (08:43→20:40)
[2024-02-13] MEDS: Sertraline HCL 100 MG TABLET 200 MG PO (08:43)
--- NOTE | 2024-02-13 09:49 | P.PNPSI_ITS ---
Subjective Subjective Date of Service: 02/13/24 Reason For Visit: SI Subjective Notes: Conditional Voluntary Healthcare Proxy: No Guardianship: No Medical Problems Affecting Mental Status: No Interim History: ECT #4 completed. Post ECT headache pt reported later in the day. Oxycontin x 1 given. Pt feeling anxious today-trying to think about arranging rides for OP ECT, anxious about needing to pay his rent and bills. Pleased with his treatment and outcome, attending some groups. Discussed FMLA and returning to work. Planning DC for the end of the week. Medication Compliance: Yes Side effects from medications: No Attending Groups: Yes Review of Systems Acute medical concerns: No Review of Systems Review of Systems Yes all other systems are reviewed and are negative Mental Status Exam Mental Status Exam Patient Appearance: Appropriate Patient Orientation: Person, Place, Time and Situation Level of Consciousness: Alert Patient Behavior: Appropriate, Talkative, Cooperative and Good Eye Contact Mood Description: Anxious and Apprehensive Affect Description: Anxious and Apprehensive Patient Cognition Impaired: No Ability to Follow Directions: Good Speech Pattern: Spontaneous Speech Memory Description: Episodic Impaired Hallucinations: None Delusions: Not Present Thought Process: Intact Thought Content: positive for Intact Depressive Symptoms: Thoughts of /Suicide (denies SI, plan, intent) Judgement: Good Diagnostics Vital Signs (24Hr): Vital Signs - 24 hr 02/12/24 20:00 02/13/24 06:15 02/13/24 06:45 Temperature 97.3 F 36.7 F L 97.3 F Pulse Rate 58 60 59 Respiratory Rate 14 15 16 Blood Pressure 153/79 H 123/80 131/78 Pulse Oximetry 99 96 95 Oxygen Delivery Method Room Air Oxygen Flow Rate 02/13/24 07:48 02/13/24 07:53 02/13/24 07:58 Temperature 97.5 F Pulse Rate 57 85 82 Respiratory Rate 13 16 16 Blood Pressure 184/95 H 175/105 H 156/75 H Pulse Oximetry 93 93 96 Oxygen Delivery Method Nasal Cannula with ETCO2 Nasal Cannula with ETCO2 Nasal Cannula with ETCO2 Oxygen Flow Rate 4 4 4 02/13/24 08:03 02/13/24 08:18 02/13/24 08:42 Temperature 97.5 F 97.8 F Pulse Rate 74 76 64 Respiratory Rate 14 16 16 Blood Pressure 160/77 H 137/79 124/62 Pulse Oximetry 95 95 95 Oxygen Delivery Method Room Air Room Air Oxygen Flow Rate BMI result Body Mass Index 30.9 Labs 01/28/24 17:47 01/28/24 17:47 Medications Medications Current Medications Acetaminophen (Acetaminophen 325 Mg Tablet) 650 mg PO Q6H PRN PRN Reason: Headache/Pain Mild Scale (1-3) Last Admin: 02/10/24 15:13 Dose: 650 mg Al Hydroxide/Mg Hydroxide (Magnesium Hydrox/Alum Hydrox 30 Ml Oral.Susp) 30 ml PO Q6H PRN PRN Reason: Heartburn/Nausea Clonidine HCl (Clonidine Hcl 0.1 Mg Tablet) 0.1 mg PO BEDTIME [facility]; Protocol Last Admin: 02/12/24 20:19 Dose: 0.1 mg Docusate Sodium (Docusate Sodium 100 Mg Capsule) 100 mg PO TID [facility] Last Admin: 02/13/24 08:43 Dose: 100 mg Duloxetine HCl (Duloxetine Hcl 20 Mg Capsule.Dr) 20 mg PO DAILY [facility] Last Admin: 02/13/24 08:43 Dose: 20 mg Folic Acid (Folic Acid 1 Mg Tablet) 1 mg PO DAILY [facility] Last Admin: 02/13/24 08:43 Dose: 1 mg Gabapentin (Gabapentin 100 Mg Capsule) 100 mg PO TID [facility] Last Admin: 02/13/24 08:43 Dose: 100 mg Haloperidol Lactate (Haloperidol Lactate 5 Mg/Ml Vial) 1 mg IVPUSH ONCE PRN PRN Reason: Nausea and Vomiting Hydroxyzine HCl (Hydroxyzine Hcl 25 Mg Tablet) 25 mg PO Q6H PRN PRN Reason: Anxiety Last Admin: 02/07/24 21:00 Dose: 25 mg Ketorolac Tromethamine (Ketorolac Tromethamine 10 Mg Tablet) 10 mg PO BID PRN PRN Reason: severe headache Stop: 02/16/24 14:08 Last Admin: 02/11/24 14:22 Dose: 10 mg Lisinopril (Lisinopril 5 Mg Tablet) 5 mg PO DAILY [facility]; Protocol Last Admin: 02/13/24 08:43 Dose: 5 mg Lorazepam (Lorazepam 1 Mg Tablet) 1 mg PO BID PRN PRN Reason: Anxiety Last Admin: 02/08/24 14:59 Dose: 1 mg Magnesium Hydroxide (Milk Of Magnesia 30 Ml Oral.Susp) 30 ml PO DAILY PRN PRN Reason: Constipation Mirtazapine (Mirtazapine 7.5 Mg Tablet) 7.5 mg PO DAILY PRN PRN Reason: Anxiety Olanzapine (Olanzapine 5 Mg Tablet) 5 mg PO DAILY [facility] Last Admin: 02/13/24 08:43 Dose: 5 mg Quetiapine Fumarate (Quetiapine Fumarate 50 Mg Tablet) 50 mg PO BEDTIME [facility] Last Admin: 02/12/24 20:18 Dose: 50 mg Senna/Docusate Sodium (Sennosides/Docusate Sodium Tablet) 2 tab PO BEDTIME [facility] Last Admin: 02/12/24 20:19 Dose: 2 tab Sertraline HCl (Sertraline Hcl 100 Mg Tablet) 200 mg PO DAILY [facility] Last Admin: 02/13/24 08:43 Dose: 200 mg Trazodone HCl (Trazodone Hcl 50 Mg Tablet) 50 mg PO BEDTIME [facility] PRN PRN Reason: Insomnia Last Admin: 02/11/24 00:43 Dose: 50 mg Trazodone HCl (Trazodone Hcl 50 Mg Tablet) 150 mg PO BEDTIME [facility] Last Admin: 02/12/24 20:18 Dose: 150 mg Triamcinolone Acetonide (Triamcinolone Acet 0.5 % Oint 15 Gm Tube) 1 appl TOPICAL BID [facility] Last Admin: 02/13/24 08:47 Dose: Not Given Allergies Allergies Allergy/AdvReac Type Severity Reaction Status Date / Time hydrocodone [Vicodin] Allergy Unknown nausea Verified 01/28/24 17:00 latex [LATEX] Allergy Unknown RASH Verified 01/28/24 17:00 Assessment & Plan Assessment & Plan (1) Depression with suicidal ideation: Status: Acute Code(s): F32.A - Depression, unspecified; R45.851 - Suicidal ideations (2) Generalized anxiety disorder: Status: Acute Code(s): F41.1 - Generalized anxiety disorder Plan Recurrent major depression, Anxiety NOS, Cocaine abuse. 02/08/24: ECT #2 completed. Continue regime, discharge planning. ECT #3 02/10/24. 02/09/24: Continue ECT. 02/11/24: no changes except PO toradol for ECT related headaches 02/11: no changes 02/12: Continue ECT Discharge at the end of the week. Plan: Admit, CV, 15 minute checks Collateral contacts Diagnostics as needed ECT consult Medication review and adjustments Encourage full milieu Reason for continued inpatient stay Substantial Risk for: rapid decompensation Time Spent With Patient Time: Total time managing care of this patient today ____ minutes.
[2024-02-13] MEDS: Acetaminophen 325 MG TABLET 650 MG PO ×2 (13:33→20:39)
[2024-02-13] MEDS: oxyCODONE HCl Immed Release 5 MG TABLET PO (13:54)
[2024-02-13] MEDS: cloNIDine HCL 0.1 MG TABLET PO (20:39)
[2024-02-13] MEDS: Sennosides/Docusate Sodium TABLET 2 TAB PO (20:40)
[2024-02-13] MEDS: traZODone HCL 50 MG TABLET 150 MG PO (20:42)
[2024-02-14] MEDS: traZODone HCL 50 MG TABLET PO (01:49)
[2024-02-14 08:00] VITALS: BP 147/70; PULSE 56; RESP 16; TEMP 36.2; O2SAT 96
[2024-02-14] MEDS: OLANZapine 5 MG TABLET PO (08:32)
[2024-02-14] MEDS: lisinopriL 5 MG TABLET PO (08:32)
[2024-02-14] MEDS: Folic Acid 1 MG TABLET PO (08:32)
[2024-02-14] MEDS: DULoxetine HCl 20 MG CAPSULE.DR PO (08:32)
[2024-02-14] MEDS: Gabapentin 100 MG CAPSULE PO ×2 (08:32→15:22)
[2024-02-14] MEDS: Sertraline HCL 100 MG TABLET 200 MG PO (08:32)
[2024-02-14] MEDS: Docusate Sodium 100 MG CAPSULE PO ×3 (08:32→22:11)
--- NOTE | 2024-02-14 17:08 | HO.PSYCHPN ---
Subjective Subjective Date of Service: 02/14/24 Reason For Visit: SI Subjective Notes: Conditional Voluntary Healthcare Proxy: No Guardianship: No Medical Problems Affecting Mental Status: No Interim History: Reports feeling well. Denies SI/HI/AH/VH. No sx of acute lisa or psychosis. Reports depressive sx are well managed at this time. Discussed discharge for 02/17. Pt would like to return to work on 02/19 Discussion of meds, FMLA, out pt ECT. Pt organizing himself to return home Medication Compliance: Yes Side effects from medications: No Attending Groups: Intermittent Review of Systems Acute medical concerns: No Review of Systems Review of Systems Post ECT headache Mental Status Exam Mental Status Exam Patient Appearance: Appropriate Patient Orientation: Person, Place, Time and Situation Level of Consciousness: Alert Patient Behavior: Appropriate, Talkative, Cooperative and Good Eye Contact Mood Description: Anxious and Apprehensive Affect Description: Anxious and Apprehensive Patient Cognition Impaired: No Ability to Follow Directions: Good Speech Pattern: Spontaneous Speech Memory Description: Episodic Impaired Hallucinations: None Delusions: Not Present Thought Process: Intact Thought Content: positive for Intact Depressive Symptoms: Thoughts of /Suicide (denies SI, plan, intent) Judgement: Good Diagnostics Vital Signs (24Hr): Vital Signs - 24 hr 02/13/24 20:00 02/13/24 20:39 02/14/24 08:00 Temperature 97.3 F 97.2 F Pulse Rate 60 56 Respiratory Rate 16 Blood Pressure 142/79 H 142/79 H 147/70 H Pulse Oximetry 96 96 Oxygen Delivery Method Room Air Room Air BMI result Body Mass Index 30.9 Labs 01/28/24 17:47 01/28/24 17:47 Medications Medications Current Medications Acetaminophen (Acetaminophen 325 Mg Tablet) 650 mg PO Q6H PRN PRN Reason: Headache/Pain Mild Scale (1-3) Last Admin: 02/13/24 20:39 Dose: 650 mg Al Hydroxide/Mg Hydroxide (Magnesium Hydrox/Alum Hydrox 30 Ml Oral.Susp) 30 ml PO Q6H PRN PRN Reason: Heartburn/Nausea Clonidine HCl (Clonidine Hcl 0.1 Mg Tablet) 0.1 mg PO BEDTIME [facility]; Protocol Last Admin: 02/13/24 20:39 Dose: 0.1 mg Docusate Sodium (Docusate Sodium 100 Mg Capsule) 100 mg PO TID [facility] Last Admin: 02/14/24 15:22 Dose: 100 mg Duloxetine HCl (Duloxetine Hcl 20 Mg Capsule.Dr) 20 mg PO DAILY [facility] Last Admin: 02/14/24 08:32 Dose: 20 mg Folic Acid (Folic Acid 1 Mg Tablet) 1 mg PO DAILY [facility] Last Admin: 02/14/24 08:32 Dose: 1 mg Gabapentin (Gabapentin 100 Mg Capsule) 100 mg PO TID [facility] Last Admin: 02/14/24 15:22 Dose: 100 mg Haloperidol Lactate (Haloperidol Lactate 5 Mg/Ml Vial) 1 mg IVPUSH ONCE PRN PRN Reason: Nausea and Vomiting Hydroxyzine HCl (Hydroxyzine Hcl 25 Mg Tablet) 25 mg PO Q6H PRN PRN Reason: Anxiety Last Admin: 02/07/24 21:00 Dose: 25 mg Ketorolac Tromethamine (Ketorolac Tromethamine 10 Mg Tablet) 10 mg PO BID PRN PRN Reason: severe headache Stop: 02/16/24 14:08 Last Admin: 02/11/24 14:22 Dose: 10 mg Lisinopril (Lisinopril 5 Mg Tablet) 5 mg PO DAILY [facility]; Protocol Last Admin: 02/14/24 08:32 Dose: 5 mg Lorazepam (Lorazepam 1 Mg Tablet) 1 mg PO BID PRN PRN Reason: Anxiety Last Admin: 02/08/24 14:59 Dose: 1 mg Magnesium Hydroxide (Milk Of Magnesia 30 Ml Oral.Susp) 30 ml PO DAILY PRN PRN Reason: Constipation Mirtazapine (Mirtazapine 7.5 Mg Tablet) 7.5 mg PO DAILY PRN PRN Reason: Anxiety Olanzapine (Olanzapine 5 Mg Tablet) 5 mg PO DAILY [facility] Last Admin: 02/14/24 08:32 Dose: 5 mg Senna/Docusate Sodium (Sennosides/Docusate Sodium Tablet) 2 tab PO BEDTIME [facility] Last Admin: 02/13/24 20:40 Dose: 2 tab Sertraline HCl (Sertraline Hcl 100 Mg Tablet) 200 mg PO DAILY [facility] Last Admin: 02/14/24 08:32 Dose: 200 mg Trazodone HCl (Trazodone Hcl 50 Mg Tablet) 50 mg PO BEDTIME [facility]X1 PRN PRN Reason: Insomnia Last Admin: 02/14/24 01:49 Dose: 50 mg Trazodone HCl (Trazodone Hcl 50 Mg Tablet) 150 mg PO BEDTIME [facility] Last Admin: 02/13/24 20:42 Dose: 150 mg Triamcinolone Acetonide (Triamcinolone Acet 0.5 % Oint 15 Gm Tube) 1 appl TOPICAL BID [facility] Last Admin: 02/14/24 08:32 Dose: Not Given Allergies Allergies Allergy/AdvReac Type Severity Reaction Status Date / Time hydrocodone [Vicodin] Allergy Unknown nausea Verified 01/28/24 17:00 latex [LATEX] Allergy Unknown RASH Verified 01/28/24 17:00 Assessment & Plan Assessment & Plan (1) Depression with suicidal ideation: Status: Acute Code(s): F32.A - Depression, unspecified; R45.851 - Suicidal ideations (2) Generalized anxiety disorder: Status: Acute Code(s): F41.1 - Generalized anxiety disorder Plan Recurrent major depression, Anxiety NOS, Cocaine abuse. 02/08/24: ECT #2 completed. Continue regime, discharge planning. ECT #3 02/10/24. 02/09/24: Continue ECT. 02/11/24: no changes except PO toradol for ECT related headaches 02/11: no changes 02/12: Continue ECT Discharge at the end of the week. 02/13: Continue current regime and plan. Plan: Admit, CV, 15 minute checks Collateral contacts Diagnostics as needed ECT consult Medication review and adjustments Encourage full milieu Reason for continued inpatient stay Substantial Risk for: rapid decompensation Time Spent With Patient Time: Total time managing care of this patient today ____ minutes.
[2024-02-14 20:00] VITALS: BP 153/86; PULSE 60; O2SAT 96
[2024-02-14 22:11] VITALS: BP 153/86
[2024-02-14] MEDS: Sennosides/Docusate Sodium TABLET 2 TAB PO (22:11)
[2024-02-14] MEDS: cloNIDine HCL 0.1 MG TABLET PO (22:11)
[2024-02-14] MEDS: traZODone HCL 50 MG TABLET 150 MG PO (22:12)
[2024-02-15] VITALS (10 sets, daily range): BP systolic 111–173; BP diastolic 70–99; PULSE 58–96; RESP 15–18; TEMP 36.1–36.9; O2SAT 93–97; BMI 31.6
--- NOTE | 2024-02-15 13:36 | P.CONAN_ITS ---
[facility] Active Problems Active Problems: All Active Problems Pre-op evaluation (Acute) Depression with suicidal ideation (Acute) Loose stools (Acute) Tubular adenoma of colon (Acute) Folic acid deficiency (Acute) Restless leg syndrome (Acute) Eczema (Acute) Rectal incontinence (Acute) Overweight (BMI 25.0-29.9) (Acute) Generalized anxiety disorder (Acute) Depression, major, severe recurrence (Acute) Loss of appetite (Acute) Tenosynovitis of thumb (Acute) Lumbar spondylosis (Acute) Esophageal dysphagia (Acute) Peptic ulcer disease (Acute) Sacroiliac joint pain (Acute) Lumbar radiculopathy (Acute) Trochanteric bursitis of both hips (Acute) GERD (gastroesophageal reflux disease) (Acute) Hypercholesterolemia (Acute) Past Medical History Medical History Impaired fasting blood sugar Renal calculus Nasal septal perforation Vitamin B12 deficiency COVID-19 virus infection Adrenal adenoma Upper back pain Recurrent major depression Muscle spasm Family history of colon cancer Right hip pain Hospital discharge follow-up Colon cancer screening Depression, major, severe recurrence Low Back Pain Right-sided back pain Dermatitis Upper back pain Low Back Pain Generalized anxiety disorder Epistaxis Flank pain Annual physical exam Adrenal adenoma Polysubstance abuse Peptic ulcer disease Insomnia 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 Restless leg syndrome Anxiety and depression Vitamin D deficiency Erectile dysfunction GERD (gastroesophageal reflux disease) Hypercholesterolemia Chronic left shoulder pain Functional capacity: independent ambulation Family History Family History Father Myocardial infarct Colon cancer Mother Lung cancer Depression Brother Substance abuse Family history of problems with anesthesia: No Surgical History Surgical History H/O total adrenalectomy History of kidney surgery H/O arthroscopic knee surgery H/O oral surgery History of tonsillectomy History of nasal surgery History of Problems with Anesthesia: No Social History Social History Household Members: Other Household Members Other:: Rents a room out of a house with 3 other people Housing: House Do you presently have visiting nurse or other home services: No Alcohol intake: current Alcohol intake frequency: does not drink Patient Tobacco Use Status: Never used Tobacco e-Cigarette/Vaping Use: Never Used Second Hand Smoke Exposure: No Substance Use Type: Crack/Cocaine service: No Current occupational status: employed Current occupation: [employer] Sexual orientation: Straight/Heterosexual Cognitive needs: No Hearing needs: No Vision needs: Yes (glasses) Meds Allergies Allergy/AdvReac Type Severity Reaction Status Date / Time hydrocodone [Vicodin] Allergy Unknown nausea Verified 01/28/24 17:00 latex [LATEX] Allergy Unknown RASH Verified 01/28/24 17:00 Active Medications: Current Medications Acetaminophen (Acetaminophen 325 Mg Tablet) 650 mg PO Q6H PRN PRN Reason: Headache/Pain Mild Scale (1-3) Last Admin: 02/13/24 20:39 Dose: 650 mg Al Hydroxide/Mg Hydroxide (Magnesium Hydrox/Alum Hydrox 30 Ml Oral.Susp) 30 ml PO Q6H PRN PRN Reason: Heartburn/Nausea Clonidine HCl (Clonidine Hcl 0.1 Mg Tablet) 0.1 mg PO BEDTIME [facility]; Protocol Last Admin: 02/14/24 22:11 Dose: 0.1 mg Docusate Sodium (Docusate Sodium 100 Mg Capsule) 100 mg PO TID [facility] Last Admin: 02/15/24 08:13 Dose: Not Given Duloxetine HCl (Duloxetine Hcl 20 Mg Capsule.Dr) 20 mg PO DAILY [facility] Last Admin: 02/15/24 08:13 Dose: Not Given Folic Acid (Folic Acid 1 Mg Tablet) 1 mg PO DAILY [facility] Last Admin: 02/15/24 08:13 Dose: Not Given Gabapentin (Gabapentin 100 Mg Capsule) 100 mg PO TID [facility] Last Admin: 02/15/24 08:13 Dose: Not Given Haloperidol Lactate (Haloperidol Lactate 5 Mg/Ml Vial) 1 mg IVPUSH ONCE PRN PRN Reason: Nausea and Vomiting Hydroxyzine HCl (Hydroxyzine Hcl 25 Mg Tablet) 25 mg PO Q6H PRN PRN Reason: Anxiety Last Admin: 02/07/24 21:00 Dose: 25 mg Ketorolac Tromethamine (Ketorolac Tromethamine 10 Mg Tablet) 10 mg PO BID PRN PRN Reason: severe headache Stop: 02/16/24 14:08 Last Admin: 02/11/24 14:22 Dose: 10 mg Lisinopril (Lisinopril 5 Mg Tablet) 5 mg PO DAILY [facility]; Protocol Last Admin: 02/15/24 08:13 Dose: Not Given Lorazepam (Lorazepam 1 Mg Tablet) 1 mg PO BID PRN PRN Reason: Anxiety Last Admin: 02/08/24 14:59 Dose: 1 mg Magnesium Hydroxide (Milk Of Magnesia 30 Ml Oral.Susp) 30 ml PO DAILY PRN PRN Reason: Constipation Mirtazapine (Mirtazapine 7.5 Mg Tablet) 7.5 mg PO DAILY PRN PRN Reason: Anxiety Olanzapine (Olanzapine 5 Mg Tablet) 5 mg PO DAILY [facility] Last Admin: 02/15/24 08:14 Dose: Not Given Senna/Docusate Sodium (Sennosides/Docusate Sodium Tablet) 2 tab PO BEDTIME [facility] Last Admin: 02/14/24 22:11 Dose: 2 tab Sertraline HCl (Sertraline Hcl 100 Mg Tablet) 200 mg PO DAILY [facility] Last Admin: 02/15/24 08:14 Dose: Not Given Trazodone HCl (Trazodone Hcl 50 Mg Tablet) 50 mg PO BEDTIME [facility]X1 PRN PRN Reason: Insomnia Last Admin: 02/14/24 01:49 Dose: 50 mg Trazodone HCl (Trazodone Hcl 50 Mg Tablet) 150 mg PO BEDTIME [facility] Last Admin: 02/14/24 22:12 Dose: 150 mg Triamcinolone Acetonide (Triamcinolone Acet 0.5 % Oint 15 Gm Tube) 1 appl TOPICAL BID [facility] Last Admin: 02/15/24 08:14 Dose: Not Given Home Medications ?Medication ?Instructions ?Recorded ?Confirmed ?Last Taken ?Type olanzapine 5 mg tablet 5 mg PO .morning 01/14/23 01/28/24 01/28/24 History lorazepam 1 mg tablet 1 mg PO BID PRN Anxiety 01/28/24 01/28/24 01/28/24 History mirtazapine 7.5 mg tablet 7.5 mg PO DAILY PRN Anxiety 01/28/24 01/28/24 01/28/24 History sertraline 100 mg tablet 200 mg PO DAILY 01/28/24 01/28/24 01/28/24 History Exam Height,Weight and Vital Signs: Height 5 ft 5 in Weight 84.2 kg Last Vital Signs Temp 97.8 F 02/15/24 08:00 Pulse 60 02/15/24 08:00 Resp 16 02/15/24 08:00 BP 136/75 02/15/24 08:00 Pulse Ox 96 02/15/24 08:00 O2 Del Method Room Air 02/15/24 08:00 O2 Flow Rate 4 02/13/24 07:58 Pertinent Lab Results Pertinent Lab Results: Laboratory Tests 01/28/24 01/28/24 01/31/24 17:19 17:47 09:17 WBC 5.4 RBC 4.80 Hgb 14.7 Hct 43.0 MCV 89.6 MCH 30.6 MCHC 34.2 RDW 12.3 Plt Count 241 MPV 9.3 L Immature Gran % (Auto) 0.4 Neut % (Auto) 66.1 Lymph % (Auto) 19.0 L [place] % (Auto) 8.4 Eos % (Auto) 5.4 H Baso % (Auto) 0.7 Lymph # (Auto) 1.0 L [place] # (Auto) 0.5 Eos # (Auto) 0.3 Baso # (Auto) 0.0 Abs Immat Gran (auto) 0.02 Absolute Neuts (auto) 3.5 Absolute Nucleated RBC 0.000 Nucleated RBC % (auto) 0.0 Sodium 138 Potassium 4.0 Chloride 107 Carbon Dioxide 23 Anion Gap 12 BUN 14 Creatinine 0.96 Estim Creat Clear Calc 82.8 Estimated GFR > 60 Random Glucose 102 Estimat Average Glucose 105 Hemoglobin A1c % 5.3 Calcium 9.0 Magnesium 1.9 Total Bilirubin 0.3 AST 27 ALT 31 Alkaline Phosphatase 56 Total Protein 7.1 Albumin 4.4 Triglycerides 254 H Cholesterol 240 H LDL Cholesterol, Calc 150 H HDL Cholesterol 40 L Lipase 34 Vitamin B12 405 Folate 16.3 TSH 1.68 Free T4 1.03 Urine Color Yellow Urine Appearance Clear Urine pH 7.0 Ur Specific [place] 1.020 Urine Protein Negative Urine Glucose (UA) Negative Urine Ketones Negative Urine Blood Negative Urine Nitrite Negative Ur Leukocyte Esterase Negative Salicylates < 5.0 L Urine Opiates Screen Not Detected Ur Buprenorphine Scrn Not Detected Ur Oxycodone Screen Not Detected Urine Methadone Screen Not Detected Urine Fentanyl Screen Not Detected Acetaminophen < 3 Ur Barbiturates Screen Not Detected Ur Phencyclidine Scrn Not Detected Ur Amphetamines Screen Not Detected U Benzodiazepines Scrn Not Detected Urine Cocaine Screen Not Detected U Marijuana (THC) Screen Not Detected Ethyl Alcohol < 10 Airway Mallampati Class: II (edentulous) TM Dist: >3cm Neck ROM: Full Denture: Upper and Lower Loose/Missing/Broken Teeth: Yes, Upper and Lower Heart: RRR Lungs: CTA Assessment and Plan Assessment Anesthesia Assessment: Anesthesia Plan Discussed and Chart Reviewed Final Anesthetic Review Family History of Problems with Anesthesia: No History of Problems with Anesthesia: No NPO: Yes ASA Class: II Final Preanesthetic Review: Meds/Allgs Chart Reviewed, Consent Obtained/Reviewed and Anes Risks/Benef Reviewed Patient Risk: Low Procedure Risk: Intermediate Anesthetic Plan Anesthetic Plan: GA Disposition: Standard PACU
--- NOTE | 2024-02-15 14:07 | MHC.SHP ---
Pre-Procedural Eval Section A - 24 Hr Update-Section A only Date of Service: 02/15/24 The patient is an INPATIENT: Yes Changes since office visit: Yes Patient answered all questions; No Cold of Flu in the past 2 weeks, No New Medical Problems and No Changes in Medication The patient has been examined within 24 hours of the surgical procedure. The History & Physical has been completed within 30 days and I have reviewed it.: Yes Section B - Complete if H&P > 30 days Chief Complaint: SI Allergies: Allergies Allergy/AdvReac Type Severity Reaction Status Date / Time hydrocodone [Vicodin] Allergy Unknown nausea Verified 01/28/24 17:00 latex [LATEX] Allergy Unknown RASH Verified 01/28/24 17:00 Plan I have reviewed the history and physical and performed a pertinent physical examination on my patient. No changes have occurred unless specified. Time Spent With Patient Time: Total time managing care of this patient today ____ minutes.
--- NOTE | 2024-02-15 14:21 | HO.PSYCHPN ---
Subjective Subjective Date of Service: 02/15/24 Reason For Visit: SI Subjective Notes: Conditional Voluntary Healthcare Proxy: No Guardianship: No Medical Problems Affecting Mental Status: No Interim History: Pt scheduled for a late ECT today. Visable in milieu, with peers mood and affect are appropriate Pt feels ECT course has been most helpful and is looking forward to a return to his work. Denies SI/HI/AH/VH. Medication Compliance: Yes Side effects from medications: No Attending Groups: Yes Review of Systems Acute medical concerns: No Review of Systems Review of Systems Yes all other systems are reviewed and are negative Mental Status Exam Mental Status Exam Patient Appearance: Appropriate Patient Orientation: Person, Place, Time and Situation Level of Consciousness: Alert Patient Behavior: Appropriate, Talkative, Cooperative and Good Eye Contact Mood Description: Anxious and Apprehensive Affect Description: Anxious and Apprehensive Patient Cognition Impaired: No Ability to Follow Directions: Good Speech Pattern: Spontaneous Speech Memory Description: Episodic Impaired Hallucinations: None Delusions: Not Present Thought Process: Intact Thought Content: positive for Intact Depressive Symptoms: Thoughts of /Suicide (denies SI, plan, intent) Judgement: Good Diagnostics Vital Signs (24Hr): Vital Signs - 24 hr 02/14/24 20:00 02/14/24 22:11 02/15/24 08:00 Temperature 97.8 F Pulse Rate 60 60 Respiratory Rate 16 Blood Pressure 153/86 H 153/86 H 136/75 Pulse Oximetry 96 96 Oxygen Delivery Method Room Air Room Air 02/15/24 13:59 Temperature 97.0 F Pulse Rate 61 Respiratory Rate 17 Blood Pressure 169/97 H Pulse Oximetry 97 Oxygen Delivery Method Room Air BMI result Body Mass Index 31.6 Labs 01/28/24 17:47 01/28/24 17:47 Medications Medications Current Medications Acetaminophen (Acetaminophen 325 Mg Tablet) 650 mg PO Q6H PRN PRN Reason: Headache/Pain Mild Scale (1-3) Last Admin: 02/13/24 20:39 Dose: 650 mg Acetaminophen (Acetaminophen 325 Mg Tablet) 650 mg PO ONCE PRN PRN Reason: Pain, Mild (Pain Scale 1-3) Stop: 02/15/24 19:58 Al Hydroxide/Mg Hydroxide (Magnesium Hydrox/Alum Hydrox 30 Ml Oral.Susp) 30 ml PO Q6H PRN PRN Reason: Heartburn/Nausea Clonidine HCl (Clonidine Hcl 0.1 Mg Tablet) 0.1 mg PO BEDTIME [facility]; Protocol Last Admin: 02/14/24 22:11 Dose: 0.1 mg Docusate Sodium (Docusate Sodium 100 Mg Capsule) 100 mg PO TID [facility] Last Admin: 02/15/24 08:13 Dose: Not Given Duloxetine HCl (Duloxetine Hcl 20 Mg Capsule.Dr) 20 mg PO DAILY [facility] Last Admin: 02/15/24 08:13 Dose: Not Given Folic Acid (Folic Acid 1 Mg Tablet) 1 mg PO DAILY [facility] Last Admin: 02/15/24 08:13 Dose: Not Given Gabapentin (Gabapentin 100 Mg Capsule) 100 mg PO TID [facility] Last Admin: 02/15/24 08:13 Dose: Not Given Haloperidol Lactate (Haloperidol Lactate 5 Mg/Ml Vial) 1 mg IVPUSH ONCE PRN PRN Reason: Nausea and Vomiting Hydroxyzine HCl (Hydroxyzine Hcl 25 Mg Tablet) 25 mg PO Q6H PRN PRN Reason: Anxiety Last Admin: 02/07/24 21:00 Dose: 25 mg Ketorolac Tromethamine (Ketorolac Tromethamine 10 Mg Tablet) 10 mg PO BID PRN PRN Reason: severe headache Stop: 02/16/24 14:08 Last Admin: 02/11/24 14:22 Dose: 10 mg Lisinopril (Lisinopril 5 Mg Tablet) 5 mg PO DAILY [facility]; Protocol Last Admin: 02/15/24 08:13 Dose: Not Given Lorazepam (Lorazepam 1 Mg Tablet) 1 mg PO BID PRN PRN Reason: Anxiety Last Admin: 02/08/24 14:59 Dose: 1 mg Magnesium Hydroxide (Milk Of Magnesia 30 Ml Oral.Susp) 30 ml PO DAILY PRN PRN Reason: Constipation Mirtazapine (Mirtazapine 7.5 Mg Tablet) 7.5 mg PO DAILY PRN PRN Reason: Anxiety Naloxone HCl (Naloxone Hcl 0.4 Mg/Ml Vial) 0.04 mg IVPUSH Q5M PRN PRN Reason: Excessive sedation or RR < 8 Olanzapine (Olanzapine 5 Mg Tablet) 5 mg PO DAILY [facility] Last Admin: 02/15/24 08:14 Dose: Not Given Senna/Docusate Sodium (Sennosides/Docusate Sodium Tablet) 2 tab PO BEDTIME [facility] Last Admin: 02/14/24 22:11 Dose: 2 tab Sertraline HCl (Sertraline Hcl 100 Mg Tablet) 200 mg PO DAILY [facility] Last Admin: 02/15/24 08:14 Dose: Not Given Trazodone HCl (Trazodone Hcl 50 Mg Tablet) 50 mg PO BEDTIME MRX1 PRN PRN Reason: Insomnia Last Admin: 02/14/24 01:49 Dose: 50 mg Trazodone HCl (Trazodone Hcl 50 Mg Tablet) 150 mg PO BEDTIME [facility] Last Admin: 02/14/24 22:12 Dose: 150 mg Triamcinolone Acetonide (Triamcinolone Acet 0.5 % Oint 15 Gm Tube) 1 appl TOPICAL BID [facility] Last Admin: 02/15/24 08:14 Dose: Not Given Allergies Allergies Allergy/AdvReac Type Severity Reaction Status Date / Time hydrocodone [Vicodin] Allergy Unknown nausea Verified 01/28/24 17:00 latex [LATEX] Allergy Unknown RASH Verified 01/28/24 17:00 Assessment & Plan Assessment & Plan (1) Depression with suicidal ideation: Status: Acute Code(s): F32.A - Depression, unspecified; R45.851 - Suicidal ideations (2) Generalized anxiety disorder: Status: Acute Code(s): F41.1 - Generalized anxiety disorder Plan Recurrent major depression, Anxiety NOS, Cocaine abuse. 02/08/24: ECT #2 completed. Continue regime, discharge planning. ECT #3 02/10/24. 02/09/24: Continue ECT. 02/11/24: no changes except PO toradol for ECT related headaches 02/11: no changes 02/12: Continue ECT Discharge at the end of the week. 02/14: ECT #5 completed today DC 02/17. Plan: Admit, CV, 15 minute checks Collateral contacts Diagnostics as needed ECT consult Medication review and adjustments Encourage full milieu Reason for continued inpatient stay Substantial Risk for: rapid decompensation Time Spent With Patient Time: Total time managing care of this patient today ____ minutes.
--- NOTE | 2024-02-15 14:24 | HO.ECTPROC ---
ECT Procedure Note Diagnosis/Treatment Date of Service: 02/15/24 Diagnosis: Major Depressive Disorder Previous ECT Date: 02/13/24 Current Treatment Number: 5 Treatment: Series Interval Clinical Notes: pt improving tolerating ect with some valencia . Anxiety continues depression improved tx BF as per previous Time: Total time managing care of this patient today ____ minutes. ECT Settings Device: THYMATRON DGx Electrode Placement: Bifrontal Program/Pulse Width: 0.50 Energy Percent: 100 Seizure Duration By EEG (in seconds): 38 Medications Administration General Anesthetic: Etomidate (14) Muscle Relaxant: Succinylcholine (100) Ancillary Medications Analgesics: Torodol - Pre ECT Anti-emetics: Zofran - Pre ECT Airway Management Airway Management: Bag Mask Ventilation Treatment Recommendations No Changes Recommended: No change Pt Tolerated Procedure w/o Issue: Yes
[2024-02-15] MEDS: Docusate Sodium 100 MG CAPSULE PO ×2 (15:47→21:00)
[2024-02-15] MEDS: Gabapentin 100 MG CAPSULE PO ×2 (15:47→21:01)
[2024-02-15] MEDS: oxyCODONE HCl Immed Release 5 MG TABLET PO (17:35)
[2024-02-15] MEDS: cloNIDine HCL 0.1 MG TABLET PO (20:59)
[2024-02-15] MEDS: Sennosides/Docusate Sodium TABLET 2 TAB PO (20:59)
[2024-02-15] MEDS: traZODone HCL 50 MG TABLET 150 MG PO (21:00)
[2024-02-15] MEDS: LORazepam 1 MG TABLET PO (21:01)
[2024-02-15] MEDS: Ketorolac Tromethamine 10 MG TABLET PO (21:04)
[2024-02-16] MEDS: traZODone HCL 50 MG TABLET PO (01:24)
[2024-02-16 07:00] VITALS: BMI 32.1
[2024-02-16 08:09] VITALS: BP 98/54; PULSE 60; RESP 16; TEMP 36.4; O2SAT 97
[2024-02-16] MEDS: lisinopriL 5 MG TABLET PO (08:15)
[2024-02-16] MEDS: DULoxetine HCl 20 MG CAPSULE.DR PO (08:15)
[2024-02-16] MEDS: Sertraline HCL 100 MG TABLET 200 MG PO (08:16)
[2024-02-16] MEDS: Gabapentin 100 MG CAPSULE PO ×3 (08:16→20:08)
[2024-02-16] MEDS: Docusate Sodium 100 MG CAPSULE PO ×3 (08:16→20:08)
[2024-02-16] MEDS: OLANZapine 5 MG TABLET PO (08:16)
[2024-02-16] MEDS: Folic Acid 1 MG TABLET PO (08:16)
[2024-02-16] MEDS: Triamcinolone Acet 0.5 % Oint 15 GM TUBE 1 APPL TOPICAL (08:30)
--- NOTE | 2024-02-16 09:58 | P.PNPSI_ITS ---
Subjective Subjective Date of Service: 02/16/24 Reason For Visit: SI Subjective Notes: Conditional Voluntary Healthcare Proxy: No Guardianship: No Medical Problems Affecting Mental Status: No Interim History: Pt will have ECT 02/16. He will discharge 02/17, return to work 02/22 and return for out pt ECT 03/02/24. He spent today making arrangements for these changes to his schedule and reports feeling good, but anxious and apprehensive. We have prepared a note for his return to work. Medication Compliance: Yes Side effects from medications: No Attending Groups: Yes Review of Systems Acute medical concerns: No Review of Systems Review of Systems Yes all other systems are reviewed and are negative Mental Status Exam Mental Status Exam Patient Appearance: Appropriate Patient Orientation: Person, Place, Time and Situation Level of Consciousness: Alert Patient Behavior: Appropriate, Talkative, Cooperative and Good Eye Contact Mood Description: Anxious and Apprehensive Affect Description: Anxious and Apprehensive Patient Cognition Impaired: No Ability to Follow Directions: Good Speech Pattern: Spontaneous Speech Memory Description: Episodic Impaired Hallucinations: None Delusions: Not Present Thought Process: Intact Thought Content: positive for Intact Depressive Symptoms: Thoughts of /Suicide (denies SI, plan, intent) Judgement: Good Diagnostics Vital Signs (24Hr): Vital Signs - 24 hr 02/15/24 13:59 02/15/24 14:28 02/15/24 14:33 Temperature 97.0 F 97.2 F Pulse Rate 61 69 96 Respiratory Rate 17 18 16 Blood Pressure 169/97 H 170/99 H 173/86 H Pulse Oximetry 97 95 94 Oxygen Delivery Method Room Air Nasal Cannula with ETCO2 Nasal Cannula with ETCO2 Oxygen Flow Rate 4 3 02/15/24 14:38 02/15/24 14:43 02/15/24 15:02 Temperature 97.6 F Pulse Rate 84 84 81 Respiratory Rate 15 15 17 Blood Pressure 172/80 H 148/91 H Pulse Oximetry 93 94 94 Oxygen Delivery Method Nasal Cannula with ETCO2 Nasal Cannula with ETCO2 Room Air Oxygen Flow Rate 3 2 02/15/24 15:53 02/15/24 20:00 02/15/24 20:59 Temperature 98.4 F 98.4 F Pulse Rate 70 58 Respiratory Rate 18 Blood Pressure 143/82 H 111/70 111/70 Pulse Oximetry 94 Oxygen Delivery Method Room Air Oxygen Flow Rate 02/16/24 08:09 Temperature 97.6 F Pulse Rate 60 Respiratory Rate 16 Blood Pressure 98/54 L Pulse Oximetry 97 Oxygen Delivery Method Room Air Oxygen Flow Rate BMI result Body Mass Index 31.6 Labs 01/28/24 17:47 01/28/24 17:47 Medications Medications Current Medications Acetaminophen (Acetaminophen 325 Mg Tablet) 650 mg PO Q6H PRN PRN Reason: Headache/Pain Mild Scale (1-3) Last Admin: 02/13/24 20:39 Dose: 650 mg Al Hydroxide/Mg Hydroxide (Magnesium Hydrox/Alum Hydrox 30 Ml Oral.Susp) 30 ml PO Q6H PRN PRN Reason: Heartburn/Nausea Clonidine HCl (Clonidine Hcl 0.1 Mg Tablet) 0.1 mg PO BEDTIME [facility]; Protocol Last Admin: 02/15/24 20:59 Dose: 0.1 mg Docusate Sodium (Docusate Sodium 100 Mg Capsule) 100 mg PO TID [facility] Last Admin: 02/16/24 08:16 Dose: 100 mg Duloxetine HCl (Duloxetine Hcl 20 Mg Capsule.Dr) 20 mg PO DAILY [facility] Last Admin: 02/16/24 08:15 Dose: 20 mg Folic Acid (Folic Acid 1 Mg Tablet) 1 mg PO DAILY [facility] Last Admin: 02/16/24 08:16 Dose: 1 mg Gabapentin (Gabapentin 100 Mg Capsule) 100 mg PO TID [facility] Last Admin: 02/16/24 08:16 Dose: 100 mg Hydroxyzine HCl (Hydroxyzine Hcl 25 Mg Tablet) 25 mg PO Q6H PRN PRN Reason: Anxiety Last Admin: 02/07/24 21:00 Dose: 25 mg Ketorolac Tromethamine (Ketorolac Tromethamine 10 Mg Tablet) 10 mg PO BID PRN PRN Reason: severe headache Stop: 02/16/24 14:08 Last Admin: 02/15/24 21:04 Dose: 10 mg Lisinopril (Lisinopril 5 Mg Tablet) 5 mg PO DAILY [facility]; Protocol Last Admin: 02/16/24 08:15 Dose: 5 mg Lorazepam (Lorazepam 1 Mg Tablet) 1 mg PO BID PRN PRN Reason: Anxiety Last Admin: 02/15/24 21:01 Dose: 1 mg Magnesium Hydroxide (Milk Of Magnesia 30 Ml Oral.Susp) 30 ml PO DAILY PRN PRN Reason: Constipation Mirtazapine (Mirtazapine 7.5 Mg Tablet) 7.5 mg PO DAILY PRN PRN Reason: Anxiety Naloxone HCl (Naloxone Hcl 0.4 Mg/Ml Vial) 0.04 mg IVPUSH Q5M PRN PRN Reason: Excessive sedation or RR < 8 Olanzapine (Olanzapine 5 Mg Tablet) 5 mg PO DAILY [facility] Last Admin: 02/16/24 08:16 Dose: 5 mg Senna/Docusate Sodium (Sennosides/Docusate Sodium Tablet) 2 tab PO BEDTIME [facility] Last Admin: 02/15/24 20:59 Dose: 2 tab Sertraline HCl (Sertraline Hcl 100 Mg Tablet) 200 mg PO DAILY [facility] Last Admin: 02/16/24 08:16 Dose: 200 mg Trazodone HCl (Trazodone Hcl 50 Mg Tablet) 50 mg PO BEDTIME MRX1 PRN PRN Reason: Insomnia Last Admin: 02/16/24 01:24 Dose: 50 mg Trazodone HCl (Trazodone Hcl 50 Mg Tablet) 150 mg PO BEDTIME [facility] Last Admin: 02/15/24 21:00 Dose: 150 mg Triamcinolone Acetonide (Triamcinolone Acet 0.5 % Oint 15 Gm Tube) 1 appl TOPICAL BID [facility] Last Admin: 02/16/24 08:30 Dose: 1 appl Allergies Allergies Allergy/AdvReac Type Severity Reaction Status Date / Time hydrocodone [Vicodin] Allergy Unknown nausea Verified 01/28/24 17:00 latex [LATEX] Allergy Unknown RASH Verified 01/28/24 17:00 Assessment & Plan Assessment & Plan (1) Depression with suicidal ideation: Status: Acute Code(s): F32.A - Depression, unspecified; R45.851 - Suicidal ideations (2) Generalized anxiety disorder: Status: Acute Code(s): F41.1 - Generalized anxiety disorder Plan Recurrent major depression, Anxiety NOS, Cocaine abuse. 02/08/24: ECT #2 completed. Continue regime, discharge planning. ECT #3 02/10/24. 02/09/24: Continue ECT. 02/11/24: no changes except PO toradol for ECT related headaches 02/11: no changes 02/12: Continue ECT Discharge at the end of the week. 02/14: ECT #5 completed today DC 02/17. 02/15: ECT 02/16 DC 02/17 OP ECT 03/02/24 Plan: Admit, CV, 15 minute checks Collateral contacts Diagnostics as needed ECT consult Medication review and adjustments Encourage full milieu Reason for continued inpatient stay Substantial Risk for: rapid decompensation Time Spent With Patient Time: Total time managing care of this patient today ____ minutes.
[2024-02-16] MEDS: LORazepam 0.5 MG TABLET PO (11:28)
[2024-02-16 20:00] VITALS: BP 141/79; PULSE 75; RESP 18; TEMP 36.6; O2SAT 95
[2024-02-16] MEDS: Sennosides/Docusate Sodium TABLET 2 TAB PO (20:08)
[2024-02-16] MEDS: cloNIDine HCL 0.1 MG TABLET PO (20:08)
[2024-02-16] MEDS: traZODone HCL 50 MG TABLET 150 MG PO (20:08)
[2024-02-17] VITALS (9 sets, daily range): BP systolic 109–192; BP diastolic 63–91; PULSE 61–82; RESP 13–20; TEMP 36.1–37; O2SAT 93–96
--- NOTE | 2024-02-17 10:29 | P.PNPSI_ITS ---
Subjective Subjective Date of Service: 02/17/24 Reason For Visit: SI Subjective Notes: Conditional Voluntary Healthcare Proxy: No Guardianship: No Medical Problems Affecting Mental Status: No Interim History: ECT course completed. Discussed discharge with pt. He is feeling prepared to leave. He reports treatment has been helpful. We will increase Cymbalta to 40 mg daily. He agrees. Plans DC for 02/17. Will return to work 02/22, Next OP ECT 03/07/24. Pt informed he may not drive until 02/22 post ECT Letter to return to work and [place] paperwork given to team for discharge on 02/17. Medication Compliance: Yes Side effects from medications: No Attending Groups: Intermittent Review of Systems Acute medical concerns: No Review of Systems Review of Systems post ECT headache treated Yes all other systems are reviewed and are negative Mental Status Exam Mental Status Exam Patient Appearance: Appropriate Patient Orientation: Person, Place, Time and Situation Level of Consciousness: Alert Patient Behavior: Appropriate, Talkative, Cooperative and Good Eye Contact Mood Description: Anxious and Apprehensive Affect Description: Anxious and Apprehensive Patient Cognition Impaired: No Ability to Follow Directions: Good Speech Pattern: Spontaneous Speech Memory Description: Episodic Impaired Hallucinations: None Delusions: Not Present Thought Process: Intact Thought Content: positive for Intact Depressive Symptoms: Thoughts of /Suicide (denies SI, plan, intent) Judgement: Good Diagnostics Vital Signs (24Hr): Vital Signs - 24 hr 02/16/24 20:00 02/17/24 08:00 Temperature 97.9 F 97.7 F Pulse Rate 75 70 Respiratory Rate 18 16 Blood Pressure 141/79 H 118/63 Pulse Oximetry 95 96 Oxygen Delivery Method Room Air Room Air BMI result Body Mass Index 32.1 Labs 01/28/24 17:47 01/28/24 17:47 Medications Medications Current Medications Acetaminophen (Acetaminophen 325 Mg Tablet) 650 mg PO Q6H PRN PRN Reason: Headache/Pain Mild Scale (1-3) Last Admin: 02/13/24 20:39 Dose: 650 mg Al Hydroxide/Mg Hydroxide (Magnesium Hydrox/Alum Hydrox 30 Ml Oral.Susp) 30 ml PO Q6H PRN PRN Reason: Heartburn/Nausea Clonidine HCl (Clonidine Hcl 0.1 Mg Tablet) 0.1 mg PO BEDTIME [facility]; Protocol Last Admin: 02/16/24 20:08 Dose: 0.1 mg Docusate Sodium (Docusate Sodium 100 Mg Capsule) 100 mg PO TID [facility] Last Admin: 02/17/24 08:04 Dose: Not Given Duloxetine HCl (Duloxetine Hcl 20 Mg Capsule.Dr) 20 mg PO DAILY [facility] Last Admin: 02/17/24 08:04 Dose: Not Given Folic Acid (Folic Acid 1 Mg Tablet) 1 mg PO DAILY [facility] Last Admin: 02/17/24 08:04 Dose: Not Given Gabapentin (Gabapentin 100 Mg Capsule) 100 mg PO TID [facility] Last Admin: 02/17/24 08:04 Dose: Not Given Hydroxyzine HCl (Hydroxyzine Hcl 25 Mg Tablet) 25 mg PO Q6H PRN PRN Reason: Anxiety Last Admin: 02/07/24 21:00 Dose: 25 mg Lisinopril (Lisinopril 5 Mg Tablet) 5 mg PO DAILY [facility]; Protocol Last Admin: 02/17/24 08:04 Dose: Not Given Lorazepam (Lorazepam 1 Mg Tablet) 1 mg PO BID PRN PRN Reason: Anxiety Last Admin: 02/15/24 21:01 Dose: 1 mg Magnesium Hydroxide (Milk Of Magnesia 30 Ml Oral.Susp) 30 ml PO DAILY PRN PRN Reason: Constipation Mirtazapine (Mirtazapine 7.5 Mg Tablet) 7.5 mg PO DAILY PRN PRN Reason: Anxiety Naloxone HCl (Naloxone Hcl 0.4 Mg/Ml Vial) 0.04 mg IVPUSH Q5M PRN PRN Reason: Excessive sedation or RR < 8 Olanzapine (Olanzapine 5 Mg Tablet) 5 mg PO DAILY [facility] Last Admin: 02/17/24 08:05 Dose: Not Given Senna/Docusate Sodium (Sennosides/Docusate Sodium Tablet) 2 tab PO BEDTIME [facility] Last Admin: 02/16/24 20:08 Dose: 2 tab Sertraline HCl (Sertraline Hcl 100 Mg Tablet) 200 mg PO DAILY [facility] Last Admin: 02/17/24 08:05 Dose: Not Given Trazodone HCl (Trazodone Hcl 50 Mg Tablet) 50 mg PO BEDTIME MRX1 PRN PRN Reason: Insomnia Last Admin: 02/16/24 01:24 Dose: 50 mg Trazodone HCl (Trazodone Hcl 50 Mg Tablet) 150 mg PO BEDTIME [facility] Last Admin: 02/16/24 20:08 Dose: 150 mg Triamcinolone Acetonide (Triamcinolone Acet 0.5 % Oint 15 Gm Tube) 1 appl TOPICAL BID [facility] Last Admin: 02/17/24 08:05 Dose: Not Given Allergies Allergies Allergy/AdvReac Type Severity Reaction Status Date / Time hydrocodone [Vicodin] Allergy Unknown nausea Verified 01/28/24 17:00 latex [LATEX] Allergy Unknown RASH Verified 01/28/24 17:00 Assessment & Plan Assessment & Plan (1) Depression with suicidal ideation: Status: Acute Code(s): F32.A - Depression, unspecified; R45.851 - Suicidal ideations (2) Generalized anxiety disorder: Status: Acute Code(s): F41.1 - Generalized anxiety disorder Plan Recurrent major depression, Anxiety NOS, Cocaine abuse. 02/08/24: ECT #2 completed. Continue regime, discharge planning. ECT #3 02/10/24. 02/09/24: Continue ECT. 02/11/24: no changes except PO toradol for ECT related headaches 02/11: no changes 02/12: Continue ECT Discharge at the end of the week. 02/14: ECT #5 completed today DC 02/17. 02/15: ECT 02/16 DC 02/17 OP ECT 03/02/2402/16: Discharge 02/17. Plan: Admit, CV, 15 minute checks Collateral contacts Diagnostics as needed ECT consult Medication review and adjustments Encourage full milieu Reason for continued inpatient stay Substantial Risk for: stable for discharge Time Spent With Patient Time: Total time managing care of this patient today ____ minutes.
[2024-02-17] MEDS: Lactated Ringers 1,000 ML 100 ML IVCONT (10:34)
--- NOTE | 2024-02-17 10:35 | MHC.SHP ---
Pre-Procedural Eval Section A - 24 Hr Update-Section A only Date of Service: 02/17/24 The patient is an INPATIENT: Yes Changes since office visit: Yes Changes in Medication and Yes Patient answered all questions; No Cold of Flu in the past 2 weeks and No New Medical Problems The patient has been examined within 24 hours of the surgical procedure. The History & Physical has been completed within 30 days and I have reviewed it.: Yes Section B - Complete if H&P > 30 days Chief Complaint: SI Allergies: Allergies Allergy/AdvReac Type Severity Reaction Status Date / Time hydrocodone [Vicodin] Allergy Unknown nausea Verified 01/28/24 17:00 latex [LATEX] Allergy Unknown RASH Verified 01/28/24 17:00 Plan I have reviewed the history and physical and performed a pertinent physical examination on my patient. No changes have occurred unless specified. Time Spent With Patient Time: Total time managing care of this patient today ____ minutes.
--- NOTE | 2024-02-17 10:37 | P.CONAN_ITS ---
[facility] Active Problems Active Problems: All Active Problems Pre-op evaluation (Acute) Depression with suicidal ideation (Acute) Loose stools (Acute) Tubular adenoma of colon (Acute) Folic acid deficiency (Acute) Restless leg syndrome (Acute) Eczema (Acute) Rectal incontinence (Acute) Overweight (BMI 25.0-29.9) (Acute) Generalized anxiety disorder (Acute) Depression, major, severe recurrence (Acute) Loss of appetite (Acute) Tenosynovitis of thumb (Acute) Lumbar spondylosis (Acute) Esophageal dysphagia (Acute) Peptic ulcer disease (Acute) Sacroiliac joint pain (Acute) Lumbar radiculopathy (Acute) Trochanteric bursitis of both hips (Acute) GERD (gastroesophageal reflux disease) (Acute) Hypercholesterolemia (Acute) Past Medical History Medical History Impaired fasting blood sugar Renal calculus Nasal septal perforation Vitamin B12 deficiency COVID-19 virus infection Adrenal adenoma Upper back pain Recurrent major depression Muscle spasm Family history of colon cancer Right hip pain Hospital discharge follow-up Colon cancer screening Depression, major, severe recurrence Low Back Pain Right-sided back pain Dermatitis Upper back pain Low Back Pain Generalized anxiety disorder Epistaxis Flank pain Annual physical exam Adrenal adenoma Polysubstance abuse Peptic ulcer disease Insomnia 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 Restless leg syndrome Anxiety and depression Vitamin D deficiency Erectile dysfunction GERD (gastroesophageal reflux disease) Hypercholesterolemia Chronic left shoulder pain Functional capacity: independent ambulation Family History Family History Father Myocardial infarct Colon cancer Mother Lung cancer Depression Brother Substance abuse Family history of problems with anesthesia: No Surgical History Surgical History H/O total adrenalectomy History of kidney surgery H/O arthroscopic knee surgery H/O oral surgery History of tonsillectomy History of nasal surgery History of Problems with Anesthesia: No Social History Social History Household Members: Other Household Members Other:: Rents a room out of a house with 3 other people Housing: House Do you presently have visiting nurse or other home services: No Alcohol intake: current Alcohol intake frequency: does not drink Patient Tobacco Use Status: Never used Tobacco e-Cigarette/Vaping Use: Never Used Second Hand Smoke Exposure: No Substance Use Type: Crack/Cocaine service: No Current occupational status: employed Current occupation: [employer] Sexual orientation: Straight/Heterosexual Cognitive needs: No Hearing needs: No Vision needs: Yes (glasses) Meds Allergies Allergy/AdvReac Type Severity Reaction Status Date / Time hydrocodone [Vicodin] Allergy Unknown nausea Verified 01/28/24 17:00 latex [LATEX] Allergy Unknown RASH Verified 01/28/24 17:00 Active Medications: Current Medications Acetaminophen (Acetaminophen 325 Mg Tablet) 650 mg PO Q6H PRN PRN Reason: Headache/Pain Mild Scale (1-3) Last Admin: 02/13/24 20:39 Dose: 650 mg Al Hydroxide/Mg Hydroxide (Magnesium Hydrox/Alum Hydrox 30 Ml Oral.Susp) 30 ml PO Q6H PRN PRN Reason: Heartburn/Nausea Clonidine HCl (Clonidine Hcl 0.1 Mg Tablet) 0.1 mg PO BEDTIME [facility]; Protocol Last Admin: 02/16/24 20:08 Dose: 0.1 mg Docusate Sodium (Docusate Sodium 100 Mg Capsule) 100 mg PO TID [facility] Last Admin: 02/17/24 08:04 Dose: Not Given Duloxetine HCl (Duloxetine Hcl 20 Mg Capsule.Dr) 20 mg PO DAILY [facility] Last Admin: 02/17/24 08:04 Dose: Not Given Folic Acid (Folic Acid 1 Mg Tablet) 1 mg PO DAILY [facility] Last Admin: 02/17/24 08:04 Dose: Not Given Gabapentin (Gabapentin 100 Mg Capsule) 100 mg PO TID [facility] Last Admin: 02/17/24 08:04 Dose: Not Given Hydroxyzine HCl (Hydroxyzine Hcl 25 Mg Tablet) 25 mg PO Q6H PRN PRN Reason: Anxiety Last Admin: 02/07/24 21:00 Dose: 25 mg Lactated Ringer's (Lr) 1,000 mls @ 100 mls/hr IVCONT .Q10H [facility] Last Admin: 02/17/24 10:34 Dose: 100 mls/hr Lisinopril (Lisinopril 5 Mg Tablet) 5 mg PO DAILY [facility]; Protocol Last Admin: 02/17/24 08:04 Dose: Not Given Lorazepam (Lorazepam 1 Mg Tablet) 1 mg PO BID PRN PRN Reason: Anxiety Last Admin: 02/15/24 21:01 Dose: 1 mg Magnesium Hydroxide (Milk Of Magnesia 30 Ml Oral.Susp) 30 ml PO DAILY PRN PRN Reason: Constipation Mirtazapine (Mirtazapine 7.5 Mg Tablet) 7.5 mg PO DAILY PRN PRN Reason: Anxiety Naloxone HCl (Naloxone Hcl 0.4 Mg/Ml Vial) 0.04 mg IVPUSH Q5M PRN PRN Reason: Excessive sedation or RR < 8 Olanzapine (Olanzapine 5 Mg Tablet) 5 mg PO DAILY [facility] Last Admin: 02/17/24 08:05 Dose: Not Given Senna/Docusate Sodium (Sennosides/Docusate Sodium Tablet) 2 tab PO BEDTIME [facility] Last Admin: 02/16/24 20:08 Dose: 2 tab Sertraline HCl (Sertraline Hcl 100 Mg Tablet) 200 mg PO DAILY [facility] Last Admin: 02/17/24 08:05 Dose: Not Given Trazodone HCl (Trazodone Hcl 50 Mg Tablet) 50 mg PO BEDTIME MRX1 PRN PRN Reason: Insomnia Last Admin: 02/16/24 01:24 Dose: 50 mg Trazodone HCl (Trazodone Hcl 50 Mg Tablet) 150 mg PO BEDTIME [facility] Last Admin: 02/16/24 20:08 Dose: 150 mg Triamcinolone Acetonide (Triamcinolone Acet 0.5 % Oint 15 Gm Tube) 1 appl TOPICAL BID [facility] Last Admin: 02/17/24 08:05 Dose: Not Given Home Medications ?Medication ?Instructions ?Recorded ?Confirmed ?Last Taken ?Type olanzapine 5 mg tablet 5 mg PO .morning 01/14/23 01/28/24 01/28/24 History lorazepam 1 mg tablet 1 mg PO BID PRN Anxiety 01/28/24 01/28/24 01/28/24 History mirtazapine 7.5 mg tablet 7.5 mg PO DAILY PRN Anxiety 01/28/24 01/28/24 01/28/24 History sertraline 100 mg tablet 200 mg PO DAILY 01/28/24 01/28/24 01/28/24 History Exam Height,Weight and Vital Signs: Height 5 ft 5 in Weight 87.5 kg Last Vital Signs Temp 97.5 F 02/17/24 10:30 Pulse 67 02/17/24 10:30 Resp 20 02/17/24 10:30 BP 184/91 H 02/17/24 10:30 Pulse Ox 96 02/17/24 10:30 O2 Del Method Room Air 02/17/24 10:30 O2 Flow Rate 2 02/15/24 14:43 Pertinent Lab Results Pertinent Lab Results: Laboratory Tests 01/28/24 01/28/24 01/31/24 17:19 17:47 09:17 WBC 5.4 RBC 4.80 Hgb 14.7 Hct 43.0 MCV 89.6 MCH 30.6 MCHC 34.2 RDW 12.3 Plt Count 241 MPV 9.3 L Immature Gran % (Auto) 0.4 Neut % (Auto) 66.1 Lymph % (Auto) 19.0 L [place] % (Auto) 8.4 Eos % (Auto) 5.4 H Baso % (Auto) 0.7 Lymph # (Auto) 1.0 L [place] # (Auto) 0.5 Eos # (Auto) 0.3 Baso # (Auto) 0.0 Abs Immat Gran (auto) 0.02 Absolute Neuts (auto) 3.5 Absolute Nucleated RBC 0.000 Nucleated RBC % (auto) 0.0 Sodium 138 Potassium 4.0 Chloride 107 Carbon Dioxide 23 Anion Gap 12 BUN 14 Creatinine 0.96 Estim Creat Clear Calc 82.8 Estimated GFR > 60 Random Glucose 102 Estimat Average Glucose 105 Hemoglobin A1c % 5.3 Calcium 9.0 Magnesium 1.9 Total Bilirubin 0.3 AST 27 ALT 31 Alkaline Phosphatase 56 Total Protein 7.1 Albumin 4.4 Triglycerides 254 H Cholesterol 240 H LDL Cholesterol, Calc 150 H HDL Cholesterol 40 L Lipase 34 Vitamin B12 405 Folate 16.3 TSH 1.68 Free T4 1.03 Urine Color Yellow Urine Appearance Clear Urine pH 7.[address] [place] 1.020 Urine Protein Negative Urine Glucose (UA) Negative Urine Ketones Negative Urine Blood Negative Urine Nitrite Negative Ur Leukocyte Esterase Negative Salicylates < 5.0 L Urine Opiates Screen Not Detected Ur Buprenorphine Scrn Not Detected Ur Oxycodone Screen Not Detected Urine Methadone Screen Not Detected Urine Fentanyl Screen Not Detected Acetaminophen < 3 Ur Barbiturates Screen Not Detected Ur Phencyclidine Scrn Not Detected Ur Amphetamines Screen Not Detected U Benzodiazepines Scrn Not Detected Urine Cocaine Screen Not Detected U Marijuana (THC) Screen Not Detected Ethyl Alcohol < 10 Airway Mallampati Class: II TM Dist: >3cm Neck ROM: Full Denture: Upper and Lower Heart: rrr Lungs: cta Assessment and Plan Assessment Anesthesia Assessment: Anesthesia Plan Discussed and Chart Reviewed Final Anesthetic Review Family History of Problems with Anesthesia: No History of Problems with Anesthesia: No NPO: Yes ASA Class: III Final Preanesthetic Review: No Changes in Pt Med Stat, Meds/Allgs Chart Reviewed and Consent Obtained/Reviewed Patient Risk: Intermediate Procedure Risk: Intermediate Anesthetic Plan Anesthetic Plan: GA Disposition: Standard PACU
[2024-02-17] MEDS: Docusate Sodium 100 MG CAPSULE PO ×3 (11:46→20:14)
[2024-02-17] MEDS: Gabapentin 100 MG CAPSULE PO ×3 (11:46→20:14)
[2024-02-17] MEDS: DULoxetine HCl 20 MG CAPSULE.DR PO (11:46)
[2024-02-17] MEDS: OLANZapine 5 MG TABLET PO (11:46)
[2024-02-17] MEDS: lisinopriL 5 MG TABLET PO (11:46)
[2024-02-17] MEDS: Sertraline HCL 100 MG TABLET 200 MG PO (11:47)
[2024-02-17] MEDS: Folic Acid 1 MG TABLET PO (11:47)
[2024-02-17] MEDS: Acetaminophen 325 MG TABLET 650 MG PO (13:24)
[2024-02-17] MEDS: oxyCODONE HCl Immed Release 5 MG TABLET 10 MG PO (14:01)
[2024-02-17] MEDS: traZODone HCL 50 MG TABLET 150 MG PO (20:13)
[2024-02-17] MEDS: Sennosides/Docusate Sodium TABLET 2 TAB PO (20:13)
[2024-02-17] MEDS: cloNIDine HCL 0.1 MG TABLET PO (20:14)
[2024-02-17] MEDS: LORazepam 1 MG TABLET PO (20:14)
--- NOTE | 2024-02-17 22:57 | HO.ECTPROC ---
ECT Procedure Note Diagnosis/Treatment Date of Service: 02/17/24 Diagnosis: Major Depressive Disorder Previous ECT Date: 02/15/24 Current Treatment Number: 6 Treatment: Series Interval Clinical Notes: pt feeling much improved no cognitive side effects planning for d/c tomm then maint tx as possible outpt Time: Total time managing care of this patient today ____ minutes. ECT Settings Device: THYMATRON DGx Program/Pulse Width: 0.50 Energy Percent: 100 Seizure Duration By EEG (in seconds): 42 Medications Administration General Anesthetic: Etomidate (14) Muscle Relaxant: Succinylcholine (100) Ancillary Medications Analgesics: Torodol - Pre ECT (15) Anti-emetics: Zofran - Pre ECT (4) Miscillaneous Medications: Propofol (30) Airway Management Airway Management: Bag Mask Ventilation Treatment Recommendations No Changes Recommended: No change Pt Tolerated Procedure w/o Issue: Yes
[2024-02-18] MEDS: hydrOXYzine HCL 25 MG TABLET PO (00:33)
[2024-02-18] MEDS: traZODone HCL 50 MG TABLET PO (00:33)
[2024-02-18 08:52] VITALS: BP 140/78; PULSE 73; RESP 16; TEMP 36.6; O2SAT 96
[2024-02-18] MEDS: DULoxetine HCl 20 MG CAPSULE.DR 40 MG PO (09:37)
[2024-02-18] MEDS: Gabapentin 100 MG CAPSULE PO (09:37)
[2024-02-18] MEDS: OLANZapine 5 MG TABLET PO (09:37)
[2024-02-18] MEDS: lisinopriL 5 MG TABLET PO (09:37)
[2024-02-18] MEDS: Docusate Sodium 100 MG CAPSULE PO (09:37)
[2024-02-18] MEDS: Sertraline HCL 100 MG TABLET 200 MG PO (09:37)
[2024-02-18] MEDS: Folic Acid 1 MG TABLET PO (09:37)
--- NOTE | 2024-03-18 15:28 | P.DS_ITS ---
DS: Providers Provider Date of Service: 02/18/24 Date of admission: 01/29/24 14:08 Date of discharge: 02/18/24 Primary care physician: Delvin Carrasquillo MD Admitting clinician: Mabel Patino Attending physician on admission: Norris Nair Consults: 01/30/24 18:12 Consult to Psychiatry Routine Consulting Provider: [facility] Psych Covering Reason for consultation: ECT consult- pt has a hx of Rx at [facility] 02/01/24 12:52 Consult to Hospitalist Routine Comment: Consulting Provider: [facility] Hospitalists Reason For Exam: med eval preop ect Attending physician on discharge: Norris Nair Discharging clinician: Mabel Patino DS: Diagnosis Discharge Diagnosis (1) Depression with suicidal ideation: Status: Deleted (2) Generalized anxiety disorder: Status: Acute DS: Medications Discharge Medications Home Medications: Previous Rx's ?Medication ?Instructions ?Recorded clonidine HCl 0.1 mg tablet 0.1 mg PO BEDTIME #30 tabs 02/17/24 docusate sodium 100 mg capsule 100 mg PO TID #90 caps 02/17/24 duloxetine 20 mg capsule,delayed 40 mg (2 x 20 mg) PO DAILY #30 caps 02/17/24 release folic acid 1 mg tablet 1 mg PO DAILY #90 tabs 02/17/24 gabapentin 100 mg capsule 100 mg PO TID #90 caps 02/17/24 lisinopril 5 mg tablet 5 mg PO DAILY #30 tabs 02/17/24 lorazepam 1 mg tablet 1 mg PO BID PRN Anxiety #14 tabs 02/17/24 mirtazapine 7.5 mg tablet 7.5 mg PO DAILY PRN Anxiety #30 02/17/24 tabs olanzapine 5 mg tablet 5 mg PO DAILY #30 tabs 02/17/24 sennosides 8.6 mg-docusate sodium 2 tab PO BEDTIME #60 tabs 02/17/24 50 mg tablet (Senna Plus) sertraline 100 mg tablet 200 mg (2 x 100 mg) PO DAILY #60 02/17/24 tabs trazodone 50 mg tablet 150 mg (3 x 50 mg) PO BEDTIME #90 02/17/24 tabs triamcinolone acetonide 0.5 % 1 appl topical BID #66 grams 02/17/24 topical ointment Mental Status Exam Mental Status Exam Patient Appearance: Appropriate Patient Orientation: Person, Place, Time and Situation Level of Consciousness: Alert Patient Behavior: Appropriate, Talkative, Cooperative and Good Eye Contact Mood Description: Anxious and Apprehensive Affect Description: Anxious and Apprehensive Patient Cognition Impaired: No Ability to Follow Directions: Good Speech Pattern: Spontaneous Speech Memory Description: Episodic Impaired Hallucinations: None Delusions: Not Present Thought Process: Intact Thought Content: positive for Intact Depressive Symptoms: Thoughts of /Suicide (denies SI, plan, intent) Judgement: Good DS: Summary Hospital Course Hospital Course: Admission to adult psychiatry for exacerbation of recurrent major depression with SI and generalized anxiety disorder. Pt reported and increase in symptoms for over a year, poor performance at work with consequences and SIBS. Finds medicine regime was not helpful and asks for ECT consult as his previous course at [facility] was a success. Medications were evaluated and adjusted. ECT consult was completed and initiated. Pt reported symptom relief and mood improvement with ECT and will continue out patient maintenance treatments. Pt discharges prepared to return to work and continue out patient care and out patient ECT. Status at Discharge Functional status at discharge: independent ambulation Overall status at discharge: patient is back to baseline Time Spent with Patient Time attestation: Total time managing care of this patient today ____ minutes. Time spent: Less than 30 minutes Discharge Plan Discharge Anticipated Discharge Date/Time: 02/18/24 12:00 Patient Disposition: Home, Self-Care Discharge Diagnosis: Recurrent Major Depression Anxiety Referrals: Candido Nj(psychiatry): [facility] [Other] - 03/15/24 10:00 am (Hospital Discharge appointment with psychiatric medication provider Appointment is by tele-health ) Therapist: Loli Suh ([facility]) [Other] - 03/02/24 12:00 pm (Appointment is in person at the office in [place] ) ECT Maintenance: [facility] [Other] - 03/07/24 6:00 am (Please arrive for ECT at 6am and go to the PACU. The PACU will call you the day before to go over procedure. No food or drink after midnight the day before. You must have reliable transportation to drop you off and pick you up, you are unable to drive after ECT. ) Delvin Carrasquillo MD [Primary Care Provider] - 1 Week (Pleased call PCP to schedule follow-up appt within 1 week) Discharge Medications: New clonidine HCl 0.1 mg Tablet 0.1 mg PO BEDTIME Qty: 30 0RF Protocol: Hold for SBP< HOLD for SBP < : 90 trazodone 50 mg Tablet 150 mg PO BEDTIME Qty: 90 0RF sertraline 100 mg Tablet 200 mg PO DAILY Qty: 60 0RF olanzapine 5 mg Tablet 5 mg PO DAILY Qty: 30 0RF docusate sodium 100 mg Capsule 100 mg PO TID Qty: 90 0RF lisinopril 5 mg Tablet 5 mg PO DAILY Qty: 30 0RF Protocol: Hold for SBP< HOLD for SBP < : 90 gabapentin 100 mg Capsule 100 mg PO TID Qty: 90 0RF duloxetine 20 mg Capsule,Delayed Release(Dr/Ec) 40 mg PO DAILY Qty: 30 0RF sennosides-docusate sodium [Senna Plus] 8.6-50 mg Tablet 2 tab PO BEDTIME Qty: 60 0RF triamcinolone acetonide 0.5 % Ointment 1 appl topical BID Qty: 66 0RF Continued folic acid 1 mg tablet 1 mg PO DAILY Qty: 90 0RF lorazepam 1 mg tablet 1 mg PO BID PRN (Reason: Anxiety) Qty: 14 4RF Changed mirtazapine 7.5 mg tablet 7.5 mg PO DAILY PRN (Reason: Anxiety) Qty: 30 0RF Discontinued trazodone 100 mg tablet 100 mg PO BEDTIME 30 Days Qty: 30 0RF gabapentin 100 mg capsule 100 mg PO BEDTIME Qty: 30 1RF sertraline 100 mg tablet 200 mg PO DAILY olanzapine 5 mg tablet 5 mg PO .morning Discharge Orders: Discharge Order (Routine); Ordered 02/18/24 Ordered By: Mabel Patino Diet: Advance to usual diet Activity on Discharge: As tolerated Stand Alone Forms: Patient Portal Discharge page, Community Support Print Language: Croatian Care Plan Goals: Mood and Behavioral Stabilization Health Concerns: Mood and Behavioral Stabilization Plan of Treatment: Attend scheduled appointments Take medications as directed Next Out Patient ECT Treatment will be on March 07, 2024 with [facility] No Driving Until 02/23/24. Assessment: No SI,HI,AH,VH No sx of acute psychosis or lisa Pt in agreement with plan of care. Discharge Date/Time: 02/18/24 11:20
== END 2024-02-18 11:20 | disposition home or self-care (01) | DRG 751 ==
LOC: HO.ED 18:05 → HO.PM5 01-29 14:20
PROVIDERS: Physician Assistant; Physician Assistant Medical; Psychiatry & Neurology Psychiatry; Admitting Provider Psychiatry & Neurology Psychiatry; Emergency Provider Emergency Medicine Emergency Medical Services; PCP Internal Medicine; Visit Provider Clinical Nurse Specialist Psychiatric/Mental Health, Adult
PROC: GZB4ZZZ Other Electroconvulsive Therapy (ICD-10-PCS; CPT 90870; principal; 2024-02-06 07:30)
PROC: (CPT 90870; principal; 2024-02-13 07:30)
DX: F33.9 Major depressive disorder, recurrent, unspecified (principal); R45.851 Suicidal ideations; E78.5 Hyperlipidemia, unspecified; K21.9 Gastro-esophageal reflux disease without esophagitis; F41.1 Generalized anxiety disorder; Z79.899 Other long term (current) drug therapy
CPT/HCPCS: 36415; 80053; 80061; 80143; 80179; 80307; 81003; 82607; 82746; 83036; 83690; 83735; 84439; 84443; 85025; 90870; 93005; 99285; J0330; J1596; J1630; J1805; J1885; J2405; J2704; J7120

== ENCOUNTER → 2024-01-29 13:50 | Outpatient (BNV) | payer OTHER, SELFPAY | PROVIDERS: Admitting Provider Psychiatry & Neurology Psychiatry; Emergency Provider Emergency Medicine Emergency Medical Services; PCP Internal Medicine; Visit Provider Internal Medicine Cardiovascular Disease | DX: R45.851 Suicidal ideations (principal) | CPT/HCPCS: 93010 ==

== ENCOUNTER → 2024-01-29 14:08 | Outpatient (BNV) | payer OTHER, SELFPAY | PROVIDERS: Admitting Provider Psychiatry & Neurology Psychiatry; Emergency Provider Emergency Medicine Emergency Medical Services; PCP Internal Medicine; Visit Provider Registered Nurse | DX: F33.2 Major depressive disorder, recurrent severe without psychotic features (principal) | CPT/HCPCS: 90792; 90870; 99231; 99232 ==

== ENCOUNTER → 2024-01-29 14:08 | Outpatient (BNV) | payer OTHER, SELFPAY | PROVIDERS: Admitting Provider Psychiatry & Neurology Psychiatry; Emergency Provider Emergency Medicine Emergency Medical Services; PCP Internal Medicine; Visit Provider Internal Medicine | DX: Z02.2 Encounter for examination for admission to residential institution (principal) | CPT/HCPCS: 99429 ==

== ENCOUNTER → 2024-01-29 14:08 | Outpatient (BNV) | payer OTHER, SELFPAY | PROVIDERS: Admitting Provider Psychiatry & Neurology Psychiatry; Emergency Provider Emergency Medicine Emergency Medical Services; PCP Internal Medicine; Visit Provider Psychiatry & Neurology Psychiatry | DX: F33.2 Major depressive disorder, recurrent severe without psychotic features (principal) | CPT/HCPCS: 99499 ==

== ENCOUNTER 2024-04-13 14:41 | Outpatient (AMB) | payer OTHER, MEDICAID, SELFPAY ==
[2024-04-13 14:43] VITALS: BP 136/80; PULSE 75; O2SAT 97; BMI 30.8
--- NOTE | 2024-04-13 14:43 | A.OFFPC_ITS ---
Vital Signs 04/13/24 14:43 Height 5 ft 5 in Weight 185 lb BMI 30.8 BP 136/80 Blood Pressure Location Rt brachial Position Sitting Pulse 75 Pulse Source Pulse Oximeter Pulse Oximetry (%) 97 Oxygen Delivery Method Room Air Intake Visit Reasons: Resched 12/29: RLS, Rectal Incontinence Allergies hydrocodone [Vicodin] Allergy (Unknown, Verified 04/13/24 14:44) nausea latex [LATEX] Allergy (Unknown, Verified 04/13/24 14:44) RASH Medication List - Last Reconciled 04/13/24 by Delvin Carrasquillo MD clonidine HCl 0.1 mg See Protocol PO BEDTIME docusate sodium 100 mg PO TID duloxetine 40 mg (2 x 20 mg) PO DAILY folic acid 1 mg PO DAILY gabapentin 100 mg PO TID lisinopril 5 mg See Protocol PO DAILY lorazepam 1 mg PO BID PRN mirtazapine 7.5 mg PO DAILY PRN olanzapine 5 mg in am and 10 mg in pm orally; sennosides-docusate sodium 8.6-50 mg (Senna Plus) 2 tabs PO BEDTIME sertraline 200 mg (2 x 100 mg) PO DAILY trazodone 150 mg (3 x 50 mg) PO BEDTIME triamcinolone acetonide 0.5% 1 appl topical BID Tobacco use date assessed: 04/13/24 Dental Screening Dental Screen Date: 04/13/24 Did you have a dental visit in the last 12 months?: Yes Did you have a dental problem in the last 6 months where you did not have access to dental care?: No Was dental information given to patient?: Patient has dentist HPI Resched 12/29: RLS, Rectal Incontinence HPI Details ECT done doing good= psychiatrist The patient is a 58-year-old male presenting with a follow-up visit for management of multiple chronic conditions. His medical history includes hyperch olesterolemia, GERD, lumbar radiculopathy, generalized anxiety disorder, and depression with suicidal ideation. The patient has been experiencing generalized anxiety disorder and depression, having been hospitalized in February for these conditions. His last encounter with the healthcare system included management of depression, including Electroconvulsive Therapy (ECT). He was assessed by gastroenterology in September for his GERD. The last colonoscopy in January 2023 revealed a tubular adenoma. Recent blood work in December showed normal blood count, electrolytes, renal function, and blood sugar, but indicated a very high cholesterol level with normal thyroid function. He has an LDL goal of less than 130 mg/dL and a triglyceride goal of less than 150 mg/dL, and continues to be followed by gastroenterology for management of his conditions. The patient is actively engaged in counseling and therapy for his psychological conditions. [facility] Medical History Impaired fasting blood sugar Renal calculus Nasal septal perforation Vitamin B12 deficiency COVID-19 virus infection Adrenal adenoma Upper back pain Recurrent major depression Muscle spasm Family history of colon cancer Right hip pain Hospital discharge follow-up Colon cancer screening Depression, major, severe recurrence Low Back Pain Right-sided back pain Dermatitis Upper back pain Low Back Pain Generalized anxiety disorder Epistaxis Flank pain Annual physical exam Adrenal adenoma Polysubstance abuse Peptic ulcer disease Insomnia 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 Restless leg syndrome Anxiety and depression Vitamin D deficiency Erectile dysfunction GERD (gastroesophageal reflux disease) Hypercholesterolemia Chronic left shoulder pain Surgical History H/O total adrenalectomy History of kidney surgery H/O arthroscopic knee surgery H/O oral surgery History of tonsillectomy History of nasal surgery Family History Father Myocardial infarct Colon cancer Mother Lung cancer Depression Brother Substance abuse Social History Household Members: Other Household Members Other:: Rents a room out of a house with 3 other people Housing: House Do you presently have visiting nurse or other home services: No Alcohol intake: current Alcohol intake frequency: does not drink Patient Tobacco Use Status: Never used Tobacco Tobacco use type: Cigarette e-Cigarette/Vaping Use: Never Used Second Hand Smoke Exposure: No Substance Use Type: Crack/Cocaine service: No Current occupational status: employed 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 1. Little interest or pleasure in doing things: nearly every day 2. Feeling down, depressed, or hopeless: nearly every day 3. Trouble falling or staying asleep, or sleeping too much: nearly every day 4. Feeling tired or having little energy: nearly every day 5. Poor appetite or overeating: not at all 6. Feeling bad about yourself - or that you are a failure or have let yourself o r your family down: nearly every day 7. Trouble concentrating on things, such as reading the newspaper or watching television: nearly every day 8. Moving or speaking so slowly that other people could have noticed. Or the opposite - being so fidgety or restless that you have been moving around a lot more than usual: not at all 9. Thoughts that you would be better off or of hurting yourself in some way: not at all Total score: 18 Depression Screening Interpretation: Positive Depression Screening Follow-up: In treatment Depression Screening Done: Yes 53268 - PHQ-9 Billing: Yes Source: Developed by Drs. Angel Simpson, Calli Zaidi, Bijan Mcintyre and colleagues, with an educational vishnu from [employer]. Thrive Questionnaire Date Thrive assessed: 04/13/24 I am a: Patient What is your living situation today?: I have a steady place to live Within the past 12 months, did the food you bought not last and you didn't have the money to get more?: Never true Within the past 12 months, did you worry whether your food would run out before you got money to buy more?: Never true Do you have trouble paying for medicines?: No Do you have trouble getting transportation to medical appointments?: No Do you have trouble paying your heating and electricity bill?: No Do you have trouble taking care of your child, family member or friend?: No Do you have trouble with day-to-day activities such as bathing, preparing meals, shopping, managing finances, etc.?: No Are you currently unemployed and looking for a job?: No Are you interested in more education?: No Currently or been in a relationship where the following occur: No concerns reported THRIVE Score: 0 AUDIT C Alcohol Use Questionnaire (AUDIT-C) 1. How often do you have a drink containing alcohol?: Monthly or less 2. How many drinks containing alcohol do you have on a typical day when you are drinking?: 1 or 2 3. How often do you have six or more drinks on one occasion?: Never Total Score: 1 Score Reviewed/Action Taken: No SAVANAH-7 AMB Questionnaire SAVANAH-7 Date SAVANAH - 7 assessed: 04/13/24 Feeling nervous, anxious, or on edge: 0 = Not at all Not being able to stop or control worryin = Not at all Worrying too much about different things: 0 = Not at all Trouble relaxin = Not at all Being so restless that it is hard to sit still: 0 = Not at all Becoming easily annoyed or irritable: 0 = Not at all Feeling afraid as if something awful might happen: 0 = Not at all Total SAVANAH-7 score (0-4 normal; 5-9 mild; 10-14 moderate; 15-21 severe): 0 Source: Developed by Drs. Angel Simpson, Calli Zaidi, Bijan Mcintyre and colleagues, with an educational vishnu from [employer]. Physical exam (Primary Care) Vital Signs: Last Vital Signs Pulse 75 04/13/24 14:43 BP 136/80 04/13/24 14:43 Pulse Ox 97 04/13/24 14:43 Oxygen Delivery Method Room Air 04/13/24 14:43 BMI result Body Mass Index 30.8 Tobacco/Smoking Status: Tobacco use Status Tobacco use date assessed 04/13/24 04/13/24 14:50 Patient Tobacco Use Status Never used Tobacco 04/13/24 14:50 Tobacco use type Cigarette 04/13/24 14:50 e-Cigarette/Vaping Use Never Used 04/13/24 14:50 PHQ-9: PHQ-9 Score PHQ-9: Total score 18 04/13/24 14:50 Depression Screening Interpretation: Positive Depression Screening Follow-up: In treatment Thrive Assessment: Date of Thrive Assessment Date Thrive assessed 04/13/24 04/13/24 14:50 Currently or been in a relationship where the following occur: No concerns reported Const General: alert; No acute distress Eyes Conjunctivae: conjunctivae normal Resp Auscultation: clear to auscultation bilaterally Cardio Rate: regular rate Rhythm: regular rhythm GI Inspection: Yes normal to inspection Extrem General: Yes normal to inspection and No edema Coding Level of Care Code Est Pt Level 4 (03705) Diagnoses Tubular adenoma of colon D12.6 Generalized anxiety disorder F41.1 GERD (gastroesophageal reflux disease) K21.9 Hypercholesterolemia E78.00 Additional Codes PHQ-9 - 77120 - PHQ-9 Billing: Yes ([id number]) Assessment & Plan Assessment & Plan (1) Tubular adenoma of colon: Comment: 01/2023 scope= 2 TA is repeat in 5 years Code(s): D12.6 - Benign neoplasm of colon, unspecified Category: Medical Plan: Continue to follow-up with Gastroenterology (2) Generalized anxiety disorder: Comment: [facility] counselling Code(s): F41.1 - Generalized anxiety disorder Category: Medical Plan: Continue with counseling and therapy (3) GERD (gastroesophageal reflux disease): Code(s): K21.9 - Gastro-esophageal reflux disease without esophagitis Category: Medical Plan: Avoid the foods that causes that usually spicy foods, tomato products, juices, coffee, soda and foods that your sensitive to. After eating do not lie down, allow 3-4 hours before in lie down. And keep the head of bed above 30 degrees to avoid the acid from going up. (4) Hypercholesterolemia: Code(s): E78.00 - Pure hypercholesterolemia, unspecified Category: Medical Plan: Avoid fried foods, chicken skin, eggs, butter margarine, pastries and meat. Be it pork or beef they have a lot of cholesterol LDL goal of less than 130 and triglyceride of less than 150 Plan - Continue monitoring and managing hypercholesterolemia with an LDL goal of less than 130 mg/dL and triglyceride goal of less than 150 mg/dL. - Regular follow-up with gastroenterology to manage GERD. - Continue therapy and evaluation for generalized anxiety disorder and depression, including the previously discussed ECT. - Maintain ongoing counseling and therapy sessions to support mental health. - Review past colonoscopic findings of tubular adenoma and plan for appropriate surveillance. - Monitor overall health status periodically as per routine wellness care, ad dressing any arising concerns during follow-up visits. Orders: Orders Comprehensive Met. Panel 3 Months E78.00 - Pure hypercholesterolemia, unspecified Lipid Panel 3 Months E78.00 - Pure hypercholesterolemia, unspecified Medications: Refilled docusate sodium 100 mg PO TID 90 caps 0RF lisinopril 5 mg See Protocol PO DAILY 90 tabs 0RF
--- OUTSIDE RECORDS SUMMARY | 2024-04-13 14:43 | XMS_ITS | Patient Health Record ---
Author Organization [facility] Address [address] [place] [id number] Care Team Providers Care Toxicology Supervisor Name Role Phone Delvin Carrasquillo MD Primary Care Provider Americo Del Real Jr Unavailable [phone] ALLERGIES Allergen (clinical drug ingredient) Drug/Non [...] Once a day for 30 day(s) 06/01/2013 02/29/2024 Active traZODone HCl 100mg Active Prevacid 30 MG 1 capsule before a m eal Orally Once a day for 30 day(s) 06/08/2013 02/29/2024 Active SOCIAL HISTORY Sex Assigned At : Social History Observation Description Sex Assigned At Unknown PROBLEMS Problem Type ICD Code Onset Dates Problem Status W/U Status Risk SNOMED Code Notes Problem Epigastric pain (789.06) Active confirmed Epigastric pain (50534065) PLAN OF TREATMENT Pending Test Test Name Order Date XR GI SERIES 06/01/2013 Insurance Providers Payer Name Payer Address Payer Phone Subscriber Number Group Number Insured Name Patient Relationship to Insured Coverage Start Date Coverage End Date [employer] [address] [place] [address] [id number] JOEL GILL Self - patient is the insured MEDICAL (GENERAL) HISTORY Medical History History ICD Code Denies [place],DM,CVA,Lung disease,renal dise ase PUD Surgical History Surgery Date(Month/Year) left arm surgery rhinoplasty toe surgery
== END 2024-04-13 15:07 | disposition home or self-care (01) ==
PROVIDERS: PCP Internal Medicine; Visit Provider Internal Medicine
DX: D12.6 Benign neoplasm of colon, unspecified (principal); F41.1 Generalized anxiety disorder; K21.9 Gastro-esophageal reflux disease without esophagitis; E78.00 Pure hypercholesterolemia, unspecified

== ENCOUNTER → 2024-04-13 14:41 | Outpatient (BNVA) | payer OTHER, SELFPAY | PROVIDERS: PCP Internal Medicine; Visit Provider Internal Medicine | DX: D12.6 Benign neoplasm of colon, unspecified (principal); F41.1 Generalized anxiety disorder; K21.9 Gastro-esophageal reflux disease without esophagitis; E78.00 Pure hypercholesterolemia, unspecified | CPT/HCPCS: 96127; 99212 ==